=== PATIENT | male | born 1950 | race Caucasian/White ===

== ENCOUNTER 2019-11-08 17:06 | Emergency (ER) | payer OTHER, MEDICARE ==
[2019-11-08] MEDS ORDERED: methylPREDNISolone Sodium Succinate 125 MG/2 ML SDV IVPUSH ONE (17:11)
[2019-11-08] MEDS ORDERED: Albuterol/Ipratropium 3.0-0.5 MG/3 ML Neb Soln NEB ONE ×3 (17:11→17:40)
[2019-11-08] MEDS ORDERED: Albuterol/Ipratropium 3.0-0.5 MG/3 ML Neb Soln ONE (17:12)
[2019-11-08] MEDS ORDERED: methylPREDNISolone Sodium Succinate 125 MG/2 ML SDV ONE (17:12)
[2019-11-08] MEDS ORDERED: Magnesium Sulfate/Water 50 ML ONE (17:13)
[2019-11-08] MEDS ORDERED: Magnesium Sulfate/Water 2 GM in Premix Bag 1 BAG IV ONE (17:13)
[2019-11-08] MEDS ORDERED: Sodium Chloride 0.9% 2.5 ML Syringe FLUSH PRN (17:37)
[2019-11-08] MEDS ORDERED: Sodium Chloride 0.9% 10 ML Syringe FLUSH PRN (17:37)
--- NOTE | 2019-11-08 17:52 | EDM.PDOC ---
ED HPI GENERAL MEDICAL PROBLEM - General Chief Complaint: Respiratory Problem Stated Complaint: CHEST PAIN Time Seen by Provider: 11/08/19 17:48 Source of Information: Reports: Patient, Family History Limitations: Reports: Respiratory Distress - History of Present Illness INITIAL COMMENTS - FREE TEXT/NARRATIVE: Patient is a 69-year-old male with a past medical history of MS, COPD, CHF presenting with a chief complaint of shortness of breath. Per patient's , they were in my not earlier today for a dermatology appointment. On the ride home, the patient felt progressively more short of breath. Patient got to the point where he cannot leave the car because he is extremely short of breath. Patient did not do any intervention. Patient is on home oxygen and felt increasingly short of breath over this past week as well. Denies any chest pain at this time. Patient unable to catch her breath. Nothing makes symptoms better or worse. Patient denies any prior history of intubation. In addition to that documented in the HPI above, the additional ROS was obtained : Constitutional: Denies fevers or chills Eyes: Denies vision changes ENMT: Denies sore throat CV: Denies chest pain Resp: Per HPI GI: Denies vomiting or diarrhea : Denies painful urination MSK: Denies recent trauma Skin: Denies new rashes Neuro: Denies new numbness or tingling or weakness Endocrine: Denies unexpected weight loss Heme: Denies bleeding disorders I have reviewed the triage vital signs Const: Toxic and ashen in appearance, patient is cyanotic Eyes: PERRL, no conjunctival injection HENT: NCAT, Neck supple without meningismus CV: RRR, Warm, well-perfused extremities RESP: Respiratory distress, increased effort using accessory muscles with diffuse scattered wheezes GI: soft, non-tender, non-distended, no masses MSK: No gross deformities appreciated Skin: Warm, dry. No rashes Neuro: Alert, departmental buyer II-XII grossly intact. Sensation and motor function of extremities grossly intact. Psych: Appropriate mood and affect Assessment and plan: Patient is examined on male presenting with COPD exacerbation. Patient had diffuse wheeze on arrival initially tolerated BiPAP well but started to tire out and is ABG worsened. Patient required intubation for respiratory failure. Patient's labs are noted and were otherwise normal other than his worsening ABG. Intubation went without failure. Tube confirmed on chest x-ray. Will be transferred to [facility] for ICU level of care. Case discussed with Dr. Stallings who accepted the patient. Critical Care Procedure Note Authorized and Performed by: Dr. Judge Total critical care time: Approximately 45 minutes Due to a high probability of clinically significant, life threatening deterioration, the patient required my highest level of preparedness to intervene emergently and I personally spent this critical care time directly and personally managing the patient. This critical care time included obtaining a history; examining the patient; pulse oximetry; ordering and review of studies ; arranging urgent treatment with development of a management plan; evaluation of patient's response to treatment; frequent reassessment; and, discussions with other providers. This critical care time was performed to assess and manage the high probability of imminent, life-threatening deterioration that could result in multi-organ failure. It was exclusive of separately billable procedures and treating other patients and teaching time. Please see MDM section and the rest of the note for further information on patient assessment and treatment. - Related Data Allergies Allergy/AdvReac Type Severity Reaction Status Date / Time codeine Allergy Cannot Verified 11/08/19 17:58 Remember Home Meds: Home Meds . [Unable to Verify Home Med List] 11/08/19 [History] ED ROS GENERAL - Review of Systems Review Of Systems: See Below ED EXAM, GENERAL - Physical Exam Exam: See Below ED RESPIRATORY PROCEDURES - Endotracheal Intubation Time of Intubation: 18:35 ET Intubation Indication: Respiratory Failure Preparation: Suction, Balloon Tested, BVM Set Up, Difficult Airway Equip Pre-Oxygenation: Assisted with BVM, 100% FiO2 Anesthesia Meds: Etomidate, Rocuronium Placement: Orotracheal Cords Visualized: Yes ETT Size In mm: 8.0 Number of Attempts: 1 Confirmed By: CO2 Indicator, Bilateral Breath Sounds, Chest Xray Tube Secured By: By RT Course - Vital Signs Last Recorded V/S: Last Vital Signs Temp 35.8 C 11/08/19 17:12 Pulse 56 L 11/08/19 17:12 Resp 30 H 11/08/19 17:12 BP 127/81 11/08/19 17:12 Pulse Ox 50 L 11/08/19 17:12 - Orders/Labs/Meds Orders: Active Orders 24 hr Category Date Time Status RT Aerosol Therapy [RC] ASDIRECTED Care 11/08/19 17:11 Active RT Aerosol Therapy [RC] ASDIRECTED Care 11/08/19 17:39 Active RT Aerosol Therapy [RC] ASDIRECTED Care 11/08/19 17:40 Active Chest 1V Frontal [CR] Stat Exams 11/08/19 18:35 Taken Sodium Chloride 0.9% [Saline Flush] Med 11/08/19 17:37 Active 10 ml FLUSH ASDIRECTED PRN Sodium Chloride 0.9% [Saline Flush] Med 11/08/19 17:37 Active 2.5 ml FLUSH ASDIRECTED PRN Saline Lock Insert [OM.PC] Stat Oth 11/08/19 17:37 Ordered Medication Orders Sodium Chloride (Saline Flush) 10 ml FLUSH ASDIRECTED PRN PRN Reason: Keep Vein Open Sodium Chloride (Saline Flush) 2.5 ml FLUSH ASDIRECTED PRN PRN Reason: Keep Vein Open Labs: Laboratory Tests 11/08/19 11/08/19 11/08/19 Range/Units 17:13 17:13 17:13 WBC 7.49 (4.0-11.0) K/uL RBC 4.52 (4.50-5.90) M/uL Hgb 13.2 (13.0-17.0) g/dL Hct 41.3 (38.0-50.0) % MCV 91.4 (80.0-98.0) fL MCH 29.2 (27.0-32.0) pg MCHC 32.0 (31.0-37.0) g/dL RDW Std Deviation 61.4 (28.0-62.0) fl RDW Coeff of Dalton 18 H (11.0-15.0) % Plt Count 178 (150-400) K/uL MPV 9.60 (7.40-12.00) fL Neut % (Auto) 57.5 (48.0-80.0) % Lymph % (Auto) 23.9 (16.0-40.0) % Adams % (Auto) 16.4 H (0.0-15.0) % Eos % (Auto) 1.7 (0.0-7.0) % Baso % (Auto) 0.5 (0.0-1.5) % Neut # (Auto) 4.3 (1.4-5.7) K/uL Lymph # (Auto) 1.8 (0.6-2.4) K/uL Adams # (Auto) 1.2 H (0.0-0.8) K/uL Eos # (Auto) 0.1 (0.0-0.7) K/uL Baso # (Auto) 0.0 (0.0-0.1) K/uL Nucleated RBC % 0.0 /100WBC Nucleated RBCs # 0 K/uL ABG pH (7.35-7.45) ABG pCO2 (35-45) mmHG ABG pO2 (75-100) mmHG ABG HCO3 (22-26) mEq/L ABG Total CO2 ABG Base Excess (-2.0-2.0) VBG pH 7.32 (7.31-7.41) VBG pCO2 79 H (35-45) mmHG VBG pO2 27 L (30-40) mmHG VBG HCO3 40 H (22-30) mEq/L VBG Total CO2 38 L (41-51) mmol/L VBG Base Excess 10.9 H (-3.0-3.0) Lactate 3.0 H* (0.20-2.00) mmol/L Sodium (136-148) mmol/L Potassium (3.5-5.1) mmol/L Chloride (98-107) mmol/L Carbon Dioxide (21.0-32.0) mmol/L BUN (7.0-18.0) mg/dL Creatinine (0.8-1.3) mg/dL Est Cr Clr Drug Dosing Estimated GFR (MDRD) ml/min Glucose (74-106) mg/dL Calcium (8.5-10.1) mg/dL Total Bilirubin (0.2-1.0) mg/dL AST (15-37) IU/L ALT (14-63) IU/L Alkaline Phosphatase (46-116) U/L Troponin I (0.000-0.056) ng/mL B-Natriuretic Peptide (<100) PG/ML Total Protein (6.4-8.2) g/dL Albumin (3.4-5.0) g/dL Globulin (2.6-4.0) g/dL Albumin/Globulin Ratio (0.9-1.6) 11/08/19 11/08/19 11/08/19 Range/Units 17:13 17:13 18:02 WBC (4.0-11.0) K/uL RBC (4.50-5.90) M/uL Hgb (13.0-17.0) g/dL Hct (38.0-50.0) % MCV (80.0-98.0) fL MCH (27.0-32.0) pg MCHC (31.0-37.0) g/dL RDW Std Deviation (28.0-62.0) fl RDW Coeff of Dalton (11.0-15.0) % Plt Count (150-400) K/uL MPV (7.40-12.00) fL Neut % (Auto) (48.0-80.0) % Lymph % (Auto) (16.0-40.0) % Adams % (Auto) (0.0-15.0) % Eos % (Auto) (0.0-7.0) % Baso % (Auto) (0.0-1.5) % Neut # (Auto) (1.4-5.7) K/uL Lymph # (Auto) (0.6-2.4) K/uL Adams # (Auto) (0.0-0.8) K/uL Eos # (Auto) (0.0-0.7) K/uL Baso # (Auto) (0.0-0.1) K/uL Nucleated RBC % /100WBC Nucleated RBCs # K/uL ABG pH 7.265 L (7.35-7.45) ABG pCO2 94 H (35-45) mmHG ABG pO2 267 H (75-100) mmHG ABG HCO3 43 H (22-26) mEq/L ABG Total CO2 39.6 ABG Base Excess 11.7 H (-2.0-2.0) VBG pH (7.31-7.41) VBG pCO2 (35-45) mmHG VBG pO2 (30-40) mmHG VBG HCO3 (22-30) mEq/L VBG Total CO2 (41-51) mmol/L VBG Base Excess (-3.0-3.0) Lactate (0.20-2.00) mmol/L Sodium 137 (136-148) mmol/L Potassium 5.5 H (3.5-5.1) mmol/L Chloride 97 L (98-107) mmol/L Carbon Dioxide 37.4 H (21.0-32.0) mmol/L BUN 16 (7.0-18.0) mg/dL Creatinine 0.8 (0.8-1.3) mg/dL Est Cr Clr Drug Dosing TNP Estimated GFR (MDRD) > 60.0 ml/min Glucose 217 H (74-106) mg/dL Calcium 9.0 (8.5-10.1) mg/dL Total Bilirubin 0.4 (0.2-1.0) mg/dL AST 21 (15-37) IU/L ALT 26 (14-63) IU/L Alkaline Phosphatase 75 (46-116) U/L Troponin I < 0.050 (0.000-0.056) ng/mL B-Natriuretic Peptide 254 H (<100) PG/ML Total Protein 8.3 H (6.4-8.2) g/dL Albumin 3.5 (3.4-5.0) g/dL Globulin 4.8 H (2.6-4.0) g/dL Albumin/Globulin Ratio 0.7 L (0.9-1.6) Meds: Medications Generic Name Dose Route Start Last Admin Trade Name Freq PRN Reason Stop Dose Admin Sodium Chloride 10 ml 11/08/19 17:37 Saline Flush FLUSH ASDIRECTED PRN Keep Vein Open Sodium Chloride 2.5 ml 11/08/19 17:37 Saline Flush FLUSH ASDIRECTED PRN Keep Vein Open Discontinued Medications Generic Name Dose Route Start Last Admin Trade Name Freq PRN Reason Stop Dose Admin Albuterol/Ipratropium 3 ml 11/08/19 17:11 11/08/19 17:39 Duoneb 3.0-0.5 Mg/3 Ml NEB 11/08/19 17:12 3 ml ONETIME ONE Administration Albuterol/Ipratropium Confirm 11/08/19 17:12 11/08/19 17:39 Duoneb 3.0-0.5 Mg/3 Ml Administered 11/08/19 17:13 Not Given Dose 3 ml .ROUTE .STK-MED ONE Albuterol/Ipratropium 3 ml 11/08/19 17:39 11/08/19 17:40 Duoneb 3.0-0.5 Mg/3 Ml NEB 11/08/19 17:40 3 ml ONETIME ONE Administration Albuterol/Ipratropium 3 ml 11/08/19 17:40 11/08/19 17:46 Duoneb 3.0-0.5 Mg/3 Ml NEB 11/08/19 17:41 3 ml ONETIME ONE Administration Etomidate 30 mg 11/08/19 18:18 Amidate IVPUSH 11/08/19 18:19 ONETIME ONE Magnesium Sulfate 2 gm/ Premix 50 mls @ 50 mls/hr 11/08/19 17:13 11/08/19 17: 46 IV 11/08/19 18:12 50 mls/hr ONETIME ONE Administration Magnesium Sulfate Confirm 11/08/19 17:13 11/08/19 17:39 Magnesium Sulfate In Water Premix Administered 11/08/19 17:14 Not Given Dose 50 mls @ as directed .ROUTE .STK-MED ONE Propofol Confirm 11/08/19 18:19 Diprivan 100 Ml Administered 11/08/19 18:20 Dose 100 mls @ as directed .ROUTE .STK-MED ONE Methylprednisolone Sodium Succinate 125 mg 11/08/19 17:11 11/08/19 17:46 Solu-Medrol IVPUSH 11/08/19 17:12 125 mg ONETIME ONE Administration Methylprednisolone Sodium Succinate Confirm 11/08/19 17:12 11/08/19 17:39 Solu-Medrol Administered 11/08/19 17:13 Not Given Dose 125 mg .ROUTE .STK-MED ONE Rocuronium [place] 60 mg 11/08/19 18:18 Zemuron IVPUSH 11/08/19 18:19 ONETIME ONE Departure - Departure Time of Disposition: 19:04 Disposition: DC/Tfer to Other 70 Preliminary Cause of *Q: Respiratory Failure Clinical Impression: COPD (chronic obstructive pulmonary disease) - Discharge Information Referrals: PCP,None [Primary Care Provider] - Forms: ED Department Discharge Sepsis Event Note - Focused Exam Vital Signs: Vital Signs Temp Pulse Resp BP Pulse Ox 11/08/19 17:12 35.8 C 56 L 30 H 127/81 50 L Date Exam was Performed: 11/08/19 Time Exam was Performed: 19:07 - My Orders Last 24 Hours: My Active Orders 11/08/19 17:11 RT Aerosol Therapy [RC] ASDIRECTED 11/08/19 17:37 Sodium Chloride 0.9% [Saline Flush] 10 ml FLUSH ASDIRECTED PRN Sodium Chloride 0.9% [Saline Flush] 2.5 ml FLUSH ASDIRECTED PRN Saline Lock Insert [OM.PC] Stat 11/08/19 17:39 RT Aerosol Therapy [RC] ASDIRECTED 11/08/19 17:40 RT Aerosol Therapy [RC] ASDIRECTED 11/08/19 18:35 Chest 1V Frontal [CR] Stat - Assessment/Plan Last 24 Hours: My Active Orders 11/08/19 17:11 RT Aerosol Therapy [RC] ASDIRECTED 11/08/19 17:37 Sodium Chloride 0.9% [Saline Flush] 10 ml FLUSH ASDIRECTED PRN Sodium Chloride 0.9% [Saline Flush] 2.5 ml FLUSH ASDIRECTED PRN Saline Lock Insert [OM.PC] Stat 11/08/19 17:39 RT Aerosol Therapy [RC] ASDIRECTED 11/08/19 17:40 RT Aerosol Therapy [RC] ASDIRECTED 11/08/19 18:35 Chest 1V Frontal [CR] Stat
--- NOTE | 2019-11-08 17:57 | CR ---
Chest: Portable view of the chest was obtained. Comparison: No previous chest x-ray. Right lung appears more lucent than the left lung. Findings may represent unilateral emphysematous change. Increased lung markings on the left side could represent mild pulmonary vascular redistribution. No acute parenchymal process is otherwise seen. Heart size at the upper limits of normal. Tortuous thoracic aorta is noted. Impression: 1. Findings as noted above. If patient has sufficient symptoms to warrant further imaging, noncontrast chest CT could be obtained to confirm the above impression. Diagnostic code #3 Study was dictated in [place] Standard Time
[2019-11-08 17:58] LABS: BLOOD UREA NITROGEN,BUN 16 mg/dL (7.0-18.0); CARBON DIOXIDE,CO2 37.4 mmol/L (21.0-32.0); CHLORIDE,CL 97 mmol/L (98-107); GLUCOSE RANDOM 217 mg/dL (74-106); POTASSIUM,K 5.5 mmol/L (3.5-5.1); SODIUM,NA 137 mmol/L (136-148)
[2019-11-08] MEDS ORDERED: Rocuronium 50 MG/5 ML Vial IVPUSH ONE (18:18)
[2019-11-08] MEDS ORDERED: Etomidate 2 MG/ML 20 ML SDV IVPUSH ONE (18:18)
[2019-11-08] MEDS ORDERED: propofoL 100 ML ONE (18:19)
[2019-11-08] MEDS ORDERED: Sodium Chloride 0.9% 1,000 ML IV ONE (18:30)
[2019-11-08] MEDS ORDERED: propofoL 100 ML IV SCH (18:30)
--- NOTE | 2019-11-08 19:13 | CR ---
Indication: Intubation Technique: Chest 1 view Comparison: None Findings/Impression: Endotracheal tube tip terminates 3.6 cm above the level of the gerry. A gastric drainage tube tip is coiled at the level of the mid esophagus. Normal cardiomediastinal silhouette. Dual lead left-sided AICD. Lungs and pleural spaces are clear. Dictated by Ester Gordillo MD @ Nov 08 2019 7:12PM Signed by Dr. Ester Gordillo @ Nov 08 2019 7:12PM
== END 2019-11-08 19:06 | disposition other institution (70) ==
LOC: MW.ED 17:06
DX: J44.1 Chronic obstructive pulmonary disease with (acute) exacerbation (principal); I50.9 Heart failure, unspecified; Z99.81 Dependence on supplemental oxygen; Z88.5 Allergy status to narcotic agent
CPT/HCPCS: 31500; 36600; 51702; 71045; 80053; 82803; 83605; 83880; 84484; 85025; 93005; 94640; 96365; 96375; 99291; 99292; J2704; J2930; J3475; J3490; J7030; J7620-GY

== ENCOUNTER 2020-04-25 07:31 | Emergency (ER) | payer MEDICARE, OTHER ==
--- NOTE | 2020-04-25 07:36 | EDM.PDOC ---
ED HPI GENERAL MEDICAL PROBLEM - General Stated Complaint: TROUBLE URINATING Time Seen by Provider: 04/25/20 07:34 Source of Information: Reports: Patient - History of Present Illness INITIAL COMMENTS - FREE TEXT/NARRATIVE: 69-year-old male with multiple medical problems most notable for COPD on continuous home oxygen as well as CAD. He is presenting with constant gradually worsening severe lower abdominal discomfort radiating to the bilateral flanks. Patient reports he has not urinated in 8 days. He reports a history of difficulty urinating with weak stream etc. This is been going on for years. He was at a hospital in [place] a little over a week ago for a coronary angiogram. Reports that during that time he did have acute urinary retention. They did an in and out catheterization with a little over a liter in his bladder at that time. He reports he was not discharged with a catheter in place. Symptoms are constant gradually worsening no exacerbating or alleviating factors and no other associated symptoms denies fevers. Penis Pain Score (Numeric/FACES): 8 - Related Data Allergies Allergy/AdvReac Type Severity Reaction Status Date / Time codeine Allergy Cannot Verified 11/08/19 17:58 Remember Home Meds: Home Meds . [Unable to Verify Home Med List] 11/08/19 [History] Past Medical History Cardiovascular History: Reports: Heart Failure, Pacemaker Respiratory History: Reports: COPD, Other (See Below) Other Respiratory History: Home O2 as of Jul 2019 Other Musculoskeletal History: Unsteady Gait per Neurological History: Reports: MS - Infectious Disease History Infectious Disease History: Reports: Chicken Pox, Measles Social & Family History - Family History Family Medical History: Noncontributory ED ROS GENERAL - Review of Systems Review Of Systems: See Below Free Text/Narrative/Comment: General: No fever. Respiratory: No shortness of breath. Cardiac: No chest pain. Gastrointestinal: No nausea, vomiting or abdominal pain. Urinary: Per HPI Musculoskeletal: No myalgias/arthralgias. Neurologic: No headache. ED EXAM, GENERAL - Physical Exam Exam: See Below Free Text/Narrative:: General Appearance: No acute distress, appears comfortable Skin: No rash HEENT: Normocephalic/atraumatic, sclera anicteric, mucous membranes moist Neck: Normal range of motion Chest and Lungs: Distant breath sounds throughout Cardiovascular: Regular rate and rhythm, no murmur Abdomen: Soft, suprapubic and generalized lower abdominal fullness and tenderness Back: Normal Musculoskeletal: No edema or tenderness Neurologic: Awake, alert, no obvious deficits, moving all extremities Psychiatric: Appropriate, cooperative Course - Vital Signs Last Recorded V/S: Last Vital Signs Temp 98.0 F 04/25/20 07:42 Pulse 67 04/25/20 07:42 Resp 22 H 04/25/20 07:42 BP 100/60 04/25/20 07:42 Pulse Ox 99 04/25/20 07:42 - Orders/Labs/Meds Orders: Active Orders 24 hr Category Date Time Status Insert Perkins Catheter [Insert Urinary Catheter] [OM.PC] Care 04/25/20 08:00 Ordered Q24H Urinary Catheter Assessment [RC] ASDIRECTED Care 04/25/20 07:50 Active Labs: Laboratory Tests 04/25/20 04/25/20 04/25/20 Range/Units 07:55 07:55 08:29 WBC 16.92 H (4.0-11.0) K/uL RBC 4.27 L (4.50-5.90) M/uL Hgb 11.9 L (13.0-17.0) g/dL Hct 38.4 (38.0-50.0) % MCV 89.9 (80.0-98.0) fL MCH 27.9 (27.0-32.0) pg MCHC 31.0 (31.0-37.0) g/dL RDW Std Deviation 56.4 (28.0-62.0) fl RDW Coeff of Dalton 17 H (11.0-15.0) % Plt Count 213 (150-400) K/uL MPV 9.40 (7.40-12.00) fL Add Manual Diff YES Neutrophils % (Manual) 75 (48.0-80.0) % Band Neutrophils % 5 % Lymphocytes % (Manual) 11 L (16.0-40.0) % Monocytes % (Manual) 9 (0.0-15.0) % Nucleated RBC % 0.0 /100WBC Absolute Seg Neuts 12.7 H (1.4-5.7) Band Neutrophils # 0.8 Lymphocytes # (Manual) 1.9 (0.6-2.4) Monocytes # (Manual) 1.5 H (0.0-0.8) Nucleated RBCs # 0 K/uL Sodium 137 (136-148) mmol/L Potassium 4.1 (3.5-5.1) mmol/L Chloride 94 L (98-107) mmol/L Carbon Dioxide 42.3 H (21.0-32.0) mmol/L BUN 19 H (7.0-18.0) mg/dL Creatinine 0.8 (0.8-1.3) mg/dL Est Cr Clr Drug Dosing TNP Estimated GFR (MDRD) > 60.0 ml/min Glucose 124 H (74-106) mg/dL Calcium 9.5 (8.5-10.1) mg/dL Urine Color YELLOW Urine Appearance CLEAR Urine pH 7.0 (5.0-8.0) Ur Specific [place] 1.015 (1.001-1.035) Urine Protein NEGATIVE (NEGATIVE) mg/dL Urine Glucose (UA) NEGATIVE (NEGATIVE) mg/dL Urine Ketones NEGATIVE (NEGATIVE) mg/dL Urine Occult Blood NEGATIVE (NEGATIVE) Urine Nitrite NEGATIVE (NEGATIVE) Urine Bilirubin NEGATIVE (NEGATIVE) Urine Urobilinogen 2.0 H (<2.0) EU/dL Ur Leukocyte Esterase TRACE H (NEGATIVE) Urine RBC RARE (0-2/HPF) Urine WBC 4-6 (0-5/HPF) Ur Epithelial Cells RARE (NONE-FEW) Urine Bacteria RARE (NEGATIVE) Urine Mucus LIGHT (NONE-MOD) Urine Sperm FEW (NEGATIVE) Departure - Departure Time of Disposition: 08:56 Disposition: Home, Self-Care 01 Condition: Good Clinical Impression: Acute urinary retention - Discharge Information *PRESCRIPTION DRUG MONITORING PROGRAM REVIEWED*: Not Applicable *COPY OF PRESCRIPTION DRUG MONITORING REPORT IN PATIENT INES: Not Applicable Instructions: Indwelling Urinary Catheter Care, Adult, Acute Urinary Retention, Male Referrals: [facility] [Primary Care Provider] - Additional Instructions: Be sure to [facility] as scheduled. The following information is given to patients seen in the emergency department who are being discharged to home. This information is to outline your options for follow-up care. We provide all patients seen in our emergency department with a follow-up referral. The need for follow-up, as well as the timing and circumstances, are variable depending upon the specifics of your emergency department visit. If you don't have a primary care physician on staff, we will provide you with a referral. We always advise you to contact your personal physician following an emergency department visit to inform them of the circumstance of the visit and for follow-up with them and/or the need for any referrals to a consulting specialist. The emergency department will also refer you to a specialist when appropriate. This referral assures that you have the opportunity for follow-up care with a specialist. All of these measure are taken in an effort to provide you with optimal care, which includes your follow-up. Under all circumstances we always encourage you to contact your private physician who remains a resource for coordinating your care. When calling for follow-up care, please make the office aware that this follow-up is from your recent emergency room visit. If for any reason you are refused follow-up, please contact the [facility] Emergency Department at and asked to speak to the emergency department charge nurse. Sepsis Event Note (ED) - Focused Exam Vital Signs: Vital Signs Temp Pulse Resp BP Pulse Ox 04/25/20 07:42 98.0 F 67 22 H 100/60 99 - My Orders Last 24 Hours: My Active Orders 04/25/20 07:50 Urinary Catheter Assessment [RC] ASDIRECTED 04/25/20 08:00 Insert Perkins Catheter [Insert Urinary Catheter] [OM.PC] Q24H - Assessment/Plan Last 24 Hours: My Active Orders 04/25/20 07:50 Urinary Catheter Assessment [RC] ASDIRECTED 04/25/20 08:00 Insert Perkins Catheter [Insert Urinary Catheter] [OM.PC] Q24H Assessment:: 69-year-old male presenting with signs and symptoms that are most consistent with acute urinary retention. Perkins catheter will be placed. CBC, BMP, urinalysis to exclude urinary tract infection and to evaluate for any significant JUAN M. Other potential etiologies considered including appendicitis diverticulitis etc. But there is no GI symptoms associated with this. His clinical history and exam are consistent with acute urinary retention. Bladder spasm would be a consideration as well. However the lack of urine output would seem to make this less likely. Will reassess after Perkins catheter placement. Pt with 1200ml immediate output on perkins insertion. 0900: Minimal leukocytosis likely reactive. No fevers symptoms resolved with Perkins placement urinalysis is good kidney function is good electrolytes are good. Return precautions discussed and understood patient discharged with a leg bag he already has [facility] days.
[2020-04-25 08:21] LABS: BLOOD UREA NITROGEN,BUN 19 mg/dL (7.0-18.0); CARBON DIOXIDE,CO2 42.3 mmol/L (21.0-32.0); CHLORIDE,CL 94 mmol/L (98-107); GLUCOSE RANDOM 124 mg/dL (74-106); POTASSIUM,K 4.1 mmol/L (3.5-5.1); SODIUM,NA 137 mmol/L (136-148)
== END 2020-04-25 09:20 | disposition home or self-care (01) ==
LOC: MW.ED 07:31
DX: R33.9 Retention of urine, unspecified (principal); I50.9 Heart failure, unspecified; J44.9 Chronic obstructive pulmonary disease, unspecified; I25.10 Atherosclerotic heart disease of native coronary artery without angina pectoris; Z99.81 Dependence on supplemental oxygen; Z88.5 Allergy status to narcotic agent
CPT/HCPCS: 36415; 51702; 51798; 80048; 81001; 85025; 99284

== ENCOUNTER 2020-05-14 11:06 | Observation (INO) | payer MEDICARE, OTHER ==
[2020-05-14] MEDS ORDERED: Albuterol/Ipratropium 3.0-0.5 MG/3 ML Neb Soln ONE (11:10)
[2020-05-14] MEDS ORDERED: Albuterol/Ipratropium 3.0-0.5 MG/3 ML Neb Soln NEB ONE (11:12)
[2020-05-14] MEDS ORDERED: Sodium Chloride 0.9% 10 ML Syringe FLUSH PRN (11:15)
[2020-05-14] MEDS ORDERED: methylPREDNISolone Sodium Succinate 125 MG/2 ML SDV IVPUSH ONE (11:15)
[2020-05-14] MEDS ORDERED: Sodium Chloride 0.9% 2.5 ML Syringe FLUSH PRN (11:15)
--- NOTE | 2020-05-14 11:30 | EDM.PDOC ---
ED HPI GENERAL MEDICAL PROBLEM - General Chief Complaint: Respiratory Problem Stated Complaint: SOB Time Seen by Provider: 05/14/20 11:14 Source of Information: Reports: Patient, EMS History Limitations: Reports: No Limitations - History of Present Illness INITIAL COMMENTS - FREE TEXT/NARRATIVE: 69-year-old male with history of COPD, CHF presents with dyspnea that started yesterday. EMS was called and when they arrived on scene he was satting in the 50s on 5L home O2. After getting albuterol treatment he improved to 90%. He denies chest pain, cough, palpitation, abdominal pain. ROS: A 10-point review of systems, other than pertinent positives and negatives as stated per HPI, is otherwise negative PHYSICAL EXAM General: AOx4, GCS = 15, No distress HEENT: dry mucous membrane Neck: supple, no meningismus, no Kernig or Brudzinski Cardiac: S1S2 RRR, no JVD, no pedal edema Respiratory: Diminished breath sounds bilaterally, no crackles or rales Abdomen: Soft, nontender, no rebound or guarding, nondistended, no pulsatile mass. Back: nontender Musculoskeletal: NVI distally, no deformity Neuro: No focal deficits - Related Data Allergies Allergy/AdvReac Type Severity Reaction Status Date / Time codeine Allergy Cannot Verified 05/14/20 11:15 Remember Home Meds: Home Meds Albuterol Sulfate [Albuterol Sulfate Hfa] 2 puff INH Q4H PRN 05/14/20 [History] Albuterol/Ipratropium [DuoNeb 3.0-0.5 MG/3 ML] 3 ml INH Q6H PRN 05/14/20 [History] Cholecalciferol (Vitamin D3) [Vitamin D3] 2,000 unit PO DAILY 05/14/20 [History] Furosemide 0 mg PO ASDIRECTED 05/14/20 [History] Ibuprofen 200 mg PO Q6H PRN 05/14/20 [History] Levothyroxine 150 mcg PO ACBREAKFAST 05/14/20 [History] Modafinil [Provigil] 500 mg PO DAILY 05/14/20 [History] Omeprazole 20 mg PO ACBREAKFAST 05/14/20 [History] Pregabalin 100 mg PO DAILY 05/14/20 [History] carvediloL [Carvedilol] 25 mg PO BID 05/14/20 [History] Past Medical History HEENT History: Reports: Cataract Cardiovascular History: Reports: Heart Failure, Pacemaker Respiratory History: Reports: COPD, Other (See Below) Other Respiratory History: Home O2 as of Jul 2019 Gastrointestinal History: Reports: None Genitourinary History: Reports: BPH Musculoskeletal History: Reports: Other (See Below) Other Musculoskeletal History: Unsteady Gait per Neurological History: Reports: MS Psychiatric History: Reports: None Endocrine/Metabolic History: Reports: None Hematologic History: Reports: None Immunologic History: Reports: None Oncologic (Cancer) History: Reports: None Dermatologic History: Reports: None - Infectious Disease History Infectious Disease History: Reports: Chicken Pox, Measles, Mumps - Past Surgical History Head Surgeries/Procedures: Reports: None HEENT Surgical History: Reports: Cataract Surgery Cardiovascular Surgical History: Reports: Pacer Respiratory Surgical History: Reports: None GI Surgical History: Reports: None Male Surgical History: Reports: None Endocrine Surgical History: Reports: None Neurological Surgical History: Reports: None Musculoskeletal Surgical History: Reports: None Oncologic Surgical History: Reports: None Dermatological Surgical History: Reports: None Social & Family History - Family History Family Medical History: Noncontributory - Tobacco Use Smoking Status *Q: Current Every Day Smoker Years of Tobacco use: 49 Packs/Tins Daily: 0.5 - Caffeine Use Caffeine Use: Reports: None - Recreational Drug Use Recreational Drug Use: No ED ROS GENERAL - Review of Systems Review Of Systems: Comprehensive ROS is negative, except as noted in HPI. ED EXAM, GENERAL - Physical Exam Exam: See Below (see dictation) EKG INTERPRETATION EKG Interpretation Comments: 69 Bpm, NSR, normal QRS interval, TW inversion on II,III, AVF, no STEMI. EKG and rhythm strip interpreted by me at 1122 Course - Vital Signs Last Recorded V/S: Last Vital Signs Temp 97.8 F 05/14/20 15:01 Pulse 85 05/14/20 16:01 Resp 16 05/14/20 16:01 BP 93/64 05/14/20 16:01 Pulse Ox 93 L 05/14/20 16:01 - Orders/Labs/Meds Orders: Active Orders 24 hr Category Date Time Status Cardiac Monitoring [RC] . DIRECTED Care 05/14/20 11:15 Active EKG Documentation Completion [RC] STAT Care 05/14/20 11:16 Active Pulse Oximetry [RC] ASDIRECTED Care 05/14/20 11:15 Active RT Aerosol Therapy [RC] ASDIRECTED Care 05/14/20 11:12 Active CULTURE BLOOD [BC] Stat Lab 05/14/20 11:10 Received CULTURE BLOOD [BC] Stat Lab 05/14/20 12:30 Results PROCALCITONIN [REF] Stat Lab 05/14/20 11:10 Received Sodium Chloride 0.9% [Saline Flush] Med 05/14/20 11:15 Active 10 ml FLUSH ASDIRECTED PRN Sodium Chloride 0.9% [Saline Flush] Med 05/14/20 11:15 Active 2.5 ml FLUSH ASDIRECTED PRN Blood Culture x2 Reflex Set [OM.PC] Stat Oth 05/14/20 11:16 Ordered Saline Lock Insert [OM.PC] Stat Oth 05/14/20 11:15 Ordered Medication Orders Sodium Chloride (Saline Flush) 10 ml FLUSH ASDIRECTED PRN PRN Reason: Keep Vein Open Last Admin: 05/14/20 11:22 Dose: 10 ml Documented by: HILLARY Sodium Chloride (Saline Flush) 2.5 ml FLUSH ASDIRECTED PRN PRN Reason: Keep Vein Open Last Admin: 05/14/20 11:22 Dose: 2.5 ml Documented by: HILLARY Labs: Laboratory Tests 05/14/20 05/14/20 05/14/20 Range/Units 11:10 11:10 11:10 WBC 6.17 (4.0-11.0) K/uL RBC 4.33 L (4.50-5.90) M/uL Hgb 12.1 L (13.0-17.0) g/dL Hct 41.5 (38.0-50.0) % MCV 95.8 (80.0-98.0) fL MCH 27.9 (27.0-32.0) pg MCHC 29.2 L (31.0-37.0) g/dL RDW Std Deviation 61.5 (28.0-62.0) fl RDW Coeff of Dalton 17 H (11.0-15.0) % Plt Count 216 (150-400) K/uL MPV 10.30 (7.40-12.00) fL Neut % (Auto) 51.5 (48.0-80.0) % Lymph % (Auto) 27.9 (16.0-40.0) % Stearns % (Auto) 19.0 H (0.0-15.0) % Eos % (Auto) 0.8 (0.0-7.0) % Baso % (Auto) 0.8 (0.0-1.5) % Neut # (Auto) 3.2 (1.4-5.7) K/uL Lymph # (Auto) 1.7 (0.6-2.4) K/uL Stearns # (Auto) 1.2 H (0.0-0.8) K/uL Eos # (Auto) 0.1 (0.0-0.7) K/uL Baso # (Auto) 0.1 (0.0-0.1) K/uL Nucleated RBC % 0.0 /100WBC Nucleated RBCs # 0 K/uL ESR (0-19) mm/hr INR 0.97 APTT 25.2 (18.6-31.3) SEC D-Dimer, Quantitative 1.97 H (0.0-0.50) mg/L FEU ABG pH (7.35-7.45) ABG pCO2 (35-45) mmHG ABG pO2 (75-100) mmHG ABG HCO3 (22-26) mEq/L ABG Total CO2 ABG Base Excess (-2.0-2.0) Lactate (0.20-2.00) mmol/L Sodium 139 (136-148) mmol/L Potassium 5.2 H (3.5-5.1) mmol/L Chloride 97 L (98-107) mmol/L Carbon Dioxide 40.5 H (21.0-32.0) mmol/L BUN 9 (7.0-18.0) mg/dL Creatinine 0.8 (0.8-1.3) mg/dL Est Cr Clr Drug Dosing 80.48 mL/min Estimated GFR (MDRD) > 60.0 ml/min Glucose 119 H (74-106) mg/dL Calcium 8.9 (8.5-10.1) mg/dL Phosphorus 5.1 H (2.6-4.7) mg/dL Magnesium 2.2 (1.8-2.4) mg/dL Total Bilirubin 0.4 (0.2-1.0) mg/dL AST 24 (15-37) IU/L ALT 27 (14-63) IU/L Alkaline Phosphatase 79 (46-116) U/L Troponin I < 0.050 (0.000-0.056) ng/mL C-Reactive Protein 0.30 (0.00-0.90) mg/dL B-Natriuretic Peptide (<100) PG/ML Total Protein 8.5 H (6.4-8.2) g/dL Albumin 3.3 L (3.4-5.0) g/dL Globulin 5.2 H (2.6-4.0) g/dL Albumin/Globulin Ratio 0.6 L (0.9-1.6) COVID-19 ([facility]) (NEGATIVE) 05/14/20 05/14/20 05/14/20 Range/Units 11:10 11:30 12:00 WBC (4.0-11.0) K/uL RBC (4.50-5.90) M/uL Hgb (13.0-17.0) g/dL Hct (38.0-50.0) % MCV (80.0-98.0) fL MCH (27.0-32.0) pg MCHC (31.0-37.0) g/dL RDW Std Deviation (28.0-62.0) fl RDW Coeff of Dalton (11.0-15.0) % Plt Count (150-400) K/uL MPV (7.40-12.00) fL Neut % (Auto) (48.0-80.0) % Lymph % (Auto) (16.0-40.0) % Stearns % (Auto) (0.0-15.0) % Eos % (Auto) (0.0-7.0) % Baso % (Auto) (0.0-1.5) % Neut # (Auto) (1.4-5.7) K/uL Lymph # (Auto) (0.6-2.4) K/uL Stearns # (Auto) (0.0-0.8) K/uL Eos # (Auto) (0.0-0.7) K/uL Baso # (Auto) (0.0-0.1) K/uL Nucleated RBC % /100WBC Nucleated RBCs # K/uL ESR 5 (0-19) mm/hr INR APTT (18.6-31.3) SEC D-Dimer, Quantitative (0.0-0.50) mg/L FEU ABG pH (7.35-7.45) ABG pCO2 (35-45) mmHG ABG pO2 (75-100) mmHG ABG HCO3 (22-26) mEq/L ABG Total CO2 ABG Base Excess (-2.0-2.0) Lactate (0.20-2.00) mmol/L Sodium (136-148) mmol/L Potassium (3.5-5.1) mmol/L Chloride (98-107) mmol/L Carbon Dioxide (21.0-32.0) mmol/L BUN (7.0-18.0) mg/dL Creatinine (0.8-1.3) mg/dL Est Cr Clr Drug Dosing mL/min Estimated GFR (MDRD) ml/min Glucose (74-106) mg/dL Calcium (8.5-10.1) mg/dL Phosphorus (2.6-4.7) mg/dL Magnesium (1.8-2.4) mg/dL Total Bilirubin (0.2-1.0) mg/dL AST (15-37) IU/L ALT (14-63) IU/L Alkaline Phosphatase (46-116) U/L Troponin I (0.000-0.056) ng/mL C-Reactive Protein (0.00-0.90) mg/dL B-Natriuretic Peptide 250 H (<100) PG/ML Total Protein (6.4-8.2) g/dL Albumin (3.4-5.0) g/dL Globulin (2.6-4.0) g/dL Albumin/Globulin Ratio (0.9-1.6) COVID-19 ([facility]) NEGATIVE (NEGATIVE) 05/14/20 05/14/20 05/14/20 Range/Units 12:00 13:37 16:03 WBC (4.0-11.0) K/uL RBC (4.50-5.90) M/uL Hgb (13.0-17.0) g/dL Hct (38.0-50.0) % MCV (80.0-98.0) fL MCH (27.0-32.0) pg MCHC (31.0-37.0) g/dL RDW Std Deviation (28.0-62.0) fl RDW Coeff of Daltno (11.0-15.0) % Plt Count (150-400) K/uL MPV (7.40-12.00) fL Neut % (Auto) (48.0-80.0) % Lymph % (Auto) (16.0-40.0) % Stearns % (Auto) (0.0-15.0) % Eos % (Auto) (0.0-7.0) % Baso % (Auto) (0.0-1.5) % Neut # (Auto) (1.4-5.7) K/uL Lymph # (Auto) (0.6-2.4) K/uL Stearns # (Auto) (0.0-0.8) K/uL Eos # (Auto) (0.0-0.7) K/uL Baso # (Auto) (0.0-0.1) K/uL Nucleated RBC % /100WBC Nucleated RBCs # K/uL ESR (0-19) mm/hr INR APTT (18.6-31.3) SEC D-Dimer, Quantitative (0.0-0.50) mg/L FEU ABG pH 7.328 L 7.356 (7.35-7.45) ABG pCO2 86 H 79 H (35-45) mmHG ABG pO2 62 L 58 L (75-100) mmHG ABG HCO3 45 H 44 H (22-26) mEq/L ABG Total CO2 42.2 41.1 ABG Base Excess 15.7 H 15.4 H (-2.0-2.0) Lactate 2.3 H* (0.20-2.00) mmol/L Sodium (136-148) mmol/L Potassium (3.5-5.1) mmol/L Chloride (98-107) mmol/L Carbon Dioxide (21.0-32.0) mmol/L BUN (7.0-18.0) mg/dL Creatinine (0.8-1.3) mg/dL Est Cr Clr Drug Dosing mL/min Estimated GFR (MDRD) ml/min Glucose (74-106) mg/dL Calcium (8.5-10.1) mg/dL Phosphorus (2.6-4.7) mg/dL Magnesium (1.8-2.4) mg/dL Total Bilirubin (0.2-1.0) mg/dL AST (15-37) IU/L ALT (14-63) IU/L Alkaline Phosphatase (46-116) U/L Troponin I (0.000-0.056) ng/mL C-Reactive Protein (0.00-0.90) mg/dL B-Natriuretic Peptide (<100) PG/ML Total Protein (6.4-8.2) g/dL Albumin (3.4-5.0) g/dL Globulin (2.6-4.0) g/dL Albumin/Globulin Ratio (0.9-1.6) COVID-19 ([facility]) (NEGATIVE) Meds: Medications Generic Name Dose Route Start Last Admin Trade Name Freq PRN Reason Stop Dose Admin Sodium Chloride 10 ml 05/14/20 11:15 05/14/20 11:22 Saline Flush FLUSH 10 ml ASDIRECTED PRN Administration Keep Vein Open Sodium Chloride 2.5 ml 05/14/20 11:15 05/14/20 11:22 Saline Flush FLUSH 2.5 ml ASDIRECTED PRN Administration Keep Vein Open Discontinued Medications Generic Name Dose Route Start Last Admin Trade Name Freq PRN Reason Stop Dose Admin Albuterol/Ipratropium Confirm 05/14/20 11:10 05/14/20 11:12 Duoneb 3.0-0.5 Mg/3 Ml Administered 05/14/20 11:11 Not Given Dose 3 ml .ROUTE .STK-MED ONE Albuterol/Ipratropium 3 ml 05/14/20 11:12 05/14/20 11:13 Duoneb 3.0-0.5 Mg/3 Ml NEB 05/14/20 11:13 3 ml ONETIME ONE Administration Methylprednisolone Sodium Succinate 125 mg 05/14/20 11:15 05/14/20 11:22 Solu-Medrol IVPUSH 05/14/20 11:16 125 mg ONETIME ONE Administration - Re-Assessments/Exams Free Text/Narrative Re-Assessment/Exam: 05/14/20 15:55 We will repeat ABG on 5 L nasal cannula to trend PCO2 and PO2. 05/14/20 16:[address] Gill, who agrees to admit patient. The hospitalist's documentation supersedes all other documentation on this patient with regard to any conflicts or discrepancies from this point forward. Any emergency conditions have been treated to the ability of the ED prior to admission. Departure - Departure Time of Disposition: 15:56 Disposition: Admitted As Inpatient 68 Condition: Good Clinical Impression: COPD (chronic obstructive pulmonary disease), Acute hypercapnic respiratory failure, Hypoxemia - Discharge Information *PRESCRIPTION DRUG MONITORING PROGRAM REVIEWED*: Not Applicable *COPY OF PRESCRIPTION DRUG MONITORING REPORT IN PATIENT INES: Not Applicable Referrals: PCP,None [Primary Care Provider] - Forms: ED Department Discharge Critical Care Note - Critical Care Note Total Time (mins): 46 Comments: Critical Care: The high probability of sudden, clinically significant deterioration in the patient's condition required the highest level of my preparedness to intervene urgently. The services I provided to this patient were to treat and/or prevent clinically significant deterioration. Services included the following: chart data review, reviewing nursing notes and/or old charts, documentation time, ruby on rails consultant collaboration regarding findings and treatment options, medication orders and management, direct patient care, vital sign assessments and ordering, interpreting and reviewing diagnostic studies/lab tests. Aggregate critical care time includes only time during which I was engaged in work directly related to the patient's care, as described above, whether at the bedside or elsewhere in the Emergency Department. It did not include time spent performing other reported procedures or the services of residents, students, nurses or physician assistants. Frequent interventions and/or frequent repeat evaluations were required as well as counseling and coordination of care regarding prognosis, treatments, and discussions with patient, staff and consultants. Critical Care (excluding other procedures): 46 minutes Sepsis Event Note (ED) - Evaluation Sepsis Screening Result: No Definite Risk - Focused Exam Vital Signs: Vital Signs Temp Temp Pulse Resp BP Pulse Ox 05/14/20 16:01 85 16 93/64 93 L 05/14/20 15:01 99.1 F 97.8 F 72 15 96/61 92 L 05/14/20 13:06 68 15 98/60 94 L 05/14/20 12:05 66 18 99/61 99 05/14/20 11:09 97.0 F 70 16 121/66 100 - My Orders Last 24 Hours: My Active Orders 05/14/20 11:10 CULTURE BLOOD [BC] Stat PROCALCITONIN [REF] Stat 05/14/20 11:12 RT Aerosol Therapy [RC] ASDIRECTED 05/14/20 11:15 Cardiac Monitoring [RC] . DIRECTED Pulse Oximetry [RC] ASDIRECTED Sodium Chloride 0.9% [Saline Flush] 10 ml FLUSH ASDIRECTED PRN Sodium Chloride 0.9% [Saline Flush] 2.5 ml FLUSH ASDIRECTED PRN Saline Lock Insert [OM.PC] Stat 05/14/20 11:16 EKG Documentation Completion [RC] STAT Blood Culture x2 Reflex Set [OM.PC] Stat 05/14/20 12:30 CULTURE BLOOD [BC] Stat - Assessment/Plan Last 24 Hours: My Active Orders 05/14/20 11:10 CULTURE BLOOD [BC] Stat PROCALCITONIN [REF] Stat 05/14/20 11:12 RT Aerosol Therapy [RC] ASDIRECTED 05/14/20 11:15 Cardiac Monitoring [RC] . DIRECTED Pulse Oximetry [RC] ASDIRECTED Sodium Chloride 0.9% [Saline Flush] 10 ml FLUSH ASDIRECTED PRN Sodium Chloride 0.9% [Saline Flush] 2.5 ml FLUSH ASDIRECTED PRN Saline Lock Insert [OM.PC] Stat 05/14/20 11:16 EKG Documentation Completion [RC] STAT Blood Culture x2 Reflex Set [OM.PC] Stat 05/14/20 12:30 CULTURE BLOOD [BC] Stat
[2020-05-14 11:59] LABS: BLOOD UREA NITROGEN,BUN 9 mg/dL (7.0-18.0); CARBON DIOXIDE,CO2 40.5 mmol/L (21.0-32.0); CHLORIDE,CL 97 mmol/L (98-107); GLUCOSE RANDOM 119 mg/dL (74-106); POTASSIUM,K 5.2 mmol/L (3.5-5.1); SODIUM,NA 139 mmol/L (136-148)
--- NOTE | 2020-05-14 12:41 | CR ---
Chest: Portable view of the chest was obtained. Comparison: Prior chest x-ray of 11/08/19. Pacemaker is noted. Heart size and mediastinum are normal. Lucency is noted within the right chest as compared the left side which is stable. No acute parenchymal change is seen. Chronic blunting of the lateral costophrenic angle is seen possibly due to emphysematous change. Bony structures are grossly intact. Impression: 1. Findings as described above. No change from previous chest x-ray is seen. Diagnostic code #2 This report was dictated in MDT
--- NOTE | 2020-05-14 14:51 | CT ---
CT chest Technique: Multiple axial sections through the chest were obtained. Intravenous contrast was utilized. Study has been performed as a pulmonary angiogram protocol. Findings pulmonary arteries are well opacified. No filling defects are seen to indicate pulmonary embolism. Mediastinum and hilar region show no adenopathy or mass. Aorta shows no aneurysm. Pacemaker is noted. Emphysematous changes are seen within both lungs. Bullous change is noted within both lungs worse within the right lung base. No acute parenchymal process is appreciated. No pleural effusions are seen. Visualized upper abdominal structures shows no discrete abnormality. Bone window settings were reviewed which shows no acute osseous finding. Impression: 1. Severe emphysematous change. 2. No findings pulmonary embolism. 3. Nothing acute is appreciated on CT study of the chest. Diagnostic code #3 This report was dictated in MDT
[2020-05-14] MEDS: Albuterol/Ipratropium 3.0-0.5 MG/3 ML Neb Soln NEB SCH ×2 (18:14→21:26)
[2020-05-14] MEDS ORDERED: Iopamidol 755 MG/ML 500 ML Multipack Bottle IVPUSH STA (18:54)
--- NOTE | 2020-05-14 19:11 | PCM.HP.2 ---
H&P History of Present Illness - General Date of Service: 05/14/20 Admit Problem/Dx: Admission Diagnosis/Problem Admission Diagnosis/Problem Respiratory failure with hypercapnia - History of Present Illness Initial Comments - Free Text/Narative: 69 yo male with pmh of pacemaker, CHF, COPD oxygen dependent who presents to the ED with one day history of shortness of breath. Patient denies fever, cough, chest pain or lightheadedness. PAtient received duoneb and solumedrol in the ED with marked improvement in his symptoms. - Related Data Allergies/Adverse Reactions: Allergies Allergy/AdvReac Type Severity Reaction Status Date / Time codeine Allergy Cannot Verified 05/14/20 17:48 Remember Home Medications: Home Meds Albuterol Sulfate [Albuterol Sulfate Hfa] 2 puff INH Q4H PRN 05/14/20 [History] Albuterol/Ipratropium [DuoNeb 3.0-0.5 MG/3 ML] 3 ml INH Q6H PRN 05/14/20 [History] Cholecalciferol (Vitamin D3) [Vitamin D3] 2,000 unit PO DAILY 05/14/20 [History] Furosemide 0 mg PO ASDIRECTED 05/14/20 [History] Ibuprofen 200 mg PO Q6H PRN 05/14/20 [History] Levothyroxine 150 mcg PO ACBREAKFAST 05/14/20 [History] Modafinil [Provigil] 500 mg PO DAILY 05/14/20 [History] Omeprazole 20 mg PO ACBREAKFAST 05/14/20 [History] Pregabalin 100 mg PO DAILY 05/14/20 [History] carvediloL [Carvedilol] 25 mg PO BID 05/14/20 [History] Past Medical History HEENT History: Reports: Cataract Cardiovascular History: Reports: Heart Failure, Pacemaker Respiratory History: Reports: COPD, Other (See Below) Other Respiratory History: Home O2 as of Jul 2019 Gastrointestinal History: Reports: None Genitourinary History: Reports: BPH Musculoskeletal History: Reports: Other (See Below) Other Musculoskeletal History: Unsteady Gait per Neurological History: Reports: MS Psychiatric History: Reports: None Endocrine/Metabolic History: Reports: None Hematologic History: Reports: None Immunologic History: Reports: None Oncologic (Cancer) History: Reports: None Dermatologic History: Reports: None - Infectious Disease History Infectious Disease History: Reports: Chicken Pox, Measles, Mumps - Past Surgical History Head Surgeries/Procedures: Reports: None HEENT Surgical History: Reports: Cataract Surgery Cardiovascular Surgical History: Reports: Pacer Respiratory Surgical History: Reports: None GI Surgical History: Reports: None Male Surgical History: Reports: None Endocrine Surgical History: Reports: None Neurological Surgical History: Reports: None Musculoskeletal Surgical History: Reports: None Oncologic Surgical History: Reports: None Dermatological Surgical History: Reports: None Social & Family History - Family History Family Medical History: Noncontributory - Tobacco Use Smoking Status *Q: Current Every Day Smoker Years of Tobacco use: 49 Packs/Tins Daily: 0.5 - Caffeine Use Caffeine Use: Reports: None - Recreational Drug Use Recreational Drug Use: No H&P Review of Systems - Review of Systems: Review Of Systems: Comprehensive ROS is negative, except as noted in HPI. Exam - Exam Exam: See Below - Vital Signs Vital Signs: Last Vital Signs Temp 36.6 C 05/14/20 17:20 Pulse 84 05/14/20 17:20 Resp 16 05/14/20 17:20 BP 98/70 05/14/20 17:20 Pulse Ox 97 05/14/20 17:35 Weight: 63.503 kg - Exam General: Alert, Oriented HEENT: Mucosa Moist & [place] Neck: Supple, Trachea Midline Lungs: Normal Respiratory Effort, Decreased Breath Sounds Cardiovascular: Regular Rate, Regular Rhythm GI/Abdominal Exam: Normal Bowel Sounds, Soft, Non-Tender Extremities: Non-Tender, No Pedal Edema Skin: Warm, Dry, Intact Neurological: No: Focal Deficit - Patient Data Lab Results Last 24 hrs: Laboratory Results - last 24 hr 05/14/20 05/14/20 05/14/20 Range/Units 11:10 11:10 11:10 WBC 6.17 (4.0-11.0) K/uL RBC 4.33 L (4.50-5.90) M/uL Hgb 12.1 L (13.0-17.0) g/dL Hct 41.5 (38.0-50.0) % MCV 95.8 (80.0-98.0) fL MCH 27.9 (27.0-32.0) pg MCHC 29.2 L (31.0-37.0) g/dL RDW Std Deviation 61.5 (28.0-62.0) fl RDW Coeff of Dalton 17 H (11.0-15.0) % Plt Count 216 (150-400) K/uL MPV 10.30 (7.40-12.00) fL Neut % (Auto) 51.5 (48.0-80.0) % Lymph % (Auto) 27.9 (16.0-40.0) % Wells % (Auto) 19.0 H (0.0-15.0) % Eos % (Auto) 0.8 (0.0-7.0) % Baso % (Auto) 0.8 (0.0-1.5) % Neut # (Auto) 3.2 (1.4-5.7) K/uL Lymph # (Auto) 1.7 (0.6-2.4) K/uL Wells # (Auto) 1.2 H (0.0-0.8) K/uL Eos # (Auto) 0.1 (0.0-0.7) K/uL Baso # (Auto) 0.1 (0.0-0.1) K/uL Nucleated RBC % 0.0 /100WBC Nucleated RBCs # 0 K/uL ESR (0-19) mm/hr INR 0.97 APTT 25.2 (18.6-31.3) SEC D-Dimer, Quantitative 1.97 H (0.0-0.50) mg/L FEU ABG pH (7.35-7.45) ABG pCO2 (35-45) mmHG ABG pO2 (75-100) mmHG ABG HCO3 (22-26) mEq/L ABG Total CO2 ABG Base Excess (-2.0-2.0) Lactate (0.20-2.00) mmol/L Sodium 139 (136-148) mmol/L Potassium 5.2 H (3.5-5.1) mmol/L Chloride 97 L (98-107) mmol/L Carbon Dioxide 40.5 H (21.0-32.0) mmol/L BUN 9 (7.0-18.0) mg/dL Creatinine 0.8 (0.8-1.3) mg/dL Est Cr Clr Drug Dosing 80.48 mL/min Estimated GFR (MDRD) > 60.0 ml/min Glucose 119 H (74-106) mg/dL Calcium 8.9 (8.5-10.1) mg/dL Phosphorus 5.1 H (2.6-4.7) mg/dL Magnesium 2.2 (1.8-2.4) mg/dL Total Bilirubin 0.4 (0.2-1.0) mg/dL AST 24 (15-37) IU/L ALT 27 (14-63) IU/L Alkaline Phosphatase 79 (46-116) U/L Troponin I < 0.050 (0.000-0.056) ng/mL C-Reactive Protein 0.30 (0.00-0.90) mg/dL B-Natriuretic Peptide (<100) PG/ML Total Protein 8.5 H (6.4-8.2) g/dL Albumin 3.3 L (3.4-5.0) g/dL Globulin 5.2 H (2.6-4.0) g/dL Albumin/Globulin Ratio 0.6 L (0.9-1.6) COVID-19 ([facility]) (NEGATIVE) 05/14/20 05/14/20 05/14/20 Range/Units 11:10 11:30 12:00 WBC (4.0-11.0) K/uL RBC (4.50-5.90) M/uL Hgb (13.0-17.0) g/dL Hct (38.0-50.0) % MCV (80.0-98.0) fL MCH (27.0-32.0) pg MCHC (31.0-37.0) g/dL RDW Std Deviation (28.0-62.0) fl RDW Coeff of Dalton (11.0-15.0) % Plt Count (150-400) K/uL MPV (7.40-12.00) fL Neut % (Auto) (48.0-80.0) % Lymph % (Auto) (16.0-40.0) % Wells % (Auto) (0.0-15.0) % Eos % (Auto) (0.0-7.0) % Baso % (Auto) (0.0-1.5) % Neut # (Auto) (1.4-5.7) K/uL Lymph # (Auto) (0.6-2.4) K/uL Wells # (Auto) (0.0-0.8) K/uL Eos # (Auto) (0.0-0.7) K/uL Baso # (Auto) (0.0-0.1) K/uL Nucleated RBC % /100WBC Nucleated RBCs # K/uL ESR 5 (0-19) mm/hr INR APTT (18.6-31.3) SEC D-Dimer, Quantitative (0.0-0.50) mg/L FEU ABG pH (7.35-7.45) ABG pCO2 (35-45) mmHG ABG pO2 (75-100) mmHG ABG HCO3 (22-26) mEq/L ABG Total CO2 ABG Base Excess (-2.0-2.0) Lactate (0.20-2.00) mmol/L Sodium (136-148) mmol/L Potassium (3.5-5.1) mmol/L Chloride (98-107) mmol/L Carbon Dioxide (21.0-32.0) mmol/L BUN (7.0-18.0) mg/dL Creatinine (0.8-1.3) mg/dL Est Cr Clr Drug Dosing mL/min Estimated GFR (MDRD) ml/min Glucose (74-106) mg/dL Calcium (8.5-10.1) mg/dL Phosphorus (2.6-4.7) mg/dL Magnesium (1.8-2.4) mg/dL Total Bilirubin (0.2-1.0) mg/dL AST (15-37) IU/L ALT (14-63) IU/L Alkaline Phosphatase (46-116) U/L Troponin I (0.000-0.056) ng/mL C-Reactive Protein (0.00-0.90) mg/dL B-Natriuretic Peptide 250 H (<100) PG/ML Total Protein (6.4-8.2) g/dL Albumin (3.4-5.0) g/dL Globulin (2.6-4.0) g/dL Albumin/Globulin Ratio (0.9-1.6) COVID-19 ([facility]) NEGATIVE (NEGATIVE) 05/14/20 05/14/20 05/14/20 Range/Units 12:00 13:37 16:03 WBC (4.0-11.0) K/uL RBC (4.50-5.90) M/uL Hgb (13.0-17.0) g/dL Hct (38.0-50.0) % MCV (80.0-98.0) fL MCH (27.0-32.0) pg MCHC (31.0-37.0) g/dL RDW Std Deviation (28.0-62.0) fl RDW Coeff of Dalton (11.0-15.0) % Plt Count (150-400) K/uL MPV (7.40-12.00) fL Neut % (Auto) (48.0-80.0) % Lymph % (Auto) (16.0-40.0) % Wells % (Auto) (0.0-15.0) % Eos % (Auto) (0.0-7.0) % Baso % (Auto) (0.0-1.5) % Neut # (Auto) (1.4-5.7) K/uL Lymph # (Auto) (0.6-2.4) K/uL Wells # (Auto) (0.0-0.8) K/uL Eos # (Auto) (0.0-0.7) K/uL Baso # (Auto) (0.0-0.1) K/uL Nucleated RBC % /100WBC Nucleated RBCs # K/uL ESR (0-19) mm/hr INR APTT (18.6-31.3) SEC D-Dimer, Quantitative (0.0-0.50) mg/L FEU ABG pH 7.328 L 7.356 (7.35-7.45) ABG pCO2 86 H 79 H (35-45) mmHG ABG pO2 62 L 58 L (75-100) mmHG ABG HCO3 45 H 44 H (22-26) mEq/L ABG Total CO2 42.2 41.1 ABG Base Excess 15.7 H 15.4 H (-2.0-2.0) Lactate 2.3 H* (0.20-2.00) mmol/L Sodium (136-148) mmol/L Potassium (3.5-5.1) mmol/L Chloride (98-107) mmol/L Carbon Dioxide (21.0-32.0) mmol/L BUN (7.0-18.0) mg/dL Creatinine (0.8-1.3) mg/dL Est Cr Clr Drug Dosing mL/min Estimated GFR (MDRD) ml/min Glucose (74-106) mg/dL Calcium (8.5-10.1) mg/dL Phosphorus (2.6-4.7) mg/dL Magnesium (1.8-2.4) mg/dL Total Bilirubin (0.2-1.0) mg/dL AST (15-37) IU/L ALT (14-63) IU/L Alkaline Phosphatase (46-116) U/L Troponin I (0.000-0.056) ng/mL C-Reactive Protein (0.00-0.90) mg/dL B-Natriuretic Peptide (<100) PG/ML Total Protein (6.4-8.2) g/dL Albumin (3.4-5.0) g/dL Globulin (2.6-4.0) g/dL Albumin/Globulin Ratio (0.9-1.6) COVID-19 ([facility]) (NEGATIVE) Result Diagrams: 05/14/20 11:10 05/14/20 11:10 Vel Results Last 24 hrs: Microbiology 05/14/20 12:30 Anaerobic Blood Culture - Final Blood - Venous - Lab Draw Sepsis Event Note - Evaluation Sepsis Screening Result: No Definite Risk - Focused Exam Vital Signs: Vital Signs Temp Temp Pulse Resp BP Pulse Ox 05/14/20 17:35 97 05/14/20 17:20 36.6 C 84 16 98/70 96 05/14/20 16:01 85 16 93/64 93 L 05/14/20 15:01 37.3 C 36.6 C 72 15 96/61 92 L 05/14/20 13:06 68 15 98/60 94 L 05/14/20 12:05 66 18 99/61 99 05/14/20 11:09 36.1 C 70 16 121/66 100 Date Exam was Performed: 05/14/20 Time Exam was Performed: 19:09 Problem List Initiated/Reviewed/Updated: Yes Orders Last 24hrs: Active Orders 24 hr Category Date Time Status Admission Status [Patient Status] [ADT] Stat ADT 05/14/20 16:32 Active Antiembolic Devices [RC] PER UNIT ROUTINE Care 05/14/20 19:07 Ordered Cardiac Monitoring [RC] . DIRECTED Care 05/14/20 11:15 Active EKG Documentation Completion [RC] STAT Care 05/14/20 11:16 Active Oxygen Therapy Adult [Oxygen Therapy] [RC] ASDIRECTED Care 05/14/20 18:00 Active Oxygen Therapy [RC] PRN Care 05/14/20 19:06 Ordered Pulse Oximetry [RC] ASDIRECTED Care 05/14/20 11:15 Active RT Aerosol Therapy [RC] ASDIRECTED Care 05/14/20 11:12 Active RT Aerosol Therapy [RC] ASDIRECTED Care 05/14/20 17:59 Active Up ad Brandy [RC] ASDIRECTED Care 05/14/20 19:06 Ordered VTE/DVT Education [RC] PER UNIT ROUTINE Care 05/14/20 19:06 Ordered Vital Signs [RC] Q4H Care 05/14/20 19:06 Ordered Regular Diet [DIET] Diet 05/14/20 Dinner Active BASIC METABOLIC PANEL,BMP [CHEM] AM Lab 05/15/20 05:11 Ordered CBC WITH AUTO DIFF [HEME] AM Lab 05/15/20 05:11 Ordered CULTURE BLOOD [BC] Stat Lab 05/14/20 11:10 Received CULTURE BLOOD [BC] Stat Lab 05/14/20 12:30 Results LACTIC ACID,WHOLE BLOOD [BG] Routine Lab 05/14/20 19:05 Ordered PROCALCITONIN [REF] Stat Lab 05/14/20 11:10 Received Albuterol/Ipratropium [DuoNeb 3.0-0.5 MG/3 ML] Med 05/14/20 18:00 Active 3 ml NEB Q4HRRT Levothyroxine Med 05/15/20 07:30 Ordered 150 mcg PO ACBREAKFAST Omeprazole Med 05/15/20 07:30 Ordered 20 mg PO ACBREAKFAST Pregabalin [Lyrica] Med 05/15/20 09:00 Ordered 100 mg PO DAILY Sodium Chloride 0.9% [Saline Flush] Med 05/14/20 11:15 Active 10 ml FLUSH ASDIRECTED PRN Sodium Chloride 0.9% [Saline Flush] Med 05/14/20 11:15 Active 2.5 ml FLUSH ASDIRECTED PRN carvediloL [Coreg] Med 05/14/20 21:00 Ordered 25 mg PO BID methylPREDNISolone Sod Succ [Solu-MEDROL] Med 05/15/20 00:00 Ordered 125 mg IVPUSH Q12H modafiniL [Provigil] Med 05/15/20 09:00 Ordered 500 mg PO DAILY Blood Culture x2 Reflex Set [OM.PC] Stat Oth 05/14/20 11:16 Ordered Pulse Oximetry Continuous Monitoring [OM.PC] CONTINUOUS Oth 05/14/20 17:57 Ordered Saline Lock Insert [OM.PC] Stat Oth 05/14/20 11:15 Ordered Sequential Compression Device [OM.PC] Per Unit Routine Oth 05/14/20 19:07 Ordered Resuscitation Status Routine Resus Stat 05/14/20 19:06 Ordered Medication Orders Albuterol/Ipratropium (Duoneb 3.0-0.5 Mg/3 Ml) 3 ml NEB Q4HRRT DINORAH Last Admin: 05/14/20 18:14 Dose: 3 ml Documented by: STOCALL Carvedilol (Coreg) 25 mg PO BID [facility] Levothyroxine Sodium (Levothyroxine) 150 mcg PO ACBREAKFAST [facility] Methylprednisolone Sodium Succinate (Solu-Medrol) 125 mg IVPUSH Q12H [facility] Modafinil (Provigil) 500 mg PO DAILY [facility] Omeprazole (Omeprazole) 20 mg PO ACBREAKFAST [facility]IN[facility] Pregabalin (Lyrica) 100 mg PO DAILY [facility] Sodium Chloride (Saline Flush) 10 ml FLUSH ASDIRECTED PRN PRN Reason: Keep Vein Open Last Admin: 05/14/20 11:22 Dose: 10 ml Documented by: HILLARY Sodium Chloride (Saline Flush) 2.5 ml FLUSH ASDIRECTED PRN PRN Reason: Keep Vein Open Last Admin: 05/14/20 11:22 Dose: 2.5 ml Documented by: HILLARY Assessment/Plan Comment:: 69 yo male admitted for COPD exacerbation. We will treat with solumedrol and duonebs and monitor overnight.
[2020-05-14] MEDS: Carvedilol 25 MG Tab PO SCH (20:49)
[2020-05-15] MEDS ORDERED: methylPREDNISolone Sodium Succinate 125 MG/2 ML SDV IVPUSH SCH
[2020-05-15] MEDS: Albuterol/Ipratropium 3.0-0.5 MG/3 ML Neb Soln NEB SCH ×3 (01:18→10:42)
[2020-05-15 05:45] LABS: BLOOD UREA NITROGEN,BUN 18 mg/dL (7.0-18.0); CARBON DIOXIDE,CO2 40.2 mmol/L (21.0-32.0); CHLORIDE,CL 94 mmol/L (98-107); GLUCOSE RANDOM 112 mg/dL (74-106); POTASSIUM,K 4.3 mmol/L (3.5-5.1); SODIUM,NA 134 mmol/L (136-148)
[2020-05-15] MEDS ORDERED: Omeprazole 20 MG Cap.CR PO SCH ×2 (07:30→17:00)
[2020-05-15] MEDS ORDERED: Levothyroxine 150 MCG Tab PO SCH (07:30)
[2020-05-15] MEDS: Carvedilol 25 MG Tab PO SCH (07:57)
[2020-05-15] MEDS ORDERED: Pregabalin 50 MG Cap PO SCH ×2 (09:00)
[2020-05-15] MEDS ORDERED: Modafinil 100 MG Tab PO SCH (09:00)
--- NOTE | 2020-05-15 10:42 | PCM.DCSUM1 ---
Discharge Summary - Hospital Course Brief History: 69 yo male with pmh of pacemaker, CHF, COPD oxygen dependent who presents to the ED with one day history of shortness of breath. Patient denies fever, cough, chest pain or lightheadedness. PAtient received duoneb and solumedrol in the ED with marked improvement in his symptoms. Diagnosis: Stroke: No - Discharge Data Discharge Date: 05/15/20 Discharge Disposition: Home, Self-Care 01 Condition: Good - Referral to Home Health Primary Care Physician: PCP None - Patient Summary/Data Hospital Course: Admitting Diagnoses: Acute on chronic hypoxic respiratory failure COPD exacerbation Discharge Diagnoses Acute on chronic hypoxic respiratory failure COPD exacerbation Kai was admitted for Acute on chronic hypoxic respiratory failure and COPD exacerbation. He was treated with IV solumedrol and good improvement in symptoms. he remained on home 5 L NC during. This morning he is anxious to leave, he pulled his IV out and ripped off pulse ox. He is requesting discharge. He is feeling much improved. He will be discharged home today with 5 more days of Prednisone 40 mg. He is to continue all home medication as per usual. He is to stop smoking. He is to return to the ED or clinic if concerns should arise. - Patient Instructions Diet: Regular Diet as Tolerated Activity: As Tolerated, No Strenuous Activities Showering/Bathing: May Shower Notify Provider of: Fever, Increased Pain, Swelling and Redness, Drainage, Nausea and/or Vomiting - Discharge Plan *PRESCRIPTION DRUG MONITORING PROGRAM REVIEWED*: Not Applicable *COPY OF PRESCRIPTION DRUG MONITORING REPORT IN PATIENT INES: Not Applicable Prescriptions/Med Rec: predniSONE [Prednisone] 40 mg PO DAILY #10 tablet Home Medications: Home Meds Albuterol Sulfate [Albuterol Sulfate Hfa] 2 puff INH Q4H PRN 05/14/20 [History] Albuterol/Ipratropium [DuoNeb 3.0-0.5 MG/3 ML] 3 ml INH Q6H PRN 05/14/20 [History] Cholecalciferol (Vitamin D3) [Vitamin D3] 2,000 unit PO DAILY 05/14/20 [History] Furosemide 20 mg PO .AM PRN 05/14/20 [History] Ibuprofen 200 mg PO Q6H PRN 05/14/20 [History] Levothyroxine 150 mcg PO ACBREAKFAST 05/14/20 [History] Modafinil [Provigil] 500 mg PO DAILY 05/14/20 [History] Omeprazole 20 mg PO ACBREAKFAST 05/14/20 [History] Pregabalin 50 mg PO BID 05/14/20 [History] carvediloL [Carvedilol] 25 mg PO BID 05/14/20 [History] Aspirin [Halfprin] 81 mg PO DAILY 05/15/20 [History] Interferon Beta-1a [Avonex] 30 mcg IM .[id number] 05/15/20 [History] Sildenafil Citrate 100 mg PO ASDIRECTED PRN MDD sexual activity 05/15/20 [History] Simvastatin 5 mg PO BEDTIME 05/15/20 [History] Tamsulosin HCl 0.4 mg PO BEDTIME 05/15/20 [History] predniSONE [Prednisone] 40 mg PO DAILY #10 tablet 05/15/20 [Rx] Oxygen Therapy Mode: Room Air Patient Handouts: Chronic Obstructive Pulmonary Disease, [id number], Home Oxygen Use, Adult, Prednisone tablets Referrals: [facility] [Outside] - 05/22/20 9:00 am (Arrive 15 minutes early with a photo ID, insurance card, and a mask. ) - Discharge Summary/Plan Comment DC Time >30 min.: No - General Info Date of Service: 05/15/20 Admission Dx/Problem (Free Text: Admission Diagnosis/Problem Admission Diagnosis/Problem Respiratory failure with hypercapnia - Patient Data Vitals - Most Recent: Last Vital Signs Temp 98.8 F 05/15/20 07:00 Pulse 74 05/15/20 07:57 Resp 14 05/15/20 07:00 BP 90/51 L 05/15/20 07:57 Pulse Ox 89 L 05/15/20 07:00 Weight - Most Recent: 63.503 kg I&O - Last 24 hours: Intake & Output 05/14/20 05/15/20 05/15/20 22:59 06:59 14:59 Intake Total 180 1660 Output Total 400 200 Balance -220 1460 Lab Results - Last 24 hrs: Laboratory Results - last 24 hr 05/14/20 05/14/20 05/14/20 Range/Units 11:10 11:10 11:10 WBC 6.17 (4.0-11.0) K/uL RBC 4.33 L (4.50-5.90) M/uL Hgb 12.1 L (13.0-17.0) g/dL Hct 41.5 (38.0-50.0) % MCV 95.8 (80.0-98.0) fL MCH 27.9 (27.0-32.0) pg MCHC 29.2 L (31.0-37.0) g/dL RDW Std Deviation 61.5 (28.0-62.0) fl RDW Coeff of Dalton 17 H (11.0-15.0) % Plt Count 216 (150-400) K/uL MPV 10.30 (7.40-12.00) fL Neut % (Auto) 51.5 (48.0-80.0) % Lymph % (Auto) 27.9 (16.0-40.0) % [place] % (Auto) 19.0 H (0.0-15.0) % Eos % (Auto) 0.8 (0.0-7.0) % Baso % (Auto) 0.8 (0.0-1.5) % Neut # (Auto) 3.2 (1.4-5.7) K/uL Lymph # (Auto) 1.7 (0.6-2.4) K/uL [facility] # (Auto) 1.2 H (0.0-0.8) K/uL Eos # (Auto) 0.1 (0.0-0.7) K/uL Baso # (Auto) 0.1 (0.0-0.1) K/uL Nucleated RBC % 0.0 /100WBC Nucleated RBCs # 0 K/uL ESR (0-19) mm/hr INR APTT (18.6-31.3) SEC D-Dimer, Quantitative (0.0-0.50) mg/L FEU ABG pH (7.35-7.45) ABG pCO2 (35-45) mmHG ABG pO2 (75-100) mmHG ABG HCO3 (22-26) mEq/L ABG Total CO2 ABG Base Excess (-2.0-2.0) Lactate (0.20-2.00) mmol/L Sodium 139 (136-148) mmol/L Potassium 5.2 H (3.5-5.1) mmol/L Chloride 97 L (98-107) mmol/L Carbon Dioxide 40.5 H (21.0-32.0) mmol/L BUN 9 (7.0-18.0) mg/dL Creatinine 0.8 (0.8-1.3) mg/dL Est Cr Clr Drug Dosing 80.48 mL/min Estimated GFR (MDRD) > 60.0 ml/min Glucose 119 H (74-106) mg/dL Calcium 8.9 (8.5-10.1) mg/dL Phosphorus 5.1 H (2.6-4.7) mg/dL Magnesium 2.2 (1.8-2.4) mg/dL Total Bilirubin 0.4 (0.2-1.0) mg/dL AST 24 (15-37) IU/L ALT 27 (14-63) IU/L Alkaline Phosphatase 79 (46-116) U/L Troponin I < 0.050 (0.000-0.056) ng/mL C-Reactive Protein 0.30 (0.00-0.90) mg/dL B-Natriuretic Peptide (<100) PG/ML Total Protein 8.5 H (6.4-8.2) g/dL Albumin 3.3 L (3.4-5.0) g/dL Globulin 5.2 H (2.6-4.0) g/dL Albumin/Globulin Ratio 0.6 L (0.9-1.6) Procalcitonin <0.05 (<0.10) ng/mL COVID-19 ([facility]) (NEGATIVE) 05/14/20 05/14/20 05/14/20 Range/Units 11:10 11:10 11:30 WBC (4.0-11.0) K/uL RBC (4.50-5.90) M/uL Hgb (13.0-17.0) g/dL Hct (38.0-50.0) % MCV (80.0-98.0) fL MCH (27.0-32.0) pg MCHC (31.0-37.0) g/dL RDW Std Deviation (28.0-62.0) fl RDW Coeff of Dalton (11.0-15.0) % Plt Count (150-400) K/uL MPV (7.40-12.00) fL Neut % (Auto) (48.0-80.0) % Lymph % (Auto) (16.0-40.0) % [facility] % (Auto) (0.0-15.0) % Eos % (Auto) (0.0-7.0) % Baso % (Auto) (0.0-1.5) % Neut # (Auto) (1.4-5.7) K/uL Lymph # (Auto) (0.6-2.4) K/uL [facility] # (Auto) (0.0-0.8) K/uL Eos # (Auto) (0.0-0.7) K/uL Baso # (Auto) (0.0-0.1) K/uL Nucleated RBC % /100WBC Nucleated RBCs # K/uL ESR (0-19) mm/hr INR 0.97 APTT 25.2 (18.6-31.3) SEC D-Dimer, Quantitative 1.97 H (0.0-0.50) mg/L FEU ABG pH (7.35-7.45) ABG pCO2 (35-45) mmHG ABG pO2 (75-100) mmHG ABG HCO3 (22-26) mEq/L ABG Total CO2 ABG Base Excess (-2.0-2.0) Lactate (0.20-2.00) mmol/L Sodium (136-148) mmol/L Potassium (3.5-5.1) mmol/L Chloride (98-107) mmol/L Carbon Dioxide (21.0-32.0) mmol/L BUN (7.0-18.0) mg/dL Creatinine (0.8-1.3) mg/dL Est Cr Clr Drug Dosing mL/min Estimated GFR (MDRD) ml/min Glucose (74-106) mg/dL Calcium (8.5-10.1) mg/dL Phosphorus (2.6-4.7) mg/dL Magnesium (1.8-2.4) mg/dL Total Bilirubin (0.2-1.0) mg/dL AST (15-37) IU/L ALT (14-63) IU/L Alkaline Phosphatase (46-116) U/L Troponin I (0.000-0.056) ng/mL C-Reactive Protein (0.00-0.90) mg/dL B-Natriuretic Peptide 250 H (<100) PG/ML Total Protein (6.4-8.2) g/dL Albumin (3.4-5.0) g/dL Globulin (2.6-4.0) g/dL Albumin/Globulin Ratio (0.9-1.6) Procalcitonin (<0.10) ng/mL COVID-19 ([facility]) NEGATIVE (NEGATIVE) 05/14/20 05/14/20 05/14/20 Range/Units 12:00 12:00 13:37 WBC (4.0-11.0) K/uL RBC (4.50-5.90) M/uL Hgb (13.0-17.0) g/dL Hct (38.0-50.0) % MCV (80.0-98.0) fL MCH (27.0-32.0) pg MCHC (31.0-37.0) g/dL RDW Std Deviation (28.0-62.0) fl RDW Coeff of Dalton (11.0-15.0) % Plt Count (150-400) K/uL MPV (7.40-12.00) fL Neut % (Auto) (48.0-80.0) % Lymph % (Auto) (16.0-40.0) % [facility] % (Auto) (0.0-15.0) % Eos % (Auto) (0.0-7.0) % Baso % (Auto) (0.0-1.5) % Neut # (Auto) (1.4-5.7) K/uL Lymph # (Auto) (0.6-2.4) K/uL [facility] [place] # (Auto) (0.0-0.8) K/uL Eos # (Auto) (0.0-0.7) K/uL Baso # (Auto) (0.0-0.1) K/uL Nucleated RBC % /100WBC Nucleated RBCs # K/uL ESR 5 (0-19) mm/hr INR APTT (18.6-31.3) SEC D-Dimer, Quantitative (0.0-0.50) mg/L FEU ABG pH 7.328 L (7.35-7.45) ABG pCO2 86 H (35-45) mmHG ABG pO2 62 L (75-100) mmHG ABG HCO3 45 H (22-26) mEq/L ABG Total CO2 42.2 ABG Base Excess 15.7 H (-2.0-2.0) Lactate 2.3 H* (0.20-2.00) mmol/L Sodium (136-148) mmol/L Potassium (3.5-5.1) mmol/L Chloride (98-107) mmol/L Carbon Dioxide (21.0-32.0) mmol/L BUN (7.0-18.0) mg/dL Creatinine (0.8-1.3) mg/dL Est Cr Clr Drug Dosing mL/min Estimated GFR (MDRD) ml/min Glucose (74-106) mg/dL Calcium (8.5-10.1) mg/dL Phosphorus (2.6-4.7) mg/dL Magnesium (1.8-2.4) mg/dL Total Bilirubin (0.2-1.0) mg/dL AST (15-37) IU/L ALT (14-63) IU/L Alkaline Phosphatase (46-116) U/L Troponin I (0.000-0.056) ng/mL C-Reactive Protein (0.00-0.90) mg/dL B-Natriuretic Peptide (<100) PG/ML Total Protein (6.4-8.2) g/dL Albumin (3.4-5.0) g/dL Globulin (2.6-4.0) g/dL Albumin/Globulin Ratio (0.9-1.6) Procalcitonin (<0.10) ng/mL COVID-19 ([facility]) (NEGATIVE) 05/14/20 05/14/20 05/15/20 Range/Units 16:03 19:09 05:09 WBC 3.54 L (4.0-11.0) K/uL RBC 3.86 L (4.50-5.90) M/uL Hgb 10.5 L (13.0-17.0) g/dL Hct 34.9 L (38.0-50.0) % MCV 90.4 (80.0-98.0) fL MCH 27.2 (27.0-32.0) pg MCHC 30.1 L (31.0-37.0) g/dL RDW Std Deviation 56.5 (28.0-62.0) fl RDW Coeff of Dalton 17 H (11.0-15.0) % Plt Count 192 (150-400) K/uL MPV 9.30 (7.40-12.00) fL Neut % (Auto) 80.5 H (48.0-80.0) % Lymph % (Auto) 16.1 (16.0-40.0) % [facility] % (Auto) 3.4 (0.0-15.0) % Eos % (Auto) 0.0 (0.0-7.0) % Baso % (Auto) 0.0 (0.0-1.5) % Neut # (Auto) 2.9 (1.4-5.7) K/uL Lymph # (Auto) 0.6 (0.6-2.4) K/uL [facility] [place] # (Auto) 0.1 (0.0-0.8) K/uL Eos # (Auto) 0.0 (0.0-0.7) K/uL Baso # (Auto) 0.0 (0.0-0.1) K/uL Nucleated RBC % 0.0 /100WBC Nucleated RBCs # 0 K/uL ESR (0-19) mm/hr INR APTT (18.6-31.3) SEC D-Dimer, Quantitative (0.0-0.50) mg/L FEU ABG pH 7.356 (7.35-7.45) ABG pCO2 79 H (35-45) mmHG ABG pO2 58 L (75-100) mmHG ABG HCO3 44 H (22-26) mEq/L ABG Total CO2 41.1 ABG Base Excess 15.4 H (-2.0-2.0) Lactate 1.9 (0.20-2.00) mmol/L Sodium (136-148) mmol/L Potassium (3.5-5.1) mmol/L Chloride (98-107) mmol/L Carbon Dioxide (21.0-32.0) mmol/L BUN (7.0-18.0) mg/dL Creatinine (0.8-1.3) mg/dL Est Cr Clr Drug Dosing mL/min Estimated GFR (MDRD) ml/min Glucose (74-106) mg/dL Calcium (8.5-10.1) mg/dL Phosphorus (2.6-4.7) mg/dL Magnesium (1.8-2.4) mg/dL Total Bilirubin (0.2-1.0) mg/dL AST (15-37) IU/L ALT (14-63) IU/L Alkaline Phosphatase (46-116) U/L Troponin I (0.000-0.056) ng/mL C-Reactive Protein (0.00-0.90) mg/dL B-Natriuretic Peptide (<100) PG/ML Total Protein (6.4-8.2) g/dL Albumin (3.4-5.0) g/dL Globulin (2.6-4.0) g/dL Albumin/Globulin Ratio (0.9-1.6) Procalcitonin (<0.10) ng/mL COVID-19 ([facility]) (NEGATIVE) 05/15/20 Range/Units 05:09 WBC (4.0-11.0) K/uL RBC (4.50-5.90) M/uL Hgb (13.0-17.0) g/dL Hct (38.0-50.0) % MCV (80.0-98.0) fL MCH (27.0-32.0) pg MCHC (31.0-37.0) g/dL RDW Std Deviation (28.0-62.0) fl RDW Coeff of Dalton (11.0-15.0) % Plt Count (150-400) K/uL MPV (7.40-12.00) fL Neut % (Auto) (48.0-80.0) % Lymph % (Auto) (16.0-40.0) % [facility] % (Auto) (0.0-15.0) % Eos % (Auto) (0.0-7.0) % Baso % (Auto) (0.0-1.5) % Neut # (Auto) (1.4-5.7) K/uL Lymph # (Auto) (0.6-2.4) K/uL [facility] [place] [facility] # (Auto) (0.0-0.8) K/uL Eos # (Auto) (0.0-0.7) K/uL Baso # (Auto) (0.0-0.1) K/uL Nucleated RBC % /100WBC Nucleated RBCs # K/uL ESR (0-19) mm/hr INR APTT (18.6-31.3) SEC D-Dimer, Quantitative (0.0-0.50) mg/L FEU ABG pH (7.35-7.45) ABG pCO2 (35-45) mmHG ABG pO2 (75-100) mmHG ABG HCO3 (22-26) mEq/L ABG Total CO2 ABG Base Excess (-2.0-2.0) Lactate (0.20-2.00) mmol/L Sodium 134 L (136-148) mmol/L Potassium 4.3 (3.5-5.1) mmol/L Chloride 94 L (98-107) mmol/L Carbon Dioxide 40.2 H (21.0-32.0) mmol/L BUN 18 (7.0-18.0) mg/dL Creatinine 0.7 L (0.8-1.3) mg/dL Est Cr Clr Drug Dosing 91.98 mL/min Estimated GFR (MDRD) > 60.0 ml/min Glucose 112 H (74-106) mg/dL Calcium 8.2 L (8.5-10.1) mg/dL Phosphorus (2.6-4.7) mg/dL Magnesium (1.8-2.4) mg/dL Total Bilirubin (0.2-1.0) mg/dL AST (15-37) IU/L ALT (14-63) IU/L Alkaline Phosphatase (46-116) U/L Troponin I (0.000-0.056) ng/mL C-Reactive Protein (0.00-0.90) mg/dL B-Natriuretic Peptide (<100) PG/ML Total Protein (6.4-8.2) g/dL Albumin (3.4-5.0) g/dL Globulin (2.6-4.0) g/dL Albumin/Globulin Ratio (0.9-1.6) Procalcitonin (<0.10) ng/mL COVID-19 ([facility]) (NEGATIVE) [facility] Results - Last 24 hrs: Microbiology 05/14/20 12:30 Anaerobic Blood Culture - Final Blood - Venous - Lab Draw Med Orders - Current: Current Medications Albuterol/Ipratropium (Duoneb 3.0-0.5 Mg/3 Ml) 3 ml NEB Q4HRRT [facility] Last Admin: 05/15/20 10:42 Dose: 3 ml Documented by: Carvedilol (Coreg) 25 mg PO BIDMEALS [facility] Last Admin: 05/15/20 07:57 Dose: Not Given Documented by: Levothyroxine Sodium (Levothyroxine) 150 mcg PO ACBREAKFAST [facility] Last Admin: 05/15/20 07:59 Dose: 150 mcg Documented by: Methylprednisolone Sodium Succinate (Solu-Medrol) 125 mg IVPUSH Q12H [facility] Last Admin: 05/14/20 23:15 Dose: 125 mg Documented by: Modafinil (Provigil) 500 mg PO DAILY [facility] Omeprazole (Omeprazole) 20 mg PO DAILY@1700 [facility] Pregabalin (Lyrica) 50 mg PO BID [facility] Last Admin: 05/15/20 08:13 Dose: 50 mg Documented by: Sodium Chloride (Saline Flush) 10 ml FLUSH ASDIRECTED PRN PRN Reason: Keep Vein Open Last Admin: 05/14/20 11:22 Dose: 10 ml Documented by: Sodium Chloride (Saline Flush) 2.5 ml FLUSH ASDIRECTED PRN PRN Reason: Keep Vein Open Last Admin: 05/14/20 11:22 Dose: 2.5 ml Documented by: Discontinued Medications Albuterol/Ipratropium (Duoneb 3.0-0.5 Mg/3 Ml) Confirm Administered Dose 3 ml .ROUTE .STK-MED ONE Stop: 05/14/20 11:11 Last Admin: 05/14/20 11:12 Dose: Not Given Documented by: Albuterol/Ipratropium (Duoneb 3.0-0.5 Mg/3 Ml) 3 ml NEB ONETIME ONE Stop: 05/14/20 11:13 Last Admin: 05/14/20 11:13 Dose: 3 ml Documented by: Iopamidol (Isovue Multipack-370 (76%)) 50 ml IVPUSH ONETIME STA Stop: 05/14/20 18:55 Last Admin: 05/14/20 18:54 Dose: 50 ml Documented by: Methylprednisolone Sodium Succinate (Solu-Medrol) 125 mg IVPUSH ONETIME ONE Stop: 05/14/20 11:16 Last Admin: 05/14/20 11:22 Dose: 125 mg Documented by: Omeprazole (Omeprazole) 20 mg PO ACBREAKFAST [facility] Last Admin: 05/15/20 10:03 Dose: Not Given Documented by: Pregabalin (Lyrica) 100 mg PO DAILY [facility] - Exam Quality Assessment: Reports: Supplemental Oxygen General: Reports: Alert, Oriented, Cooperative, No Acute Distress Lungs: Reports: Normal Respiratory Effort, Decreased Breath Sounds Cardiovascular: Reports: Regular Rate, Regular Rhythm GI/Abdominal Exam: Normal Bowel Sounds, Soft, Non-Tender Back Exam: Reports: Normal Inspection, Full Range of Motion Extremities: Normal Inspection, Normal Range of Motion, Non-Tender, No Pedal Edema Neurological: Reports: No New Focal Deficit Psy/Mental Status: Reports: Alert, Normal Affect, Normal Mood
== END 2020-05-15 13:35 | disposition home or self-care (01) ==
LOC: MW.ED 11:06 → MW.MS 16:52
PROVIDERS: ADMIT Internal Medicine; ATTEND Internal Medicine
DX: J96.21 Acute and chronic respiratory failure with hypoxia (principal); J44.1 Chronic obstructive pulmonary disease with (acute) exacerbation; J96.02 Acute respiratory failure with hypercapnia; I50.9 Heart failure, unspecified; F17.210 Nicotine dependence, cigarettes, uncomplicated; Z20.828 Contact with and (suspected) exposure to other viral communicable diseases; Z79.82 Long term (current) use of aspirin; Z88.5 Allergy status to narcotic agent; Z95.0 Presence of cardiac pacemaker; Z79.51 Long term (current) use of inhaled steroids; Z79.899 Other long term (current) drug therapy
CPT/HCPCS: 36415; 36600; 71045; 71275; 80048; 80053; 82803; 83605; 83735; 83880; 84100; 84145; 84484; 85025; 85379; 85610; 85652; 85730; 86140; 87040; 93005; 94640; 96374; 96376; 99291; A9270; G0378; J2930; Q9967; U0002; J7620-GY

== ENCOUNTER 2020-05-26 05:08 | Inpatient (IN) | payer OTHER, MEDICARE ==
[2020-05-26] MEDS ORDERED: Sodium Chloride 0.9% 10 ML Syringe FLUSH PRN (05:16)
[2020-05-26] MEDS ORDERED: Sodium Chloride 0.9% 2.5 ML Syringe FLUSH PRN (05:16)
--- NOTE | 2020-05-26 05:20 | EDM.PDOC ---
ED HPI GENERAL MEDICAL PROBLEM - General Stated Complaint: TROUBLE BREATHING Time Seen by Provider: 05/26/20 05:08 - History of Present Illness INITIAL COMMENTS - FREE TEXT/NARRATIVE: History of present illness: [] The patient started having extreme shortness of breath last night. He got worse tonight. On his oxygen saturation monitor he had an oxygen saturation of 40%. He has CPAP at home. He is known to have full sclerosis. He also has been adm itted in October and intubated. She denies fever and chills. He had a COVID negative test within the last 3 weeks. The patient was too short of breath to give much history but the gave a complete history. He came in on 14 May and was admitted overnight. Aggressively his COPD was treated and in addition according to the he received additional benefit of not being allowed to smoke while he was in the hospital. He improved quickly and went home on the . The patient continues to smoke. The says that when he was intubated in October and admitted and transferred to [place] the doctor there told him on discharge that if he smoked to be back to be intubated not be able to be weaned off the ventilator. Patient is on 5 L of oxygen at home. His O2 sat was 80% according to the . He began to have trouble in the evening last night. He turned his 5 L/min nasal cannula up for him but he continued to deteriorate. Review of systems: As per history of present illness and below otherwise all systems reviewed and negative. Past medical history: As per history of present illness and as reviewed below otherwise noncontributory. Surgical history: As per history of present illness and as reviewed below otherwise noncontributory. Social history: No reported history of drug or alcohol abuse. Has not had smoked since he was 10 years old. Family history: As per history of present illness and as reviewed below otherwise noncontributory. Physical exam: Constitutional - well developed, well-nourished and in no acute distress HEENT - normocephalic, no evidence of trauma - external nose and mouth normal - no mass in neck and no JVD - mucosae moist EYES - full EOM, PERRL, no icterus - no evidence of inflammation, injection, or drainage Respiratory -mild respiratory distress, equal bilateral expansion, lungs clear to auscultation heartedly diminished. Cardiovascular - Regular Rhythm with S1 and S2 appreciated and no murmur, gallop or rub. GI - abdomen soft without distension or organomegaly - normal bowel sounds - no guard or rebound Musculoskeletal no gross deformity of long bones or joints - no tenderness, swelling or edema Neurologic - Alert and oriented times four - CN II-XII grossly intact - motor sensory and coordination symmetrical Goodley weak in all 4 extremities. Psychiatric - appropriate mood and affect with normal thought content Hematologic - No petechiae or purpura - mucosa appropriate color and sclera not pale - normal nail bed color and refill Integument - no rash or evidence of trauma - normal turgor Diagnostics: [] Study chest x-ray labs ABG Therapeutics: [] BiPAP and fluids Impression: COPD exacerbation secondary to smoking and possible bronchitis [] Plan: [] Definitive disposition and diagnosis as appropriate pending reevaluation and review of above. - Related Data Allergies Allergy/AdvReac Type Severity Reaction Status Date / Time codeine Allergy Cannot Verified 05/26/20 05:33 Remember Home Meds: Home Meds RX: Albuterol Sulfate [Albuterol Sulfate Hfa] 2 puff INH Q4H PRN 05/14/20 [History] RX: Albuterol/Ipratropium [DuoNeb 3.0-0.5 MG/3 ML] 3 ml INH Q6H PRN 05/14/20 [History] RX: Cholecalciferol (Vitamin D3) [Vitamin D3] 2,000 unit PO DAILY 05/14/20 [History] RX: Furosemide 20 mg PO .AM PRN 05/14/20 [History] RX: Ibuprofen 200 mg PO Q6H PRN 05/14/20 [History] RX: Levothyroxine 150 mcg PO ACBREAKFAST 05/14/20 [History] RX: Modafinil [Provigil] 500 mg PO DAILY 05/14/20 [History] RX: Omeprazole 20 mg PO ACBREAKFAST 05/14/20 [History] RX: Pregabalin 50 mg PO BID 05/14/20 [History] RX: carvediloL [Carvedilol] 25 mg PO BID 05/14/20 [History] RX: Aspirin [Halfprin] 81 mg PO DAILY 05/15/20 [History] RX: Interferon Beta-1a [Avonex] 30 mcg IM .[id number] 05/15/20 [History] RX: Sildenafil Citrate 100 mg PO ASDIRECTED PRN MDD sexual activity 05/15/20 [History] RX: Simvastatin 5 mg PO BEDTIME 05/15/20 [History] RX: Tamsulosin HCl 0.4 mg PO BEDTIME 05/15/20 [History] predniSONE [Prednisone] 40 mg PO DAILY #10 tablet 05/15/20 [Rx] Past Medical History HEENT History: Reports: Cataract Cardiovascular History: Reports: Heart Failure, Pacemaker Respiratory History: Reports: COPD, Other (See Below) Other Respiratory History: Home O2 as of Jul 2019 Gastrointestinal History: Reports: None Genitourinary History: Reports: BPH Musculoskeletal History: Reports: Other (See Below) Other Musculoskeletal History: Unsteady Gait per Neurological History: Reports: MS Psychiatric History: Reports: None Endocrine/Metabolic History: Reports: None Hematologic History: Reports: None Immunologic History: Reports: None Oncologic (Cancer) History: Reports: None Dermatologic History: Reports: None - Infectious Disease History Infectious Disease History: Reports: Chicken Pox, Measles, Mumps - Past Surgical History Head Surgeries/Procedures: Reports: None HEENT Surgical History: Reports: Cataract Surgery Cardiovascular Surgical History: Reports: Pacer Respiratory Surgical History: Reports: None GI Surgical History: Reports: None Male Surgical History: Reports: None Endocrine Surgical History: Reports: None Neurological Surgical History: Reports: None Musculoskeletal Surgical History: Reports: None Oncologic Surgical History: Reports: None Dermatological Surgical History: Reports: None Social & Family History - Family History Family Medical History: Noncontributory - Caffeine Use Caffeine Use: Reports: None Caffeine Use Comment: Everyday ED ROS GENERAL - Review of Systems Review Of Systems: Comprehensive ROS is negative, except as noted in HPI. ED EXAM, GENERAL - Physical Exam Exam: See Below Free Text/Narrative:: My physical examination in the HPI EKG INTERPRETATION EKG Date: 05/26/20 Time: 05:15 Rhythm: NSR Rate (Beats/Min): 97 P-Wave: Present QRS: Other (Wide QRS with configuration in the precordial leads similar to prior and too much artifact to assess the limb leads.) Comparison: Other: (Precordial leads have no change from prior, limb leads difficult to assess) EKG Interpretation Comments: Poor quality EKG for the limb leads, precordial leads no change from prior, no obvious acute injury here. EKG repeated at 6:00 AM and the patient's tremor had lessened. The EKG is unchanged from prior EKG with wide complex QRS and very small Q's in the inferior leads as well as T wave inversion in the inferior leads. Pression is there is no change with no obvious ischemia. Course - Vital Signs Text/Narrative:: 5:42 AM the patient is resting comfortably and breathing unlabored. He had steady and improved. He does not feel better on the BiPAP than he did before. 600 the patient is breathing 16 times a minute and appears comfortable. On 40% oxygen his saturation is 94%. He appears improved to me. Will probably take 2 blood gases to decide if he can stay here needs to be intubated which would require transport to [place] to the ICU. 6:37 AM the patient has a good sat and looks pink and talks in complete sentences. His original PCO2 was 104 which is worse than it is ever been. I prepared for intubation but I told the patient in the [place] doctors thought he would not be able to be weaned. He has had deferred the decision about intubation to his . She is was reluctant to make him a DNR but she also insisted that she is going to stop him from smoking. She wanted to have the results of the second blood gas and see if he was in fact improving or deteriorating. He looks clinically like he might be improving but this is farther behind and we have been before and he was intubated with a better blood gas and this in October of this year because he tired out. Oh 7:00 the PCO2 came down to 86 and the patient was verbal and alert. Discussed with admit the patient here. Critical care time 42 minutes including review of past records evaluation and patient placing orders charting management of the patient and assessing the patient at the bedside. This does not include any operation or procedure that is billable separately Last Recorded V/S: Last Vital Signs Temp 97.9 F 05/26/20 05:10 Pulse 69 05/26/20 07:00 Resp 24 H 05/26/20 07:00 BP 93/62 05/26/20 07:00 Pulse Ox 93 L 05/26/20 07:00 - Orders/Labs/Meds Orders: Active Orders 24 hr Category Date Time Status Admission Status [Patient Status] [ADT] Stat ADT 05/26/20 06:57 Ordered BIPAP [RT BiPAP/CPAP] [RC] ASDIRECTED Care 05/26/20 05:37 Active Cardiac Monitoring [RC] . DIRECTED Care 05/26/20 05:16 Active EKG Documentation Completion [RC] AM Care 05/26/20 05:16 Active Pulse Oximetry [RC] ASDIRECTED Care 05/26/20 05:16 Active B-TYPE NATRIURETIC PEPTIDE,BNP [CHEM] Stat Lab 05/26/20 05:44 Received Sodium Chloride 0.9% [Normal Saline] 1,000 ml Med 05/26/20 06:00 Active IV ASDIRECTED Sodium Chloride 0.9% [Saline Flush] Med 05/26/20 05:16 Active 10 ml FLUSH ASDIRECTED PRN Sodium Chloride 0.9% [Saline Flush] Med 05/26/20 05:16 Active 2.5 ml FLUSH ASDIRECTED PRN Saline Lock Insert [OM.PC] Stat Oth 05/26/20 05:16 Ordered Medication Orders Sodium Chloride (Normal Saline) 1,000 mls @ 125 mls/hr IV ASDIRECTED DINORAH Last Admin: 05/26/20 05:52 Dose: 125 mls/hr Documented by: DONTRELL Sodium Chloride (Saline Flush) 10 ml FLUSH ASDIRECTED PRN PRN Reason: Keep Vein Open Last Admin: 05/26/20 05:44 Dose: 10 ml Documented by: DONTRELL Sodium Chloride (Saline Flush) 2.5 ml FLUSH ASDIRECTED PRN PRN Reason: Keep Vein Open Last Admin: 05/26/20 05:44 Dose: 2.5 ml Documented by: DONTRELL Labs: Laboratory Tests 05/26/20 05/26/20 05/26/20 Range/Units 05:32 05:44 05:44 WBC 9.01 (4.0-11.0) K/uL RBC 3.87 L (4.50-5.90) M/uL Hgb 11.0 L (13.0-17.0) g/dL Hct 35.8 L (38.0-50.0) % MCV 92.5 (80.0-98.0) fL MCH 28.4 (27.0-32.0) pg MCHC 30.7 L (31.0-37.0) g/dL RDW Std Deviation 58.1 (28.0-62.0) fl RDW Coeff of Dalton 17 H (11.0-15.0) % Plt Count 156 (150-400) K/uL MPV 9.60 (7.40-12.00) fL Neut % (Auto) 71.7 (48.0-80.0) % Lymph % (Auto) 13.4 L (16.0-40.0) % Gooding % (Auto) 13.9 (0.0-15.0) % Eos % (Auto) 0.9 (0.0-7.0) % Baso % (Auto) 0.1 (0.0-1.5) % Neut # (Auto) 6.5 H (1.4-5.7) K/uL Lymph # (Auto) 1.2 (0.6-2.4) K/uL Gooding # (Auto) 1.3 H (0.0-0.8) K/uL Eos # (Auto) 0.1 (0.0-0.7) K/uL Baso # (Auto) 0.0 (0.0-0.1) K/uL Nucleated RBC % 0.0 /100WBC Nucleated RBCs # 0 K/uL ABG pH 7.272 L (7.35-7.45) ABG pCO2 108 H (35-45) mmHG ABG pO2 36 L* (75-100) mmHG ABG HCO3 50 H (22-26) mEq/L ABG Total CO2 > 50 ABG Base Excess 17 H (-2.0-2.0) Sodium 132 L (136-148) mmol/L Potassium 4.1 (3.5-5.1) mmol/L Chloride 91 L (98-107) mmol/L Carbon Dioxide 43.9 H (21.0-32.0) mmol/L BUN 10 (7.0-18.0) mg/dL Creatinine 0.7 L (0.8-1.3) mg/dL Est Cr Clr Drug Dosing TNP Estimated GFR (MDRD) > 60.0 ml/min Glucose 194 H (74-106) mg/dL Calcium 8.0 L (8.5-10.1) mg/dL Magnesium 2.0 (1.8-2.4) mg/dL Total Bilirubin 0.3 (0.2-1.0) mg/dL AST 22 (15-37) IU/L ALT 24 (14-63) IU/L Alkaline Phosphatase 62 (46-116) U/L Troponin I < 0.050 (0.000-0.056) ng/mL Total Protein 7.6 (6.4-8.2) g/dL Albumin 3.0 L (3.4-5.0) g/dL Globulin 4.6 H (2.6-4.0) g/dL Albumin/Globulin Ratio 0.7 L (0.9-1.6) COVID-19 (VERNA) (NEGATIVE) 05/26/20 05/26/20 Range/Units 05:57 06:35 WBC (4.0-11.0) K/uL RBC (4.50-5.90) M/uL Hgb (13.0-17.0) g/dL Hct (38.0-50.0) % MCV (80.0-98.0) fL MCH (27.0-32.0) pg MCHC (31.0-37.0) g/dL RDW Std Deviation (28.0-62.0) fl RDW Coeff of Dalton (11.0-15.0) % Plt Count (150-400) K/uL MPV (7.40-12.00) fL Neut % (Auto) (48.0-80.0) % Lymph % (Auto) (16.0-40.0) % Gooding % (Auto) (0.0-15.0) % Eos % (Auto) (0.0-7.0) % Baso % (Auto) (0.0-1.5) % Neut # (Auto) (1.4-5.7) K/uL Lymph # (Auto) (0.6-2.4) K/uL Gooding # (Auto) (0.0-0.8) K/uL Eos # (Auto) (0.0-0.7) K/uL Baso # (Auto) (0.0-0.1) K/uL Nucleated RBC % /100WBC Nucleated RBCs # K/uL ABG pH 7.360 (7.35-7.45) ABG pCO2 86 H (35-45) mmHG ABG pO2 69 L (75-100) mmHG ABG HCO3 49 H (22-26) mEq/L ABG Total CO2 45.5 ABG Base Excess 19.4 H (-2.0-2.0) Sodium (136-148) mmol/L Potassium (3.5-5.1) mmol/L Chloride (98-107) mmol/L Carbon Dioxide (21.0-32.0) mmol/L BUN (7.0-18.0) mg/dL Creatinine (0.8-1.3) mg/dL Est Cr Clr Drug Dosing Estimated GFR (MDRD) ml/min Glucose (74-106) mg/dL Calcium (8.5-10.1) mg/dL Magnesium (1.8-2.4) mg/dL Total Bilirubin (0.2-1.0) mg/dL AST (15-37) IU/L ALT (14-63) IU/L Alkaline Phosphatase (46-116) U/L Troponin I (0.000-0.056) ng/mL Total Protein (6.4-8.2) g/dL Albumin (3.4-5.0) g/dL Globulin (2.6-4.0) g/dL Albumin/Globulin Ratio (0.9-1.6) COVID-19 (VERNA) NEGATIVE (NEGATIVE) Meds: Medications Generic Name Dose Route Start Last Admin Trade Name Freq PRN Reason Stop Dose Admin Sodium Chloride 1,000 mls @ 125 mls/hr 05/26/20 06:00 05/26/20 05:52 Normal Saline IV 125 mls/hr ASDIRECTED DINORAH Administration Sodium Chloride 10 ml 05/26/20 05:16 05/26/20 05:44 Saline Flush FLUSH 10 ml ASDIRECTED PRN Administration Keep Vein Open Sodium Chloride 2.5 ml 05/26/20 05:16 05/26/20 05:44 Saline Flush FLUSH 2.5 ml ASDIRECTED PRN Administration Keep Vein Open Discontinued Medications Generic Name Dose Route Start Last Admin Trade Name Freq PRN Reason Stop Dose Admin Nicotine 21 mg 05/26/20 05:32 05/26/20 05:44 Habitrol TRDERM 05/26/20 05:33 21 mg ONETIME ONE Administration Departure - Departure Time of Disposition: 07:03 Disposition: Admitted As Inpatient 68 Clinical Impression: COPD exacerbation - Discharge Information Referrals: [facility] [Primary Care Provider] - Sepsis Event Note (ED) - Focused Exam Vital Signs: Vital Signs Temp Pulse Resp BP Pulse Ox 05/26/20 07:00 69 24 H 93/62 93 L 05/26/20 06:45 69 24 H 92/61 95 05/26/20 06:30 73 24 H 92/61 94 L 05/26/20 06:15 24 H 89/58 L 95 05/26/20 06:00 77 24 H 91/60 91 L 05/26/20 05:45 77 24 H 90/61 94 L 05/26/20 05:30 86 24 H 97/65 94 L 05/26/20 05:10 97.9 F 81 25 H 124/65 96 - My Orders Last 24 Hours: My Active Orders 05/26/20 05:16 Cardiac Monitoring [RC] . DIRECTED EKG Documentation Completion [RC] AM Pulse Oximetry [RC] ASDIRECTED Sodium Chloride 0.9% [Saline Flush] 10 ml FLUSH ASDIRECTED PRN Sodium Chloride 0.9% [Saline Flush] 2.5 ml FLUSH ASDIRECTED PRN Saline Lock Insert [OM.PC] Stat 05/26/20 05:37 BIPAP [RT BiPAP/CPAP] [RC] ASDIRECTED 05/26/20 05:44 B-TYPE NATRIURETIC PEPTIDE,BNP [CHEM] Stat 05/26/20 06:00 Sodium Chloride 0.9% [Normal Saline] 1,000 ml IV ASDIRECTED 05/26/20 06:57 Admission Status [Patient Status] [ADT] Stat - Assessment/Plan Last 24 Hours: My Active Orders 05/26/20 05:16 Cardiac Monitoring [RC] . DIRECTED EKG Documentation Completion [RC] AM Pulse Oximetry [RC] ASDIRECTED Sodium Chloride 0.9% [Saline Flush] 10 ml FLUSH ASDIRECTED PRN Sodium Chloride 0.9% [Saline Flush] 2.5 ml FLUSH ASDIRECTED PRN Saline Lock Insert [OM.PC] Stat 05/26/20 05:37 BIPAP [RT BiPAP/CPAP] [RC] ASDIRECTED 05/26/20 05:44 B-TYPE NATRIURETIC PEPTIDE,BNP [CHEM] Stat 05/26/20 06:00 Sodium Chloride 0.9% [Normal Saline] 1,000 ml IV ASDIRECTED 05/26/20 06:57 Admission Status [Patient Status] [ADT] Stat
[2020-05-26] MEDS ORDERED: Nicotine 21 MG/24 Hr Patch TRDERM ONE (05:32)
--- NOTE | 2020-05-26 05:56 | CR ---
INDICATION: Dyspnea TECHNIQUE: Chest radiograph 1 view on 2 films COMPARISON: None FINDINGS: Mediastinum: The mediastinum is normal in appearance. The heart silhouette is normal in size and morphology. A left cardiac pacer is present with leads in the right atrium and right ventricle. Lung: Bilateral hyperinflation is present and suggestive of severe pulmonary emphysema. No sign of pleural effusion seen. No pneumothorax is identified. Bone and Soft tissue: Unremarkable for age. IMPRESSION: 1. Bilateral hyperinflation is present and suggestive of severe pulmonary emphysema. Dictated by: Diomedes Bales MD @ 05/26/2020 05:55:35 (Electronically Signed)
[2020-05-26] MEDS ORDERED: Sodium Chloride 0.9% 1,000 ML IV SCH (06:00)
[2020-05-26 06:15] LABS: BLOOD UREA NITROGEN,BUN 10 mg/dL (7.0-18.0); CARBON DIOXIDE,CO2 43.9 mmol/L (21.0-32.0); CHLORIDE,CL 91 mmol/L (98-107); GLUCOSE RANDOM 194 mg/dL (74-106); POTASSIUM,K 4.1 mmol/L (3.5-5.1); SODIUM,NA 132 mmol/L (136-148)
[2020-05-26] MEDS ORDERED: acetaZOLAMIDE 250 MG Tab PO ONE (07:52)
[2020-05-26] MEDS ORDERED: Azithromycin 500 MG in Sodium Chloride 0.9% 250 ML IV SCH (08:00)
[2020-05-26] MEDS ORDERED: Ondansetron 4 MG/2 ML SDV IVPUSH PRN (08:09)
[2020-05-26] MEDS ORDERED: Acetaminophen 325 MG Tab PO PRN (08:10)
[2020-05-26] MEDS ORDERED: Heparin Sodium 5,000 Units/ML Vial SUBCUT SCH (08:15)
--- NOTE | 2020-05-26 08:15 | PCM.HP.2 ---
<Samson Greenwood M - Last Filed: 05/26/20 13:24> H&P History of Present Illness - General Date of Service: 05/26/20 Admit Problem/Dx: Admission Diagnosis/Problem Admission Diagnosis/Problem Respiratory failure with hypercapnia Source of Information: Patient History Limitations: Reports: Other (wearing BiPAP) - History of Present Illness Initial Comments - Free Text/Narative: 69-year-old male presented with complaint of shortness of breath for the past 1- 2 days. He has a PMH of COPD on home oxygen (baseline 5L), CHF, pacemaker, multiple sclerosis and BPH. History is limited as patient is on BiPAP. Patient reports that he felt increasing SOB and then was noticing his oxygen saturations decrease. His breathing got a lot worse last night so he decided to come to the hospital. He reports having a chronic cough. Denies any fevers, chills, chest pain, nausea, vomiting, abdominal pain, diarrhea, blood in stool or blood in urine. Of note, patient reports having COPD exacerbation in October, was intubated and transferred to [place]. He was told that if he was intubated again he may not be able to be weaned off. In the ER, 1st ABG: pH 7.27, pCO2 108, pO2 36, HCO3 50. Repeat ABG: pH 7.36, pCO2 86, pO2 69, HCO3 49. CXR showed severe emphysema. COVID19 test negative. EKG showed no acute ischemic changes. Patient was started on BiPAP and discus fidel was held about intubation. However, patient and wanted to continue on BiPAP for now to see if he would improve. Patient admitted for further evaluation and treatment. - Related Data Allergies/Adverse Reactions: Allergies Allergy/AdvReac Type Severity Reaction Status Date / Time codeine Allergy Cannot Verified 05/26/20 05:33 Remember Home Medications: Home Meds Albuterol Sulfate [Albuterol Sulfate Hfa] 2 puff INH Q4H PRN 05/14/20 [History] Cholecalciferol (Vitamin D3) [Vitamin D3] 2,000 unit PO DAILY 05/14/20 [History] Furosemide 20 mg PO DAILY PRN 05/14/20 [History] Ibuprofen 800 mg PO Q6H PRN 05/14/20 [History] Levothyroxine 150 mcg PO ACBREAKFAST 05/14/20 [History] Omeprazole 20 mg PO ACBREAKFAST 05/14/20 [History] Pregabalin 50 mg PO BID 05/14/20 [History] carvediloL [Carvedilol] 25 mg PO BID 05/14/20 [History] Aspirin [Halfprin] 81 mg PO DAILY 05/15/20 [History] Interferon Beta-1a [Avonex] 30 mcg IM WEEKLY 05/15/20 [History] Sildenafil Citrate 100 mg PO .ONE HOUR PRIOR PRN MDD sexual activity 05/15/20 [History] Simvastatin 5 mg PO BEDTIME 05/15/20 [History] Tamsulosin HCl 0.4 mg PO BEDTIME 05/15/20 [History] predniSONE [Prednisone] 40 mg PO DAILY #10 tablet 05/15/20 [Rx] Albuterol/Ipratropium [DuoNeb 3.0-0.5 MG/3 ML] 3 ml NEB Q6H 05/26/20 [History] Modafinil [Provigil] 500 mg PO DAILY 05/26/20 [History] Past Medical History HEENT History: Reports: Cataract Cardiovascular History: Reports: Heart Failure, Pacemaker Respiratory History: Reports: COPD, Other (See Below) Other Respiratory History: Home O2 as of Jul 2019 Gastrointestinal History: Reports: None Genitourinary History: Reports: BPH Musculoskeletal History: Reports: Other (See Below) Other Musculoskeletal History: Unsteady Gait per Neurological History: Reports: MS Psychiatric History: Reports: None Endocrine/Metabolic History: Reports: None Hematologic History: Reports: None Immunologic History: Reports: None Oncologic (Cancer) History: Reports: None Dermatologic History: Reports: None - Infectious Disease History Infectious Disease History: Reports: Chicken Pox, Measles, Mumps - Past Surgical History Head Surgeries/Procedures: Reports: None HEENT Surgical History: Reports: Cataract Surgery Cardiovascular Surgical History: Reports: Pacer Respiratory Surgical History: Reports: None GI Surgical History: Reports: None Male Surgical History: Reports: None Endocrine Surgical History: Reports: None Neurological Surgical History: Reports: None Musculoskeletal Surgical History: Reports: None Oncologic Surgical History: Reports: None Dermatological Surgical History: Reports: None Social & Family History - Family History Family Medical History: Noncontributory - Tobacco Use Smoking Status *Q: Current Every Day Smoker Years of Tobacco use: 49 Packs/Tins Daily: 1 - Caffeine Use Caffeine Use: Reports: None Caffeine Use Comment: Everyday - Recreational Drug Use Recreational Drug Use: No H&P Review of Systems - Review of Systems: Review Of Systems: Comprehensive ROS is negative, except as noted in HPI. Exam - Exam Exam: See Below - Vital Signs Vital Signs: Last Vital Signs Temp 36.6 C 05/26/20 05:10 Pulse 68 05/26/20 07:46 Resp 12 05/26/20 07:46 BP 88/60 L 05/26/20 07:46 Pulse Ox 93 L 05/26/20 07:46 Weight: 53 kg - Exam General: Alert, Oriented, Cooperative, Other (BiPAP) HEENT: Conjunctiva Clear, Hearing Intact, Pupils Equal Neck: Supple, Trachea Midline Lungs: Clear to Auscultation, Other (poor aeration b/l) Cardiovascular: Regular Rate, Regular Rhythm GI/Abdominal Exam: Normal Bowel Sounds, Soft, Non-Tender, No Distention Extremities: Normal Inspection, No Pedal Edema Skin: Warm, Dry, Intact Neurological: Cranial Nerves Intact, Strength Equal Bilateral, Normal Speech, Normal Tone Neuro Extensive - Mental Status: Alert, Oriented x3, Normal Mood/Affect Psychiatric: Alert, Normal Affect, Normal Mood - Patient Data Lab Results Last 24 hrs: Laboratory Results - last 24 hr 05/26/20 05/26/20 05/26/20 Range/Units 05:32 05:44 05:44 WBC 9.01 (4.0-11.0) K/uL RBC 3.87 L (4.50-5.90) M/uL Hgb 11.0 L (13.0-17.0) g/dL Hct 35.8 L (38.0-50.0) % MCV 92.5 (80.0-98.0) fL MCH 28.4 (27.0-32.0) pg MCHC 30.7 L (31.0-37.0) g/dL RDW Std Deviation 58.1 (28.0-62.0) fl RDW Coeff of Dalton 17 H (11.0-15.0) % Plt Count 156 (150-400) K/uL MPV 9.60 (7.40-12.00) fL Neut % (Auto) 71.7 (48.0-80.0) % Lymph % (Auto) 13.4 L (16.0-40.0) % [place] % (Auto) 13.9 (0.0-15.0) % Eos % (Auto) 0.9 (0.0-7.0) % Baso % (Auto) 0.1 (0.0-1.5) % Neut # (Auto) 6.5 H (1.4-5.7) K/uL Lymph # (Auto) 1.2 (0.6-2.4) K/uL [place] # (Auto) 1.3 H (0.0-0.8) K/uL Eos # (Auto) 0.1 (0.0-0.7) K/uL Baso # (Auto) 0.0 (0.0-0.1) K/uL Nucleated RBC % 0.0 /100WBC Nucleated RBCs # 0 K/uL ABG pH 7.272 L (7.35-7.45) ABG pCO2 108 H (35-45) mmHG ABG pO2 36 L* (75-100) mmHG ABG HCO3 50 H (22-26) mEq/L ABG Total CO2 > 50 ABG Base Excess 17 H (-2.0-2.0) Sodium 132 L (136-148) mmol/L Potassium 4.1 (3.5-5.1) mmol/L Chloride 91 L (98-107) mmol/L Carbon Dioxide 43.9 H (21.0-32.0) mmol/L BUN 10 (7.0-18.0) mg/dL Creatinine 0.7 L (0.8-1.3) mg/dL Est Cr Clr Drug Dosing TNP Estimated GFR (MDRD) > 60.0 ml/min Glucose 194 H (74-106) mg/dL Calcium 8.0 L (8.5-10.1) mg/dL Magnesium 2.0 (1.8-2.4) mg/dL Total Bilirubin 0.3 (0.2-1.0) mg/dL AST 22 (15-37) IU/L ALT 24 (14-63) IU/L Alkaline Phosphatase 62 (46-116) U/L Troponin I < 0.050 (0.000-0.056) ng/mL B-Natriuretic Peptide (<100) PG/ML Total Protein 7.6 (6.4-8.2) g/dL Albumin 3.0 L (3.4-5.0) g/dL Globulin 4.6 H (2.6-4.0) g/dL Albumin/Globulin Ratio 0.7 L (0.9-1.6) COVID-19 (VERNA) (NEGATIVE) 05/26/20 05/26/20 05/26/20 Range/Units 05:44 05:57 06:35 WBC (4.0-11.0) K/uL RBC (4.50-5.90) M/uL Hgb (13.0-17.0) g/dL Hct (38.0-50.0) % MCV (80.0-98.0) fL MCH (27.0-32.0) pg MCHC (31.0-37.0) g/dL RDW Std Deviation (28.0-62.0) fl RDW Coeff of [place] (11.0-15.0) % Plt Count (150-400) K/uL MPV (7.40-12.00) fL Neut % (Auto) (48.0-80.0) % Lymph % (Auto) (16.0-40.0) % [place] % (Auto) (0.0-15.0) % Eos % (Auto) (0.0-7.0) % Baso % (Auto) (0.0-1.5) % Neut # (Auto) (1.4-5.7) K/uL Lymph # (Auto) (0.6-2.4) K/uL [place] # (Auto) (0.0-0.8) K/uL Eos # (Auto) (0.0-0.7) K/uL Baso # (Auto) (0.0-0.1) K/uL Nucleated RBC % /100WBC Nucleated RBCs # K/uL ABG pH 7.360 (7.35-7.45) ABG pCO2 86 H (35-45) mmHG ABG pO2 69 L (75-100) mmHG ABG HCO3 49 H (22-26) mEq/L ABG Total CO2 45.5 ABG Base Excess 19.4 H (-2.0-2.0) Sodium (136-148) mmol/L Potassium (3.5-5.1) mmol/L Chloride (98-107) mmol/L Carbon Dioxide (21.0-32.0) mmol/L BUN (7.0-18.0) mg/dL Creatinine (0.8-1.3) mg/dL Est Cr Clr Drug Dosing Estimated GFR (MDRD) ml/min Glucose (74-106) mg/dL Calcium (8.5-10.1) mg/dL Magnesium (1.8-2.4) mg/dL Total Bilirubin (0.2-1.0) mg/dL AST (15-37) IU/L ALT (14-63) IU/L Alkaline Phosphatase (46-116) U/L Troponin I (0.000-0.056) ng/mL B-Natriuretic Peptide 209 H (<100) PG/ML Total Protein (6.4-8.2) g/dL Albumin (3.4-5.0) g/dL Globulin (2.6-4.0) g/dL Albumin/Globulin Ratio (0.9-1.6) COVID-19 (VERNA) NEGATIVE (NEGATIVE) Result Diagrams: 05/26/20 05:44 05/26/20 05:44 Sepsis Event Note - Evaluation Sepsis Screening Result: No Definite Risk - Focused Exam Vital Signs: Vital Signs Temp Pulse Resp BP Pulse Ox 05/26/20 07:46 68 12 88/60 L 93 L 05/26/20 07:00 69 24 H 93/62 93 L 05/26/20 06:45 69 24 H 92/61 95 05/26/20 06:30 73 24 H 92/61 94 L 05/26/20 06:15 24 H 89/58 L 95 05/26/20 06:00 77 24 H 91/60 91 L 05/26/20 05:45 77 24 H 90/61 94 L 05/26/20 05:30 86 24 H 97/65 94 L 05/26/20 05:10 36.6 C 81 25 H 124/65 96 Date Exam was Performed: 05/26/20 Time Exam was Performed: 13:24 Problem List Initiated/Reviewed/Updated: Yes Orders Last 24hrs: Active Orders 24 hr Category Date Time Status Admission Status [Patient Status] [ADT] Stat ADT 05/26/20 06:57 Active Ambulate [RC] ASDIRECTED Care 05/26/20 08:09 Active Antiembolic Devices [RC] PER UNIT ROUTINE Care 05/26/20 08:11 Active BIPAP [RT BiPAP/CPAP] [RC] ASDIRECTED Care 05/26/20 05:37 Active Cardiac Monitoring [RC] . DIRECTED Care 05/26/20 05:16 Active EKG Documentation Completion [RC] AM Care 05/26/20 05:16 Active Oxygen Therapy [RC] PRN Care 05/26/20 08:09 Active Oxygen Therapy [RC] PRN Care 05/26/20 08:10 Active Pulse Oximetry [RC] ASDIRECTED Care 05/26/20 05:16 Active RT Aerosol Therapy [RC] ASDIRECTED Care 05/26/20 07:56 Active Up With Assistance [RC] ASDIRECTED Care 05/26/20 08:10 Active VTE/DVT Education [RC] PER UNIT ROUTINE Care 05/26/20 08:09 Active VTE/DVT Education [RC] PER UNIT ROUTINE Care 05/26/20 08:10 Active Vital Signs [RC] Q1H Care 05/26/20 08:09 Active Vital Signs [RC] Q1H Care 05/26/20 08:10 Active Clear Liquid Diet [DIET] Diet 05/26/20 Breakfast Active Heart Healthy Diet [DIET] Diet 05/26/20 Lunch Active Acetaminophen [Tylenol] Med 05/26/20 08:10 Active 650 mg PO Q4H PRN Albuterol/Ipratropium [DuoNeb 3.0-0.5 MG/3 ML] Med 05/26/20 10:00 Active 3 ml NEB Q4HRRT Azithromycin [Zithromax] 500 mg Med 05/26/20 08:00 Active Sodium Chloride 0.9% [Normal Saline (AdvBag)] 250 ml IV ONETIME Enoxaparin [Lovenox] Med 05/26/20 08:15 Ordered 40 mg SUBCUT Q24H Lactated Ringers [Ringers, Lactated] 1,000 ml Med 05/26/20 08:15 Ordered IV ASDIRECTED Ondansetron [Zofran] Med 05/26/20 08:09 Ordered 4 mg IVPUSH Q4H PRN Sodium Chloride 0.9% [Normal Saline] 1,000 ml Med 05/26/20 06:00 Active IV ASDIRECTED Sodium Chloride 0.9% [Saline Flush] Med 05/26/20 05:16 Active 10 ml FLUSH ASDIRECTED PRN Sodium Chloride 0.9% [Saline Flush] Med 05/26/20 05:16 Active 2.5 ml FLUSH ASDIRECTED PRN acetaZOLAMIDE [Diamox] Med 05/26/20 12:00 Active 250 mg PO BID methylPREDNISolone Sod Succ [Solu-MEDROL] Med 05/26/20 08:00 Active 40 mg IVPUSH Q8H Saline Lock Insert [OM.PC] Stat Oth 05/26/20 05:16 Ordered Sequential Compression Device [OM.PC] Per Unit Routine Oth 05/26/20 08:10 Ordered Code Status [Resuscitation Status] Routine Resus Stat 05/26/20 08:08 Ordered Medication Orders Acetaminophen (Tylenol) 650 mg PO Q4H PRN PRN Reason: Pain (Mild 1-3)/fever Acetazolamide (Diamox) 250 mg PO BID DINORAH Albuterol/Ipratropium (Duoneb 3.0-0.5 Mg/3 Ml) 3 ml NEB Q4HRRT DINORAH Enoxaparin Sodium (Lovenox) 40 mg SUBCUT Q24H DINORAH Sodium Chloride (Normal Saline) 1,000 mls @ 125 mls/hr IV ASDIRECTED DINORAH Last Admin: 05/26/20 05:52 Dose: 125 mls/hr Documented by: DONTRELL Azithromycin 500 mg/ Sodium (Chloride) 250 mls @ 250 mls/hr IV ONETIME DINORAH Lactated Ringer's (Ringers, Lactated) 1,000 mls @ 75 mls/hr IV ASDIRECTED DINORAH Methylprednisolone Sodium Succinate (Solu-Medrol) 40 mg IVPUSH Q8H DINORAH Ondansetron HCl (Zofran) 4 mg IVPUSH Q4H PRN PRN Reason: Nausea/Vomiting Sodium Chloride (Saline Flush) 10 ml FLUSH ASDIRECTED PRN PRN Reason: Keep Vein Open Last Admin: 05/26/20 05:44 Dose: 10 ml Documented by: DONTRELL Sodium Chloride (Saline Flush) 2.5 ml FLUSH ASDIRECTED PRN PRN Reason: Keep Vein Open Last Admin: 05/26/20 05:44 Dose: 2.5 ml Documented by: DONTRELL Assessment/Plan Comment:: Assessment and Plan: 1. Acute on chronic hypoxic hypercapnic respiratory failure secondary to COPD exacerbation: - Admit to ICU. Continue BIPAP, DuoNebs q4h DINORAH and IV solumedrol 40 mg q8h. Will start IV azithromycin qd. Will continue to monitor respiratory status. Patients appears to be doing better since starting BiPAP. Recheck BMP this evening. Counselled on smoking cessation. Discussed code status with patient and he would like to discuss with his in more detail today. 2. DVT prophylaxis: Lovenox. <Charlene Shirley - Last Filed: 05/27/20 11:32> H&P History of Present Illness - General Admit Problem/Dx: Admission Diagnosis/Problem Admission Diagnosis/Problem Respiratory failure with hypercapnia - History of Present Illness Initial Comments - Free Text/Narative: I performed a history and physical exam of the patient and discussed management with resident. I have reviewed the residents note and agree with documented findings and plan unless otherwise specified in my note. Exam - Vital Signs Vital Signs: Last Vital Signs Temp 37.5 C 05/27/20 08:09 Pulse 68 05/26/20 07:46 Resp 19 05/27/20 10:33 BP 95/50 L 05/27/20 10:33 Pulse Ox 92 L 05/27/20 10:33 - Patient Data Lab Results Last 24 hrs: Laboratory Results - last 24 hr 05/26/20 05/26/20 05/27/20 Range/Units 13:12 18:49 05:20 WBC 4.53 (4.0-11.0) K/uL RBC 3.51 L (4.50-5.90) M/uL Hgb 9.9 L (13.0-17.0) g/dL Hct 31.7 L (38.0-50.0) % MCV 90.3 (80.0-98.0) fL MCH 28.2 (27.0-32.0) pg MCHC 31.2 (31.0-37.0) g/dL RDW Std Deviation 58.8 (28.0-62.0) fl RDW Coeff of Dalton 18 H (11.0-15.0) % Plt Count 161 (150-400) K/uL MPV 8.90 (7.40-12.00) fL Add Manual Diff YES Neutrophils % (Manual) 70 (48.0-80.0) % Lymphocytes % (Manual) 8 L (16.0-40.0) % Monocytes % (Manual) 22 H (0.0-15.0) % Nucleated RBC % 0.0 /100WBC Absolute Seg Neuts 3.2 (1.4-5.7) Lymphocytes # (Manual) 0.4 L (0.6-2.4) Monocytes # (Manual) 1.0 H (0.0-0.8) Nucleated RBCs # 0 K/uL Sodium 135 L (136-148) mmol/L Potassium 3.8 (3.5-5.1) mmol/L Chloride 97 L (98-107) mmol/L Carbon Dioxide 37.2 H (21.0-32.0) mmol/L BUN 9 (7.0-18.0) mg/dL Creatinine 0.8 (0.8-1.3) mg/dL Est Cr Clr Drug Dosing 67.17 mL/min Estimated GFR (MDRD) > 60.0 ml/min Glucose 173 H (74-106) mg/dL Calcium 8.2 L (8.5-10.1) mg/dL Total Bilirubin (0.2-1.0) mg/dL AST (15-37) IU/L ALT (14-63) IU/L Alkaline Phosphatase (46-116) U/L Total Protein (6.4-8.2) g/dL Albumin (3.4-5.0) g/dL Globulin (2.6-4.0) g/dL Albumin/Globulin Ratio (0.9-1.6) Urine Color YELLOW Urine Appearance SLT CLOUDY Urine pH 8.5 H (5.0-8.0) Ur Specific [place] 1.010 (1.001-1.035) Urine Protein NEGATIVE (NEGATIVE) mg/dL Urine Glucose (UA) 250 H (NEGATIVE) mg/dL Urine Ketones NEGATIVE (NEGATIVE) mg/dL Urine Occult Blood SMALL H (NEGATIVE) Urine Nitrite NEGATIVE (NEGATIVE) Urine Bilirubin NEGATIVE (NEGATIVE) Urine Urobilinogen 0.2 (<2.0) EU/dL Ur Leukocyte Esterase NEGATIVE (NEGATIVE) Urine RBC 0-2 (0-2/HPF) Urine WBC 0-1 (0-5/HPF) Ur Epithelial Cells RARE (NONE-FEW) Urine Bacteria 1+ H (NEGATIVE) 05/27/20 Range/Units 05:20 WBC (4.0-11.0) K/uL RBC (4.50-5.90) M/uL Hgb (13.0-17.0) g/dL Hct (38.0-50.0) % MCV (80.0-98.0) fL MCH (27.0-32.0) pg MCHC (31.0-37.0) g/dL RDW Std Deviation (28.0-62.0) fl RDW Coeff of Dalton (11.0-15.0) % Plt Count (150-400) K/uL MPV (7.40-12.00) fL Add Manual Diff Neutrophils % (Manual) (48.0-80.0) % Lymphocytes % (Manual) (16.0-40.0) % Monocytes % (Manual) (0.0-15.0) % Nucleated RBC % /100WBC Absolute Seg Neuts (1.4-5.7) Lymphocytes # (Manual) (0.6-2.4) Monocytes # (Manual) (0.0-0.8) Nucleated RBCs # K/uL Sodium 132 L (136-148) mmol/L Potassium 4.1 (3.5-5.1) mmol/L Chloride 99 (98-107) mmol/L Carbon Dioxide 31.3 (21.0-32.0) mmol/L BUN 11 (7.0-18.0) mg/dL Creatinine 0.8 (0.8-1.3) mg/dL Est Cr Clr Drug Dosing 67.17 mL/min Estimated GFR (MDRD) > 60.0 ml/min Glucose 152 H (74-106) mg/dL Calcium 8.1 L (8.5-10.1) mg/dL Total Bilirubin 0.2 (0.2-1.0) mg/dL AST 17 (15-37) IU/L ALT 24 (14-63) IU/L Alkaline Phosphatase 49 (46-116) U/L Total Protein 6.8 (6.4-8.2) g/dL Albumin 2.6 L (3.4-5.0) g/dL Globulin 4.2 H (2.6-4.0) g/dL Albumin/Globulin Ratio 0.6 L (0.9-1.6) Urine Color Urine Appearance Urine pH (5.0-8.0) Ur Specific [place] (1.001-1.035) Urine Protein (NEGATIVE) mg/dL Urine Glucose (UA) (NEGATIVE) mg/dL Urine Ketones (NEGATIVE) mg/dL Urine Occult Blood (NEGATIVE) Urine Nitrite (NEGATIVE) Urine Bilirubin (NEGATIVE) Urine Urobilinogen (<2.0) EU/dL Ur Leukocyte Esterase (NEGATIVE) Urine RBC (0-2/HPF) Urine WBC (0-5/HPF) Ur Epithelial Cells (NONE-FEW) Urine Bacteria (NEGATIVE) Result Diagrams: 05/27/20 05:20 05/27/20 05:20 Sepsis Event Note - Focused Exam Vital Signs: Vital Signs Temp Temp Resp BP BP Pulse Ox Pulse Ox 05/27/20 10:33 19 95/50 L 92 L 05/27/20 09:45 15 109/68 92 L 05/27/20 09:31 91/44 L 05/27/20 09:00 17 94 L 05/27/20 08:10 93 L 05/27/20 08:09 37.5 C 14 118/71 93 L 05/27/20 07:00 23 H 106/63 95 05/27/20 06:00 19 96/53 L 90 L 05/27/20 05:00 16 107/66 98 05/27/20 04:00 36.8 C 20 104/64 96 05/27/20 03:00 18 96/54 L 89 L 05/27/20 02:00 14 94/57 L 97 05/27/20 01:00 15 96/51 L 97 05/27/20 00:00 36.3 C 14 98/57 L 90 L Date Exam was Performed: 05/27/20 Time Exam was Performed: 11:31 Orders Last 24hrs: Active Orders 24 hr Category Date Time Status Transfer Patient (Change bed) [ADT] Routine ADT 05/27/20 10:07 Ordered Telemetry Monitoring [Cardiac Monitoring] [RC] . Care 05/27/20 10:26 Active DIRECTED Consult to Physical Therapy [PT Evaluation and Cons 05/27/20 10:08 Active Treatment] [CONS] Routine CBC WITH AUTO DIFF [HEME] AM Lab 05/28/20 05:11 Ordered COMPREHENSIVE METABOLIC PN,CMP [CHEM] AM Lab 05/28/20 05:11 Ordered Aspirin [Halfprin] Med 05/27/20 09:00 Active 81 mg PO DAILY Azithromycin [Zithromax] 500 mg Med 05/26/20 12:00 Active Sodium Chloride 0.9% [Normal Saline (AdvBag)] 250 ml IV DAILY Levothyroxine Med 05/27/20 07:30 Active 150 mcg PO ACBREAKFAST Pregabalin [Lyrica] Med 05/26/20 21:00 Active 50 mg PO BID Simvastatin [Zocor] Med 05/26/20 21:00 Active 5 mg PO BEDTIME Tamsulosin [Flomax] Med 05/26/20 21:00 Active 0.4 mg PO BEDTIME carvediloL [Coreg] Med 05/28/20 09:00 Active 12.5 mg PO BID modafiniL [Provigil] Med 05/27/20 09:00 Active 500 mg PO DAILY Code Status [Resuscitation Status] Routine Resus Stat 05/26/20 17:54 Ordered Medication Orders Acetaminophen (Tylenol) 650 mg PO Q4H PRN PRN Reason: Pain (Mild 1-3)/fever Albuterol/Ipratropium (Duoneb 3.0-0.5 Mg/3 Ml) 3 ml NEB Q4HRRT [facility] Last Admin: 05/27/20 09:19 Dose: 3 ml Documented by: Admin: 05/27/20 05:50 Dose: 3 ml Documented by: Admin: 05/27/20 02:19 Dose: 3 ml Documented by: Admin: 05/26/20 22:25 Dose: 3 ml Documented by: Admin: 05/26/20 18:56 Dose: 3 ml Documented by: Admin: 05/26/20 14:33 Dose: 3 ml Documented by: Admin: 05/26/20 09:11 Dose: 3 ml Documented by: IVONNE Aspirin (Halfprin) 81 mg PO DAILY [facility] Last Admin: 05/27/20 08:53 Dose: 81 mg Documented by: MEDINA Carvedilol (Coreg) 12.5 mg PO BID [facility] Enoxaparin Sodium (Lovenox) 40 mg SUBCUT Q24H [facility] Last Admin: 05/27/20 08:57 Dose: 40 mg Documented by: Admin: 05/26/20 09:05 Dose: 40 mg Documented by: IVONNE Pantoprazole Sodium 40 mg/ (Sodium Chloride) 10 mls @ 300 mls/hr IV DAILY [facility] Last Admin: 05/27/20 08:48 Dose: 300 mls/hr Documented by: Infusion: 05/26/20 09:07 Dose: 300 mls/hr Documented by: Admin: 05/26/20 09:05 Dose: 300 mls/hr Documented by: IVONNE Azithromycin 500 mg/ Sodium (Chloride) 250 mls @ 250 mls/hr IV DAILY [facility] Last Admin: 05/27/20 09:03 Dose: 250 mls/hr Documented by: Infusion: 05/26/20 13:22 Dose: 250 mls/hr Documented by: Admin: 05/26/20 12:22 Dose: 250 mls/hr Documented by: IVONNE Levothyroxine Sodium (Levothyroxine) 150 mcg PO ACBREAKFAST [facility] Last Admin: 05/27/20 06:52 Dose: 150 mcg Documented by: DERIC Methylprednisolone Sodium Succinate (Solu-Medrol) 40 mg IVPUSH Q8H [facility] Last Admin: 05/27/20 08:45 Dose: 40 mg Documented by: Admin: 05/26/20 23:39 Dose: 40 mg Documented by: Admin: 05/26/20 16:41 Dose: 40 mg Documented by: Admin: 05/26/20 09:19 Dose: 40 mg Documented by: IVONNE Modafinil (Provigil) 500 mg PO DAILY [facility] Last Admin: 05/27/20 09:52 Dose: 500 mg Documented by: MEDINA Pregabalin (Lyrica) 50 mg PO BID [facility] Last Admin: 05/27/20 08:52 Dose: 50 mg Documented by: Admin: 05/26/20 21:08 Dose: 50 mg Documented by: DERIC Simvastatin (Zocor) 5 mg PO BEDTIME [facility] Last Admin: 05/26/20 21:08 Dose: 5 mg Documented by: DERIC Sodium Chloride (Saline Flush) 10 ml FLUSH ASDIRECTED PRN PRN Reason: Keep Vein Open Last Admin: 05/26/20 05:44 Dose: 10 ml Documented by: DONTRELL Sodium Chloride (Saline Flush) 2.5 ml FLUSH ASDIRECTED PRN PRN Reason: Keep Vein Open Last Admin: 05/26/20 05:44 Dose: 2.5 ml Documented by: DONTRELL Tamsulosin HCl (Flomax) 0.4 mg PO BEDTIME [facility] Last Admin: 05/26/20 21:07 Dose: 0.4 mg Documented by: DERIC
--- NOTE | 2020-05-26 08:20 | PN ---
THC Physician - Brief Progress [id number]/04/2020 07:57[facility] Tera Blancas, BERNIE - AMARI (ETHAN) - AMARI MOREFLOR GARRIDOIeshaDate of Service 05/26/2020 07:57HPI/Events of Note EICU admission note:69 year old male with end stage COPD on 5L at home around the clock, and Mu ltiple Sclerosis with muscle wasting presenting with acute on chronic hypercapnic respiratory failure .Patient has not quit smoking despite being intubated in October of this year.His bicarb suggests sev ere chronic hypercapnia.On camera:Patient needs a hospice consult.He also needs bipap at night and wi th all naps, may need Trilegy vent outpatient due to weakness.Start Azithromycin daily, and upon d/c every other day 250mg po ( using for anti-inflammatory )Duo Neb scheduled q4 hours.Absolutely stop s moking even with hospice consult, as it limits his time off mechanical ventilation.Gi/DVT prophContin ue appropriate home medsInterventions Major-Respiratory failure - evaluation and managementMinor-Clin ical assessment - ordering diagnostic tests, Communication with other healthcare providers and/or [facility] abdulaziz, Routine modifications to care plan (e.g. PRN medications for pain, fever)
[2020-05-26] MEDS: Lactated Ringers 1,000 ML IV SCH (09:03)
[2020-05-26] MEDS: Enoxaparin 40 MG/0.4 ML Syringe SUBCUT SCH (09:05)
[2020-05-26] MEDS: Pantoprazole 40 MG in Sodium Chloride 0.9% 10 ML IV SCH (09:05)
[2020-05-26] MEDS: Albuterol/Ipratropium 3.0-0.5 MG/3 ML Neb Soln NEB SCH ×4 (09:11→22:25)
[2020-05-26] MEDS: methylPREDNISolone Sodium Succinate 40 MG/1 ML SDV IVPUSH SCH ×3 (09:19→23:39)
[2020-05-26] MEDS ORDERED: acetaZOLAMIDE 250 MG Tab PO SCH (12:00)
[2020-05-26] MEDS: Azithromycin 500 MG in Sodium Chloride 0.9% 250 ML IV SCH (12:22)
[2020-05-26 19:11] LABS: BLOOD UREA NITROGEN,BUN 9 mg/dL (7.0-18.0); CARBON DIOXIDE,CO2 37.2 mmol/L (21.0-32.0); CHLORIDE,CL 97 mmol/L (98-107); GLUCOSE RANDOM 173 mg/dL (74-106); POTASSIUM,K 3.8 mmol/L (3.5-5.1); SODIUM,NA 135 mmol/L (136-148)
[2020-05-26] MEDS ORDERED: Lactated Ringers 500 ML IV SCH (21:00)
[2020-05-26] MEDS: Tamsulosin 0.4 MG Cap.ER PO SCH (21:07)
[2020-05-26] MEDS: Simvastatin 10 MG Tab PO SCH (21:08)
[2020-05-26] MEDS: Pregabalin 50 MG Cap PO SCH (21:08)
[2020-05-26] MEDS ORDERED: Lactated Ringers 500 ML IV ONE (22:14)
[2020-05-27] MEDS: Lactated Ringers 1,000 ML IV SCH (01:15)
[2020-05-27] MEDS: Albuterol/Ipratropium 3.0-0.5 MG/3 ML Neb Soln NEB SCH ×6 (02:19→21:24)
[2020-05-27 05:47] LABS: BLOOD UREA NITROGEN,BUN 11 mg/dL (7.0-18.0); CARBON DIOXIDE,CO2 31.3 mmol/L (21.0-32.0); CHLORIDE,CL 99 mmol/L (98-107); GLUCOSE RANDOM 152 mg/dL (74-106); POTASSIUM,K 4.1 mmol/L (3.5-5.1); SODIUM,NA 132 mmol/L (136-148)
[2020-05-27] MEDS: Levothyroxine 150 MCG Tab PO SCH (06:52)
[2020-05-27] MEDS: methylPREDNISolone Sodium Succinate 40 MG/1 ML SDV IVPUSH SCH ×2 (08:45→16:32)
[2020-05-27] MEDS: Pantoprazole 40 MG in Sodium Chloride 0.9% 10 ML IV SCH (08:48)
[2020-05-27] MEDS: Pregabalin 50 MG Cap PO SCH ×2 (08:52→21:05)
[2020-05-27] MEDS: Aspirin 81 MG Tab.EC PO SCH (08:53)
[2020-05-27] MEDS: Enoxaparin 40 MG/0.4 ML Syringe SUBCUT SCH (08:57)
[2020-05-27] MEDS ORDERED: Carvedilol 25 MG Tab PO SCH (09:00)
[2020-05-27] MEDS: Azithromycin 500 MG in Sodium Chloride 0.9% 250 ML IV SCH (09:03)
[2020-05-27] MEDS: Modafinil 100 MG Tab PO SCH (09:52)
--- NOTE | 2020-05-27 11:30 | PCM.PN ---
<Samson Greenwood M - Last Filed: 05/27/20 11:21> - General Info Date of Service: 05/27/20 Subjective Update: Patient reports breathing much improved today and is feeling better. No fevers or chills overnight. Tolerating oral diet well. - Patient Data Vitals - Most Recent: Last Vital Signs Temp 37.5 C 05/27/20 08:09 Pulse 68 05/26/20 07:46 Resp 19 05/27/20 10:33 BP 95/50 L 05/27/20 10:33 Pulse Ox 92 L 05/27/20 10:33 Weight - Most Recent: 60.8 kg I&O - Last 24 Hours: Intake & Output 05/26/20 05/27/20 05/27/20 22:59 06:59 14:59 Intake Total 2740 3160 Output Total 2600 2550 Balance 140 610 Lab Results Last 24 Hours: Laboratory Results - last 24 hr 05/26/20 05/26/20 05/27/20 Range/Units 13:12 18:49 05:20 WBC 4.53 (4.0-11.0) K/uL RBC 3.51 L (4.50-5.90) M/uL Hgb 9.9 L (13.0-17.0) g/dL Hct 31.7 L (38.0-50.0) % MCV 90.3 (80.0-98.0) fL MCH 28.2 (27.0-32.0) pg MCHC 31.2 (31.0-37.0) g/dL RDW Std Deviation 58.8 (28.0-62.0) fl RDW Coeff of Dalton 18 H (11.0-15.0) % Plt Count 161 (150-400) K/uL MPV 8.90 (7.40-12.00) fL Add Manual Diff YES Neutrophils % (Manual) 70 (48.0-80.0) % Lymphocytes % (Manual) 8 L (16.0-40.0) % Monocytes % (Manual) 22 H (0.0-15.0) % Nucleated RBC % 0.0 /100WBC Absolute Seg Neuts 3.2 (1.4-5.7) Lymphocytes # (Manual) 0.4 L (0.6-2.4) Monocytes # (Manual) 1.0 H (0.0-0.8) Nucleated RBCs # 0 K/uL Sodium 135 L (136-148) mmol/L Potassium 3.8 (3.5-5.1) mmol/L Chloride 97 L (98-107) mmol/L Carbon Dioxide 37.2 H (21.0-32.0) mmol/L BUN 9 (7.0-18.0) mg/dL Creatinine 0.8 (0.8-1.3) mg/dL Est Cr Clr Drug Dosing 67.17 mL/min Estimated GFR (MDRD) > 60.0 ml/min Glucose 173 H (74-106) mg/dL Calcium 8.2 L (8.5-10.1) mg/dL Total Bilirubin (0.2-1.0) mg/dL AST (15-37) IU/L ALT (14-63) IU/L Alkaline Phosphatase (46-116) U/L Total Protein (6.4-8.2) g/dL Albumin (3.4-5.0) g/dL Globulin (2.6-4.0) g/dL Albumin/Globulin Ratio (0.9-1.6) Urine Color YELLOW Urine Appearance SLT CLOUDY Urine pH 8.5 H (5.0-8.0) Ur Specific [place] 1.010 (1.001-1.035) Urine Protein NEGATIVE (NEGATIVE) mg/dL Urine Glucose (UA) 250 H (NEGATIVE) mg/dL Urine Ketones NEGATIVE (NEGATIVE) mg/dL Urine Occult Blood SMALL H (NEGATIVE) Urine Nitrite NEGATIVE (NEGATIVE) Urine Bilirubin NEGATIVE (NEGATIVE) Urine Urobilinogen 0.2 (<2.0) EU/dL Ur Leukocyte Esterase NEGATIVE (NEGATIVE) Urine RBC 0-2 (0-2/HPF) Urine WBC 0-1 (0-5/HPF) Ur Epithelial Cells RARE (NONE-FEW) Urine Bacteria 1+ H (NEGATIVE) 05/27/20 Range/Units 05:20 WBC (4.0-11.0) K/uL RBC (4.50-5.90) M/uL Hgb (13.0-17.0) g/dL Hct (38.0-50.0) % MCV (80.0-98.0) fL MCH (27.0-32.0) pg MCHC (31.0-37.0) g/dL RDW Std Deviation (28.0-62.0) fl RDW Coeff of Dalton (11.0-15.0) % Plt Count (150-400) K/uL MPV (7.40-12.00) fL Add Manual Diff Neutrophils % (Manual) (48.0-80.0) % Lymphocytes % (Manual) (16.0-40.0) % Monocytes % (Manual) (0.0-15.0) % Nucleated RBC % /100WBC Absolute Seg Neuts (1.4-5.7) Lymphocytes # (Manual) (0.6-2.4) Monocytes # (Manual) (0.0-0.8) Nucleated RBCs # K/uL Sodium 132 L (136-148) mmol/L Potassium 4.1 (3.5-5.1) mmol/L Chloride 99 (98-107) mmol/L Carbon Dioxide 31.3 (21.0-32.0) mmol/L BUN 11 (7.0-18.0) mg/dL Creatinine 0.8 (0.8-1.3) mg/dL Est Cr Clr Drug Dosing 67.17 mL/min Estimated GFR (MDRD) > 60.0 ml/min Glucose 152 H (74-106) mg/dL Calcium 8.1 L (8.5-10.1) mg/dL Total Bilirubin 0.2 (0.2-1.0) mg/dL AST 17 (15-37) IU/L ALT 24 (14-63) IU/L Alkaline Phosphatase 49 (46-116) U/L Total Protein 6.8 (6.4-8.2) g/dL Albumin 2.6 L (3.4-5.0) g/dL Globulin 4.2 H (2.6-4.0) g/dL Albumin/Globulin Ratio 0.6 L (0.9-1.6) Urine Color Urine Appearance Urine pH (5.0-8.0) Ur Specific [place] (1.001-1.035) Urine Protein (NEGATIVE) mg/dL Urine Glucose (UA) (NEGATIVE) mg/dL Urine Ketones (NEGATIVE) mg/dL Urine Occult Blood (NEGATIVE) Urine Nitrite (NEGATIVE) Urine Bilirubin (NEGATIVE) Urine Urobilinogen (<2.0) EU/dL Ur Leukocyte Esterase (NEGATIVE) Urine RBC (0-2/HPF) Urine WBC (0-5/HPF) Ur Epithelial Cells (NONE-FEW) Urine Bacteria (NEGATIVE) Med Orders - Current: Current Medications Acetaminophen (Tylenol) 650 mg PO Q4H PRN PRN Reason: Pain (Mild 1-3)/fever Albuterol/Ipratropium (Duoneb 3.0-0.5 Mg/3 Ml) 3 ml NEB Q4HRRT [facility] Last Admin: 05/27/20 09:19 Dose: 3 ml Documented by: Aspirin (Halfprin) 81 mg PO DAILY [facility] Last Admin: 05/27/20 08:53 Dose: 81 mg Documented by: Carvedilol (Coreg) 12.5 mg PO BID [facility] Enoxaparin Sodium (Lovenox) 40 mg SUBCUT Q24H [facility] Last Admin: 05/27/20 08:57 Dose: 40 mg Documented by: Pantoprazole Sodium 40 mg/ (Sodium Chloride) 10 mls @ 300 mls/hr IV DAILY [facility] Last Admin: 05/27/20 08:48 Dose: 300 mls/hr Documented by: Azithromycin 500 mg/ Sodium (Chloride) 250 mls @ 250 mls/hr IV DAILY [facility] Last Admin: 05/27/20 09:03 Dose: 250 mls/hr Documented by: Levothyroxine Sodium (Levothyroxine) 150 mcg PO ACBREAKFAST [facility] Last Admin: 05/27/20 06:52 Dose: 150 mcg Documented by: Methylprednisolone Sodium Succinate (Solu-Medrol) 40 mg IVPUSH Q8H [facility] Last Admin: 05/27/20 08:45 Dose: 40 mg Documented by: Modafinil (Provigil) 500 mg PO DAILY [facility] Last Admin: 05/27/20 09:52 Dose: 500 mg Documented by: Pregabalin (Lyrica) 50 mg PO BID [facility] Last Admin: 05/27/20 08:52 Dose: 50 mg Documented by: Simvastatin (Zocor) 5 mg PO BEDTIME [facility] Last Admin: 05/26/20 21:08 Dose: 5 mg Documented by: Sodium Chloride (Saline Flush) 10 ml FLUSH ASDIRECTED PRN PRN Reason: Keep Vein Open Last Admin: 05/26/20 05:44 Dose: 10 ml Documented by: Sodium Chloride (Saline Flush) 2.5 ml FLUSH ASDIRECTED PRN PRN Reason: Keep Vein Open Last Admin: 05/26/20 05:44 Dose: 2.5 ml Documented by: Tamsulosin HCl (Flomax) 0.4 mg PO BEDTIME [facility] Last Admin: 05/26/20 21:07 Dose: 0.4 mg Documented by: Discontinued Medications Acetazolamide (Diamox) 500 mg PO ONETIME ONE Stop: 05/26/20 07:53 Last Admin: 05/26/20 09:17 Dose: 500 mg Documented by: Acetazolamide (Diamox) 250 mg PO BID [facility] Last Admin: 05/26/20 12:21 Dose: 250 mg Documented by: Carvedilol (Coreg) 25 mg PO BID [facility] Heparin Sodium (Porcine) (Heparin Sodium) 5,000 units SUBCUT Q8H [facility]OR[facility] Sodium Chloride (Normal Saline) 1,000 mls @ 125 mls/hr IV ASDIRECTED [facility] Last Admin: 05/26/20 05:52 Dose: 125 mls/hr Documented by: Azithromycin 500 mg/ Sodium (Chloride) 250 mls @ 250 mls/hr IV ONETIME [facility] Lactated Ringer's (Ringers, Lactated) 1,000 mls @ 75 mls/hr IV ASDIRECTED [facility] Last Admin: 05/27/20 01:15 Dose: 75 mls/hr Documented by: Lactated Ringer's (Ringers, Lactated) 500 mls @ 500 mls/hr IV ASDIRECTED [facility] Stop: 05/26/20 21:59 Last Admin: 05/26/20 20:57 Dose: 500 mls/hr Documented by: Lactated Ringer's (Ringers, Lactated) 500 mls @ 500 mls/hr IV ONETIME ONE Stop: 05/26/20 23:13 Last Admin: 05/26/20 22:15 Dose: 500 mls/hr Documented by: Nicotine (Habitrol) 21 mg TRDERM ONETIME ONE Stop: 05/26/20 05:33 Last Admin: 05/26/20 05:44 Dose: 21 mg Documented by: Ondansetron HCl (Zofran) 4 mg IVPUSH Q4H PRN PRN Reason: Nausea/Vomiting - Exam General: Alert, Oriented, Cooperative, No Acute Distress Lungs: Clear to Auscultation, Normal Respiratory Effort Cardiovascular: Regular Rate, Regular Rhythm GI/Abdominal Exam: Normal Bowel Sounds, Soft, Non-Tender, No Distention Extremities: Normal Inspection, No Pedal Edema Sepsis Event Note - Evaluation Sepsis Screening Result: No Definite Risk - Focused Exam Vital Signs: Vital Signs Temp Temp Resp BP BP Pulse Ox Pulse Ox 05/27/20 10:33 19 95/50 L 92 L 05/27/20 09:45 15 109/68 92 L 05/27/20 09:31 91/44 L 05/27/20 09:00 17 94 L 05/27/20 08:10 93 L 05/27/20 08:09 37.5 C 14 118/71 93 L 05/27/20 07:00 23 H 106/63 95 05/27/20 06:00 19 96/53 L 90 L 05/27/20 05:00 16 107/66 98 05/27/20 04:00 36.8 C 20 104/64 96 05/27/20 03:00 18 96/54 L 89 L 05/27/20 02:00 14 94/57 L 97 05/27/20 01:00 15 96/51 L 97 05/27/20 00:00 36.3 C 14 98/57 L 90 L Date Exam was Performed: 05/27/20 Time Exam was Performed: 11:21 - Problem List Review Problem List Initiated/Reviewed/Updated: Yes - My Orders Last 24 Hours: My Active Orders 05/26/20 12:00 Azithromycin [Zithromax] 500 mg Sodium Chloride 0.9% [Normal Saline (AdvBag)] 250 ml IV DAILY 05/26/20 17:54 Code Status [Resuscitation Status] Routine 05/26/20 21:00 Pregabalin [Lyrica] 50 mg PO BID Simvastatin [Zocor] 5 mg PO BEDTIME Tamsulosin [Flomax] 0.4 mg PO BEDTIME 05/27/20 07:30 Levothyroxine 150 mcg PO ACBREAKFAST 05/27/20 09:00 Aspirin [Halfprin] 81 mg PO DAILY modafiniL [Provigil] 500 mg PO DAILY 05/27/20 10:07 Transfer Patient (Change bed) [ADT] Routine 05/27/20 10:08 Consult to Physical Therapy [PT Evaluation and Treatment] [CONS] Routine 05/28/20 05:11 CBC WITH AUTO DIFF [HEME] AM COMPREHENSIVE METABOLIC PN,CMP [CHEM] AM 05/28/20 09:00 carvediloL [Coreg] 12.5 mg PO BID - Plan Plan:: Assessment and Plan: 1. Acute on chronic hypoxic hypercapnic respiratory failure secondary to COPD exacerbation: - Patient weaned off of BIPAP this AM and currently on NC 3.5L. Will continue BiPAP overnight. Continue DuoNebs q4h [facility]INORAH and IV solumedrol 40 mg q8h. Continue IV azithromycin qd. Counselled on smoking cessation again this morning. Met with patient and yesterday evening to discuss code status and patient decided that he would to be Full Code. Will downgrade to med/surg today. PT consult placed to encourage ambulation. 2. DVT prophylaxis: Lovenox. <Charlene Shirley - Last Filed: 05/30/20 13:18> - General Info Subjective Update: I have seen and evaluated the patient and agree with the residents note unless specified in my note - Patient Data Vitals - Most Recent: Last Vital Signs Temp 37.5 C 05/27/20 08:09 Pulse 68 05/26/20 07:46 Resp 19 05/27/20 10:33 BP 95/50 L 05/27/20 10:33 Pulse Ox 92 L 05/27/20 10:33 I&O - Last 24 Hours: Intake & Output 05/26/20 05/27/20 05/27/20 22:59 06:59 14:59 Intake Total 2740 3160 Output Total 2600 2550 Balance 140 610 Lab Results Last 24 Hours: Laboratory Results - last 24 hr 05/26/20 05/26/20 05/27/20 Range/Units 13:12 18:49 05:20 WBC 4.53 (4.0-11.0) K/uL RBC 3.51 L (4.50-5.90) M/uL Hgb 9.9 L (13.0-17.0) g/dL Hct 31.7 L (38.0-50.0) % MCV 90.3 (80.0-98.0) fL MCH 28.2 (27.0-32.0) pg MCHC 31.2 (31.0-37.0) g/dL RDW Std Deviation 58.8 (28.0-62.0) fl RDW Coeff of Dalton 18 H (11.0-15.0) % Plt Count 161 (150-400) K/uL MPV 8.90 (7.40-12.00) fL Add Manual Diff YES Neutrophils % (Manual) 70 (48.0-80.0) % Lymphocytes % (Manual) 8 L (16.0-40.0) % Monocytes % (Manual) 22 H (0.0-15.0) % Nucleated RBC % 0.0 /100WBC Absolute Seg Neuts 3.2 (1.4-5.7) Lymphocytes # (Manual) 0.4 L (0.6-2.4) Monocytes # (Manual) 1.0 H (0.0-0.8) Nucleated RBCs # 0 K/uL Sodium 135 L (136-148) mmol/L Potassium 3.8 (3.5-5.1) mmol/L Chloride 97 L (98-107) mmol/L Carbon Dioxide 37.2 H (21.0-32.0) mmol/L BUN 9 (7.0-18.0) mg/dL Creatinine 0.8 (0.8-1.3) mg/dL Est Cr Clr Drug Dosing 67.17 mL/min Estimated GFR (MDRD) > 60.0 ml/min Glucose 173 H (74-106) mg/dL Calcium 8.2 L (8.5-10.1) mg/dL Total Bilirubin (0.2-1.0) mg/dL AST (15-37) IU/L ALT (14-63) IU/L Alkaline Phosphatase (46-116) U/L Total Protein (6.4-8.2) g/dL Albumin (3.4-5.0) g/dL Globulin (2.6-4.0) g/dL Albumin/Globulin Ratio (0.9-1.6) Urine Color YELLOW Urine Appearance SLT CLOUDY Urine pH 8.5 H (5.0-8.0) Ur Specific [place] 1.010 (1.001-1.035) Urine Protein NEGATIVE (NEGATIVE) mg/dL Urine Glucose (UA) 250 H (NEGATIVE) mg/dL Urine Ketones NEGATIVE (NEGATIVE) mg/dL Urine Occult Blood SMALL H (NEGATIVE) Urine Nitrite NEGATIVE (NEGATIVE) Urine Bilirubin NEGATIVE (NEGATIVE) Urine Urobilinogen 0.2 (<2.0) EU/dL Ur Leukocyte Esterase NEGATIVE (NEGATIVE) Urine RBC 0-2 (0-2/HPF) Urine WBC 0-1 (0-5/HPF) Ur Epithelial Cells RARE (NONE-FEW) Urine Bacteria 1+ H (NEGATIVE) 05/27/20 Range/Units 05:20 WBC (4.0-11.0) K/uL RBC (4.50-5.90) M/uL Hgb (13.0-17.0) g/dL Hct (38.0-50.0) % MCV (80.0-98.0) fL MCH (27.0-32.0) pg MCHC (31.0-37.0) g/dL RDW Std Deviation (28.0-62.0) fl RDW Coeff of Dalton (11.0-15.0) % Plt Count (150-400) K/uL MPV (7.40-12.00) fL Add Manual Diff Neutrophils % (Manual) (48.0-80.0) % Lymphocytes % (Manual) (16.0-40.0) % Monocytes % (Manual) (0.0-15.0) % Nucleated RBC % /100WBC Absolute Seg Neuts (1.4-5.7) Lymphocytes # (Manual) (0.6-2.4) Monocytes # (Manual) (0.0-0.8) Nucleated RBCs # K/uL Sodium 132 L (136-148) mmol/L Potassium 4.1 (3.5-5.1) mmol/L Chloride 99 (98-107) mmol/L Carbon Dioxide 31.3 (21.0-32.0) mmol/L BUN 11 (7.0-18.0) mg/dL Creatinine 0.8 (0.8-1.3) mg/dL Est Cr Clr Drug Dosing 67.17 mL/min Estimated GFR (MDRD) > 60.0 ml/min Glucose 152 H (74-106) mg/dL Calcium 8.1 L (8.5-10.1) mg/dL Total Bilirubin 0.2 (0.2-1.0) mg/dL AST 17 (15-37) IU/L ALT 24 (14-63) IU/L Alkaline Phosphatase 49 (46-116) U/L Total Protein 6.8 (6.4-8.2) g/dL Albumin 2.6 L (3.4-5.0) g/dL Globulin 4.2 H (2.6-4.0) g/dL Albumin/Globulin Ratio 0.6 L (0.9-1.6) Urine Color Urine Appearance Urine pH (5.0-8.0) Ur Specific [place] (1.001-1.035) Urine Protein (NEGATIVE) mg/dL Urine Glucose (UA) (NEGATIVE) mg/dL Urine Ketones (NEGATIVE) mg/dL Urine Occult Blood (NEGATIVE) Urine Nitrite (NEGATIVE) Urine Bilirubin (NEGATIVE) Urine Urobilinogen (<2.0) EU/dL Ur Leukocyte Esterase (NEGATIVE) Urine RBC (0-2/HPF) Urine WBC (0-5/HPF) Ur Epithelial Cells (NONE-FEW) Urine Bacteria (NEGATIVE) Med Orders - Current: Current Medications Acetaminophen (Tylenol) 650 mg PO Q4H PRN PRN Reason: Pain (Mild 1-3)/fever Albuterol/Ipratropium (Duoneb 3.0-0.5 Mg/3 Ml) 3 ml NEB Q4HRRT [facility] Last Admin: 05/27/20 09:19 Dose: 3 ml Documented by: Aspirin (Halfprin) 81 mg PO DAILY [facility] Last Admin: 05/27/20 08:53 Dose: 81 mg Documented by: Carvedilol (Coreg) 12.5 mg PO BID [facility] Enoxaparin Sodium (Lovenox) 40 mg SUBCUT Q24H [facility] Last Admin: 05/27/20 08:57 Dose: 40 mg Documented by: Pantoprazole Sodium 40 mg/ (Sodium Chloride) 10 mls @ 300 mls/hr IV DAILY [facility] Last Admin: 05/27/20 08:48 Dose: 300 mls/hr Documented by: Azithromycin 500 mg/ Sodium (Chloride) 250 mls @ 250 mls/hr IV DAILY [facility] Last Admin: 05/27/20 09:03 Dose: 250 mls/hr Documented by: Levothyroxine Sodium (Levothyroxine) 150 mcg PO ACBREAKFAST [facility] Last Admin: 05/27/20 06:52 Dose: 150 mcg Documented by: Methylprednisolone Sodium Succinate (Solu-Medrol) 40 mg IVPUSH Q8H [facility] Last Admin: 05/27/20 08:45 Dose: 40 mg Documented by: Modafinil (Provigil) 500 mg PO DAILY [facility] Last Admin: 05/27/20 09:52 Dose: 500 mg Documented by: Pregabalin (Lyrica) 50 mg PO BID [facility] Last Admin: 05/27/20 08:52 Dose: 50 mg Documented by: Simvastatin (Zocor) 5 mg PO BEDTIME [facility] Last Admin: 05/26/20 21:08 Dose: 5 mg Documented by: Sodium Chloride (Saline Flush) 10 ml FLUSH ASDIRECTED PRN PRN Reason: Keep Vein Open Last Admin: 05/26/20 05:44 Dose: 10 ml Documented by: Sodium Chloride (Saline Flush) 2.5 ml FLUSH ASDIRECTED PRN PRN Reason: Keep Vein Open Last Admin: 05/26/20 05:44 Dose: 2.5 ml Documented by: Tamsulosin HCl (Flomax) 0.4 mg PO BEDTIME [facility] Last Admin: 05/26/20 21:07 Dose: 0.4 mg Documented by: Discontinued Medications Acetazolamide (Diamox) 500 mg PO ONETIME ONE Stop: 05/26/20 07:53 Last Admin: 05/26/20 09:17 Dose: 500 mg Documented by: Acetazolamide (Diamox) 250 mg PO BID [facility] Last Admin: 05/26/20 12:21 Dose: 250 mg Documented by: Carvedilol (Coreg) 25 mg PO BID [facility] Heparin Sodium (Porcine) (Heparin Sodium) 5,000 units SUBCUT Q8H [facility] Sodium Chloride (Normal Saline) 1,000 mls @ 125 mls/hr IV ASDIRECTED [facility] Last Admin: 05/26/20 05:52 Dose: 125 mls/hr Documented by: Azithromycin 500 mg/ Sodium (Chloride) 250 mls @ 250 mls/hr IV ONETIME [facility] Lactated Ringer's (Ringers, Lactated) 1,000 mls @ 75 mls/hr IV ASDIRECTED [facility] Last Admin: 05/27/20 01:15 Dose: 75 mls/hr Documented by: Lactated Ringer's (Ringers, Lactated) 500 mls @ 500 mls/hr IV ASDIRECTED [facility] Stop: 05/26/20 21:59 Last Admin: 05/26/20 20:57 Dose: 500 mls/hr Documented by: Lactated Ringer's (Ringers, Lactated) 500 mls @ 500 mls/hr IV ONETIME ONE Stop: 05/26/20 23:13 Last Admin: 05/26/20 22:15 Dose: 500 mls/hr Documented by: Nicotine (Habitrol) 21 mg TRDERM ONETIME ONE Stop: 05/26/20 05:33 Last Admin: 05/26/20 05:44 Dose: 21 mg Documented by: Ondansetron HCl (Zofran) 4 mg IVPUSH Q4H PRN PRN Reason: Nausea/Vomiting Sepsis Event Note - Focused Exam Vital Signs: Vital Signs Temp Temp Resp BP BP Pulse Ox Pulse Ox 05/27/20 10:33 19 95/50 L 92 L 05/27/20 09:45 15 109/68 92 L 05/27/20 09:31 91/44 L 05/27/20 09:00 17 94 L 05/27/20 08:10 93 L 05/27/20 08:09 37.5 C 14 118/71 93 L 05/27/20 07:00 23 H 106/63 95 05/27/20 06:00 19 96/53 L 90 L 05/27/20 05:00 16 107/66 98 05/27/20 04:00 36.8 C 20 104/64 96 05/27/20 03:00 18 96/54 L 89 L 05/27/20 02:00 14 94/57 L 97 05/27/20 01:00 15 96/51 L 97 05/27/20 00:00 36.3 C 14 98/57 L 90 L Date Exam was Performed: 05/30/20 Time Exam was Performed: 13:18 - My Orders Last 24 Hours: My Active Orders 05/27/20 10:26 Telemetry Monitoring [Cardiac Monitoring] [RC] . DIRECTED
[2020-05-27] MEDS: Tamsulosin 0.4 MG Cap.ER PO SCH (21:05)
[2020-05-27] MEDS: Simvastatin 10 MG Tab PO SCH (21:06)
[2020-05-28] MEDS: methylPREDNISolone Sodium Succinate 40 MG/1 ML SDV IVPUSH SCH ×2 (00:08→08:52)
[2020-05-28] MEDS: Albuterol/Ipratropium 3.0-0.5 MG/3 ML Neb Soln NEB SCH ×3 (01:59→09:33)
[2020-05-28 06:28] LABS: BLOOD UREA NITROGEN,BUN 15 mg/dL (7.0-18.0); CARBON DIOXIDE,CO2 31.4 mmol/L (21.0-32.0); CHLORIDE,CL 100 mmol/L (98-107); GLUCOSE RANDOM 125 mg/dL (74-106); POTASSIUM,K 4.6 mmol/L (3.5-5.1); SODIUM,NA 133 mmol/L (136-148)
[2020-05-28] MEDS: Levothyroxine 150 MCG Tab PO SCH (06:33)
[2020-05-28] MEDS: Enoxaparin 40 MG/0.4 ML Syringe SUBCUT SCH (08:52)
[2020-05-28] MEDS: Pantoprazole 40 MG in Sodium Chloride 0.9% 10 ML IV SCH (08:54)
[2020-05-28] MEDS ORDERED: Carvedilol 12.5 MG Tab PO SCH (09:00)
[2020-05-28] MEDS: Azithromycin 500 MG in Sodium Chloride 0.9% 250 ML IV SCH (09:03)
[2020-05-28] MEDS: Aspirin 81 MG Tab.EC PO SCH (09:12)
[2020-05-28] MEDS: Pregabalin 50 MG Cap PO SCH (09:12)
[2020-05-28] MEDS: Modafinil 100 MG Tab PO SCH (09:14)
[2020-05-28] MEDS ORDERED: Carvedilol 3.125 MG Tab PO SCH (11:00)
--- NOTE | 2020-05-28 13:17 | PCM.DCSUM1 ---
<Samson Greenwood - Last Filed: 05/28/20 14:05> Discharge Summary - Hospital Course Free Text/Narrative:: 69-year-old male admitted for acute hypoxic hypercapnic respiratory failure secondary to COPD exacerbation. He has a PMH of end-stage COPD, CHF, implantable pacemaker and BPH. Patient's home oxygen requirement is 4 L. He required BiPAP in the ER and discussion was held about possibly intubating patient and transferring him to larger facility, however, patient and wanted to see if he would improve on BiPAP first. CXR showed severe emphysema. Covid 19 test was negative. He was admitted to the ICU, and continued on BiPAP, DuoNebs q4, azithromycin and IV solumedrol. He was counselled extensively on smoking cessation. Patient was eventually weaned off of BiPAP and back to his baseline of 4 L NC. He was discharged in stable condition on a 12-day prednisone taper, PO azithromycin 250 mg every other day for anti-inflammation and started on Trelegy inhaler for end-stage COPD. His carvedilol dose was decreased to 9.375 mg BID as he was noted to have low blood pressures. Advised patient to follow-up with his PCP on discharge. - Discharge Data Discharge Date: 05/28/20 Discharge Disposition: Home, Self-Care 01 Condition: Stable - Referral to Home Health Primary Care Physician: ANISA Lowry - Patient Summary/Data Consults: Consultations 05/27/20 10:08 Consult to Physical Therapy [PT Evaluation and Treatment] [CONS] Routine - Patient Instructions Diet: Heart Healthy Diet, Low Sodium Fluid Restriction: 2000 mL Activity: As Tolerated Notify Provider of: Fever, Increased Pain, Swelling and Redness, Drainage, Nausea and/or Vomiting - Discharge Plan *PRESCRIPTION DRUG MONITORING PROGRAM REVIEWED*: Not Applicable *COPY OF PRESCRIPTION DRUG MONITORING REPORT IN PATIENT INES: Not Applicable Prescriptions/Med Rec: Azithromycin 250 mg PO Q48H 30 Days #15 tablet carvediloL [Coreg] 9.375 mg PO BID 30 Days #180 tablet predniSONE [Prednisone] 20 mg PO DAILY 12 Days #28 tablet Fluticasone/Umeclidin/Vilanter [Trelegy Ellipta 100-62.5-25 MCG] 1 puff INH DAILY 30 Days #1 inhaler Home Medications: Home Meds Albuterol Sulfate [Albuterol Sulfate Hfa] 2 puff INH Q4H PRN 05/14/20 [History] Cholecalciferol (Vitamin D3) [Vitamin D3] 2,000 unit PO DAILY 05/14/20 [History] Furosemide 20 mg PO DAILY PRN 05/14/20 [History] Ibuprofen 800 mg PO Q6H PRN 05/14/20 [History] Levothyroxine 150 mcg PO ACBREAKFAST 05/14/20 [History] Omeprazole 20 mg PO ACBREAKFAST 05/14/20 [History] Pregabalin 50 mg PO BID 05/14/20 [History] Aspirin [Halfprin] 81 mg PO DAILY 05/15/20 [History] Interferon Beta-1a [Avonex] 30 mcg IM WEEKLY 05/15/20 [History] Sildenafil Citrate 100 mg PO .ONE HOUR PRIOR PRN MDD sexual activity 05/15/20 [History] Simvastatin 5 mg PO BEDTIME 05/15/20 [History] Tamsulosin HCl 0.4 mg PO BEDTIME 05/15/20 [History] Albuterol/Ipratropium [DuoNeb 3.0-0.5 MG/3 ML] 3 ml NEB Q6H 05/26/20 [History] Modafinil [Provigil] 500 mg PO DAILY 05/26/20 [History] Azithromycin 250 mg PO Q48H 30 Days #15 tablet 05/28/20 [Rx] Fluticasone/Umeclidin/Vilanter [Trelegy Ellipta 100-62.5-25 MCG] 1 puff INH DAILY 30 Days #1 inhaler 05/28/20 [Rx] carvediloL [Coreg] 9.375 mg PO BID 30 Days #180 tablet 05/28/20 [Rx] predniSONE [Prednisone] 20 mg PO DAILY 12 Days #28 tablet 05/28/20 [Rx] Oxygen Therapy Mode: Nasal Cannula Oxygen Flow Rate (L/min): 4 Patient Handouts: Chronic Obstructive Pulmonary Disease Exacerbation, [id number], Carvedilol tablets, Azithromycin tablets, Prednisone tablets, Fluticasone; Umeclidinium; Vilanterol inhalation powder Referrals: [facility] [Primary Care Provider] - - Discharge Summary/Plan Comment DC Time >30 min.: No - Patient Data Vitals - Most Recent: Last Vital Signs Temp 36.8 C 05/28/20 08:00 Pulse 85 05/28/20 11:25 Resp 18 05/28/20 08:00 BP 110/65 05/28/20 11:25 Pulse Ox 94 L 05/28/20 08:00 Weight - Most Recent: 59.5 kg I&O - Last 24 hours: Intake & Output 05/27/20 05/28/20 05/28/20 22:59 06:59 14:59 Intake Total 2240 250 Output Total 3100 1850 Balance -860 -1600 Lab Results - Last 24 hrs: Laboratory Results - last 24 hr 05/28/20 05/28/20 Range/Units 05:44 05:44 WBC 5.88 (4.0-11.0) K/uL RBC 3.78 L (4.50-5.90) M/uL Hgb 10.5 L (13.0-17.0) g/dL Hct 34.1 L (38.0-50.0) % MCV 90.2 (80.0-98.0) fL MCH 27.8 (27.0-32.0) pg MCHC 30.8 L (31.0-37.0) g/dL RDW Std Deviation 61.3 (28.0-62.0) fl RDW Coeff of [place] 18 H (11.0-15.0) % Plt Count 179 (150-400) K/uL MPV 9.50 (7.40-12.00) fL Neut % (Auto) 75.9 (48.0-80.0) % Lymph % (Auto) 10.0 L (16.0-40.0) % [place] % (Auto) 14.1 (0.0-15.0) % Eos % (Auto) 0.0 (0.0-7.0) % Baso % (Auto) 0.0 (0.0-1.5) % Neut # (Auto) 4.5 (1.4-5.7) K/uL Lymph # (Auto) 0.6 (0.6-2.4) K/uL [place] # (Auto) 0.8 (0.0-0.8) K/uL Eos # (Auto) 0.0 (0.0-0.7) K/uL Baso # (Auto) 0.0 (0.0-0.1) K/uL Nucleated RBC % 0.0 /100WBC Nucleated RBCs # 0 K/uL Sodium 133 L (136-148) mmol/L Potassium 4.6 (3.5-5.1) mmol/L Chloride 100 (98-107) mmol/L Carbon Dioxide 31.4 (21.0-32.0) mmol/L BUN 15 (7.0-18.0) mg/dL Creatinine 0.7 L (0.8-1.3) mg/dL Est Cr Clr Drug Dosing 86.18 mL/min Estimated GFR (MDRD) > 60.0 ml/min Glucose 125 H (74-106) mg/dL Calcium 8.2 L (8.5-10.1) mg/dL Total Bilirubin 0.2 (0.2-1.0) mg/dL AST 26 (15-37) IU/L ALT 37 (14-63) IU/L Alkaline Phosphatase 51 (46-116) U/L Total Protein 6.9 (6.4-8.2) g/dL Albumin 2.7 L (3.4-5.0) g/dL Globulin 4.2 H (2.6-4.0) g/dL Albumin/Globulin Ratio 0.6 L (0.9-1.6) Med Orders - Current: Current Medications Acetaminophen (Tylenol) 650 mg PO Q4H PRN PRN Reason: Pain (Mild 1-3)/fever Albuterol/Ipratropium (Duoneb 3.0-0.5 Mg/3 Ml) 3 ml NEB Q4HRRT [facility] Last Admin: 05/28/20 09:33 Dose: 3 ml Documented by: Aspirin (Halfprin) 81 mg PO DAILY [facility] Last Admin: 05/28/20 09:12 Dose: 81 mg Documented by: Carvedilol (Coreg) 9.375 mg PO BID [facility] Last Admin: 05/28/20 11:25 Dose: 9.375 mg Documented by: Enoxaparin Sodium (Lovenox) 40 mg SUBCUT Q24H [facility] Last Admin: 05/28/20 08:52 Dose: 40 mg Documented by: Pantoprazole Sodium 40 mg/ (Sodium Chloride) 10 mls @ 300 mls/hr IV DAILY [facility] Last Admin: 05/28/20 08:54 Dose: 300 mls/hr Documented by: Azithromycin 500 mg/ Sodium (Chloride) 250 mls @ 250 mls/hr IV DAILY [facility] Last Admin: 05/28/20 09:03 Dose: 250 mls/hr Documented by: Levothyroxine Sodium (Levothyroxine) 150 mcg PO ACBREAKFAST [facility] Last Admin: 05/28/20 06:33 Dose: 150 mcg Documented by: Methylprednisolone Sodium Succinate (Solu-Medrol) 40 mg IVPUSH Q8H [facility] Last Admin: 05/28/20 08:52 Dose: 40 mg Documented by: Modafinil (Provigil) 500 mg PO DAILY [facility] Last Admin: 05/28/20 09:14 Dose: 500 mg Documented by: Pregabalin (Lyrica) 50 mg PO BID [facility] Last Admin: 05/28/20 09:12 Dose: 50 mg Documented by: Simvastatin (Zocor) 5 mg PO BEDTIME [facility] Last Admin: 05/27/20 21:06 Dose: 5 mg Documented by: Sodium Chloride (Saline Flush) 10 ml FLUSH ASDIRECTED PRN PRN Reason: Keep Vein Open Last Admin: 05/26/20 05:44 Dose: 10 ml Documented by: Sodium Chloride (Saline Flush) 2.5 ml FLUSH ASDIRECTED PRN PRN Reason: Keep Vein Open Last Admin: 05/26/20 05:44 Dose: 2.5 ml Documented by: Tamsulosin HCl (Flomax) 0.4 mg PO BEDTIME [facility] Last Admin: 05/27/20 21:05 Dose: 0.4 mg Documented by: Discontinued Medications Acetazolamide (Diamox) 500 mg PO ONETIME ONE Stop: 05/26/20 07:53 Last Admin: 05/26/20 09:17 Dose: 500 mg Documented by: Acetazolamide (Diamox) 250 mg PO BID [facility] Last Admin: 05/26/20 12:21 Dose: 250 mg Documented by: Carvedilol (Coreg) 25 mg PO BID [facility] Carvedilol (Coreg) 12.5 mg PO BID [facility] Last Admin: 05/28/20 09:10 Dose: Not Given Documented by: Heparin Sodium (Porcine) (Heparin Sodium) 5,000 units SUBCUT Q8H [facility] Sodium Chloride (Normal Saline) 1,000 mls @ 125 mls/hr IV ASDIRECTED [facility] Last Admin: 05/26/20 05:52 Dose: 125 mls/hr Documented by: Azithromycin 500 mg/ Sodium (Chloride) 250 mls @ 250 mls/hr IV ONETIME DINORAH Lactated Ringer's (Ringers, Lactated) 1,000 mls @ 75 mls/hr IV ASDIRECTED DINORAH Last Admin: 05/27/20 01:15 Dose: 75 mls/hr Documented by: Lactated Ringer's (Ringers, Lactated) 500 mls @ 500 mls/hr IV ASDIRECTED DINORAH Stop: 05/26/20 21:59 Last Admin: 05/26/20 20:57 Dose: 500 mls/hr Documented by: Lactated Ringer's (Ringers, Lactated) 500 mls @ 500 mls/hr IV ONETIME ONE Stop: 05/26/20 23:13 Last Admin: 05/26/20 22:15 Dose: 500 mls/hr Documented by: Nicotine (Habitrol) 21 mg TRDERM ONETIME ONE Stop: 05/26/20 05:33 Last Admin: 05/26/20 05:44 Dose: 21 mg Documented by: Ondansetron HCl (Zofran) 4 mg IVPUSH Q4H PRN PRN Reason: Nausea/Vomiting <Charlene Shirley - Last Filed: 05/30/20 13:22> Discharge Summary - Hospital Course Free Text/Narrative:: I performed a history and physical exam of the patient and discussed management with resident. I have reviewed the residents note and agree with documented findings and plan unless otherwise specified in my note. HPI Initial Comments: I have seen and evaluated the patient and agree with the residents note unless specified in my note - Referral to Home Health Primary Care Physician: [facility] - Patient Summary/Data Consults: Consultations 05/27/20 10:08 Consult to Physical Therapy [PT Evaluation and Treatment] [CONS] Routine - Patient Data Vitals - Most Recent: Last Vital Signs Temp 36.8 C 05/28/20 12:00 Pulse 84 05/28/20 12:00 Resp 18 05/28/20 12:00 BP 110/65 05/28/20 12:00 Pulse Ox 94 L 05/28/20 12:00 Med Orders - Current: Current Medications Discontinued Medications Acetaminophen (Tylenol) 650 mg PO Q4H PRN PRN Reason: Pain (Mild 1-3)/fever Acetazolamide (Diamox) 500 mg PO ONETIME ONE Stop: 05/26/20 07:53 Last Admin: 05/26/20 09:17 Dose: 500 mg Documented by: Acetazolamide (Diamox) 250 mg PO BID [facility] Last Admin: 05/26/20 12:21 Dose: 250 mg Documented by: Albuterol/Ipratropium (Duoneb 3.0-0.5 Mg/3 Ml) 3 ml NEB Q4HRRT [facility] Last Admin: 05/28/20 09:33 Dose: 3 ml Documented by: Aspirin (Halfprin) 81 mg PO DAILY [facility] Last Admin: 05/28/20 09:12 Dose: 81 mg Documented by: Carvedilol (Coreg) 25 mg PO BID [facility] Carvedilol (Coreg) 12.5 mg PO BID [facility] Last Admin: 05/28/20 09:10 Dose: Not Given Documented by: Carvedilol (Coreg) 9.375 mg PO BID [facility] Last Admin: 05/28/20 11:25 Dose: 9.375 mg Documented by: Enoxaparin Sodium (Lovenox) 40 mg SUBCUT Q24H [facility] Last Admin: 05/28/20 08:52 Dose: 40 mg Documented by: Heparin Sodium (Porcine) (Heparin Sodium) 5,000 units SUBCUT Q8H [facility] Sodium Chloride (Normal Saline) 1,000 mls @ 125 mls/hr IV ASDIRECTED [facility] Last Admin: 05/26/20 05:52 Dose: 125 mls/hr Documented by: Azithromycin 500 mg/ Sodium (Chloride) 250 mls @ 250 mls/hr IV ONETIME [facility] Lactated Ringer's (Ringers, Lactated) 1,000 mls @ 75 mls/hr IV ASDIRECTED [facility] Last Admin: 05/27/20 01:15 Dose: 75 mls/hr Documented by: Pantoprazole Sodium 40 mg/ (Sodium Chloride) 10 mls @ 300 mls/hr IV DAILY [facility] Last Admin: 05/28/20 08:54 Dose: 300 mls/hr Documented by: Azithromycin 500 mg/ Sodium (Chloride) 250 mls @ 250 mls/hr IV DAILY [facility] Last Admin: 05/28/20 09:03 Dose: 250 mls/hr Documented by: Lactated Ringer's (Ringers, Lactated) 500 mls @ 500 mls/hr IV ASDIRECTED [facility] Stop: 05/26/20 21:59 Last Admin: 05/26/20 20:57 Dose: 500 mls/hr Documented by: Lactated Ringer's (Ringers, Lactated) 500 mls @ 500 mls/hr IV ONETIME ONE Stop: 05/26/20 23:13 Last Admin: 05/26/20 22:15 Dose: 500 mls/hr Documented by: Levothyroxine Sodium (Levothyroxine) 150 mcg PO ACBREAKFAST [facility] Last Admin: 05/28/20 06:33 Dose: 150 mcg Documented by: Methylprednisolone Sodium Succinate (Solu-Medrol) 40 mg IVPUSH Q8H [facility] Last Admin: 05/28/20 08:52 Dose: 40 mg Documented by: Modafinil (Provigil) 500 mg PO DAILY [facility] Last Admin: 05/28/20 09:14 Dose: 500 mg Documented by: Nicotine (Habitrol) 21 mg TRDERM ONETIME ONE Stop: 05/26/20 05:33 Last Admin: 05/26/20 05:44 Dose: 21 mg Documented by: Ondansetron HCl (Zofran) 4 mg IVPUSH Q4H PRN PRN Reason: Nausea/Vomiting Pregabalin (Lyrica) 50 mg PO BID [facility] Last Admin: 05/28/20 09:12 Dose: 50 mg Documented by: Simvastatin (Zocor) 5 mg PO BEDTIME [facility] Last Admin: 05/27/20 21:06 Dose: 5 mg Documented by: Sodium Chloride (Saline Flush) 10 ml FLUSH ASDIRECTED PRN PRN Reason: Keep Vein Open Last Admin: 05/26/20 05:44 Dose: 10 ml Documented by: Sodium Chloride (Saline Flush) 2.5 ml FLUSH ASDIRECTED PRN PRN Reason: Keep Vein Open Last Admin: 05/26/20 05:44 Dose: 2.5 ml Documented by: Tamsulosin HCl (Flomax) 0.4 mg PO BEDTIME [facility] Last Admin: 05/27/20 21:05 Dose: 0.4 mg Documented by:
== END 2020-05-28 13:40 | disposition home or self-care (01) | DRG 189 ==
LOC: MW.ED 05:08 → MW.ICU 06:57 → MW.MS 05-27 13:19
PROVIDERS: ADMIT Student in an Organized Health Care Education/Training Program; ATTEND Student in an Organized Health Care Education/Training Program
PROC: 5A09357 Assistance with Respiratory Ventilation, Less than 24 Consecutive Hours, Continuous Positive Airway Pressure (ICD-10-PCS; principal; 2020-05-26)
DX: J96.21 Acute and chronic respiratory failure with hypoxia (principal); J44.1 Chronic obstructive pulmonary disease with (acute) exacerbation; F17.210 Nicotine dependence, cigarettes, uncomplicated; J96.22 Acute and chronic respiratory failure with hypercapnia; G35 Multiple sclerosis; Z20.828 Contact with and (suspected) exposure to other viral communicable diseases; N40.0 Benign prostatic hyperplasia without lower urinary tract symptoms; J43.9 Emphysema, unspecified; F17.200 Nicotine dependence, unspecified, uncomplicated; I50.9 Heart failure, unspecified; Z95.0 Presence of cardiac pacemaker; Z99.81 Dependence on supplemental oxygen; Z71.6 Tobacco abuse counseling; Z88.5 Allergy status to narcotic agent; Z79.82 Long term (current) use of aspirin; Z79.890 Hormone replacement therapy; Z79.52 Long term (current) use of systemic steroids; Z79.899 Other long term (current) drug therapy; Z11.59 Encounter for screening for other viral diseases
CPT/HCPCS: 71045; 94660; 99285; 96360; 93005 ×3; 85025; 82803 ×2; 36600 ×2; 36415; 80053; 83735; 84484; 83880; 87635; A9270; J7030; 80048; 81001; 93010; 94640; 97161-GP; 99284; C9113; J0456; J1650; J2920; J7050; J7120; J7620-GY; U0002

== ENCOUNTER 2020-06-14 22:46 | Emergency (ER) | payer OTHER, MEDICARE ==
[2020-06-14] MEDS ORDERED: Sodium Chloride 0.9% 10 ML Syringe FLUSH PRN (23:04)
[2020-06-14] MEDS ORDERED: Sodium Chloride 0.9% 2.5 ML Syringe FLUSH PRN (23:04)
[2020-06-14] MEDS ORDERED: Albuterol/Ipratropium 3.0-0.5 MG/3 ML Neb Soln NEB ONE (23:09)
[2020-06-14] MEDS ORDERED: methylPREDNISolone Sodium Succinate 125 MG/2 ML SDV IVPUSH ONE (23:09)
--- NOTE | 2020-06-14 23:21 | EDM.PDOC ---
ED HPI GENERAL MEDICAL PROBLEM - General Chief Complaint: Respiratory Problem Stated Complaint: COPD Time Seen by Provider: 06/14/20 23:03 Source of Information: Reports: Patient, EMS - History of Present Illness INITIAL COMMENTS - FREE TEXT/NARRATIVE: History of present illness: 69-year-old male brought by EMS for difficulty breathing. The patient is normally on BiPAP for 16 hours/day with a history of COPD. Today has had increased work of breathing and progression of dyspnea. He does report some mild cough but largely chronic. He is still a smoker. When EMS arrived his O2 the BiPAP was 90%, during transport from his BiPAP to the EMS truck, he dropped to the 70s on room air, however once he was placed back on a nonrebreather his oxygen was back up into the low 90s. Patient denies any chest pain. Per EMS remainder of vitals were stable. Review of systems: As per history of present illness and below otherwise all systems reviewed and negative. Past medical history: As per history of present illness and as reviewed below otherwise noncontributory. COPD, low ejection fraction, pacemaker Surgical history: As per history of present illness and as reviewed below otherwise noncon tributory. Social history: No reported history of drug or alcohol abuse. Current smoker Family history: As per history of present illness and as reviewed below otherwise noncontributory. Physical exam: GEN: Mild respiratory distress, chronically ill appearing HEENT: Atraumatic, normocephalic, mucous membranes moist, Neck: supple, nontender, trachea midline. Lungs: Mild respiratory distress. No expiratory wheezes, but does have increased work of breathing, he is tachypneic, no rales at the bases or rhonchi Heart: RRR Abdomen: Soft, nondistended, nontender. Back: nontender Extremities: Atraumatic. Neurovascularly intact. No pedal edema, no calf tenderness Neuro: Awake, alert, oriented. Neuro Exam nonfocal. Skin: warm, dry, no lesions Diagnostics: Labs, EKG, chest x-ray, COVID swab Therapeutics: BiPAP, DuoNeb, Solu-Medrol MDM: Impression: [] Plan: [] Definitive disposition and diagnosis as appropriate pending reevaluation and review of above. - Related Data Allergies Allergy/AdvReac Type Severity Reaction Status Date / Time codeine Allergy Cannot Verified 05/26/20 05:33 Remember Home Meds: Home Meds Albuterol Sulfate [Albuterol Sulfate Hfa] 2 puff INH Q4H PRN 05/14/20 [History] Cholecalciferol (Vitamin D3) [Vitamin D3] 2,000 unit PO DAILY 05/14/20 [History] Furosemide 20 mg PO DAILY PRN 05/14/20 [History] Pregabalin 50 mg PO BID 05/14/20 [History] Aspirin [Halfprin] 81 mg PO DAILY 05/15/20 [History] Interferon Beta-1a [Avonex] 30 mcg IM WEEKLY 05/15/20 [History] Simvastatin 5 mg PO BEDTIME 05/15/20 [History] Tamsulosin HCl 0.4 mg PO BEDTIME 05/15/20 [History] Albuterol/Ipratropium [DuoNeb 3.0-0.5 MG/3 ML] 3 ml NEB Q6H 05/26/20 [History] Modafinil [Provigil] 500 mg PO DAILY 05/26/20 [History] Azithromycin 250 mg PO Q48H 30 Days #15 tablet 05/28/20 [Rx] carvediloL [Coreg] 18.75 mg PO BID 06/15/20 [History] Past Medical History HEENT History: Reports: Cataract Cardiovascular History: Reports: Heart Failure, Pacemaker Respiratory History: Reports: COPD, Other (See Below) Other Respiratory History: Home O2 as of Jul 2019 Gastrointestinal History: Reports: None Genitourinary History: Reports: BPH Musculoskeletal History: Reports: Other (See Below) Other Musculoskeletal History: Unsteady Gait per Neurological History: Reports: MS Psychiatric History: Reports: None Endocrine/Metabolic History: Reports: None Hematologic History: Reports: None Immunologic History: Reports: None Oncologic (Cancer) History: Reports: None Dermatologic History: Reports: None - Infectious Disease History Infectious Disease History: Reports: Chicken Pox, Mumps - Past Surgical History Head Surgeries/Procedures: Reports: None HEENT Surgical History: Reports: Cataract Surgery Cardiovascular Surgical History: Reports: Pacer Respiratory Surgical History: Reports: None GI Surgical History: Reports: None Male Surgical History: Reports: None Endocrine Surgical History: Reports: None Neurological Surgical History: Reports: None Musculoskeletal Surgical History: Reports: None Oncologic Surgical History: Reports: None Dermatological Surgical History: Reports: None Social & Family History - Family History Family Medical History: Noncontributory - Caffeine Use Caffeine Use: Reports: Coffee Caffeine Use Comment: Everyday - Recreational Drug Use Recreational Drug Use: No ED ROS GENERAL - Review of Systems Review Of Systems: See Below (see HPI) ED EXAM, GENERAL - Physical Exam Exam: See Below (See HPI) EKG INTERPRETATION EKG Interpretation Comments: KG performed today at 12:24 AM, sinus rhythm, 62 bpm, LVH, inferior T inversions. No STEMI. Interpreted by me. Course - Vital Signs Text/Narrative:: History of COPD and low EF, differential includes COPD exacerbation, acute CHF, cardiac ischemia, pneumonia, coronavirus X-ray without acute significant findings. No significant wheezing or rales on examination. He does have increased work of breathing. Afebrile. Mild cough which patient reports is chronic and not significantly worse than baseline. Started on BiPAP here with great improvement in his symptoms. Also received DuoNeb and Solu-Medrol. COVID swab did come back positive though patient does not recall any potential COVID exposures. As we do not have the capability to care for this patient or any patient with COVID at this hospital currently, the patient will need to be transferred. The case was discussed with Paulina Lowry, Russell Pereira, Kellie Pereira, none of which have available beds. Therefore the patient will be transferred to [facility] and was accepted by the ICU physician there. His blood pressure was slightly low while the patient was here, therefore he was given a 500 cc bolus of normal saline. We will cover the patient with azithromycin as the patient is also a smoker with a COPD exacerbation in addition to the COVID. CT angios chest was performed which shows no pulmonary embolism or pneumonia. Last Recorded V/S: Last Vital Signs Temp 98.5 F 06/14/20 23:05 Pulse 77 06/15/20 02:11 Resp 20 06/15/20 01:04 BP 87/58 L 06/15/20 02:11 Pulse Ox 97 06/15/20 01:04 - Orders/Labs/Meds Orders: Active Orders 24 hr Category Date Time Status EKG Documentation Completion [RC] STAT Care 06/14/20 23:04 Active Azithromycin [Zithromax] 500 mg Med 06/15/20 02:15 Active Sodium Chloride 0.9% [Normal Saline (AdvBag)] 250 ml IV ONETIME Sodium Chloride 0.9% [Normal Saline] 500 ml Med 06/15/20 01:45 Active IV .BOLUS Sodium Chloride 0.9% [Saline Flush] Med 06/14/20 23:04 Active 10 ml FLUSH ASDIRECTED PRN Sodium Chloride 0.9% [Saline Flush] Med 06/14/20 23:04 Active 2.5 ml FLUSH ASDIRECTED PRN BiPAP [RESPCARE] Stat Oth 06/14/20 23:43 Active Saline Lock Insert [OM.PC] Stat Ot 06/14/20 23:04 Ordered Medication Orders Sodium Chloride (Normal Saline) 500 mls @ 999 mls/hr IV .BOLUS DINORAH Last Admin: 06/15/20 02:11 Dose: 999 mls/hr Documented by: PAVAN Azithromycin 500 mg/ Sodium (Chloride) 250 mls @ 250 mls/hr IV ONETIME DINORAH Sodium Chloride (Saline Flush) 10 ml FLUSH ASDIRECTED PRN PRN Reason: Keep Vein Open Sodium Chloride (Saline Flush) 2.5 ml FLUSH ASDIRECTED PRN PRN Reason: Keep Vein Open Labs: Laboratory Tests 06/14/20 06/14/20 06/14/20 Range/Units 22:55 22:55 22:55 WBC 8.97 (4.0-11.0) K/uL RBC 3.85 L (4.50-5.90) M/uL Hgb 11.1 L (13.0-17.0) g/dL Hct 35.8 L (38.0-50.0) % MCV 93.0 (80.0-98.0) fL MCH 28.8 (27.0-32.0) pg MCHC 31.0 (31.0-37.0) g/dL RDW Std Deviation 68.2 H (28.0-62.0) fl RDW Coeff of Dalton 20 H (11.0-15.0) % Plt Count 171 (150-400) K/uL MPV 9.10 (7.40-12.00) fL Add Manual Diff YES Neutrophils % (Manual) 57 (48.0-80.0) % Lymphocytes % (Manual) 25 (16.0-40.0) % Monocytes % (Manual) 17 H (0.0-15.0) % Basophils % (Manual) 1 (0.0-1.5) % Nucleated RBC % 0.0 /100WBC Absolute Seg Neuts 5.1 (1.4-5.7) Lymphocytes # (Manual) 2.2 (0.6-2.4) Monocytes # (Manual) 1.5 H (0.0-0.8) Basophils # (Manual) 0.1 (0.0-0.1) Nucleated RBCs # 0 K/uL Sodium 139 (136-148) mmol/L Potassium 4.5 (3.5-5.1) mmol/L Chloride 98 (98-107) mmol/L Carbon Dioxide 37.9 H (21.0-32.0) mmol/L BUN 14 (7.0-18.0) mg/dL Creatinine 0.9 (0.8-1.3) mg/dL Est Cr Clr Drug Dosing 68.98 mL/min Estimated GFR (MDRD) > 60.0 ml/min Glucose 107 H (74-106) mg/dL Calcium 8.6 (8.5-10.1) mg/dL Total Bilirubin 0.4 (0.2-1.0) mg/dL AST 16 (15-37) IU/L ALT 19 (14-63) IU/L Alkaline Phosphatase 56 (46-116) U/L Troponin I < 0.050 (0.000-0.056) ng/mL B-Natriuretic Peptide 118 H (<100) PG/ML Total Protein 6.9 (6.4-8.2) g/dL Albumin 2.9 L (3.4-5.0) g/dL Globulin 4.0 (2.6-4.0) g/dL Albumin/Globulin Ratio 0.7 L (0.9-1.6) COVID-19 (VERNA) (NEGATIVE) 06/14/20 06/15/20 Range/Units 23:13 01:50 WBC (4.0-11.0) K/uL RBC (4.50-5.90) M/uL Hgb (13.0-17.0) g/dL Hct (38.0-50.0) % MCV (80.0-98.0) fL MCH (27.0-32.0) pg MCHC (31.0-37.0) g/dL RDW Std Deviation (28.0-62.0) fl RDW Coeff of Dalton (11.0-15.0) % Plt Count (150-400) K/uL MPV (7.40-12.00) fL Add Manual Diff Neutrophils % (Manual) (48.0-80.0) % Lymphocytes % (Manual) (16.0-40.0) % Monocytes % (Manual) (0.0-15.0) % Basophils % (Manual) (0.0-1.5) % Nucleated RBC % /100WBC Absolute Seg Neuts (1.4-5.7) Lymphocytes # (Manual) (0.6-2.4) Monocytes # (Manual) (0.0-0.8) Basophils # (Manual) (0.0-0.1) Nucleated RBCs # K/uL Sodium (136-148) mmol/L Potassium (3.5-5.1) mmol/L Chloride (98-107) mmol/L Carbon Dioxide (21.0-32.0) mmol/L BUN (7.0-18.0) mg/dL Creatinine (0.8-1.3) mg/dL Est Cr Clr Drug Dosing mL/min Estimated GFR (MDRD) ml/min Glucose (74-106) mg/dL Calcium (8.5-10.1) mg/dL Total Bilirubin (0.2-1.0) mg/dL AST (15-37) IU/L ALT (14-63) IU/L Alkaline Phosphatase (46-116) U/L Troponin I < 0.050 (0.000-0.056) ng/mL B-Natriuretic Peptide (<100) PG/ML Total Protein (6.4-8.2) g/dL Albumin (3.4-5.0) g/dL Globulin (2.6-4.0) g/dL Albumin/Globulin Ratio (0.9-1.6) COVID-19 (VERNA) POSITIVE H (NEGATIVE) Meds: Medications Generic Name Dose Route Start Last Admin Trade Name Freq PRN Reason Stop Dose Admin Sodium Chloride 500 mls @ 999 mls/hr 06/15/20 01:45 06/15/20 02:11 Normal Saline IV 999 mls/hr .BOLUS DINORAH Administration Azithromycin 500 mg/ Sodium 250 mls @ 250 mls/hr 06/15/20 02:15 Chloride IV ONETIME DINORAH Sodium Chloride 10 ml 06/14/20 23:04 Saline Flush FLUSH ASDIRECTED PRN Keep Vein Open Sodium Chloride 2.5 ml 06/14/20 23:04 Saline Flush FLUSH ASDIRECTED PRN Keep Vein Open Discontinued Medications Generic Name Dose Route Start Last Admin Trade Name Tigre PRN Reason Stop Dose Admin Albuterol/Ipratropium 3 ml 06/14/20 23:09 06/14/20 23:30 Duoneb 3.0-0.5 Mg/3 Ml NEB 06/14/20 23:10 3 ml ONETIME ONE Administration Iopamidol 100 ml 06/15/20 03:25 06/15/20 03:25 Isovue-370 (76%) IVPUSH 06/15/20 03:26 100 ml ONETIME ONE Administration Methylprednisolone Sodium Succinate 125 mg 06/14/20 23:09 06/14/20 23:30 Solu-Medrol IVPUSH 06/14/20 23:10 125 mg ONETIME ONE Administration - Re-Assessments/Exams Free Text/Narrative Re-Assessment/Exam: 06/15/20 00:25 Feeling well, his breathing is easier, no respiratory distress, discussed results with patient, namely COVID, and need for transfer. Patient agrees with plan 06/15/20 00:56 Discussed [facility] one-step transfer line, who discussed with Dr. Navarro , driller portable, no beds available at this time 06/15/20 01:13 Case discussed with [facility], no beds available there. Also discussed with OMARI Esteves in [place], who also have no beds available. 06/15/20 01:27 Case discussed with [facility], Dr. Woodard, driller portable, who accepts the case and agrees with plan to transfer patient by air due to long distance between [place] [address] facilities. 06/15/20 01:57 When the patient was updated on the need to be transferred to [place] due to no other beds at closer facilities, the patient adamantly refused and reported that he would rather go home or go to [place] then be transferred to [place]. He reports that his breathing feels much improved. 06/15/20 02:[address] Florez, the ER physician in the [facility], who agrees with transfer and accepts the case, we did discuss possible antibiotics and as the patient is still a smoker with COPD, will cover with azithromycin. Departure - Departure Time of Disposition: 00:55 Disposition: DC/Tfer to [facility] 02 Clinical Impression: COVID-19, COPD (chronic obstructive pulmonary disease) - Discharge Information Referrals: [facility] [Primary Care Provider] - Forms: ED Department Discharge Critical Care Note - Critical Care Note Total Time (mins): 35 Comments: Dyspnea, COPD exacerbation, increased work of breathing, BiPAP, coronavirus Sepsis Event Note (ED) - Evaluation Sepsis Screening Result: No Definite Risk - Focused Exam Vital Signs: Vital Signs Temp Pulse Resp BP Pulse Ox 06/15/20 02:11 77 87/58 L 06/15/20 01:04 96 20 86/51 L 97 06/14/20 23:05 98.5 F 74 20 114/57 L 100 - My Orders Last 24 Hours: My Active Orders 06/14/20 23:04 EKG Documentation Completion [RC] STAT Sodium Chloride 0.9% [Saline Flush] 10 ml FLUSH ASDIRECTED PRN Sodium Chloride 0.9% [Saline Flush] 2.5 ml FLUSH ASDIRECTED PRN Saline Lock Insert [OM.PC] Stat 06/14/20 23:43 BiPAP [RESPCARE] Stat 06/15/20 01:45 Sodium Chloride 0.9% [Normal Saline] 500 ml IV .BOLUS 06/15/20 02:15 Azithromycin [Zithromax] 500 mg Sodium Chloride 0.9% [Normal Saline (AdvBag)] 250 ml IV ONETIME - Assessment/Plan Last 24 Hours: My Active Orders 06/14/20 23:04 EKG Documentation Completion [RC] STAT Sodium Chloride 0.9% [Saline Flush] 10 ml FLUSH ASDIRECTED PRN Sodium Chloride 0.9% [Saline Flush] 2.5 ml FLUSH ASDIRECTED PRN Saline Lock Insert [OM.PC] Stat 06/14/20 23:43 BiPAP [RESPCARE] Stat 06/15/20 01:45 Sodium Chloride 0.9% [Normal Saline] 500 ml IV .BOLUS 06/15/20 02:15 Azithromycin [Zithromax] 500 mg Sodium Chloride 0.9% [Normal Saline (AdvBag)] 250 ml IV ONETIME
[2020-06-14 23:34] LABS: BLOOD UREA NITROGEN,BUN 14 mg/dL (7.0-18.0); CARBON DIOXIDE,CO2 37.9 mmol/L (21.0-32.0); CHLORIDE,CL 98 mmol/L (98-107); GLUCOSE RANDOM 107 mg/dL (74-106); POTASSIUM,K 4.5 mmol/L (3.5-5.1); SODIUM,NA 139 mmol/L (136-148)
--- NOTE | 2020-06-15 00:05 | CR ---
Indication: Dyspnea Technique: Chest 1 view Comparison: November 08, 2019 Findings/Impression: Stable cardiac size. Left-sided pacemaker appears intact and unchanged in position. Normal pulmonary vasculature. Emphysema. No pneumothorax. Blunting of the left costophrenic angle on the basis of a small amount of pleural fluid or thickening. No focal consolidation. Dictated by Ester Gordillo MD @ Jun 15 2020 12:03AM Signed by Dr. Ester Gordillo @ Jun 15 2020 12:03AM
[2020-06-15] MEDS ORDERED: Sodium Chloride 0.9% 500 ML IV SCH (01:45)
[2020-06-15] MEDS ORDERED: Azithromycin 500 MG in Sodium Chloride 0.9% 250 ML IV SCH (02:15)
[2020-06-15] MEDS ORDERED: Iopamidol 755 Mg/ML 100 ML Bottle IVPUSH ONE (03:25)
--- NOTE | 2020-06-15 03:50 | CT ---
INDICATION: Shortness of breath, COPD TECHNIQUE: CT chest pulmonary PE protocol acquired with 100 cc Isovue 370 IV contrast. COMPARISON: May 14, 2020 FINDINGS: Cardiovascular structures: Normal vascular enhancement of the pulmonary arteries, no sign of pulmonary embolism. Heart size is normal. Coronary artery calcifications. No sign of aneurysm in the thoracic aorta. Left-sided AICD. Mediastinum and vitaly: No mass or adenopathy. Lungs: Severe emphysema. Pleura and pericardium: No effusions. Chest wall and axilla: No mass or adenopathy. Upper abdomen: Unremarkable. Bones: No significant findings. IMPRESSION: No pulmonary embolism or pneumonia. No acute intrathoracic abnormality. Severe emphysema. Coronary artery disease. Please note that all CT scans at this facility use dose modulation, iterative reconstruction, and/or weight-based dosing when appropriate to reduce radiation dose to as low as reasonably achievable. Dictated by Ester Gordillo MD @ Jun 15 2020 3:41AM Signed by Dr. Ester Gordillo @ Jun 15 2020 3:49AM
== END 2020-06-15 04:15 ==
LOC: MW.ED 22:46
DX: U07.1 COVID-19 (principal); J44.9 Chronic obstructive pulmonary disease, unspecified; I50.9 Heart failure, unspecified; Z88.5 Allergy status to narcotic agent; Z79.82 Long term (current) use of aspirin; Z79.899 Other long term (current) drug therapy
CPT/HCPCS: 36415; 71045; 71275; 80053; 83880; 84484; 85025; 87635; 93005; 96361; 96365; 96375; 99285; J0456; J2930; J7040; J7050; Q9967; J7620-GY; U0002

== ENCOUNTER 2020-09-17 01:34 | Observation (INO) | payer OTHER, MEDICARE ==
[2020-09-17] MEDS ORDERED: Sodium Chloride 0.9% 10 ML Syringe FLUSH PRN (01:38)
[2020-09-17] MEDS ORDERED: Sodium Chloride 0.9% 2.5 ML Syringe FLUSH PRN (01:38)
[2020-09-17] MEDS ORDERED: methylPREDNISolone Sodium Succinate 125 MG/2 ML SDV IV ONE (01:40)
[2020-09-17] MEDS ORDERED: Albuterol 0.5% 5 MG/ML Neb Soln 20 ML Bottle NEB ONE (01:40)
[2020-09-17] MEDS ORDERED: Albuterol 0.083% 2.5 MG/3 ML Neb Soln ONE (01:46)
[2020-09-17] MEDS ORDERED: methylPREDNISolone Sodium Succinate 125 MG/2 ML SDV ONE (01:47)
--- NOTE | 2020-09-17 01:49 | EDM.PDOC ---
ED HPI GENERAL MEDICAL PROBLEM - General Chief Complaint: Respiratory Problem Stated Complaint: DIFFICULTY BREATHING Time Seen by Provider: 09/17/20 01:35 - History of Present Illness INITIAL COMMENTS - FREE TEXT/NARRATIVE: History of present illness: [] Patient has been getting more short of breath all day. said he became extremely short of breath tonight. EMS was called about 30 minutes before his arrival here. They found his oxygen saturations low and him working to breathe. They put him on CPAP and increased the PEEP. He did not improve. Subjectively did not improve. He is working hard to breathe. He is hypoxic. The M then hot when asked about his resuscitation status. She said last time he reluctantly said that even though his COPD is very bad if he needed to be intubated he wanted to be intubated and then they could decide whether they could wean him and decide what to do after that. 6 his head yes when told that if he stops breathing I was going to put an endotracheal tube in and ventilate him. He is aware that he would be transferred because we do not maintain people on a ventilator in the hospital here being a 25 bed critical access hospital. He was Covid positive May. Review of systems: As per history of present illness and below otherwise all systems reviewed and negative. Past medical history: As per history of present illness and as reviewed below otherwise nonc ontributory. Surgical history: As per history of present illness and as reviewed below otherwise noncontributory. Social history: No reported history of drug or alcohol abuse. Family history: As per history of present illness and as reviewed below otherwise noncontributory. Physical exam: Constitutional - well developed, well-nourished and in no acute distress HEENT - normocephalic, no evidence of trauma - external nose and mouth normal - no mass in neck and no JVD - mucosae moist EYES - full EOM, PERRL, no icterus - no evidence of inflammation, injection, or drainage Respiratory -marked respiratory distress, equal bilateral expansion, lungs diminished to auscultation and uses accessory muscles with prolonged expiratory phase and retractions Cardiovascular - Regular Rhythm with S1 and S2 appreciated and no murmur, gallop or rub. GI - abdomen soft without distension or organomegaly - normal bowel sounds - no guard or rebound Musculoskeletal no gross deformity of long bones or joints - no tenderness, swelling or edema Neurologic - Alert and oriented times four - CN II-XII grossly intact - motor sensory and coordination symmetrically normal Psychiatric - appropriate mood and affect with normal thought content Hematologic - No petechiae or purpura - mucosa appropriate color and sclera not pale - normal nail bed color and refill Integument - no rash or evidence of trauma - normal turgor Diagnostics: [] Therapeutics: [] Impression: [] Plan: [] Definitive disposition and diagnosis as appropriate pending reevaluation and review of above. - Related Data Allergies Allergy/AdvReac Type Severity Reaction Status Date / Time codeine Allergy Cannot Verified 09/17/20 02:22 Remember Home Meds: Home Meds Albuterol Sulfate [Albuterol Sulfate Hfa] 2 puff INH Q4H PRN 05/14/20 [History] Cholecalciferol (Vitamin D3) [Vitamin D3] 1,000 unit PO DAILY 05/14/20 [History] Furosemide 20 mg PO DAILY PRN 05/14/20 [History] Pregabalin 50 mg PO BID 05/14/20 [History] Aspirin [Halfprin] 81 mg PO DAILY 05/15/20 [History] Interferon Beta-1a [Avonex] 30 mcg IM WEEKLY 05/15/20 [History] Simvastatin 5 mg PO BEDTIME 05/15/20 [History] Tamsulosin HCl 0.4 mg PO BEDTIME 05/15/20 [History] Albuterol/Ipratropium [DuoNeb 3.0-0.5 MG/3 ML] 3 ml NEB Q6H 05/26/20 [History] Modafinil [Provigil] 500 mg PO DAILY 05/26/20 [History] carvediloL [Coreg] 18.75 mg PO BID 06/15/20 [History] Past Medical History HEENT History: Reports: Cataract Cardiovascular History: Reports: Heart Failure, Pacemaker Respiratory History: Reports: COPD, Other (See Below) Other Respiratory History: Home O2 as of Jul 2019 Gastrointestinal History: Reports: None Genitourinary History: Reports: BPH Musculoskeletal History: Reports: Other (See Below) Other Musculoskeletal History: Unsteady Gait per Neurological History: Reports: MS Psychiatric History: Reports: None Endocrine/Metabolic History: Reports: None Hematologic History: Reports: None Immunologic History: Reports: None Oncologic (Cancer) History: Reports: None Dermatologic History: Reports: None - Infectious Disease History Infectious Disease History: Reports: Chicken Pox, Mumps - Past Surgical History Head Surgeries/Procedures: Reports: None HEENT Surgical History: Reports: Cataract Surgery Cardiovascular Surgical History: Reports: Pacer Respiratory Surgical History: Reports: None GI Surgical History: Reports: None Male Surgical History: Reports: None Endocrine Surgical History: Reports: None Neurological Surgical History: Reports: None Musculoskeletal Surgical History: Reports: None Oncologic Surgical History: Reports: None Dermatological Surgical History: Reports: None Social & Family History - Family History Family Medical History: No Pertinent Family History - Caffeine Use Caffeine Use: Reports: Coffee Caffeine Use Comment: Everyday ED ROS GENERAL - Review of Systems Review Of Systems: Comprehensive ROS is negative, except as noted in HPI. ED EXAM, GENERAL - Physical Exam Exam: See Below #1 Interpretation EKG Interpretation Comments: EKG done 09/17/2020 at 1:44 AM. Read at 1:52 AM. Sinus rhythm with a heart rate of 87. MO 194. QT interval 451. [place] 86. Wide-complex QRS. ST and T changes. Compared to 06/15/2020 no obvious acute change but artifact makes it difficult to be certain. Impression no obvious injury Course - Vital Signs Text/Narrative:: 0150 hrs. my initial impression is this patient is tiring out not improving with exacerbation of COPD. I am preparing to intubate him. Unless the family objects will stabilize his airway and try to keep him alive. There is some discussion about whether he really wanted that done but the said the last time that he said he wanted to be intubated if necessary to keep him alive. They are aware that he would have to be transferred if he is intubated because we do not admit intubated patients. They are also aware that it would be difficult for the lung doctors to get him off the ventilator once he was dependent. It looks like he has a life-threatening ovation of COPD and will tire out because he is working so hard to breathe. He has not improved with 20 minutes of therapy by the EMS team. 2:16 AM ABG drawn by myself in the left radial with sterile technique when the r espiratory therapist had failed to obtain a sample. Dhruv's test was demonstrative of good flow with both arteries before I did that. He tolerated procedure well 02 52 PCO2 was greater than 101 but PO2 was 298. He is on 100% on BiPAP. He is talking in full sentences telling us what settings he thinks we are to put him on to get his PCO2 down. He will be cut to 40% and we will repeat his ABG. If he is improving we may be able to keep him here. Most certainly we will not have to intubate him at this point. chest x-ray shows bilateral minimal effusions no change from 14 June 2020. Last Recorded V/S: Last Vital Signs Temp 36.6 C 09/17/20 05:06 Pulse 55 L 09/17/20 05:06 Resp 18 09/17/20 05:06 BP 97/64 09/17/20 05:06 Pulse Ox 96 09/17/20 05:06 - Orders/Labs/Meds Orders: Active Orders 24 hr Category Date Time Status Cardiac Monitoring [RC] . DIRECTED Care 09/17/20 01:38 Active EKG Documentation Completion [RC] AM Care 09/17/20 01:38 Active Pulse Oximetry [RC] ASDIRECTED Care 09/17/20 01:38 Active RT Aerosol Therapy [RC] ASDIRECTED Care 09/17/20 01:40 Active RT BiPAP/CPAP [RC] ASDIRECTED Care 09/17/20 02:20 Active Sodium Chloride 0.9% [Saline Flush] Med 09/17/20 01:38 Active 10 ml FLUSH ASDIRECTED PRN Sodium Chloride 0.9% [Saline Flush] Med 09/17/20 01:38 Active 2.5 ml FLUSH ASDIRECTED PRN BiPAP [RESPCARE] Stat Oth 09/17/20 01:59 Active Saline Lock Insert [OM.PC] Stat Oth 09/17/20 01:38 Ordered Medication Orders Sodium Chloride (Saline Flush) 10 ml FLUSH ASDIRECTED PRN PRN Reason: Keep Vein Open Sodium Chloride (Saline Flush) 2.5 ml FLUSH ASDIRECTED PRN PRN Reason: Keep Vein Open Labs: Laboratory Tests 09/17/20 09/17/20 09/17/20 Range/Units 01:05 01:42 01:42 WBC 11.55 H (4.0-11.0) K/uL RBC 4.16 L (4.50-5.90) M/uL Hgb 12.3 L (13.0-17.0) g/dL Hct 40.0 (38.0-50.0) % MCV 96.2 (80.0-98.0) fL MCH 29.6 (27.0-32.0) pg MCHC 30.8 L (31.0-37.0) g/dL RDW Std Deviation 56.4 (28.0-62.0) fl RDW Coeff of Dalton 17 H (11.0-15.0) % Plt Count 185 (150-400) K/uL MPV 10.30 (7.40-12.00) fL Add Manual Diff YES Neutrophils % (Manual) 43 L (48.0-80.0) % Band Neutrophils % 3 % Lymphocytes % (Manual) 28 (16.0-40.0) % Monocytes % (Manual) 21 H (0.0-15.0) % Eosinophils % (Manual) 4 (0.0-7.0) % Basophils % (Manual) 1 (0.0-1.5) % Absolute Seg Neuts 5.0 (1.4-5.7) Band Neutrophils # 0.3 Lymphocytes # (Manual) 3.2 H (0.6-2.4) Monocytes # (Manual) 2.4 H (0.0-0.8) Eosinophils # (Manual) 0.5 (0.0-0.7) Basophils # (Manual) 0.1 (0.0-0.1) ABG pH (7.35-7.45) ABG pCO2 (35-45) mmHG ABG pO2 (75-100) mmHG ABG HCO3 (22-26) mEq/L ABG Total CO2 ABG Base Excess (-2.0-2.0) VBG pH (7.31-7.41) VBG pCO2 (35-45) mmHG VBG pO2 (30-40) mmHG VBG HCO3 (22-30) mEq/L VBG Total CO2 (41-51) mmol/L VBG Base Excess (-3.0-3.0) Sodium 141 (136-148) mmol/L Potassium 4.2 (3.5-5.1) mmol/L Chloride 100 (98-107) mmol/L Carbon Dioxide 40.9 H (21.0-32.0) mmol/L BUN 21 H (7.0-18.0) mg/dL Creatinine 1.0 (0.8-1.3) mg/dL Est Cr Clr Drug Dosing TNP Estimated GFR (MDRD) > 60.0 ml/min Glucose 209 H (74-106) mg/dL Calcium 9.1 (8.5-10.1) mg/dL Magnesium (1.8-2.4) mg/dL Total Bilirubin 0.4 (0.2-1.0) mg/dL AST 54 H (15-37) IU/L ALT 43 (14-63) IU/L Alkaline Phosphatase 69 (46-116) U/L Troponin I < 0.050 (0.000-0.056) ng/mL B-Natriuretic Peptide (<100) PG/ML Total Protein 7.9 (6.4-8.2) g/dL Albumin 3.6 (3.4-5.0) g/dL Globulin 4.3 H (2.6-4.0) g/dL Albumin/Globulin Ratio 0.8 L (0.9-1.6) SARS-CoV-2 RNA (VERNA) NEGATIVE (NEGATIVE) 09/17/20 09/17/20 09/17/20 Range/Units 01:42 01:42 02:15 WBC (4.0-11.0) K/uL RBC (4.50-5.90) M/uL Hgb (13.0-17.0) g/dL Hct (38.0-50.0) % MCV (80.0-98.0) fL MCH (27.0-32.0) pg MCHC (31.0-37.0) g/dL RDW Std Deviation (28.0-62.0) fl RDW Coeff of Dalton (11.0-15.0) % Plt Count (150-400) K/uL MPV (7.40-12.00) fL Add Manual Diff Neutrophils % (Manual) (48.0-80.0) % Band Neutrophils % % Lymphocytes % (Manual) (16.0-40.0) % Monocytes % (Manual) (0.0-15.0) % Eosinophils % (Manual) (0.0-7.0) % Basophils % (Manual) (0.0-1.5) % Absolute Seg Neuts (1.4-5.7) Band Neutrophils # Lymphocytes # (Manual) (0.6-2.4) Monocytes # (Manual) (0.0-0.8) Eosinophils # (Manual) (0.0-0.7) Basophils # (Manual) (0.0-0.1) ABG pH 7.179 L* (7.35-7.45) ABG pCO2 > 101 H (35-45) mmHG ABG pO2 298 H (75-100) mmHG ABG HCO3 44 H (22-26) mEq/L ABG Total CO2 48 ABG Base Excess 11 H (-2.0-2.0) VBG pH (7.31-7.41) VBG pCO2 (35-45) mmHG VBG pO2 (30-40) mmHG VBG HCO3 (22-30) mEq/L VBG Total CO2 (41-51) mmol/L VBG Base Excess (-3.0-3.0) Sodium (136-148) mmol/L Potassium (3.5-5.1) mmol/L Chloride (98-107) mmol/L Carbon Dioxide (21.0-32.0) mmol/L BUN (7.0-18.0) mg/dL Creatinine (0.8-1.3) mg/dL Est Cr Clr Drug Dosing Estimated GFR (MDRD) ml/min Glucose (74-106) mg/dL Calcium (8.5-10.1) mg/dL Magnesium 2.0 (1.8-2.4) mg/dL Total Bilirubin (0.2-1.0) mg/dL AST (15-37) IU/L ALT (14-63) IU/L Alkaline Phosphatase (46-116) U/L Troponin I (0.000-0.056) ng/mL B-Natriuretic Peptide 146 H (<100) PG/ML Total Protein (6.4-8.2) g/dL Albumin (3.4-5.0) g/dL Globulin (2.6-4.0) g/dL Albumin/Globulin Ratio (0.9-1.6) SARS-CoV-2 RNA (VERNA) (NEGATIVE) 09/17/20 Range/Units 03:55 WBC (4.0-11.0) K/uL RBC (4.50-5.90) M/uL Hgb (13.0-17.0) g/dL Hct (38.0-50.0) % MCV (80.0-98.0) fL MCH (27.0-32.0) pg MCHC (31.0-37.0) g/dL RDW Std Deviation (28.0-62.0) fl RDW Coeff of Dalton (11.0-15.0) % Plt Count (150-400) K/uL MPV (7.40-12.00) fL Add Manual Diff Neutrophils % (Manual) (48.0-80.0) % Band Neutrophils % % Lymphocytes % (Manual) (16.0-40.0) % Monocytes % (Manual) (0.0-15.0) % Eosinophils % (Manual) (0.0-7.0) % Basophils % (Manual) (0.0-1.5) % Absolute Seg Neuts (1.4-5.7) Band Neutrophils # Lymphocytes # (Manual) (0.6-2.4) Monocytes # (Manual) (0.0-0.8) Eosinophils # (Manual) (0.0-0.7) Basophils # (Manual) (0.0-0.1) ABG pH (7.35-7.45) ABG pCO2 (35-45) mmHG ABG pO2 (75-100) mmHG ABG HCO3 (22-26) mEq/L ABG Total CO2 ABG Base Excess (-2.0-2.0) VBG pH 7.47 H (7.31-7.41) VBG pCO2 51 H (35-45) mmHG VBG pO2 62 H (30-40) mmHG VBG HCO3 37 H (22-30) mEq/L VBG Total CO2 33 L (41-51) mmol/L VBG Base Excess 11.4 H (-3.0-3.0) Sodium (136-148) mmol/L Potassium (3.5-5.1) mmol/L Chloride (98-107) mmol/L Carbon Dioxide (21.0-32.0) mmol/L BUN (7.0-18.0) mg/dL Creatinine (0.8-1.3) mg/dL Est Cr Clr Drug Dosing Estimated GFR (MDRD) ml/min Glucose (74-106) mg/dL Calcium (8.5-10.1) mg/dL Magnesium (1.8-2.4) mg/dL Total Bilirubin (0.2-1.0) mg/dL AST (15-37) IU/L ALT (14-63) IU/L Alkaline Phosphatase (46-116) U/L Troponin I (0.000-0.056) ng/mL B-Natriuretic Peptide (<100) PG/ML Total Protein (6.4-8.2) g/dL Albumin (3.4-5.0) g/dL Globulin (2.6-4.0) g/dL Albumin/Globulin Ratio (0.9-1.6) SARS-CoV-2 RNA (VERNA) (NEGATIVE) Meds: Medications Generic Name Dose Route Start Last Admin Trade Name Freq PRN Reason Stop Dose Admin Sodium Chloride 10 ml 09/17/20 01:38 Saline Flush FLUSH ASDIRECTED PRN Keep Vein Open Sodium Chloride 2.5 ml 09/17/20 01:38 Saline Flush FLUSH ASDIRECTED PRN Keep Vein Open Discontinued Medications Generic Name Dose Route Start Last Admin Trade Name Freq PRN Reason Stop Dose Admin Albuterol 10 mg 09/17/20 01:40 09/17/20 02:07 Proventil Neb Soln NEB 09/17/20 01:41 Not Given ONETIME ONE Albuterol Confirm 09/17/20 01:46 09/17/20 02:06 Proventil Neb Soln Administered 09/17/20 01:47 2.5 mg Dose Administration 2.5 mg .ROUTE .STK-MED ONE Magnesium Sulfate 2 gm in 50 mls @ 50 mls/hr 09/17/20 02:00 09/17/20 02:06 Magnesium Sulfate In Water Premix IV 09/17/20 02:59 50 mls/hr ONETIME ONE Administration Magnesium Sulfate Confirm 09/17/20 01:57 09/17/20 02:07 Magnesium Sulfate In Water Premix Administered 09/17/20 01:58 Not Given Dose 2 gm in 50 mls @ as directed .ROUTE .STK-MED ONE Methylprednisolone Sodium Succinate 250 mg 09/17/20 01:40 09/17/20 02:07 Solu-Medrol IV 09/17/20 01:41 250 mg ONETIME ONE Administration Methylprednisolone Sodium Succinate Confirm 09/17/20 01:47 09/17/20 02:07 Solu-Medrol Administered 09/17/20 01:48 Not Given Dose 250 mg .ROUTE .STK-MED ONE Departure - Departure Time of Disposition: 05:13 Disposition: Refer to Observation Condition: Good Clinical Impression: COPD (chronic obstructive pulmonary disease), Respiratory failure with hypercapnia - Discharge Information Critical Care Note - Critical Care Note Total Time (mins): 40 Comments: Initial 30 minutes of this gentleman's evaluation required continual reassessment to see if he needed to be intubated. Sepsis Event Note (ED) - Focused Exam Vital Signs: Vital Signs Temp Temp Pulse Resp BP BP Pulse Ox 09/17/20 04:00 36.4 C 57 L 20 95/64 96 09/17/20 03:07 36.1 C 60 20 100/66 100 09/17/20 02:21 36 C L 71 24 H 126/79 100 09/17/20 02:05 95 09/17/20 01:38 35.5 C L 86 24 H 153/96 H 81 L - My Orders Last 24 Hours: My Active Orders 09/17/20 01:38 Cardiac Monitoring [RC] . DIRECTED EKG Documentation Completion [RC] AM Pulse Oximetry [RC] ASDIRECTED Sodium Chloride 0.9% [Saline Flush] 10 ml FLUSH ASDIRECTED PRN Sodium Chloride 0.9% [Saline Flush] 2.5 ml FLUSH ASDIRECTED PRN Saline Lock Insert [OM.PC] Stat 09/17/20 01:40 RT Aerosol Therapy [RC] ASDIRECTED 09/17/20 01:59 BiPAP [RESPCARE] Stat 09/17/20 02:20 RT BiPAP/CPAP [RC] ASDIRECTED - Assessment/Plan Last 24 Hours: My Active Orders 09/17/20 01:38 Cardiac Monitoring [RC] . DIRECTED EKG Documentation Completion [RC] AM Pulse Oximetry [RC] ASDIRECTED Sodium Chloride 0.9% [Saline Flush] 10 ml FLUSH ASDIRECTED PRN Sodium Chloride 0.9% [Saline Flush] 2.5 ml FLUSH ASDIRECTED PRN Saline Lock Insert [OM.PC] Stat 09/17/20 01:40 RT Aerosol Therapy [RC] ASDIRECTED 09/17/20 01:59 BiPAP [RESPCARE] Stat 09/17/20 02:20 RT BiPAP/CPAP [RC] ASDIRECTED
[2020-09-17] MEDS ORDERED: Magnesium Sulfate/Water 2 GM/50 ML BAG ONE (01:57)
[2020-09-17] MEDS ORDERED: Magnesium Sulfate (4.06 MEQ/ML) 5 GM/10 ML SDV IV STA (01:58)
[2020-09-17] MEDS ORDERED: Magnesium Sulfate/Water 2 GM/50 ML BAG IV ONE (02:00)
[2020-09-17 02:12] LABS: BLOOD UREA NITROGEN,BUN 21 mg/dL (7.0-18.0); CARBON DIOXIDE,CO2 40.9 mmol/L (21.0-32.0); CHLORIDE,CL 100 mmol/L (98-107); GLUCOSE RANDOM 209 mg/dL (74-106); POTASSIUM,K 4.2 mmol/L (3.5-5.1); SODIUM,NA 141 mmol/L (136-148)
--- NOTE | 2020-09-17 02:58 | CR ---
INDICATION: Dyspnea TECHNIQUE: Chest 1 view. COMPARISON: 06/14/2020 FINDINGS: Cardiovascular and mediastinum: Heart size and vasculature are normal in caliber and appearance. Mediastinum is within normal limits. Left-sided transvenous pacer device. Lungs and pleural space: Lungs are clear. No sign of infiltrate or mass. Possible small bilateral pleural effusions. No pneumothorax. Bones and soft tissues: No significant findings. IMPRESSION: Probable small bilateral pleural effusions. Dictated by Kyle Diego MD @ Sep 17 2020 2:57AM Signed by Dr. Kyle Diego @ Sep 17 2020 2:57AM
[2020-09-17] MEDS ORDERED: Acetaminophen 325 MG Tab PO PRN (05:28)
[2020-09-17] MEDS ORDERED: Lactated Ringers 1,000 ML IV ONE (05:29)
[2020-09-17] MEDS: Albuterol/Ipratropium 3.0-0.5 MG/3 ML Neb Soln NEB SCH ×5 (06:06→21:00)
[2020-09-17] MEDS: methylPREDNISolone Sodium Succinate 40 MG/1 ML SDV IVPUSH SCH ×2 (08:37→17:42)
--- NOTE | 2020-09-17 10:02 | PCM.HP.2 ---
H&P History of Present Illness - General Date of Service: 09/17/20 Admit Problem/Dx: Admission Diagnosis/Problem Admission Diagnosis/Problem COPD, Severe chronic obstructive pulmonary disease - History of Present Illness Initial Comments - Free Text/Narative: 69-year-old male presented with complaint of shortness of breath for the past 1- 2 days. He has a PMH of COPD on home oxygen (baseline 5L), CHF, pacemaker, multiple sclerosis and BPH. Patient reports that he felt increasing SOB and then was noticing his oxygen saturations decrease. His breathing got a lot worse last night so he decided to come to the hospital. Denies any fevers, chills, chest pain, nausea, vomiting, abdominal pain, diarrhea, blood in stool or blood in urine. Patient reports having COPD exacerbation in October, was intubated and transferred to [place]. He was told that if he was intubated again he may not be able to be weaned off. In the ER, 1st ABG: Laboratory Tests 09/17/20 02:15 ABG pH 7.179 L* ABG pCO2 > 101 H ABG pO2 298 H ABG HCO3 44 H ABG Total CO2 48 ABG Base Excess 11 H CXR showed small b/l pleural effusions. COVID19 test negative. EKG showed no acute ischemic changes. Patient was started on BiPAP and discussion was held about intubation. However, patient and wanted to continue on BiPAP for now to see if he would improve. Repeat VBG showed: Laboratory Tests 09/17/20 03:55 VBG pH 7.47 H VBG pCO2 51 H VBG pO2 62 H VBG HCO3 37 H VBG Total CO2 33 L VBG Base Excess 11.4 H Patient admitted for further evaluation and treatment. Generalized Pain Score (Numeric/FACES): 2 - Related Data Allergies/Adverse Reactions: Allergies Allergy/AdvReac Type Severity Reaction Status Date / Time codeine Allergy Cannot Verified 09/17/20 11:56 Remember Home Medications: Home Meds Albuterol Sulfate [Albuterol Sulfate Hfa] 2 puff INH Q4H PRN 05/14/20 [History] Cholecalciferol (Vitamin D3) [Vitamin D3] 2,000 unit PO DAILY 05/14/20 [History] Furosemide 20 mg PO DAILY PRN 05/14/20 [History] Pregabalin 50 mg PO BID 05/14/20 [History] Aspirin [Halfprin] 81 mg PO DAILY 05/15/20 [History] Interferon Beta-1a [Avonex] 30 mcg IM WEEKLY 05/15/20 [History] Simvastatin 5 mg PO BEDTIME 05/15/20 [History] Tamsulosin HCl 0.4 mg PO BEDTIME 05/15/20 [History] Albuterol/Ipratropium [DuoNeb 3.0-0.5 MG/3 ML] 3 ml NEB Q6H 05/26/20 [History] Modafinil [Provigil] 500 mg PO DAILY 05/26/20 [History] Levothyroxine 150 mcg PO ACBREAKFAST 09/17/20 [History] carvediloL [Carvedilol] 18.75 mg PO BIDMEALS 09/18/20 [History] Past Medical History HEENT History: Reports: Cataract Cardiovascular History: Reports: Heart Failure, Pacemaker Respiratory History: Reports: COPD, Other (See Below) Other Respiratory History: Home O2 as of Jul 2019 and CPAP Gastrointestinal History: Reports: None Genitourinary History: Reports: BPH Musculoskeletal History: Reports: Other (See Below) Other Musculoskeletal History: Unsteady Gait per Neurological History: Reports: MS Psychiatric History: Reports: None Endocrine/Metabolic History: Reports: None Hematologic History: Reports: None Immunologic History: Reports: None Oncologic (Cancer) History: Reports: None Dermatologic History: Reports: None - Infectious Disease History Infectious Disease History: Reports: Chicken Pox, Measles, Mumps - Past Surgical History Head Surgeries/Procedures: Reports: None HEENT Surgical History: Reports: Cataract Surgery Cardiovascular Surgical History: Reports: Pacer Respiratory Surgical History: Reports: None GI Surgical History: Reports: None Male Surgical History: Reports: None Endocrine Surgical History: Reports: None Neurological Surgical History: Reports: None Musculoskeletal Surgical History: Reports: None Oncologic Surgical History: Reports: None Dermatological Surgical History: Reports: None Social & Family History - Family History Family Medical History: No Pertinent Family History - Caffeine Use Caffeine Use: Reports: None Caffeine Use Comment: Everyday - Recreational Drug Use Recreational Drug Use: No H&P Review of Systems - Review of Systems: Review Of Systems: See Below General: Reports: Malaise, Fatigue. Denies: Fever, Chills, Weakness Pulmonary: Reports: Shortness of Breath, Wheezing, Cough. Denies: Pleuritic Chest Pain, Sputum Gastrointestinal: Denies: Abdominal Pain, Anorexia, Black Stool, Bloody Stool Genitourinary: Denies: Dysuria, Frequency, Burning, Pain Musculoskeletal: Denies: Neck Pain, Shoulder Pain, Arm Pain, Back Pain Skin: Denies: Cyanosis, Jaundice, Mottled, Pallor Psychiatric: Denies: Confusion, Depression, Mood Lability Neurological: Denies: Confusion, Dizziness, Headache Exam - Exam Exam: See Below - Vital Signs Vital Signs: Last Vital Signs Temp 36.4 C 09/17/20 08:00 Pulse 62 09/17/20 08:00 Resp 19 09/17/20 08:00 BP 99/52 L 09/17/20 08:00 Pulse Ox 94 L 09/17/20 08:00 Weight: 58.315 kg - Exam Quality Assessment: Supplemental Oxygen (BiPAP) General: Alert, Oriented, Cooperative, Mild Distress Neck: Supple, Trachea Midline Lungs: Decreased Breath Sounds, Wheezing. No: Crackles Cardiovascular: Regular Rate, Regular Rhythm GI/Abdominal Exam: Normal Bowel Sounds, Soft, Non-Tender - Patient Data Lab Results Last 24 hrs: Laboratory Results - last 24 hr 09/17/20 09/17/20 09/17/20 Range/Units 01:05 01:42 01:42 WBC 11.55 H (4.0-11.0) K/uL RBC 4.16 L (4.50-5.90) M/uL Hgb 12.3 L (13.0-17.0) g/dL Hct 40.0 (38.0-50.0) % MCV 96.2 (80.0-98.0) fL MCH 29.6 (27.0-32.0) pg MCHC 30.8 L (31.0-37.0) g/dL RDW Std Deviation 56.4 (28.0-62.0) fl RDW Coeff of Dalton 17 H (11.0-15.0) % Plt Count 185 (150-400) K/uL MPV 10.30 (7.40-12.00) fL Add Manual Diff YES Neutrophils % (Manual) 43 L (48.0-80.0) % Band Neutrophils % 3 % Lymphocytes % (Manual) 28 (16.0-40.0) % Monocytes % (Manual) 21 H (0.0-15.0) % Eosinophils % (Manual) 4 (0.0-7.0) % Basophils % (Manual) 1 (0.0-1.5) % Absolute Seg Neuts 5.0 (1.4-5.7) Band Neutrophils # 0.3 Lymphocytes # (Manual) 3.2 H (0.6-2.4) Monocytes # (Manual) 2.4 H (0.0-0.8) Eosinophils # (Manual) 0.5 (0.0-0.7) Basophils # (Manual) 0.1 (0.0-0.1) ABG pH (7.35-7.45) ABG pCO2 (35-45) mmHG ABG pO2 (75-100) mmHG ABG HCO3 (22-26) mEq/L ABG Total CO2 ABG Base Excess (-2.0-2.0) VBG pH (7.31-7.41) VBG pCO2 (35-45) mmHG VBG pO2 (30-40) mmHG VBG HCO3 (22-30) mEq/L VBG Total CO2 (41-51) mmol/L VBG Base Excess (-3.0-3.0) Sodium 141 (136-148) mmol/L Potassium 4.2 (3.5-5.1) mmol/L Chloride 100 (98-107) mmol/L Carbon Dioxide 40.9 H (21.0-32.0) mmol/L BUN 21 H (7.0-18.0) mg/dL Creatinine 1.0 (0.8-1.3) mg/dL Est Cr Clr Drug Dosing TNP Estimated GFR (MDRD) > 60.0 ml/min Glucose 209 H (74-106) mg/dL Calcium 9.1 (8.5-10.1) mg/dL Magnesium (1.8-2.4) mg/dL Total Bilirubin 0.4 (0.2-1.0) mg/dL AST 54 H (15-37) IU/L ALT 43 (14-63) IU/L Alkaline Phosphatase 69 (46-116) U/L Troponin I < 0.050 (0.000-0.056) ng/mL B-Natriuretic Peptide (<100) PG/ML Total Protein 7.9 (6.4-8.2) g/dL Albumin 3.6 (3.4-5.0) g/dL Globulin 4.3 H (2.6-4.0) g/dL Albumin/Globulin Ratio 0.8 L (0.9-1.6) SARS-CoV-2 RNA (VERNA) NEGATIVE (NEGATIVE) 09/17/20 09/17/20 09/17/20 Range/Units 01:42 01:42 02:15 WBC (4.0-11.0) K/uL RBC (4.50-5.90) M/uL Hgb (13.0-17.0) g/dL Hct (38.0-50.0) % MCV (80.0-98.0) fL MCH (27.0-32.0) pg MCHC (31.0-37.0) g/dL RDW Std Deviation (28.0-62.0) fl RDW Coeff of Dalton (11.0-15.0) % Plt Count (150-400) K/uL MPV (7.40-12.00) fL Add Manual Diff Neutrophils % (Manual) (48.0-80.0) % Band Neutrophils % % Lymphocytes % (Manual) (16.0-40.0) % Monocytes % (Manual) (0.0-15.0) % Eosinophils % (Manual) (0.0-7.0) % Basophils % (Manual) (0.0-1.5) % Absolute Seg Neuts (1.4-5.7) Band Neutrophils # Lymphocytes # (Manual) (0.6-2.4) Monocytes # (Manual) (0.0-0.8) Eosinophils # (Manual) (0.0-0.7) Basophils # (Manual) (0.0-0.1) ABG pH 7.179 L* (7.35-7.45) ABG pCO2 > 101 H (35-45) mmHG ABG pO2 298 H (75-100) mmHG ABG HCO3 44 H (22-26) mEq/L ABG Total CO2 48 ABG Base Excess 11 H (-2.0-2.0) VBG pH (7.31-7.41) VBG pCO2 (35-45) mmHG VBG pO2 (30-40) mmHG VBG HCO3 (22-30) mEq/L VBG Total CO2 (41-51) mmol/L VBG Base Excess (-3.0-3.0) Sodium (136-148) mmol/L Potassium (3.5-5.1) mmol/L Chloride (98-107) mmol/L Carbon Dioxide (21.0-32.0) mmol/L BUN (7.0-18.0) mg/dL Creatinine (0.8-1.3) mg/dL Est Cr Clr Drug Dosing Estimated GFR (MDRD) ml/min Glucose (74-106) mg/dL Calcium (8.5-10.1) mg/dL Magnesium 2.0 (1.8-2.4) mg/dL Total Bilirubin (0.2-1.0) mg/dL AST (15-37) IU/L ALT (14-63) IU/L Alkaline Phosphatase (46-116) U/L Troponin I (0.000-0.056) ng/mL B-Natriuretic Peptide 146 H (<100) PG/ML Total Protein (6.4-8.2) g/dL Albumin (3.4-5.0) g/dL Globulin (2.6-4.0) g/dL Albumin/Globulin Ratio (0.9-1.6) SARS-CoV-2 RNA (VERNA) (NEGATIVE) 09/17/20 Range/Units 03:55 WBC (4.0-11.0) K/uL RBC (4.50-5.90) M/uL Hgb (13.0-17.0) g/dL Hct (38.0-50.0) % MCV (80.0-98.0) fL MCH (27.0-32.0) pg MCHC (31.0-37.0) g/dL RDW Std Deviation (28.0-62.0) fl RDW Coeff of Dalton (11.0-15.0) % Plt Count (150-400) K/uL MPV (7.40-12.00) fL Add Manual Diff Neutrophils % (Manual) (48.0-80.0) % Band Neutrophils % % Lymphocytes % (Manual) (16.0-40.0) % Monocytes % (Manual) (0.0-15.0) % Eosinophils % (Manual) (0.0-7.0) % Basophils % (Manual) (0.0-1.5) % Absolute Seg Neuts (1.4-5.7) Band Neutrophils # Lymphocytes # (Manual) (0.6-2.4) Monocytes # (Manual) (0.0-0.8) Eosinophils # (Manual) (0.0-0.7) Basophils # (Manual) (0.0-0.1) ABG pH (7.35-7.45) ABG pCO2 (35-45) mmHG ABG pO2 (75-100) mmHG ABG HCO3 (22-26) mEq/L ABG Total CO2 ABG Base Excess (-2.0-2.0) VBG pH 7.47 H (7.31-7.41) VBG pCO2 51 H (35-45) mmHG VBG pO2 62 H (30-40) mmHG VBG HCO3 37 H (22-30) mEq/L VBG Total CO2 33 L (41-51) mmol/L VBG Base Excess 11.4 H (-3.0-3.0) Sodium (136-148) mmol/L Potassium (3.5-5.1) mmol/L Chloride (98-107) mmol/L Carbon Dioxide (21.0-32.0) mmol/L BUN (7.0-18.0) mg/dL Creatinine (0.8-1.3) mg/dL Est Cr Clr Drug Dosing Estimated GFR (MDRD) ml/min Glucose (74-106) mg/dL Calcium (8.5-10.1) mg/dL Magnesium (1.8-2.4) mg/dL Total Bilirubin (0.2-1.0) mg/dL AST (15-37) IU/L ALT (14-63) IU/L Alkaline Phosphatase (46-116) U/L Troponin I (0.000-0.056) ng/mL B-Natriuretic Peptide (<100) PG/ML Total Protein (6.4-8.2) g/dL Albumin (3.4-5.0) g/dL Globulin (2.6-4.0) g/dL Albumin/Globulin Ratio (0.9-1.6) SARS-CoV-2 RNA (VERNA) (NEGATIVE) Result Diagrams: 09/18/20 05:11 09/18/20 05:11 Sepsis Event Note - Evaluation Sepsis Screening Result: No Definite Risk - Focused Exam Vital Signs: Vital Signs Temp Temp Pulse Resp BP BP Pulse Ox 09/17/20 08:00 36.4 C 62 19 99/52 L 94 L 09/17/20 06:00 36.3 C 59 L 19 100/64 96 09/17/20 05:06 36.6 C 55 L 18 97/64 96 09/17/20 04:00 36.4 C 57 L 20 95/64 96 09/17/20 03:07 36.1 C 60 20 100/66 100 09/17/20 02:21 36 C L 71 24 H 126/79 100 09/17/20 02:05 95 09/17/20 01:38 35.5 C L 86 24 H 153/96 H 81 L - Problem List (1) COPD (chronic obstructive pulmonary disease) SNOMED Code(s): 83491660 ICD Code: J44.9 - CHRONIC OBSTRUCTIVE PULMONARY DISEASE, UNSPECIFIED Status: Acute Current Visit: Yes (2) Acute hypercapnic respiratory failure SNOMED Code(s): 632336006 ICD Code: J96.02 - ACUTE RESPIRATORY FAILURE WITH HYPERCAPNIA Status: Acute Current Visit: No (3) COPD exacerbation SNOMED Code(s): 071386789 ICD Code: J44.1 - CHRONIC OBSTRUCTIVE PULMONARY DISEASE W (ACUTE) EXACERBATION Status: Acute Current Visit: No (4) Pacemaker SNOMED Code(s): 560419560 ICD Code: Z95.0 - PRESENCE OF CARDIAC PACEMAKER Status: Acute Current Visit: Yes (5) BPH (benign prostatic hyperplasia) SNOMED Code(s): 427724428 ICD Code: N40.0 - BENIGN PROSTATIC HYPERPLASIA WITHOUT LOWER URINRY TRACT SYMP Status: Acute Current Visit: Yes (6) CHF (congestive heart failure) SNOMED Code(s): 49965866 ICD Code: I50.9 - HEART FAILURE, UNSPECIFIED Status: Acute Current Visit: Yes Problem List Initiated/Reviewed/Updated: Yes Orders Last 24hrs: Active Orders 24 hr Category Date Time Status Admission Status [Patient Status] [ADT] Stat ADT 09/17/20 05:00 Active Antiembolic Devices [RC] PER UNIT ROUTINE Care 09/17/20 05:27 Active IS (RT) [RT Incentive Spirometry] [RC] Q1HWA Care 09/17/20 05:32 Active Oxygen Therapy [RC] ASDIRECTED Care 09/17/20 05:26 Active Pulse Oximetry [RC] ASDIRECTED Care 09/17/20 01:38 Active RT Aerosol Therapy [RC] ASDIRECTED Care 09/17/20 01:40 Active RT Aerosol Therapy [RC] ASDIRECTED Care 09/17/20 05:25 Active RT BiPAP/CPAP [RC] ASDIRECTED Care 09/17/20 02:20 Active Telemetry Monitoring [Cardiac Monitoring] [RC] Q8H Care 09/17/20 05:47 Active Vital Signs [RC] Q4H Care 09/17/20 05:26 Active Heart Healthy Diet [DIET] Diet 09/17/20 Breakfast Active Acetaminophen [TylenoL] Med 09/17/20 05:28 Active 500 mg PO Q4H PRN Albuterol/Ipratropium [DuoNeb 3.0-0.5 MG/3 ML] Med 09/17/20 06:00 Active 3 ml NEB Q4HRRT Lactated Ringers [Ringers, Lactated] 1,000 ml Med 09/17/20 05:29 Active IV ONETIME Sodium Chloride 0.9% [Saline Flush] Med 09/17/20 01:38 Active 10 ml FLUSH ASDIRECTED PRN Sodium Chloride 0.9% [Saline Flush] Med 09/17/20 01:38 Active 2.5 ml FLUSH ASDIRECTED PRN methylPREDNISolone Sod Succ [Solu-MEDROL] Med 09/17/20 09:00 Active 40 mg IVPUSH Q8H BiPAP [RESPCARE] Stat Oth 09/17/20 01:59 Active SCD [Sequential Compression Device] [OM.PC] Routine Oth 09/17/20 05:27 Ordered Saline Lock Insert [OM.PC] Stat Oth 09/17/20 01:38 Ordered Medication Orders Acetaminophen (Tylenol) 500 mg PO Q4H PRN PRN Reason: Pain Albuterol/Ipratropium (Duoneb 3.0-0.5 Mg/3 Ml) 3 ml NEB Q4HRRT formerly [facility] Admin: 09/17/20 09:30 Dose: 3 ml Documented by: Admin: 09/17/20 06:06 Dose: 3 ml Documented by: ALLEN Lactated Ringer's (Ringers, Lactated) 1,000 mls @ 100 mls/hr IV ONETIME ONE Stop: 09/17/20 15:28 Last Admin: 09/17/20 06:15 Dose: 100 mls/hr Documented by: DEIRC Methylprednisolone Sodium Succinate (Solu-Medrol) 40 mg IVPUSH Q8H [facility] Last Admin: 09/17/20 08:37 Dose: 40 mg Documented by: NAREN Sodium Chloride (Saline Flush) 10 ml FLUSH ASDIRECTED PRN PRN Reason: Keep Vein Open Sodium Chloride (Saline Flush) 2.5 ml FLUSH ASDIRECTED PRN PRN Reason: Keep Vein Open Assessment/Plan Comment:: 69 y/o M admitted for COPD exacerbation on BiPAP End stage COPD, poor prognosis cont IV Solumedrol, DuoNEbs cont BiPAP, not tolerating being off BiPAP Wean as tolerated cont home meds as appropriate SCD for DVT ppx Monitor and replete electrolytes
[2020-09-17] MEDS ORDERED: Furosemide 20 MG Tab PO PRN (13:10)
[2020-09-17] MEDS ORDERED: LORazepam 2 MG/ML SDV IVPUSH PRN (19:04)
[2020-09-17] MEDS: Simvastatin 10 MG Tab PO SCH (20:19)
[2020-09-17] MEDS: Pregabalin 50 MG Cap PO SCH (20:19)
[2020-09-17] MEDS: Tamsulosin 0.4 MG Cap.ER PO SCH (20:20)
[2020-09-17] MEDS: Carvedilol 3.125 MG Tab PO SCH (21:03)
[2020-09-18] MEDS ORDERED: Lactated Ringers 1,000 ML IV ONE (00:21)
[2020-09-18] MEDS: methylPREDNISolone Sodium Succinate 40 MG/1 ML SDV IVPUSH SCH ×3 (00:55→17:39)
[2020-09-18] MEDS: Lactated Ringers 1,000 ML IV SCH ×3 (02:12→22:08)
[2020-09-18] MEDS: Albuterol/Ipratropium 3.0-0.5 MG/3 ML Neb Soln NEB SCH ×6 (02:23→22:11)
[2020-09-18 06:49] LABS: BLOOD UREA NITROGEN,BUN 17 mg/dL (7.0-18.0); CARBON DIOXIDE,CO2 38.4 mmol/L (21.0-32.0); CHLORIDE,CL 101 mmol/L (98-107); GLUCOSE RANDOM 135 mg/dL (74-106); POTASSIUM,K 4.2 mmol/L (3.5-5.1); SODIUM,NA 140 mmol/L (136-148)
[2020-09-18] MEDS: Pregabalin 50 MG Cap PO SCH ×2 (09:18→21:01)
[2020-09-18] MEDS: Carvedilol 3.125 MG Tab PO SCH ×2 (09:18→21:01)
[2020-09-18] MEDS: Aspirin 81 MG Tab.EC PO SCH (09:18)
[2020-09-18] MEDS: Levothyroxine 150 MCG Tab PO SCH (12:08)
[2020-09-18] MEDS ORDERED: Docusate Sodium 100 MG Cap PO PRN (12:15)
--- NOTE | 2020-09-18 12:38 | PCM.PN ---
- General Info Date of Service: 09/18/20 Admission Dx/Problem (Free Text): Admission Diagnosis/Problem Admission Diagnosis/Problem COPD, Severe chronic obstructive pulmonary disease Functional Status: Reports: Tolerating Diet, Ambulating, Urinating - Review of Systems General: Denies: Fever, Weakness, Fatigue Pulmonary: Reports: Shortness of Breath. Denies: Pleuritic Chest Pain, Cough Cardiovascular: Denies: Chest Pain, Palpitations, Dyspnea on Exertion Gastrointestinal: Reports: Constipation. Denies: Abdominal Pain, Decreased Appetite, Diarrhea Genitourinary: Denies: Dysuria, Frequency, Burning, Pain Musculoskeletal: Denies: Neck Pain, Shoulder Pain, Arm Pain - Patient Data Vitals - Most Recent: Last Vital Signs Temp 36.8 C 09/18/20 12:01 Pulse 58 L 09/18/20 12:01 Resp 20 09/18/20 12:01 BP 105/64 09/18/20 12:01 Pulse Ox 96 09/18/20 12:01 Weight - Most Recent: 58.315 kg I&O - Last 24 Hours: Intake & Output 09/17/20 09/18/20 09/18/20 22:59 06:59 14:59 Intake Total 1760 1299 Output Total 840 350 Balance 920 949 Lab Results Last 24 Hours: Laboratory Results - last 24 hr 09/18/20 09/18/20 Range/Units 05:11 05:11 WBC 8.72 (4.0-11.0) K/uL RBC 3.51 L (4.50-5.90) M/uL Hgb 10.3 L (13.0-17.0) g/dL Hct 32.8 L (38.0-50.0) % MCV 93.4 (80.0-98.0) fL MCH 29.3 (27.0-32.0) pg MCHC 31.4 (31.0-37.0) g/dL RDW Std Deviation 57.7 (28.0-62.0) fl RDW Coeff of Dalton 17 H (11.0-15.0) % Plt Count 175 (150-400) K/uL MPV 10.60 (7.40-12.00) fL Neut % (Auto) 83.5 H (48.0-80.0) % Lymph % (Auto) 8.0 L (16.0-40.0) % Rush % (Auto) 8.5 (0.0-15.0) % Eos % (Auto) 0.0 (0.0-7.0) % Baso % (Auto) 0.0 (0.0-1.5) % Neut # (Auto) 7.3 H (1.4-5.7) K/uL Lymph # (Auto) 0.7 (0.6-2.4) K/uL Rush # (Auto) 0.7 (0.0-0.8) K/uL Eos # (Auto) 0.0 (0.0-0.7) K/uL Baso # (Auto) 0.0 (0.0-0.1) K/uL Nucleated RBC % 0.0 /100WBC Nucleated RBCs # 0 K/uL Sodium 140 (136-148) mmol/L Potassium 4.2 (3.5-5.1) mmol/L Chloride 101 (98-107) mmol/L Carbon Dioxide 38.4 H (21.0-32.0) mmol/L BUN 17 (7.0-18.0) mg/dL Creatinine 0.7 L (0.8-1.3) mg/dL Est Cr Clr Drug Dosing 84.46 mL/min Estimated GFR (MDRD) > 60.0 ml/min Glucose 135 H (74-106) mg/dL Calcium 8.7 (8.5-10.1) mg/dL Med Orders - Current: Current Medications Acetaminophen (Tylenol) 500 mg PO Q4H PRN PRN Reason: Pain Albuterol/Ipratropium (Duoneb 3.0-0.5 Mg/3 Ml) 3 ml NEB Q4HRRT [facility] Last Admin: 09/18/20 10:56 Dose: 3 ml Documented by: Aspirin (Halfprin) 81 mg PO DAILY [facility] Last Admin: 09/18/20 09:18 Dose: 81 mg Documented by: Carvedilol (Coreg) 9.375 mg PO BID [facility] Last Admin: 09/18/20 09:18 Dose: 9.375 mg Documented by: Cholecalciferol (Vitamin D3) 50 mcg PO DAILY [facility] Docusate Sodium (Colace) 100 mg PO BID PRN PRN Reason: Constipation Furosemide (Lasix) 20 mg PO DAILY PRN PRN Reason: Edema Lactated Ringer's (Ringers, Lactated) 1,000 mls @ 100 mls/hr IV ASDIRECTED [facility] Last Admin: 09/18/20 12:08 Dose: 100 mls/hr Documented by: Levothyroxine Sodium (Levothyroxine) 150 mcg PO ACBREAKFAST [facility] Last Admin: 09/18/20 12:08 Dose: 150 mcg Documented by: Lorazepam (Ativan) 0.5 mg IVPUSH Q4H PRN PRN Reason: Anxiety Methylprednisolone Sodium Succinate (Solu-Medrol) 40 mg IVPUSH Q8H [facility] Last Admin: 09/18/20 09:18 Dose: 40 mg Documented by: Pregabalin (Lyrica) 50 mg PO BID [facility] Last Admin: 09/18/20 09:18 Dose: 50 mg Documented by: Simvastatin (Zocor) 5 mg PO BEDTIME [facility] Last Admin: 09/17/20 20:19 Dose: 5 mg Documented by: Sodium Chloride (Saline Flush) 10 ml FLUSH ASDIRECTED PRN PRN Reason: Keep Vein Open Sodium Chloride (Saline Flush) 2.5 ml FLUSH ASDIRECTED PRN PRN Reason: Keep Vein Open Tamsulosin HCl (Flomax) 0.4 mg PO BEDTIME [facility] Last Admin: 09/17/20 20:20 Dose: 0.4 mg Documented by: Discontinued Medications Albuterol (Proventil Neb Soln) 10 mg NEB ONETIME ONE Stop: 09/17/20 01:41 Last Admin: 09/17/20 02:07 Dose: Not Given Documented by: Albuterol (Proventil Neb Soln) Confirm Administered Dose 2.5 mg .ROUTE .STK-MED ONE Stop: 09/17/20 01:47 Last Admin: 09/17/20 02:06 Dose: 2.5 mg Documented by: Magnesium Sulfate (Magnesium Sulfate In Water Premix) 2 gm in 50 mls @ 50 mls/hr IV ONETIME ONE Stop: 09/17/20 02:59 Last Admin: 09/17/20 02:06 Dose: 50 mls/hr Documented by: Magnesium Sulfate (Magnesium Sulfate In Water Premix) Confirm Administered Dose 2 gm in 50 mls @ as directed .ROUTE .STK-MED ONE Stop: 09/17/20 01:58 Last Admin: 09/17/20 02:07 Dose: Not Given Documented by: Lactated Ringer's (Ringers, Lactated) 1,000 mls @ 100 mls/hr IV ONETIME ONE Stop: 09/17/20 15:28 Last Admin: 09/17/20 06:15 Dose: 100 mls/hr Documented by: Lactated Ringer's (Ringers, Lactated) 1,000 mls @ 999 mls/hr IV .BOLUS ONE Stop: 09/18/20 01:21 Last Admin: 09/18/20 00:55 Dose: 999 mls/hr Documented by: Methylprednisolone Sodium Succinate (Solu-Medrol) 250 mg IV ONETIME ONE Stop: 09/17/20 01:41 Last Admin: 09/17/20 02:07 Dose: 250 mg Documented by: Methylprednisolone Sodium Succinate (Solu-Medrol) Confirm Administered Dose 250 mg .ROUTE .STK-MED ONE Stop: 09/17/20 01:48 Last Admin: 09/17/20 02:07 Dose: Not Given Documented by: - Exam Quality Assessment: Supplemental Oxygen General: Alert, Oriented, No Acute Distress Neck: Supple, Trachea Midline Lungs: Normal Respiratory Effort, Decreased Breath Sounds, Wheezing Cardiovascular: Regular Rate, Regular Rhythm Extremities: Normal Inspection, Normal Range of Motion Sepsis Event Note - Evaluation Sepsis Screening Result: No Definite Risk - Focused Exam Vital Signs: Vital Signs Temp Pulse Pulse Pulse Resp BP BP 09/18/20 12:01 36.8 C 58 L 20 105/64 09/18/20 09:18 69 119/65 09/18/20 09:17 69 09/18/20 09:11 36.6 C 58 L 23 H 119/65 09/18/20 02:18 36.6 C 63 19 90/53 L Pulse Ox 09/18/20 12:01 96 09/18/20 09:18 09/18/20 09:17 09/18/20 09:11 97 09/18/20 02:18 94 L - Problem List & Annotations (1) COPD (chronic obstructive pulmonary disease) SNOMED Code(s): 03687229 Code(s): J44.9 - CHRONIC OBSTRUCTIVE PULMONARY DISEASE, UNSPECIFIED Status: Acute Current Visit: Yes (2) Acute hypercapnic respiratory failure SNOMED Code(s): 643679467 Code(s): J96.02 - ACUTE RESPIRATORY FAILURE WITH HYPERCAPNIA Status: Acute Current Visit: No (3) COPD exacerbation SNOMED Code(s): 557026030 Code(s): J44.1 - CHRONIC OBSTRUCTIVE PULMONARY DISEASE W (ACUTE) EXACERBATION Status: Acute Current Visit: No (4) Pacemaker SNOMED Code(s): 100968235 Code(s): Z95.0 - PRESENCE OF CARDIAC PACEMAKER Status: Acute Current Visit: Yes (5) BPH (benign prostatic hyperplasia) SNOMED Code(s): 780091925 Code(s): N40.0 - BENIGN PROSTATIC HYPERPLASIA WITHOUT LOWER URINRY TRACT SYMP Status: Acute Current Visit: Yes (6) CHF (congestive heart failure) SNOMED Code(s): 37903470 Code(s): I50.9 - HEART FAILURE, UNSPECIFIED Status: Acute Current Visit: Yes - Problem List Review Problem List Initiated/Reviewed/Updated: Yes - My Orders Last 24 Hours: My Active Orders 09/17/20 13:10 Furosemide [Lasix] 20 mg PO DAILY PRN 09/17/20 21:00 Pregabalin [Lyrica] 50 mg PO BID Simvastatin [Zocor] 5 mg PO BEDTIME Tamsulosin [Flomax] 0.4 mg PO BEDTIME carvediloL [Coreg] 9.375 mg PO BID 09/18/20 02:15 Lactated Ringers [Ringers, Lactated] 1,000 ml IV ASDIRECTED 09/18/20 09:00 Aspirin [Halfprin] 81 mg PO DAILY - Plan Plan:: 69 y/o M admitted for COPD exacerbation End stage COPD, poor mitzy term prognosis cont IV Solumedrol, DuoNEbs cont BiPAP, Wean as tolerated, get really nervous when off BiPAP and insists to put in back on even though saturating well on NC SMall dose of Ativan as needed to anxiety cont home meds as appropriate SCD for DVT ppx Monitor and replete electrolytes
[2020-09-18] MEDS ORDERED: methylPREDNISolone Sodium Succinate 40 MG/1 ML SDV IVPUSH SCH (19:30)
[2020-09-18] MEDS: Simvastatin 10 MG Tab PO SCH (20:59)
[2020-09-18] MEDS: Tamsulosin 0.4 MG Cap.ER PO SCH (21:01)
[2020-09-19] MEDS: Albuterol/Ipratropium 3.0-0.5 MG/3 ML Neb Soln NEB SCH ×4 (03:27→14:02)
[2020-09-19] MEDS ORDERED: methylPREDNISolone Sodium Succinate 40 MG/1 ML SDV IVPUSH SCH (06:00)
[2020-09-19 06:17] LABS: BLOOD UREA NITROGEN,BUN 15 mg/dL (7.0-18.0); CARBON DIOXIDE,CO2 35.7 mmol/L (21.0-32.0); CHLORIDE,CL 104 mmol/L (98-107); GLUCOSE RANDOM 116 mg/dL (74-106); POTASSIUM,K 4.5 mmol/L (3.5-5.1); SODIUM,NA 140 mmol/L (136-148)
[2020-09-19] MEDS: Levothyroxine 150 MCG Tab PO SCH (06:34)
[2020-09-19] MEDS ORDERED: Cholecalciferol (Vitamin D3) 25 MCG Tab PO SCH ×3 (09:00→20:00)
[2020-09-19] MEDS: Pregabalin 50 MG Cap PO SCH (09:53)
[2020-09-19] MEDS: Aspirin 81 MG Tab.EC PO SCH (09:53)
[2020-09-19] MEDS: Carvedilol 3.125 MG Tab PO SCH (09:53)
--- NOTE | 2020-09-19 14:40 | PCM.DCSUM1 ---
<Sean Levine - Last Filed: 09/19/20 14:55> Discharge Summary - Hospital Course Free Text/Narrative:: 69-year-old male admitted for COPD exacerbation, end-stage COPD with a poor prognosis. He presented to the emergency department complaining of shortness of breath for 1 to 2 days prior to admission. PMH of COPD on home oxygen (baseline 5L), CHF, pacemaker, multiple sclerosis and BPH. Patient does have a history of prior intubation due to COPD exacerbation in October, at which time he was transported to [place]. During admission patient was concerned due to his prior experience and wanted to remain on BiPap as much as possible. He became anxious anytime his BiPap was removed and requested that the BiPAP be left on as much as possible. At discharge, patient was able to tolerate nasal cannula during the day and only use the BiPAP at nighttime while sleeping. Upon discharge I have spoken with patient's who states that the patient still smokes daily. She states that he has been told pf his poor prognosis by multiple providers but still smokes. Patient understands his poor prognosis. Patient was treated with oxygen support, BiPAP as needed, IV Solu-Medrol, duo nebs. Patient required 4L 02 via NC at discharge. - Discharge Data Discharge Date: 09/19/20 Discharge Disposition: Home, Self-Care 01 Condition: Fair - Referral to Home Health Primary Care Physician: PCP None - Patient Instructions Other/Special Instructions: Patient discharged home on carvedilol 9mg BID, due to bradycardia and hypotension during admission which may be lower than previouslly prescribed dose. Patient to check with his [employer] [facility] about carvedilol doseage. Discussed plan with patient, patient agrees. - Discharge Plan Prescriptions/Med Rec: carvediloL [Coreg] 9.375 mg PO BID 14 Days #28 tablet predniSONE [Prednisone] 40 mg PO DAILY 5 Days #10 tablet Home Medications: Home Meds Albuterol Sulfate [Albuterol Sulfate Hfa] 2 puff INH Q4H PRN 05/14/20 [History] Cholecalciferol (Vitamin D3) [Vitamin D3] 2,000 unit PO DAILY 05/14/20 [History] Furosemide 20 mg PO DAILY PRN 05/14/20 [History] Pregabalin 50 mg PO BID 05/14/20 [History] Aspirin [Halfprin] 81 mg PO DAILY 05/15/20 [History] Interferon Beta-1a [Avonex] 30 mcg IM WEEKLY 05/15/20 [History] Simvastatin 5 mg PO BEDTIME 05/15/20 [History] Tamsulosin HCl 0.4 mg PO BEDTIME 05/15/20 [History] Albuterol/Ipratropium [DuoNeb 3.0-0.5 MG/3 ML] 3 ml NEB Q6H 05/26/20 [History] Modafinil [Provigil] 500 mg PO DAILY 05/26/20 [History] Levothyroxine 150 mcg PO ACBREAKFAST 09/17/20 [History] carvediloL [Coreg] 9.375 mg PO BID 14 Days #28 tablet 09/19/20 [Rx] predniSONE [Prednisone] 40 mg PO DAILY 5 Days #10 tablet 09/19/20 [Rx] Patient Handouts: Chronic Obstructive Pulmonary Disease Exacerbation, [id number], Carvedilol tablets, Prednisone tablets Referrals: Rafal Taylor MD [Ordering Only Provider] - (Please call on Monday09/21/2020 to make a follow up appointment.) - Discharge Summary/Plan Comment DC Time >30 min.: Yes - General Info Date of Service: 09/19/20 Admission Dx/Problem (Free Text: Patient states that he feels better and is ready to go home. Denies chest pain, dizziness, lightheadedness, SOB, fever, chills, nausea. - Review of Systems General: Denies: Fever, Weakness, Chills Pulmonary: Denies: Shortness of Breath, Cough Cardiovascular: Denies: Chest Pain, Palpitations Gastrointestinal: Denies: Abdominal Pain, Nausea, Vomiting Skin: Denies: Cyanosis Neurological: Denies: Confusion, Dizziness, Headache Psychiatric: Denies: Confusion - Patient Data Vitals - Most Recent: Last Vital Signs Temp 98.3 F 09/19/20 12:31 Pulse 60 09/19/20 12:31 Resp 18 09/19/20 12:31 BP 103/59 L 09/19/20 12:31 Pulse Ox 92 L 09/19/20 12:31 Weight - Most Recent: 58.315 kg I&O - Last 24 hours: Intake & Output 09/18/20 09/19/20 09/19/20 22:59 06:59 14:59 Intake Total 360 4574 Output Total 200 2985 Balance 160 1759 Lab Results - Last 24 hrs: Laboratory Results - last 24 hr 09/19/20 09/19/20 Range/Units 05:30 05:30 WBC 9.63 (4.0-11.0) K/uL RBC 3.52 L (4.50-5.90) M/uL Hgb 10.3 L (13.0-17.0) g/dL Hct 32.6 L (38.0-50.0) % MCV 92.6 (80.0-98.0) fL MCH 29.3 (27.0-32.0) pg MCHC 31.6 (31.0-37.0) g/dL RDW Std Deviation 57.3 (28.0-62.0) fl RDW Coeff of Dalton 17 H (11.0-15.0) % Plt Count 173 (150-400) K/uL MPV 10.10 (7.40-12.00) fL Neut % (Auto) 73.9 (48.0-80.0) % Lymph % (Auto) 12.6 L (16.0-40.0) % Antelope % (Auto) 13.4 (0.0-15.0) % Eos % (Auto) 0.0 (0.0-7.0) % Baso % (Auto) 0.1 (0.0-1.5) % Neut # (Auto) 7.1 H (1.4-5.7) K/uL Lymph # (Auto) 1.2 (0.6-2.4) K/uL Antelope # (Auto) 1.3 H (0.0-0.8) K/uL Eos # (Auto) 0.0 (0.0-0.7) K/uL Baso # (Auto) 0.0 (0.0-0.1) K/uL Nucleated RBC % 0.0 /100WBC Nucleated RBCs # 0 K/uL Sodium 140 (136-148) mmol/L Potassium 4.5 (3.5-5.1) mmol/L Chloride 104 (98-107) mmol/L Carbon Dioxide 35.7 H (21.0-32.0) mmol/L BUN 15 (7.0-18.0) mg/dL Creatinine 0.7 L (0.8-1.3) mg/dL Est Cr Clr Drug Dosing 84.46 mL/min Estimated GFR (MDRD) > 60.0 ml/min Glucose 116 H (74-106) mg/dL Calcium 8.7 (8.5-10.1) mg/dL Med Orders - Current: Current Medications Acetaminophen (Tylenol) 500 mg PO Q4H PRN PRN Reason: Pain Albuterol/Ipratropium (Duoneb 3.0-0.5 Mg/3 Ml) 3 ml NEB Q4HRRT [facility] Last Admin: 09/19/20 14:02 Dose: 3 ml Documented by: Aspirin (Halfprin) 81 mg PO DAILY [facility] Last Admin: 09/19/20 09:53 Dose: 81 mg Documented by: Carvedilol (Coreg) 9.375 mg PO BID [facility] Last Admin: 09/19/20 09:53 Dose: 9.375 mg Documented by: Cholecalciferol (Vitamin D3) 50 mcg PO Q24H [facility] Docusate Sodium (Colace) 100 mg PO BID PRN PRN Reason: Constipation Last Admin: 09/18/20 13:49 Dose: 100 mg Documented by: Furosemide (Lasix) 20 mg PO DAILY PRN PRN Reason: Edema Levothyroxine Sodium (Levothyroxine) 150 mcg PO ACBREAKFAST [facility] Last Admin: 09/19/20 06:34 Dose: 150 mcg Documented by: Lorazepam (Ativan) 0.5 mg IVPUSH Q4H PRN PRN Reason: Anxiety Methylprednisolone Sodium Succinate (Solu-Medrol) 40 mg IVPUSH Q12H [facility] Last Admin: 09/19/20 06:34 Dose: 40 mg Documented by: Pregabalin (Lyrica) 50 mg PO BID [facility] Last Admin: 09/19/20 09:53 Dose: 50 mg Documented by: Simvastatin (Zocor) 5 mg PO BEDTIME [facility] Last Admin: 09/18/20 20:59 Dose: 5 mg Documented by: Sodium Chloride (Saline Flush) 10 ml FLUSH ASDIRECTED PRN PRN Reason: Keep Vein Open Sodium Chloride (Saline Flush) 2.5 ml FLUSH ASDIRECTED PRN PRN Reason: Keep Vein Open Tamsulosin HCl (Flomax) 0.4 mg PO BEDTIME [facility] Last Admin: 09/18/20 21:01 Dose: 0.4 mg Documented by: Discontinued Medications Albuterol (Proventil Neb Soln) 10 mg NEB ONETIME ONE Stop: 09/17/20 01:41 Last Admin: 09/17/20 02:07 Dose: Not Given Documented by: Albuterol (Proventil Neb Soln) Confirm Administered Dose 2.5 mg .ROUTE .STK-MED ONE Stop: 09/17/20 01:47 Last Admin: 09/17/20 02:06 Dose: 2.5 mg Documented by: Cholecalciferol (Vitamin D3) 50 mcg PO DAILY [facility] Cholecalciferol (Vitamin D3) 50 mcg PO DAILY [facility] Last Admin: 09/19/20 11:01 Dose: Not Given Documented by: Magnesium Sulfate (Magnesium Sulfate In Water Premix) 2 gm in 50 mls @ 50 mls/hr IV ONETIME ONE Stop: 09/17/20 02:59 Last Admin: 09/17/20 02:06 Dose: 50 mls/hr Documented by: Magnesium Sulfate (Magnesium Sulfate In Water Premix) Confirm Administered Dose 2 gm in 50 mls @ as directed .ROUTE .STK-MED ONE Stop: 09/17/20 01:58 Last Admin: 09/17/20 02:07 Dose: Not Given Documented by: Lactated Ringer's (Ringers, Lactated) 1,000 mls @ 100 mls/hr IV ONETIME ONE Stop: 09/17/20 15:28 Last Admin: 09/17/20 06:15 Dose: 100 mls/hr Documented by: Lactated Ringer's (Ringers, Lactated) 1,000 mls @ 999 mls/hr IV .BOLUS ONE Stop: 09/18/20 01:21 Last Admin: 09/18/20 00:55 Dose: 999 mls/hr Documented by: Lactated Ringer's (Ringers, Lactated) 1,000 mls @ 100 mls/hr IV ASDIRECTED [facility] Last Admin: 09/18/20 22:08 Dose: 100 mls/hr Documented by: Methylprednisolone Sodium Succinate (Solu-Medrol) 250 mg IV ONETIME ONE Stop: 09/17/20 01:41 Last Admin: 09/17/20 02:07 Dose: 250 mg Documented by: Methylprednisolone Sodium Succinate (Solu-Medrol) Confirm Administered Dose 250 mg .ROUTE .STK-MED ONE Stop: 09/17/20 01:48 Last Admin: 09/17/20 02:07 Dose: Not Given Documented by: Methylprednisolone Sodium Succinate (Solu-Medrol) 40 mg IVPUSH Q8H [facility] Last Admin: 09/18/20 17:39 Dose: 40 mg Documented by: Methylprednisolone Sodium Succinate (Solu-Medrol) 40 mg IVPUSH Q12H [facility] Last Admin: 09/18/20 22:10 Dose: Not Given Documented by: - Exam Quality Assessment: Reports: Supplemental Oxygen General: Reports: Alert, Oriented Lungs: Reports: Clear to Auscultation, Normal Respiratory Effort Cardiovascular: Reports: Regular Rate, Irregular Rhythm GI/Abdominal Exam: Normal Bowel Sounds, Soft, Non-Tender Extremities: No Pedal Edema <Charlene Shirley - Last Filed: 09/20/20 14:11> Discharge Summary - Hospital Course Free Text/Narrative:: I have seen and evaluated the patient and agree with the residents note unless specified in my note - Referral to Home Health Primary Care Physician: PCP None - Discharge Diagnosis/Problem(s) (1) COPD (chronic obstructive pulmonary disease) SNOMED Code(s): 28604905 ICD Code: J44.9 - CHRONIC OBSTRUCTIVE PULMONARY DISEASE, UNSPECIFIED Status: Acute (2) Acute hypercapnic respiratory failure SNOMED Code(s): 756783091 ICD Code: J96.02 - ACUTE RESPIRATORY FAILURE WITH HYPERCAPNIA Status: Acute (3) COPD exacerbation SNOMED Code(s): 173237225 ICD Code: J44.1 - CHRONIC OBSTRUCTIVE PULMONARY DISEASE W (ACUTE) EXACERBATION Status: Acute (4) Pacemaker SNOMED Code(s): 636619373 ICD Code: Z95.0 - PRESENCE OF CARDIAC PACEMAKER Status: Acute (5) BPH (benign prostatic hyperplasia) SNOMED Code(s): 648146329 ICD Code: N40.0 - BENIGN PROSTATIC HYPERPLASIA WITHOUT LOWER URINRY TRACT SYMP Status: Acute (6) CHF (congestive heart failure) SNOMED Code(s): 40804044 ICD Code: I50.9 - HEART FAILURE, UNSPECIFIED Status: Acute - Patient Data Vitals - Most Recent: Last Vital Signs Temp 36.8 C 09/19/20 12:31 Pulse 60 09/19/20 12:31 Resp 18 09/19/20 12:31 BP 103/59 L 09/19/20 12:31 Pulse Ox 92 L 09/19/20 12:31 I&O - Last 24 hours: Intake & Output 09/19/20 09/20/20 09/20/20 22:59 06:59 14:59 Intake Total 500 Output Total 150 Balance 350 Med Orders - Current: Current Medications Discontinued Medications Acetaminophen (Tylenol) 500 mg PO Q4H PRN PRN Reason: Pain Albuterol (Proventil Neb Soln) 10 mg NEB ONETIME ONE Stop: 09/17/20 01:41 Last Admin: 09/17/20 02:07 Dose: Not Given Documented by: Albuterol (Proventil Neb Soln) Confirm Administered Dose 2.5 mg .ROUTE .STK-MED ONE Stop: 09/17/20 01:47 Last Admin: 09/17/20 02:06 Dose: 2.5 mg Documented by: Albuterol/Ipratropium (Duoneb 3.0-0.5 Mg/3 Ml) 3 ml NEB Q4HRRT [facility] Last Admin: 09/19/20 14:02 Dose: 3 ml Documented by: Aspirin (Halfprin) 81 mg PO DAILY [facility] Last Admin: 09/19/20 09:53 Dose: 81 mg Documented by: Carvedilol (Coreg) 9.375 mg PO BID [facility] Last Admin: 09/19/20 09:53 Dose: 9.375 mg Documented by: Cholecalciferol (Vitamin D3) 50 mcg PO DAILY [facility] Cholecalciferol (Vitamin D3) 50 mcg PO DAILY [facility] Last Admin: 09/19/20 11:01 Dose: Not Given Documented by: Cholecalciferol (Vitamin D3) 50 mcg PO Q24H [facility] Docusate Sodium (Colace) 100 mg PO BID PRN PRN Reason: Constipation Last Admin: 09/18/20 13:49 Dose: 100 mg Documented by: Furosemide (Lasix) 20 mg PO DAILY PRN PRN Reason: Edema Magnesium Sulfate (Magnesium Sulfate In Water Premix) 2 gm in 50 mls @ 50 mls/hr IV ONETIME ONE Stop: 09/17/20 02:59 Last Admin: 09/17/20 02:06 Dose: 50 mls/hr Documented by: Magnesium Sulfate (Magnesium Sulfate In Water Premix) Confirm Administered Dose 2 gm in 50 mls @ as directed .ROUTE .STK-MED ONE Stop: 09/17/20 01:58 Last Admin: 09/17/20 02:07 Dose: Not Given Documented by: Lactated Ringer's (Ringers, Lactated) 1,000 mls @ 100 mls/hr IV ONETIME ONE Stop: 09/17/20 15:28 Last Admin: 09/17/20 06:15 Dose: 100 mls/hr Documented by: Lactated Ringer's (Ringers, Lactated) 1,000 mls @ 999 mls/hr IV .BOLUS ONE Stop: 09/18/20 01:21 Last Admin: 09/18/20 00:55 Dose: 999 mls/hr Documented by: Lactated Ringer's (Ringers, Lactated) 1,000 mls @ 100 mls/hr IV ASDIRECTED [facility] Last Admin: 09/18/20 22:08 Dose: 100 mls/hr Documented by: Levothyroxine Sodium (Levothyroxine) 150 mcg PO ACBREAKFAST [facility] Last Admin: 09/19/20 06:34 Dose: 150 mcg Documented by: Lorazepam (Ativan) 0.5 mg IVPUSH Q4H PRN PRN Reason: Anxiety Methylprednisolone Sodium Succinate (Solu-Medrol) 250 mg IV ONETIME ONE Stop: 09/17/20 01:41 Last Admin: 09/17/20 02:07 Dose: 250 mg Documented by: Methylprednisolone Sodium Succinate (Solu-Medrol) Confirm Administered Dose 250 mg .ROUTE .STK-MED ONE Stop: 09/17/20 01:48 Last Admin: 09/17/20 02:07 Dose: Not Given Documented by: Methylprednisolone Sodium Succinate (Solu-Medrol) 40 mg IVPUSH Q8H [facility] Last Admin: 09/18/20 17:39 Dose: 40 mg Documented by: Methylprednisolone Sodium Succinate (Solu-Medrol) 40 mg IVPUSH Q12H [facility] Last Admin: 09/18/20 22:10 Dose: Not Given Documented by: Methylprednisolone Sodium Succinate (Solu-Medrol) 40 mg IVPUSH Q12H [facility] Last Admin: 09/19/20 06:34 Dose: 40 mg Documented by: Pregabalin (Lyrica) 50 mg PO BID [facility] Last Admin: 09/19/20 09:53 Dose: 50 mg Documented by: Simvastatin (Zocor) 5 mg PO BEDTIME [facility] Last Admin: 09/18/20 20:59 Dose: 5 mg Documented by: Sodium Chloride (Saline Flush) 10 ml FLUSH ASDIRECTED PRN PRN Reason: Keep Vein Open Sodium Chloride (Saline Flush) 2.5 ml FLUSH ASDIRECTED PRN PRN Reason: Keep Vein Open Tamsulosin HCl (Flomax) 0.4 mg PO BEDTIME [facility] Last Admin: 09/18/20 21:01 Dose: 0.4 mg Documented by:
== END 2020-09-19 15:20 | disposition home or self-care (01) ==
LOC: MW.ED 01:34 → MW.MS 05:00
PROVIDERS: ADMIT Student in an Organized Health Care Education/Training Program; ATTEND Student in an Organized Health Care Education/Training Program
DX: J44.1 Chronic obstructive pulmonary disease with (acute) exacerbation (principal); J96.02 Acute respiratory failure with hypercapnia; I50.9 Heart failure, unspecified; N40.0 Benign prostatic hyperplasia without lower urinary tract symptoms; Z20.828 Contact with and (suspected) exposure to other viral communicable diseases; Z99.81 Dependence on supplemental oxygen; Z95.0 Presence of cardiac pacemaker; Z88.5 Allergy status to narcotic agent; Z79.899 Other long term (current) drug therapy; Z79.82 Long term (current) use of aspirin
CPT/HCPCS: 36415; 36600; 71045; 80048; 80053; 82803; 83735; 83880; 84484; 85025; 87635; 93005; 94640; 94660; 96365; 96375; 96376; 99285; A9270; G0378; J2920; J2930; J3475; J7120; 93010; 99291; J7620-GY; U0002

== ENCOUNTER 2021-02-01 15:43 | Inpatient (IN) | payer OTHER, MEDICARE ==
--- NOTE | 2021-02-01 16:15 | EDM.PDOC ---
ED HPI GENERAL MEDICAL PROBLEM - General Chief Complaint: Respiratory Problem Stated Complaint: COPD Time Seen by Provider: 02/01/21 15:46 Source of Information: Reports: Patient History Limitations: Reports: No Limitations - History of Present Illness INITIAL COMMENTS - FREE TEXT/NARRATIVE: Patient is a 70-year-old male who is on oxygen dependent for COPD and also has a portable BiPAP machine with him. Patient sent over from the [place] with a stable shortness of breath on arrival here patient denies any shortness of breath states that there is no problems breathing but has been feeling tired and weak and having decreased p.o. intake. Patient denies any chest pain. Patient did mention some back pain but not different from his baseline. Patient has any vomiting or diarrhea. low back Pain Score (Numeric/FACES): 6 - Related Data Allergies Allergy/AdvReac Type Severity Reaction Status Date / Time codeine Allergy Cannot Verified 02/01/21 16:12 Remember Home Meds: Home Meds Albuterol Sulfate [Albuterol Sulfate Hfa] 2 puff INH Q4H PRN 05/14/20 [History] Cholecalciferol (Vitamin D3) [Vitamin D3] 2,000 unit PO DAILY 05/14/20 [History] Furosemide 20 mg PO DAILY PRN 05/14/20 [History] Pregabalin 50 mg PO BID 05/14/20 [History] Aspirin [Halfprin] 81 mg PO DAILY 05/15/20 [History] Interferon Beta-1a [Avonex] 30 mcg IM WEEKLY 05/15/20 [History] Simvastatin 5 mg PO BEDTIME 05/15/20 [History] Tamsulosin HCl 0.4 mg PO BEDTIME 05/15/20 [History] Albuterol/Ipratropium [DuoNeb 3.0-0.5 MG/3 ML] 3 ml NEB Q6H 05/26/20 [History] Modafinil [Provigil] 500 mg PO DAILY 05/26/20 [History] Levothyroxine 150 mcg PO ACBREAKFAST 09/17/20 [History] carvediloL [Coreg] 9.375 mg PO BID 14 Days #28 tablet 09/19/20 [Rx] predniSONE [Prednisone] 40 mg PO DAILY 5 Days #10 tablet 09/19/20 [Rx] Past Medical History HEENT History: Reports: Cataract Cardiovascular History: Reports: Heart Failure, Pacemaker Respiratory History: Reports: COPD, Other (See Below) Other Respiratory History: Home O2 as of Jul 2019 and CPAP Gastrointestinal History: Reports: None Genitourinary History: Reports: BPH Musculoskeletal History: Reports: Other (See Below) Other Musculoskeletal History: Unsteady Gait per Neurological History: Reports: MS Psychiatric History: Reports: None Endocrine/Metabolic History: Reports: None Hematologic History: Reports: None Immunologic History: Reports: None Oncologic (Cancer) History: Reports: None Dermatologic History: Reports: None - Infectious Disease History Infectious Disease History: Reports: Chicken Pox, Measles, Mumps - Past Surgical History Head Surgeries/Procedures: Reports: None HEENT Surgical History: Reports: Cataract Surgery Cardiovascular Surgical History: Reports: Pacer Respiratory Surgical History: Reports: None GI Surgical History: Reports: None Male Surgical History: Reports: None Endocrine Surgical History: Reports: None Neurological Surgical History: Reports: None Musculoskeletal Surgical History: Reports: None Oncologic Surgical History: Reports: None Dermatological Surgical History: Reports: None Social & Family History - Family History Family Medical History: No Pertinent Family History - Caffeine Use Caffeine Use: Reports: None Caffeine Use Comment: Everyday ED ROS GENERAL - Review of Systems Review Of Systems: See Below Constitutional: Reports: Weakness HEENT: Reports: No Symptoms Respiratory: Reports: No Symptoms Cardiovascular: Reports: No Symptoms Endocrine: Reports: No Symptoms GI/Abdominal: Reports: No Symptoms : Reports: No Symptoms Musculoskeletal: Reports: No Symptoms Skin: Reports: No Symptoms Neurological: Reports: No Symptoms Psychiatric: Reports: No Symptoms Hematologic/Lymphatic: Reports: No Symptoms Immunologic: Reports: No Symptoms ED EXAM, GENERAL - Physical Exam Exam: See Below Exam Limited By: No Limitations General Appearance: Alert, WD/WN, No Apparent Distress Eye Exam: Bilateral Eye: EOMI, PERRL Respiratory/Chest: No Respiratory Distress, Lungs Clear Cardiovascular: Normal Peripheral Pulses, Regular Rate, Rhythm GI/Abdominal: Normal Bowel Sounds, Soft, Non-Tender Neurological: Alert, Oriented #1 Interpretation EKG Date: 02/01/21 Time: 15:59 Rhythm: NSR ST-T: Normal #2 Interpretation EKG Date: 02/01/21 Time: 16:21 Rhythm: NSR ST-T: Normal EKG Interpretation Comments: pt moves a lot doing EKG Course - Vital Signs Last Recorded V/S: Last Vital Signs Temp 96.8 F L 02/01/21 16:07 Pulse 56 L 02/01/21 16:56 Resp 18 02/01/21 16:26 BP 94/66 02/01/21 16:56 Pulse Ox 98 02/01/21 16:56 - Orders/Labs/Meds Orders: Active Orders 24 hr Category Date Time Status Patient Status [ADT] Routine ADT 02/01/21 17:46 Ordered BIPAP Adult [RT BiPAP/CPAP] [RC] ASDIRECTED Care 02/01/21 17:46 Ordered UA W/CHEVY RFLX IF INDICATED [URIN] Stat Lab 02/01/21 16:09 Ordered Labs: Laboratory Tests 02/01/21 02/01/21 02/01/21 Range/Units 15:50 15:50 15:50 WBC 12.06 H (4.0-11.0) K/uL RBC 4.93 (4.50-5.90) M/uL Hgb 14.1 (13.0-17.0) g/dL Hct 45.7 (38.0-50.0) % MCV 92.7 (80.0-98.0) fL MCH 28.6 (27.0-32.0) pg MCHC 30.9 L (31.0-37.0) g/dL RDW Std Deviation 61.2 (28.0-62.0) fl RDW Coeff of Dalton 18 H (11.0-15.0) % Plt Count 186 (150-400) K/uL MPV 10.30 (7.40-12.00) fL Add Manual Diff YES Neutrophils % (Manual) 66 (48.0-80.0) % Lymphocytes % (Manual) 15 L (16.0-40.0) % Monocytes % (Manual) 18 H (0.0-15.0) % Eosinophils % (Manual) 1 (0.0-7.0) % Nucleated RBC % 0.0 /100WBC Absolute Seg Neuts 8.0 H (1.4-5.7) Lymphocytes # (Manual) 1.8 (0.6-2.4) Monocytes # (Manual) 2.2 H (0.0-0.8) Eosinophils # (Manual) 0.1 (0.0-0.7) Nucleated RBCs # 0 K/uL VBG pH 7.35 (7.31-7.41) VBG pCO2 87 H (35-45) mmHG VBG pO2 18 L (30-40) mmHG VBG HCO3 47 H (22-30) mEq/L VBG Total CO2 44 (41-51) mmol/L VBG Base Excess 16.8 H (-3.0-3.0) Sodium 144 (136-148) mmol/L Potassium 4.4 (3.5-5.1) mmol/L Chloride 98 (98-107) mmol/L Carbon Dioxide 42.7 H (21.0-32.0) mmol/L BUN 25 H (7.0-18.0) mg/dL Creatinine 0.9 (0.8-1.3) mg/dL Est Cr Clr Drug Dosing 61.49 mL/min Estimated GFR (MDRD) > 60.0 ml/min Glucose 120 H (74-106) mg/dL Calcium 9.5 (8.5-10.1) mg/dL Phosphorus 4.7 (2.6-4.7) mg/dL Magnesium 2.1 (1.8-2.4) mg/dL Total Bilirubin 0.4 (0.2-1.0) mg/dL AST 21 (15-37) IU/L ALT 34 (14-63) IU/L Alkaline Phosphatase 84 (46-116) U/L Troponin I < 0.050 (0.000-0.056) ng/mL Total Protein 9.5 H (6.4-8.2) g/dL Albumin 3.8 (3.4-5.0) g/dL Globulin 5.7 H (2.6-4.0) g/dL Albumin/Globulin Ratio 0.7 L (0.9-1.6) Lipase 37 L (73-393) U/L Influenza Type A RNA (NEGATIVE) Influenza Type B RNA (NEGATIVE) SARS-CoV-2 RNA (VERNA) (NEGATIVE) 02/01/21 Range/Units 16:55 WBC (4.0-11.0) K/uL RBC (4.50-5.90) M/uL Hgb (13.0-17.0) g/dL Hct (38.0-50.0) % MCV (80.0-98.0) fL MCH (27.0-32.0) pg MCHC (31.0-37.0) g/dL RDW Std Deviation (28.0-62.0) fl RDW Coeff of Dalton (11.0-15.0) % Plt Count (150-400) K/uL MPV (7.40-12.00) fL Add Manual Diff Neutrophils % (Manual) (48.0-80.0) % Lymphocytes % (Manual) (16.0-40.0) % Monocytes % (Manual) (0.0-15.0) % Eosinophils % (Manual) (0.0-7.0) % Nucleated RBC % /100WBC Absolute Seg Neuts (1.4-5.7) Lymphocytes # (Manual) (0.6-2.4) Monocytes # (Manual) (0.0-0.8) Eosinophils # (Manual) (0.0-0.7) Nucleated RBCs # K/uL VBG pH (7.31-7.41) VBG pCO2 (35-45) mmHG VBG pO2 (30-40) mmHG VBG HCO3 (22-30) mEq/L VBG Total CO2 (41-51) mmol/L VBG Base Excess (-3.0-3.0) Sodium (136-148) mmol/L Potassium (3.5-5.1) mmol/L Chloride (98-107) mmol/L Carbon Dioxide (21.0-32.0) mmol/L BUN (7.0-18.0) mg/dL Creatinine (0.8-1.3) mg/dL Est Cr Clr Drug Dosing mL/min Estimated GFR (MDRD) ml/min Glucose (74-106) mg/dL Calcium (8.5-10.1) mg/dL Phosphorus (2.6-4.7) mg/dL Magnesium (1.8-2.4) mg/dL Total Bilirubin (0.2-1.0) mg/dL AST (15-37) IU/L ALT (14-63) IU/L Alkaline Phosphatase (46-116) U/L Troponin I (0.000-0.056) ng/mL Total Protein (6.4-8.2) g/dL Albumin (3.4-5.0) g/dL Globulin (2.6-4.0) g/dL Albumin/Globulin Ratio (0.9-1.6) Lipase (73-393) U/L Influenza Type A RNA NEGATIVE (NEGATIVE) Influenza Type B RNA NEGATIVE (NEGATIVE) SARS-CoV-2 RNA (VERNA) NEGATIVE (NEGATIVE) - Re-Assessments/Exams Free Text/Narrative Re-Assessment/Exam: 02/01/21 17:47 Patient PCO2 is 87 but pH is normal patient likely compensated patient bicarb 40.7 on labs. Patient will need to be admitted to the hospital we will place patient on BiPAP. Patient is DNR/DNI patient is aware patient will have ABG repleted after being on BiPAP. Departure - Departure Time of Disposition: 17:47 Disposition: Admitted As Inpatient 68 Condition: Good Clinical Impression: Hypercapnia - Discharge Information *PRESCRIPTION DRUG MONITORING PROGRAM REVIEWED*: Not Applicable *COPY OF PRESCRIPTION DRUG MONITORING REPORT IN PATIENT INES: Not Applicable Referrals: Geo Rivas [facility] [Primary Care Provider] - Forms: ED Department Discharge Critical Care Note - Critical Care Note Total Time (mins): 45 Comments: Critical Care Procedure Note Authorized and Performed by: Dr. Russ Total critical care time: Approximately Due to a high probability of clinically significant, life threatening deterioration, the patient required my highest level of preparedness to intervene emergently and I personally spent this critical care time directly and personally managing the patient. This critical care time included obtaining a history; examining the patient; pulse oximetry; ordering and review of studies; arranging urgent treatment with development of a management plan; evaluation of patient's response to treatment; frequent reassessment; and, discussions with other providers. This critical care time was performed to assess and manage the high probability of imminent, life-threatening deterioration that could result in multi-organ failure. It was exclusive of separately billable procedures and treating other patients and teaching time. Sepsis Event Note (ED) - Focused Exam Vital Signs: Vital Signs Temp Pulse Resp BP Pulse Ox 02/01/21 16:56 56 L 94/66 98 02/01/21 16:26 61 18 99/69 98 02/01/21 16:07 96.8 F L 54 L 16 108/71 100 - My Orders Last 24 Hours: My Active Orders 02/01/21 16:09 UA W/CHEVY RFLX IF INDICATED [URIN] Stat 02/01/21 17:46 Patient Status [ADT] Routine BIPAP Adult [RT BiPAP/CPAP] [RC] ASDIRECTED - Assessment/Plan Last 24 Hours: My Active Orders 02/01/21 16:09 UA W/CHEVY RFLX IF INDICATED [URIN] Stat 02/01/21 17:46 Patient Status [ADT] Routine BIPAP Adult [RT BiPAP/CPAP] [RC] ASDIRECTED Plan: Is a 62-year-old male who was sent over from [facility] for evaluation of possible shortness of breath. Here in arrival patient is complaining of weakness and told the staff that patient not been as much as normal. Patient himself states that he still tolerating p.o. and eating but denies much of appetite lately lately. Will obtain x-ray for labs check for signs of infection and reassess.
[2021-02-01 16:37] LABS: BLOOD UREA NITROGEN,BUN 25 mg/dL (7.0-18.0); CHLORIDE,CL 98 mmol/L (98-107); GLUCOSE RANDOM 120 mg/dL (74-106); LIPASE 37 U/L (73-393); POTASSIUM,K 4.4 mmol/L (3.5-5.1); SODIUM,NA 144 mmol/L (136-148)
[2021-02-01 16:50] LABS: CARBON DIOXIDE,CO2 42.7 mmol/L (21.0-32.0)
--- NOTE | 2021-02-01 17:16 | CR ---
INDICATION: Weakness. COMPARISON: 09/17/2020. FINDINGS/IMPRESSION: Pulmonary hyperexpansion consistent with chronic obstructive pulmonary disease. Unchanged areas of lung hyperlucency suggesting focally severe emphysema or bullous disease. No acute pulmonary infiltrates or other acute intrathoracic abnormalities are identified. No pleural effusions. Stable upper normal heart size. Unchanged cardiac pacemaker. No acute osseous findings. Dictated by Bigg Ashley MD @ 02/01/2021 5:14:45 PM Dictated by: Bigg Ashley MD @ 02/01/2021 17:15:44 (Electronically Signed)
[2021-02-01 17:40] LABS: CORONAVIRUS COVID-19 NAA NEGATIVE (NEGATIVE); INFLUENZA A NAA NEGATIVE (NEGATIVE); INFLUENZA B NAA NEGATIVE (NEGATIVE)
[2021-02-01] MEDS ORDERED: Ondansetron 4 MG/2 ML SDV IVPUSH PRN (17:57)
[2021-02-01] MEDS ORDERED: Pantoprazole 40 MG Vial IV SCH (18:00)
[2021-02-01] MEDS ORDERED: methylPREDNISolone Sodium Succinate 40 MG/1 ML SDV IVPUSH SCH (18:00)
[2021-02-01] MEDS ORDERED: Furosemide 40 MG Tab PO PRN (18:05)
[2021-02-01] MEDS: Albuterol/Ipratropium 3.0-0.5 MG/3 ML Neb Soln NEB SCH ×2 (18:20→23:09)
--- NOTE | 2021-02-01 18:46 | PCM.HP.2 ---
H&P History of Present Illness - General Date of Service: 02/01/21 Admit Problem/Dx: Admission Diagnosis/Problem Admission Diagnosis/Problem Hypercapnia - History of Present Illness Initial Comments - Free Text/Narative: 69-year-old male presented with complaint of shortness of breath for the past 1- 2 days sent over from [place]. He has a PMH of COPD on home oxygen (baseline 5L), CHF, pacemaker, multiple sclerosis and BPH. Patient sent over from the [place] with shortness of breath but on arrival here patient denies any worsening shortness of breath but has been feeling tired and weak and having decreased p.o. intake. Upon further questioning he did admit to some worsening breathing last night. Patient denies any chest pain. He reports having a chronic cough. Denies any fevers, chills, chest pain, nausea, vomiting, abdominal pain, diarrhea, blood in stool or blood in urine. Of note, patient reports having COPD exacerbation in October, was intubated and transferred to [place]. He was told that if he was intubated again he may not be able to be weaned off. In the ER, VBG pH 7.35, pCO2 87, HCO3 47. Repeat ABG: pH 7.32, pCO2 92, pO2 63, HCO3 43. CXR showed severe emphysema. COVID19 test negative. EKG showed no acute ischemic changes. Patient was started on his home BiPAP and discussion was held about possible intubation if required, However, patient and wanted to patient to be DNR/DNI. Patient was admitted for further management. Patient is awake, alert during my exam, answers questions appropriately, sates he is thinking about palliative care at some point. Onset of Symptoms: Reports: Today low back Pain Score (Numeric/FACES): 6 - Related Data Allergies/Adverse Reactions: Allergies Allergy/AdvReac Type Severity Reaction Status Date / Time codeine Allergy Cannot Verified 02/01/21 20:59 Remember Home Medications: Home Meds Albuterol Sulfate [Albuterol Sulfate Hfa] 2 puff INH Q4H PRN 05/14/20 [History] Cholecalciferol (Vitamin D3) [Vitamin D3] 2,000 unit PO DAILY 05/14/20 [History] Furosemide 20 mg PO DAILY PRN 05/14/20 [History] Pregabalin 50 mg PO BID 05/14/20 [History] Aspirin [Halfprin] 81 mg PO DAILY 05/15/20 [History] Interferon Beta-1a [Avonex] 30 mcg IM WEEKLY 05/15/20 [History] Simvastatin 5 mg PO BEDTIME 05/15/20 [History] Tamsulosin HCl 0.4 mg PO BEDTIME 05/15/20 [History] Albuterol/Ipratropium [DuoNeb 3.0-0.5 MG/3 ML] 3 ml NEB Q6H 05/26/20 [History] Modafinil [Provigil] 500 mg PO DAILY 05/26/20 [History] Levothyroxine 150 mcg PO ACBREAKFAST 09/17/20 [History] carvediloL [Coreg] 9.375 mg PO BID 14 Days #28 tablet 09/19/20 [Rx] predniSONE [Prednisone] 40 mg PO DAILY 5 Days #10 tablet 09/19/20 [Rx] Past Medical History HEENT History: Reports: Cataract Cardiovascular History: Reports: Heart Failure, Pacemaker Respiratory History: Reports: COPD, Other (See Below) Other Respiratory History: Home O2 as of Jul 2019 and CPAP (5L) Gastrointestinal History: Reports: None Genitourinary History: Reports: BPH Musculoskeletal History: Reports: Other (See Below) Other Musculoskeletal History: Unsteady Gait per Neurological History: Reports: MS Psychiatric History: Reports: None Endocrine/Metabolic History: Reports: None Hematologic History: Reports: None Immunologic History: Reports: None Oncologic (Cancer) History: Reports: None Dermatologic History: Reports: None - Infectious Disease History Infectious Disease History: Reports: Chicken Pox, Measles, Mumps - Past Surgical History Head Surgeries/Procedures: Reports: None HEENT Surgical History: Reports: Cataract Surgery Cardiovascular Surgical History: Reports: Pacer Respiratory Surgical History: Reports: None GI Surgical History: Reports: None Male Surgical History: Reports: None Endocrine Surgical History: Reports: None Neurological Surgical History: Reports: None Musculoskeletal Surgical History: Reports: None Oncologic Surgical History: Reports: None Dermatological Surgical History: Reports: None Social & Family History - Family History Family Medical History: No Pertinent Family History - Tobacco Use Tobacco Use Status *Q: Current Every Day Tobacco User Years of Tobacco use: 42 Packs/Tins Daily: 0.5 - Caffeine Use Caffeine Use: Reports: None Caffeine Use Comment: Everyday - Recreational Drug Use Recreational Drug Use: No H&P Review of Systems - Review of Systems: Review Of Systems: See Below General: Reports: Malaise, Weakness, Fatigue. Denies: Fever, Chills Pulmonary: Reports: Shortness of Breath. Denies: Wheezing Cardiovascular: Denies: Chest Pain, Palpitations Gastrointestinal: Denies: Abdominal Pain, Anorexia Genitourinary: Denies: Dysuria, Frequency Musculoskeletal: Reports: Back Pain. Denies: Shoulder Pain, Arm Pain Skin: Denies: Cyanosis, Jaundice Psychiatric: Reports: Anxiety. Denies: Confusion, Depression, Mood Lability Hematologic/Lymphatic: Denies: Anemia, Easy Bleeding Exam - Exam Exam: See Below - Vital Signs Vital Signs: Last Vital Signs Temp 36.0 C L 02/01/21 16:07 Pulse 62 02/01/21 17:56 Resp 17 02/01/21 17:56 BP 86/52 L 02/01/21 17:56 Pulse Ox 94 L 02/01/21 17:56 Weight: 55.338 kg - Exam Quality Assessment: Supplemental Oxygen General: Alert, Oriented, Cooperative, Mild Distress Neck: Supple, Trachea Midline Lungs: Clear to Auscultation, Decreased Breath Sounds Cardiovascular: Regular Rate, Regular Rhythm, Normal S1, Normal S2 GI/Abdominal Exam: Normal Bowel Sounds, Soft, Non-Tender - Patient Data Lab Results Last 24 hrs: Laboratory Results - last 24 hr 02/01/21 02/01/21 02/01/21 Range/Units 15:50 15:50 15:50 WBC 12.06 H (4.0-11.0) K/uL RBC 4.93 (4.50-5.90) M/uL Hgb 14.1 (13.0-17.0) g/dL Hct 45.7 (38.0-50.0) % MCV 92.7 (80.0-98.0) fL MCH 28.6 (27.0-32.0) pg MCHC 30.9 L (31.0-37.0) g/dL RDW Std Deviation 61.2 (28.0-62.0) fl RDW Coeff of Dalton 18 H (11.0-15.0) % Plt Count 186 (150-400) K/uL MPV 10.30 (7.40-12.00) fL Add Manual Diff YES Neutrophils % (Manual) 66 (48.0-80.0) % Lymphocytes % (Manual) 15 L (16.0-40.0) % Monocytes % (Manual) 18 H (0.0-15.0) % Eosinophils % (Manual) 1 (0.0-7.0) % Nucleated RBC % 0.0 /100WBC Absolute Seg Neuts 8.0 H (1.4-5.7) Lymphocytes # (Manual) 1.8 (0.6-2.4) Monocytes # (Manual) 2.2 H (0.0-0.8) Eosinophils # (Manual) 0.1 (0.0-0.7) Nucleated RBCs # 0 K/uL VBG pH 7.35 (7.31-7.41) VBG pCO2 87 H (35-45) mmHG VBG pO2 18 L (30-40) mmHG VBG HCO3 47 H (22-30) mEq/L VBG Total CO2 44 (41-51) mmol/L VBG Base Excess 16.8 H (-3.0-3.0) Sodium 144 (136-148) mmol/L Potassium 4.4 (3.5-5.1) mmol/L Chloride 98 (98-107) mmol/L Carbon Dioxide 42.7 H (21.0-32.0) mmol/L BUN 25 H (7.0-18.0) mg/dL Creatinine 0.9 (0.8-1.3) mg/dL Est Cr Clr Drug Dosing 61.49 mL/min Estimated GFR (MDRD) > 60.0 ml/min Glucose 120 H (74-106) mg/dL Calcium 9.5 (8.5-10.1) mg/dL Phosphorus 4.7 (2.6-4.7) mg/dL Magnesium 2.1 (1.8-2.4) mg/dL Total Bilirubin 0.4 (0.2-1.0) mg/dL AST 21 (15-37) IU/L ALT 34 (14-63) IU/L Alkaline Phosphatase 84 (46-116) U/L Troponin I < 0.050 (0.000-0.056) ng/mL Total Protein 9.5 H (6.4-8.2) g/dL Albumin 3.8 (3.4-5.0) g/dL Globulin 5.7 H (2.6-4.0) g/dL Albumin/Globulin Ratio 0.7 L (0.9-1.6) Lipase 37 L (73-393) U/L Influenza Type A RNA (NEGATIVE) Influenza Type B RNA (NEGATIVE) SARS-CoV-2 RNA (VERNA) (NEGATIVE) 02/01/21 Range/Units 16:55 WBC (4.0-11.0) K/uL RBC (4.50-5.90) M/uL Hgb (13.0-17.0) g/dL Hct (38.0-50.0) % MCV (80.0-98.0) fL MCH (27.0-32.0) pg MCHC (31.0-37.0) g/dL RDW Std Deviation (28.0-62.0) fl RDW Coeff of Dalton (11.0-15.0) % Plt Count (150-400) K/uL MPV (7.40-12.00) fL Add Manual Diff Neutrophils % (Manual) (48.0-80.0) % Lymphocytes % (Manual) (16.0-40.0) % Monocytes % (Manual) (0.0-15.0) % Eosinophils % (Manual) (0.0-7.0) % Nucleated RBC % /100WBC Absolute Seg Neuts (1.4-5.7) Lymphocytes # (Manual) (0.6-2.4) Monocytes # (Manual) (0.0-0.8) Eosinophils # (Manual) (0.0-0.7) Nucleated RBCs # K/uL VBG pH (7.31-7.41) VBG pCO2 (35-45) mmHG VBG pO2 (30-40) mmHG VBG HCO3 (22-30) mEq/L VBG Total CO2 (41-51) mmol/L VBG Base Excess (-3.0-3.0) Sodium (136-148) mmol/L Potassium (3.5-5.1) mmol/L Chloride (98-107) mmol/L Carbon Dioxide (21.0-32.0) mmol/L BUN (7.0-18.0) mg/dL Creatinine (0.8-1.3) mg/dL Est Cr Clr Drug Dosing mL/min Estimated GFR (MDRD) ml/min Glucose (74-106) mg/dL Calcium (8.5-10.1) mg/dL Phosphorus (2.6-4.7) mg/dL Magnesium (1.8-2.4) mg/dL Total Bilirubin (0.2-1.0) mg/dL AST (15-37) IU/L ALT (14-63) IU/L Alkaline Phosphatase (46-116) U/L Troponin I (0.000-0.056) ng/mL Total Protein (6.4-8.2) g/dL Albumin (3.4-5.0) g/dL Globulin (2.6-4.0) g/dL Albumin/Globulin Ratio (0.9-1.6) Lipase (73-393) U/L Influenza Type A RNA NEGATIVE (NEGATIVE) Influenza Type B RNA NEGATIVE (NEGATIVE) SARS-CoV-2 RNA (VERNA) NEGATIVE (NEGATIVE) Result Diagrams: 02/01/21 15:50 02/01/21 15:50 Sepsis Event Note - Evaluation Sepsis Screening Result: No Definite Risk - Focused Exam Vital Signs: Vital Signs Temp Pulse Resp BP Pulse Ox 02/01/21 17:56 62 17 86/52 L 94 L 02/01/21 17:48 64 85/54 L 96 02/01/21 16:56 56 L 94/66 98 02/01/21 16:26 61 18 99/69 98 02/01/21 16:07 36.0 C L 54 L 16 108/71 100 - Problem List (1) Acute hypercapnic respiratory failure SNOMED Code(s): 573881309 ICD Code: J96.02 - ACUTE RESPIRATORY FAILURE WITH HYPERCAPNIA Status: Acute Current Visit: No (2) BPH (benign prostatic hyperplasia) SNOMED Code(s): 445080636 ICD Code: N40.0 - BENIGN PROSTATIC HYPERPLASIA WITHOUT LOWER URINRY TRACT SYMP Status: Acute Current Visit: No (3) CHF (congestive heart failure) SNOMED Code(s): 57607864 ICD Code: I50.9 - HEART FAILURE, UNSPECIFIED Status: Acute Current Visit: No (4) COPD exacerbation SNOMED Code(s): 773811242 ICD Code: J44.1 - CHRONIC OBSTRUCTIVE PULMONARY DISEASE W (ACUTE) EXACERBATION Status: Acute Current Visit: No Problem List Initiated/Reviewed/Updated: Yes Orders Last 24hrs: Active Orders 24 hr Category Date Time Status Patient Status [ADT] Routine ADT 02/01/21 17:46 Active Ambulate [RC] ASDIRECTED Care 02/01/21 17:57 Active Antiembolic Devices [RC] PER UNIT ROUTINE Care 02/01/21 17:58 Active BIPAP Adult [RT BiPAP/CPAP] [RC] ASDIRECTED Care 02/01/21 17:46 Active Oxygen Therapy [RC] PRN Care 02/01/21 17:57 Active RT Aerosol Therapy [RC] ASDIRECTED Care 02/01/21 17:59 Active RT Post Treatment Assessment [RC] Click to Edit Care 02/01/21 18:01 Active RT Pre-Treatment Assessment [RC] Click to Edit Care 02/01/21 18:01 Active Telemetry Monitoring [Cardiac Monitoring] [RC] . Care 02/01/21 18:15 Active DIRECTED VTE/DVT Education [RC] PER UNIT ROUTINE Care 02/01/21 17:57 Active Vital Signs [RC] Q4H Care 02/01/21 17:57 Active Heart Healthy Diet [DIET] Diet 02/01/21 Dinner Active ABG [BLOOD GAS ARTERIAL] [BG] Stat Lab 02/01/21 21:00 Ordered BMP [BASIC METABOLIC PANEL,BMP] [CHEM] AM Lab 02/02/21 05:11 Ordered CBC WITH AUTO DIFF [HEME] AM Lab 02/02/21 05:11 Ordered MAGNESIUM [CHEM] AM Lab 02/02/21 05:11 Ordered PHOSPHORUS [CHEM] AM Lab 02/02/21 05:11 Ordered UA W/CHEVY RFLX IF INDICATED [URIN] Stat Lab 02/01/21 16:09 Ordered Albuterol/Ipratropium [DuoNeb 3.0-0.5 MG/3 ML] Med 02/01/21 18:00 Active 3 ml NEB Q4HRRT Aspirin [Halfprin] Med 02/02/21 09:00 Active 81 mg PO DAILY Fluticasone/Salmeterol [Advair Diskus 100-50] Med 02/01/21 21:00 Active 1 puff INH BID Furosemide [Lasix] Med 02/01/21 18:05 Active 20 mg PO DAILY PRN Levothyroxine Med 02/02/21 07:30 Active 150 mcg PO ACBREAKFAST Ondansetron [Zofran] Med 02/01/21 17:57 Active 4 mg IVPUSH Q4H PRN Pantoprazole [ProTONIX IV] Med 02/01/21 18:00 Active 40 mg IV DAILY Tamsulosin [Flomax] Med 02/01/21 21:00 Active 0.4 mg PO BEDTIME carvediloL [Coreg] Med 02/01/21 21:00 Active 9.375 mg PO BID methylPREDNISolone Sod Succ [Solu-MEDROL] Med 02/01/21 18:00 Active 40 mg IVPUSH Q8H modafiniL [ProvigiL] Med 02/02/21 09:00 Active 500 mg PO DAILY Sequential Compression Device [OM.PC] Per Unit Routine Oth 02/01/21 17:57 Ordered Resuscitation Status Stat Resus Stat 02/01/21 18:19 Ordered Medication Orders Albuterol/Ipratropium (Albuterol/Ipratropium 3.0-0.5 Mg/3 Ml Neb Soln) 3 ml NEB Q4HRRT [facility] Last Admin: 02/01/21 18:20 Dose: 3 ml Documented by: RONNY Aspirin (Aspirin 81 Mg Tab.Ec) 81 mg PO DAILY [facility] Carvedilol (Carvedilol 3.125 Mg Tab) 9.375 mg PO BID [facility] Furosemide (Furosemide 40 Mg Tab) 20 mg PO DAILY PRN PRN Reason: Edema Levothyroxine Sodium (Levothyroxine 150 Mcg Tab) 150 mcg PO ACBREAKFAST [facility] Methylprednisolone Sodium Succinate (Methylprednisolone Sodium Succinate 40 Mg/1 Ml Sdv) 40 mg IVPUSH Q8H [facility] Modafinil (Modafinil 100 Mg Tab) 500 mg PO DAILY [facility] Ondansetron HCl (Ondansetron 4 Mg/2 Ml Sdv) 4 mg IVPUSH Q4H PRN PRN Reason: Nausea/Vomiting Pantoprazole Sodium (Pantoprazole 40 Mg Vial) 40 mg IV DAILY [facility] Fluticasone/Salmeterol (Fluticasone/Salmeterol 100-50 Mcg Inhalation Powder 14/Diskus) 1 puff INH BID [facility] Tamsulosin HCl (Tamsulosin 0.4 Mg Cap.Er) 0.4 mg PO BEDTIME [facility] Assessment/Plan Comment:: Assessment and Plan: 1. Acute on chronic hypoxic hypercapnic respiratory failure secondary to COPD exacerbation: - Continue BIPAP, DuoNebs q4h DINORAH and IV solumedrol 40 mg q8h. Will start IV azithromycin qd. Will continue to monitor respiratory status. Patients appears to be tolerating BiPAP well and is well compensated for hypercapnia. Recheck ABG in AM. Counselled on smoking cessation. Discussed code status with patient , he is DNR/DNI with possibility of going to palliative in near future. 2. DVT prophylaxis: Lovenox.
[2021-02-01] MEDS: Fluticasone/Salmeterol 100-50 MCG Inhalation Powder 14/Diskus INH SCH (20:30)
[2021-02-01] MEDS: Carvedilol 3.125 MG Tab PO SCH (20:30)
[2021-02-01] MEDS: methylPREDNISolone Sodium Succinate 40 MG/1 ML SDV IVPUSH SCH (20:31)
[2021-02-01] MEDS: Tamsulosin 0.4 MG Cap.ER PO SCH (20:31)
[2021-02-01] MEDS: Pantoprazole 40 MG Vial IV SCH (20:40)
[2021-02-01] MEDS ORDERED: Carvedilol 3.125 MG Tab PO SCH (21:00)
[2021-02-01] MEDS: Lactated Ringers 1,000 ML IV SCH (23:12)
[2021-02-01] MEDS: Enoxaparin 40 MG/0.4 ML Syringe SUBCUT SCH (23:21)
[2021-02-01] MEDS ORDERED: Acetaminophen 325 MG Tab PO PRN (23:26)
[2021-02-01] MEDS ORDERED: Azithromycin 500 MG in Sodium Chloride 0.9% 250 ML IV SCH (23:30)
[2021-02-02] MEDS: Albuterol/Ipratropium 3.0-0.5 MG/3 ML Neb Soln NEB SCH ×6 (02:43→22:02)
[2021-02-02] MEDS: methylPREDNISolone Sodium Succinate 40 MG/1 ML SDV IVPUSH SCH ×3 (05:32→21:55)
[2021-02-02 06:05] LABS: BLOOD UREA NITROGEN,BUN 24 mg/dL (7.0-18.0); CARBON DIOXIDE,CO2 41.7 mmol/L (21.0-32.0); CHLORIDE,CL 98 mmol/L (98-107); GLUCOSE RANDOM 167 mg/dL (74-106); POTASSIUM,K 4.7 mmol/L (3.5-5.1); SODIUM,NA 139 mmol/L (136-148)
[2021-02-02] MEDS: Levothyroxine 150 MCG Tab PO SCH (07:39)
[2021-02-02] MEDS ORDERED: Azithromycin 500 MG Vial IV SCH (09:00)
[2021-02-02] MEDS: Fluticasone/Salmeterol 100-50 MCG Inhalation Powder 14/Diskus INH SCH ×2 (09:36→21:56)
[2021-02-02] MEDS: Aspirin 81 MG Tab.EC PO SCH (09:50)
[2021-02-02] MEDS: Modafinil 100 MG Tab PO SCH (09:54)
[2021-02-02] MEDS: Carvedilol 3.125 MG Tab PO SCH (09:58)
[2021-02-02] MEDS: Lactated Ringers 1,000 ML IV SCH (10:34)
[2021-02-02] MEDS ORDERED: Magnesium Oxide 400 MG Tab PO ONE (11:11)
[2021-02-02] MEDS ORDERED: Ketorolac 30 MG/ML SDV IVPUSH ONE (11:11)
--- NOTE | 2021-02-02 11:19 | PCM.PN ---
- General Info Date of Service: 02/02/21 Admission Dx/Problem (Free Text): Admission Diagnosis/Problem Admission Diagnosis/Problem Hypercapnia Subjective Update: patient seen at bedside, feeling better, no chest pain, sob, ABG has imporved Functional Status: Reports: Tolerating Diet, Urinating. Denies: Ambulating - Review of Systems General: Reports: Weakness, Fatigue. Denies: Fever HEENT: Denies: Contact Lenses, Dysphasia Pulmonary: Reports: Shortness of Breath, Pleuritic Chest Pain Cardiovascular: Reports: Dyspnea on Exertion. Denies: Chest Pain, Palpitations Gastrointestinal: Denies: Abdominal Pain, Constipation, Decreased Appetite Genitourinary: Denies: Dysuria, Frequency Musculoskeletal: Denies: Neck Pain, Shoulder Pain, Arm Pain Skin: Denies: Cyanosis, Jaundice, Mottled - Patient Data Vitals - Most Recent: Last Vital Signs Temp 36.4 C 02/02/21 07:00 Pulse 56 L 02/02/21 09:58 Resp 14 02/02/21 07:00 BP 96/48 L 02/02/21 09:58 Pulse Ox 96 02/02/21 07:00 Weight - Most Recent: 55.338 kg I&O - Last 24 Hours: Intake & Output 02/01/21 02/02/21 02/02/21 22:59 06:59 14:59 Intake Total 1450 Output Total 0 Balance 1450 Lab Results Last 24 Hours: Laboratory Results - last 24 hr 02/01/21 02/01/21 02/01/21 Range/Units 15:50 15:50 15:50 WBC 12.06 H (4.0-11.0) K/uL RBC 4.93 (4.50-5.90) M/uL Hgb 14.1 (13.0-17.0) g/dL Hct 45.7 (38.0-50.0) % MCV 92.7 (80.0-98.0) fL MCH 28.6 (27.0-32.0) pg MCHC 30.9 L (31.0-37.0) g/dL RDW Std Deviation 61.2 (28.0-62.0) fl RDW Coeff of [place] 18 H (11.0-15.0) % Plt Count 186 (150-400) K/uL MPV 10.30 (7.40-12.00) fL Neut % (Auto) (48.0-80.0) % Lymph % (Auto) (16.0-40.0) % [place] % (Auto) (0.0-15.0) % Eos % (Auto) (0.0-7.0) % Baso % (Auto) (0.0-1.5) % Neut # (Auto) (1.4-5.7) K/uL Lymph # (Auto) (0.6-2.4) K/uL [place] # (Auto) (0.0-0.8) K/uL Eos # (Auto) (0.0-0.7) K/uL Baso # (Auto) (0.0-0.1) K/uL Add Manual Diff YES Neutrophils % (Manual) 66 (48.0-80.0) % Lymphocytes % (Manual) 15 L (16.0-40.0) % Monocytes % (Manual) 18 H (0.0-15.0) % Eosinophils % (Manual) 1 (0.0-7.0) % Nucleated RBC % 0.0 /100WBC Absolute Seg Neuts 8.0 H (1.4-5.7) Lymphocytes # (Manual) 1.8 (0.6-2.4) Monocytes # (Manual) 2.2 H (0.0-0.8) Eosinophils # (Manual) 0.1 (0.0-0.7) Nucleated RBCs # 0 K/uL ABG pH (7.35-7.45) ABG pCO2 (35-45) mmHG ABG pO2 (75-100) mmHG ABG HCO3 (22-26) mEq/L ABG Total CO2 ABG Base Excess (-2.0-2.0) VBG pH 7.35 (7.31-7.41) VBG pCO2 87 H (35-45) mmHG VBG pO2 18 L (30-40) mmHG VBG HCO3 47 H (22-30) mEq/L VBG Total CO2 44 (41-51) mmol/L VBG Base Excess 16.8 H (-3.0-3.0) Sodium 144 (136-148) mmol/L Potassium 4.4 (3.5-5.1) mmol/L Chloride 98 (98-107) mmol/L Carbon Dioxide 42.7 H (21.0-32.0) mmol/L BUN 25 H (7.0-18.0) mg/dL Creatinine 0.9 (0.8-1.3) mg/dL Est Cr Clr Drug Dosing 61.49 mL/min Estimated GFR (MDRD) > 60.0 ml/min Glucose 120 H (74-106) mg/dL Calcium 9.5 (8.5-10.1) mg/dL Phosphorus 4.7 (2.6-4.7) mg/dL Magnesium 2.1 (1.8-2.4) mg/dL Total Bilirubin 0.4 (0.2-1.0) mg/dL AST 21 (15-37) IU/L ALT 34 (14-63) IU/L Alkaline Phosphatase 84 (46-116) U/L Troponin I < 0.050 (0.000-0.056) ng/mL Total Protein 9.5 H (6.4-8.2) g/dL Albumin 3.8 (3.4-5.0) g/dL Globulin 5.7 H (2.6-4.0) g/dL Albumin/Globulin Ratio 0.7 L (0.9-1.6) Lipase 37 L (73-393) U/L Urine Color Urine Appearance Urine pH (5.0-8.0) Ur Specific [place] (1.001-1.035) Urine Protein (NEGATIVE) mg/dL Urine Glucose (UA) (NEGATIVE) mg/dL Urine Ketones (NEGATIVE) mg/dL Urine Occult Blood (NEGATIVE) Urine Nitrite (NEGATIVE) Urine Bilirubin (NEGATIVE) Urine Urobilinogen (<2.0) EU/dL Ur Leukocyte Esterase (NEGATIVE) Influenza Type A RNA (NEGATIVE) Influenza Type B RNA (NEGATIVE) SARS-CoV-2 RNA (VERNA) (NEGATIVE) 02/01/21 02/01/21 02/02/21 Range/Units 16:55 19:30 05:30 WBC 6.40 (4.0-11.0) K/uL RBC 3.79 L (4.50-5.90) M/uL Hgb 10.8 L (13.0-17.0) g/dL Hct 34.1 L (38.0-50.0) % MCV 90.0 (80.0-98.0) fL MCH 28.5 (27.0-32.0) pg MCHC 31.7 (31.0-37.0) g/dL RDW Std Deviation 59.1 (28.0-62.0) fl RDW Coeff of [place] 18 H (11.0-15.0) % Plt Count 142 L (150-400) K/uL MPV 9.90 (7.40-12.00) fL Neut % (Auto) 80.4 H (48.0-80.0) % Lymph % (Auto) 10.5 L (16.0-40.0) % [place] % (Auto) 8.9 (0.0-15.0) % Eos % (Auto) 0.0 (0.0-7.0) % Baso % (Auto) 0.2 (0.0-1.5) % Neut # (Auto) 5.2 (1.4-5.7) K/uL Lymph # (Auto) 0.7 (0.6-2.4) K/uL [place] # (Auto) 0.6 (0.0-0.8) K/uL Eos # (Auto) 0.0 (0.0-0.7) K/uL Baso # (Auto) 0.0 (0.0-0.1) K/uL Add Manual Diff Neutrophils % (Manual) (48.0-80.0) % Lymphocytes % (Manual) (16.0-40.0) % Monocytes % (Manual) (0.0-15.0) % Eosinophils % (Manual) (0.0-7.0) % Nucleated RBC % 0.0 /100WBC Absolute Seg Neuts (1.4-5.7) Lymphocytes # (Manual) (0.6-2.4) Monocytes # (Manual) (0.0-0.8) Eosinophils # (Manual) (0.0-0.7) Nucleated RBCs # 0 K/uL ABG pH 7.324 L (7.35-7.45) ABG pCO2 92 H (35-45) mmHG ABG pO2 63 L (75-100) mmHG ABG HCO3 48 H (22-26) mEq/L ABG Total CO2 44.1 ABG Base Excess 17.3 H (-2.0-2.0) VBG pH (7.31-7.41) VBG pCO2 (35-45) mmHG VBG pO2 (30-40) mmHG VBG HCO3 (22-30) mEq/L VBG Total CO2 (41-51) mmol/L VBG Base Excess (-3.0-3.0) Sodium (136-148) mmol/L Potassium (3.5-5.1) mmol/L Chloride (98-107) mmol/L Carbon Dioxide (21.0-32.0) mmol/L BUN (7.0-18.0) mg/dL Creatinine (0.8-1.3) mg/dL Est Cr Clr Drug Dosing mL/min Estimated GFR (MDRD) ml/min Glucose (74-106) mg/dL Calcium (8.5-10.1) mg/dL Phosphorus (2.6-4.7) mg/dL Magnesium (1.8-2.4) mg/dL Total Bilirubin (0.2-1.0) mg/dL AST (15-37) IU/L ALT (14-63) IU/L Alkaline Phosphatase (46-116) U/L Troponin I (0.000-0.056) ng/mL Total Protein (6.4-8.2) g/dL Albumin (3.4-5.0) g/dL Globulin (2.6-4.0) g/dL Albumin/Globulin Ratio (0.9-1.6) Lipase (73-393) U/L Urine Color Urine Appearance Urine pH (5.0-8.0) Ur Specific [place] (1.001-1.035) Urine Protein (NEGATIVE) mg/dL Urine Glucose (UA) (NEGATIVE) mg/dL Urine Ketones (NEGATIVE) mg/dL Urine Occult Blood (NEGATIVE) Urine Nitrite (NEGATIVE) Urine Bilirubin (NEGATIVE) Urine Urobilinogen (<2.0) EU/dL Ur Leukocyte Esterase (NEGATIVE) Influenza Type A RNA NEGATIVE (NEGATIVE) Influenza Type B RNA NEGATIVE (NEGATIVE) SARS-CoV-2 RNA (VERNA) NEGATIVE (NEGATIVE) 02/02/21 02/02/21 02/02/21 Range/Units 05:30 06:34 09:30 WBC (4.0-11.0) K/uL RBC (4.50-5.90) M/uL Hgb (13.0-17.0) g/dL Hct (38.0-50.0) % MCV (80.0-98.0) fL MCH (27.0-32.0) pg MCHC (31.0-37.0) g/dL RDW Std Deviation (28.0-62.0) fl RDW Coeff of [place] (11.0-15.0) % Plt Count (150-400) K/uL MPV (7.40-12.00) fL Neut % (Auto) (48.0-80.0) % Lymph % (Auto) (16.0-40.0) % [place] % (Auto) (0.0-15.0) % Eos % (Auto) (0.0-7.0) % Baso % (Auto) (0.0-1.5) % Neut # (Auto) (1.4-5.7) K/uL Lymph # (Auto) (0.6-2.4) K/uL [place] # (Auto) (0.0-0.8) K/uL Eos # (Auto) (0.0-0.7) K/uL Baso # (Auto) (0.0-0.1) K/uL Add Manual Diff Neutrophils % (Manual) (48.0-80.0) % Lymphocytes % (Manual) (16.0-40.0) % Monocytes % (Manual) (0.0-15.0) % Eosinophils % (Manual) (0.0-7.0) % Nucleated RBC % /100WBC Absolute Seg Neuts (1.4-5.7) Lymphocytes # (Manual) (0.6-2.4) Monocytes # (Manual) (0.0-0.8) Eosinophils # (Manual) (0.0-0.7) Nucleated RBCs # K/uL ABG pH 7.457 H (7.35-7.45) ABG pCO2 62 H (35-45) mmHG ABG pO2 63 L (75-100) mmHG ABG HCO3 44 H (22-26) mEq/L ABG Total CO2 39.9 ABG Base Excess 16.9 H (-2.0-2.0) VBG pH (7.31-7.41) VBG pCO2 (35-45) mmHG VBG pO2 (30-40) mmHG VBG HCO3 (22-30) mEq/L VBG Total CO2 (41-51) mmol/L VBG Base Excess (-3.0-3.0) Sodium 139 (136-148) mmol/L Potassium 4.7 (3.5-5.1) mmol/L Chloride 98 (98-107) mmol/L Carbon Dioxide 41.7 H (21.0-32.0) mmol/L BUN 24 H (7.0-18.0) mg/dL Creatinine 0.9 (0.8-1.3) mg/dL Est Cr Clr Drug Dosing 61.49 mL/min Estimated GFR (MDRD) > 60.0 ml/min Glucose 167 H (74-106) mg/dL Calcium 8.9 (8.5-10.1) mg/dL Phosphorus 2.7 (2.6-4.7) mg/dL Magnesium 1.8 (1.8-2.4) mg/dL Total Bilirubin (0.2-1.0) mg/dL AST (15-37) IU/L ALT (14-63) IU/L Alkaline Phosphatase (46-116) U/L Troponin I (0.000-0.056) ng/mL Total Protein (6.4-8.2) g/dL Albumin (3.4-5.0) g/dL Globulin (2.6-4.0) g/dL Albumin/Globulin Ratio (0.9-1.6) Lipase (73-393) U/L Urine Color YELLOW Urine Appearance CLEAR Urine pH 6.5 (5.0-8.0) Ur Specific [place] 1.020 (1.001-1.035) Urine Protein NEGATIVE (NEGATIVE) mg/dL Urine Glucose (UA) NEGATIVE (NEGATIVE) mg/dL Urine Ketones NEGATIVE (NEGATIVE) mg/dL Urine Occult Blood NEGATIVE (NEGATIVE) Urine Nitrite NEGATIVE (NEGATIVE) Urine Bilirubin NEGATIVE (NEGATIVE) Urine Urobilinogen 0.2 (<2.0) EU/dL Ur Leukocyte Esterase NEGATIVE (NEGATIVE) Influenza Type A RNA (NEGATIVE) Influenza Type B RNA (NEGATIVE) SARS-CoV-2 RNA (VERNA) (NEGATIVE) Med Orders - Current: Current Medications Acetaminophen (Acetaminophen 325 Mg Tab) 650 mg PO Q6H PRN PRN Reason: Pain Last Admin: 02/01/21 23:50 Dose: 650 mg Documented by: Albuterol/Ipratropium (Albuterol/Ipratropium 3.0-0.5 Mg/3 Ml Neb Soln) 3 ml NEB Q4HRRT [facility] Last Admin: 02/02/21 09:35 Dose: 3 ml Documented by: Aspirin (Aspirin 81 Mg Tab.Ec) 81 mg PO DAILY [facility] Last Admin: 02/02/21 09:50 Dose: 81 mg Documented by: Enoxaparin Sodium (Enoxaparin 40 Mg/0.4 Ml Syringe) 40 mg SUBCUT Q24H [facility] Last Admin: 02/01/21 23:21 Dose: 40 mg Documented by: Furosemide (Furosemide 40 Mg Tab) 20 mg PO DAILY PRN PRN Reason: Edema Lactated Ringer's (Ringers, Lactated) 1,000 mls @ 125 mls/hr IV ASDIRECTED [facility] Last Admin: 02/02/21 10:34 Dose: 125 mls/hr Documented by: Azithromycin 500 mg/ Sodium (Chloride) 250 mls @ 250 mls/hr IV Q24H [facility] Levothyroxine Sodium (Levothyroxine 150 Mcg Tab) 150 mcg PO ACBREAKFAST [facility] Last Admin: 02/02/21 07:39 Dose: 150 mcg Documented by: Magnesium Oxide (Magnesium Oxide 400 Mg Tab) 800 mg PO ONETIME ONE Stop: 02/02/21 11:12 Methylprednisolone Sodium Succinate (Methylprednisolone Sodium Succinate 40 Mg/1 Ml Sdv) 40 mg IVPUSH Q8H [facility] Last Admin: 02/02/21 05:32 Dose: 40 mg Documented by: Modafinil (Modafinil 100 Mg Tab) 500 mg PO DAILY [facility] Last Admin: 02/02/21 09:54 Dose: 500 mg Documented by: Ondansetron HCl (Ondansetron 4 Mg/2 Ml Sdv) 4 mg IVPUSH Q4H PRN PRN Reason: Nausea/Vomiting Pantoprazole Sodium (Pantoprazole 40 Mg Vial) 40 mg IV QPM@2100 [facility] Last Admin: 02/01/21 20:40 Dose: 40 mg Documented by: Fluticasone/Salmeterol (Fluticasone/Salmeterol 100-50 Mcg Inhalation Powder 14/Diskus) 1 puff INH BID [facility] Last Admin: 02/02/21 09:36 Dose: 1 puff Documented by: Tamsulosin HCl (Tamsulosin 0.4 Mg Cap.Er) 0.4 mg PO BEDTIME [facility] Last Admin: 02/01/21 20:31 Dose: 0.4 mg Documented by: Discontinued Medications Carvedilol (Carvedilol 3.125 Mg Tab) 9.375 mg PO BID [facility] Carvedilol (Carvedilol 3.125 Mg Tab) 3.125 mg PO BID [facility] Last Admin: 02/02/21 09:58 Dose: Not Given Documented by: Azithromycin 500 mg/ Sodium (Chloride) 250 mls @ 250 mls/hr IV ONETIME [facility] Last Admin: 02/02/21 05:27 Dose: 250 mls/hr Documented by: Methylprednisolone Sodium Succinate (Methylprednisolone Sodium Succinate 40 Mg/1 Ml Sdv) 40 mg IVPUSH Q8H [facility] Last Admin: 02/01/21 23:02 Dose: Not Given Documented by: Pantoprazole Sodium (Pantoprazole 40 Mg Vial) 40 mg IV DAILY [facility] Last Admin: 02/01/21 23:02 Dose: Not Given Documented by: - Exam Quality Assessment: Supplemental Oxygen General: Alert, Oriented, Cooperative, No Acute Distress Lungs: Clear to Auscultation, Decreased Breath Sounds GI/Abdominal Exam: Normal Bowel Sounds, Soft, Non-Tender Back Exam: Normal Inspection, Full Range of Motion, Muscle Spasm, Paraspinal Tenderness - Patient Data Lab Results Last 24 hrs: Laboratory Results - last 24 hr 02/01/21 02/01/21 02/01/21 Range/Units 15:50 15:50 15:50 WBC 12.06 H (4.0-11.0) K/uL RBC 4.93 (4.50-5.90) M/uL Hgb 14.1 (13.0-17.0) g/dL Hct 45.7 (38.0-50.0) % MCV 92.7 (80.0-98.0) fL MCH 28.6 (27.0-32.0) pg MCHC 30.9 L (31.0-37.0) g/dL RDW Std Deviation 61.2 (28.0-62.0) fl RDW Coeff of [place] 18 H (11.0-15.0) % Plt Count 186 (150-400) K/uL MPV 10.30 (7.40-12.00) fL Neut % (Auto) (48.0-80.0) % Lymph % (Auto) (16.0-40.0) % [place] % (Auto) (0.0-15.0) % Eos % (Auto) (0.0-7.0) % Baso % (Auto) (0.0-1.5) % Neut # (Auto) (1.4-5.7) K/uL Lymph # (Auto) (0.6-2.4) K/uL [place] # (Auto) (0.0-0.8) K/uL Eos # (Auto) (0.0-0.7) K/uL Baso # (Auto) (0.0-0.1) K/uL Add Manual Diff YES Neutrophils % (Manual) 66 (48.0-80.0) % Lymphocytes % (Manual) 15 L (16.0-40.0) % Monocytes % (Manual) 18 H (0.0-15.0) % Eosinophils % (Manual) 1 (0.0-7.0) % Nucleated RBC % 0.0 /100WBC Absolute Seg Neuts 8.0 H (1.4-5.7) Lymphocytes # (Manual) 1.8 (0.6-2.4) Monocytes # (Manual) 2.2 H (0.0-0.8) Eosinophils # (Manual) 0.1 (0.0-0.7) Nucleated RBCs # 0 K/uL ABG pH (7.35-7.45) ABG pCO2 (35-45) mmHG ABG pO2 (75-100) mmHG ABG HCO3 (22-26) mEq/L ABG Total CO2 ABG Base Excess (-2.0-2.0) VBG pH 7.35 (7.31-7.41) VBG pCO2 87 H (35-45) mmHG VBG pO2 18 L (30-40) mmHG VBG HCO3 47 H (22-30) mEq/L VBG Total CO2 44 (41-51) mmol/L VBG Base Excess 16.8 H (-3.0-3.0) Sodium 144 (136-148) mmol/L Potassium 4.4 (3.5-5.1) mmol/L Chloride 98 (98-107) mmol/L Carbon Dioxide 42.7 H (21.0-32.0) mmol/L BUN 25 H (7.0-18.0) mg/dL Creatinine 0.9 (0.8-1.3) mg/dL Est Cr Clr Drug Dosing 61.49 mL/min Estimated GFR (MDRD) > 60.0 ml/min Glucose 120 H (74-106) mg/dL Calcium 9.5 (8.5-10.1) mg/dL Phosphorus 4.7 (2.6-4.7) mg/dL Magnesium 2.1 (1.8-2.4) mg/dL Total Bilirubin 0.4 (0.2-1.0) mg/dL AST 21 (15-37) IU/L ALT 34 (14-63) IU/L Alkaline Phosphatase 84 (46-116) U/L Troponin I < 0.050 (0.000-0.056) ng/mL Total Protein 9.5 H (6.4-8.2) g/dL Albumin 3.8 (3.4-5.0) g/dL Globulin 5.7 H (2.6-4.0) g/dL Albumin/Globulin Ratio 0.7 L (0.9-1.6) Lipase 37 L (73-393) U/L Urine Color Urine Appearance Urine pH (5.0-8.0) Ur Specific [place] (1.001-1.035) Urine Protein (NEGATIVE) mg/dL Urine Glucose (UA) (NEGATIVE) mg/dL Urine Ketones (NEGATIVE) mg/dL Urine Occult Blood (NEGATIVE) Urine Nitrite (NEGATIVE) Urine Bilirubin (NEGATIVE) Urine Urobilinogen (<2.0) EU/dL Ur Leukocyte Esterase (NEGATIVE) Influenza Type A RNA (NEGATIVE) Influenza Type B RNA (NEGATIVE) SARS-CoV-2 RNA (VERNA) (NEGATIVE) 02/01/21 02/01/21 02/02/21 Range/Units 16:55 19:30 05:30 WBC 6.40 (4.0-11.0) K/uL RBC 3.79 L (4.50-5.90) M/uL Hgb 10.8 L (13.0-17.0) g/dL Hct 34.1 L (38.0-50.0) % MCV 90.0 (80.0-98.0) fL MCH 28.5 (27.0-32.0) pg MCHC 31.7 (31.0-37.0) g/dL RDW Std Deviation 59.1 (28.0-62.0) fl RDW Coeff of [place] 18 H (11.0-15.0) % Plt Count 142 L (150-400) K/uL MPV 9.90 (7.40-12.00) fL Neut % (Auto) 80.4 H (48.0-80.0) % Lymph % (Auto) 10.5 L (16.0-40.0) % [place] % (Auto) 8.9 (0.0-15.0) % Eos % (Auto) 0.0 (0.0-7.0) % Baso % (Auto) 0.2 (0.0-1.5) % Neut # (Auto) 5.2 (1.4-5.7) K/uL Lymph # (Auto) 0.7 (0.6-2.4) K/uL [place] # (Auto) 0.6 (0.0-0.8) K/uL Eos # (Auto) 0.0 (0.0-0.7) K/uL Baso # (Auto) 0.0 (0.0-0.1) K/uL Add Manual Diff Neutrophils % (Manual) (48.0-80.0) % Lymphocytes % (Manual) (16.0-40.0) % Monocytes % (Manual) (0.0-15.0) % Eosinophils % (Manual) (0.0-7.0) % Nucleated RBC % 0.0 /100WBC Absolute Seg Neuts (1.4-5.7) Lymphocytes # (Manual) (0.6-2.4) Monocytes # (Manual) (0.0-0.8) Eosinophils # (Manual) (0.0-0.7) Nucleated RBCs # 0 K/uL ABG pH 7.324 L (7.35-7.45) ABG pCO2 92 H (35-45) mmHG ABG pO2 63 L (75-100) mmHG ABG HCO3 48 H (22-26) mEq/L ABG Total CO2 44.1 ABG Base Excess 17.3 H (-2.0-2.0) VBG pH (7.31-7.41) VBG pCO2 (35-45) mmHG VBG pO2 (30-40) mmHG VBG HCO3 (22-30) mEq/L VBG Total CO2 (41-51) mmol/L VBG Base Excess (-3.0-3.0) Sodium (136-148) mmol/L Potassium (3.5-5.1) mmol/L Chloride (98-107) mmol/L Carbon Dioxide (21.0-32.0) mmol/L BUN (7.0-18.0) mg/dL Creatinine (0.8-1.3) mg/dL Est Cr Clr Drug Dosing mL/min Estimated GFR (MDRD) ml/min Glucose (74-106) mg/dL Calcium (8.5-10.1) mg/dL Phosphorus (2.6-4.7) mg/dL Magnesium (1.8-2.4) mg/dL Total Bilirubin (0.2-1.0) mg/dL AST (15-37) IU/L ALT (14-63) IU/L Alkaline Phosphatase (46-116) U/L Troponin I (0.000-0.056) ng/mL Total Protein (6.4-8.2) g/dL Albumin (3.4-5.0) g/dL Globulin (2.6-4.0) g/dL Albumin/Globulin Ratio (0.9-1.6) Lipase (73-393) U/L Urine Color Urine Appearance Urine pH (5.0-8.0) Ur Specific [place] (1.001-1.035) Urine Protein (NEGATIVE) mg/dL Urine Glucose (UA) (NEGATIVE) mg/dL Urine Ketones (NEGATIVE) mg/dL Urine Occult Blood (NEGATIVE) Urine Nitrite (NEGATIVE) Urine Bilirubin (NEGATIVE) Urine Urobilinogen (<2.0) EU/dL Ur Leukocyte Esterase (NEGATIVE) Influenza Type A RNA NEGATIVE (NEGATIVE) Influenza Type B RNA NEGATIVE (NEGATIVE) SARS-CoV-2 RNA (VERNA) NEGATIVE (NEGATIVE) 02/02/21 02/02/21 02/02/21 Range/Units 05:30 06:34 09:30 WBC (4.0-11.0) K/uL RBC (4.50-5.90) M/uL Hgb (13.0-17.0) g/dL Hct (38.0-50.0) % MCV (80.0-98.0) fL MCH (27.0-32.0) pg MCHC (31.0-37.0) g/dL RDW Std Deviation (28.0-62.0) fl RDW Coeff of [place] (11.0-15.0) % Plt Count (150-400) K/uL MPV (7.40-12.00) fL Neut % (Auto) (48.0-80.0) % Lymph % (Auto) (16.0-40.0) % [place] % (Auto) (0.0-15.0) % Eos % (Auto) (0.0-7.0) % Baso % (Auto) (0.0-1.5) % Neut # (Auto) (1.4-5.7) K/uL Lymph # (Auto) (0.6-2.4) K/uL [place] # (Auto) (0.0-0.8) K/uL Eos # (Auto) (0.0-0.7) K/uL Baso # (Auto) (0.0-0.1) K/uL Add Manual Diff Neutrophils % (Manual) (48.0-80.0) % Lymphocytes % (Manual) (16.0-40.0) % Monocytes % (Manual) (0.0-15.0) % Eosinophils % (Manual) (0.0-7.0) % Nucleated RBC % /100WBC Absolute Seg Neuts (1.4-5.7) Lymphocytes # (Manual) (0.6-2.4) Monocytes # (Manual) (0.0-0.8) Eosinophils # (Manual) (0.0-0.7) Nucleated RBCs # K/uL ABG pH 7.457 H (7.35-7.45) ABG pCO2 62 H (35-45) mmHG ABG pO2 63 L (75-100) mmHG ABG HCO3 44 H (22-26) mEq/L ABG Total CO2 39.9 ABG Base Excess 16.9 H (-2.0-2.0) VBG pH (7.31-7.41) VBG pCO2 (35-45) mmHG VBG pO2 (30-40) mmHG VBG HCO3 (22-30) mEq/L VBG Total CO2 (41-51) mmol/L VBG Base Excess (-3.0-3.0) Sodium 139 (136-148) mmol/L Potassium 4.7 (3.5-5.1) mmol/L Chloride 98 (98-107) mmol/L Carbon Dioxide 41.7 H (21.0-32.0) mmol/L BUN 24 H (7.0-18.0) mg/dL Creatinine 0.9 (0.8-1.3) mg/dL Est Cr Clr Drug Dosing 61.49 mL/min Estimated GFR (MDRD) > 60.0 ml/min Glucose 167 H (74-106) mg/dL Calcium 8.9 (8.5-10.1) mg/dL Phosphorus 2.7 (2.6-4.7) mg/dL Magnesium 1.8 (1.8-2.4) mg/dL Total Bilirubin (0.2-1.0) mg/dL AST (15-37) IU/L ALT (14-63) IU/L Alkaline Phosphatase (46-116) U/L Troponin I (0.000-0.056) ng/mL Total Protein (6.4-8.2) g/dL Albumin (3.4-5.0) g/dL Globulin (2.6-4.0) g/dL Albumin/Globulin Ratio (0.9-1.6) Lipase (73-393) U/L Urine Color YELLOW Urine Appearance CLEAR Urine pH 6.5 (5.0-8.0) Ur Specific [place] 1.020 (1.001-1.035) Urine Protein NEGATIVE (NEGATIVE) mg/dL Urine Glucose (UA) NEGATIVE (NEGATIVE) mg/dL Urine Ketones NEGATIVE (NEGATIVE) mg/dL Urine Occult Blood NEGATIVE (NEGATIVE) Urine Nitrite NEGATIVE (NEGATIVE) Urine Bilirubin NEGATIVE (NEGATIVE) Urine Urobilinogen 0.2 (<2.0) EU/dL Ur Leukocyte Esterase NEGATIVE (NEGATIVE) Influenza Type A RNA (NEGATIVE) Influenza Type B RNA (NEGATIVE) SARS-CoV-2 RNA (VERNA) (NEGATIVE) Result Diagrams: 02/02/21 05:30 02/02/21 05:30 Sepsis Event Note - Evaluation Sepsis Screening Result: No Definite Risk - Focused Exam Vital Signs: Vital Signs Temp Pulse Pulse Resp BP BP Pulse Ox 02/02/21 09:58 56 L 96/48 L 02/02/21 07:00 36.4 C 60 14 86/47 L 96 02/02/21 03:33 02/02/21 03:32 36.2 C 54 L 16 92/57 L 96 02/01/21 23:29 36.8 C 62 16 93/53 L 94 L Pulse Ox 02/02/21 09:58 02/02/21 07:00 02/02/21 03:33 96 02/02/21 03:32 02/01/21 23:29 - Problem List & Annotations (1) Acute hypercapnic respiratory failure SNOMED Code(s): 048921616 Code(s): J96.02 - ACUTE RESPIRATORY FAILURE WITH HYPERCAPNIA Status: Acute Current Visit: No (2) BPH (benign prostatic hyperplasia) SNOMED Code(s): 084941402 Code(s): N40.0 - BENIGN PROSTATIC HYPERPLASIA WITHOUT LOWER URINRY TRACT SYMP Status: Acute Current Visit: No (3) CHF (congestive heart failure) SNOMED Code(s): 35716296 Code(s): I50.9 - HEART FAILURE, UNSPECIFIED Status: Acute Current Visit: No (4) COPD exacerbation SNOMED Code(s): 400930326 Code(s): J44.1 - CHRONIC OBSTRUCTIVE PULMONARY DISEASE W (ACUTE) EXACERBATION Status: Acute Current Visit: No - Problem List Review Problem List Initiated/Reviewed/Updated: Yes - My Orders Last 24 Hours: My Active Orders 02/01/21 Dinner Heart Healthy Diet [DIET] 02/01/21 17:57 Ambulate [RC] ASDIRECTED Oxygen Therapy [RC] PRN VTE/DVT Education [RC] PER UNIT ROUTINE Vital Signs [RC] Q4H Ondansetron [Zofran] 4 mg IVPUSH Q4H PRN Sequential Compression Device [OM.PC] Per Unit Routine 02/01/21 17:58 Antiembolic Devices [RC] PER UNIT ROUTINE 02/01/21 17:59 RT Aerosol Therapy [RC] ASDIRECTED 02/01/21 18:00 Albuterol/Ipratropium [DuoNeb 3.0-0.5 MG/3 ML] 3 ml NEB Q4HRRT 02/01/21 18:01 RT Post Treatment Assessment [RC] Click to Edit RT Pre-Treatment Assessment [RC] Click to Edit 02/01/21 18:05 Furosemide [Lasix] 20 mg PO DAILY PRN 02/01/21 18:15 Telemetry Monitoring [Cardiac Monitoring] [RC] Q8H 02/01/21 18:19 Resuscitation Status Stat 02/01/21 21:00 Fluticasone/Salmeterol [Advair Diskus 100-50] 1 puff INH BID Pantoprazole [ProTONIX IV] 40 mg IV QPM@2100 Tamsulosin [Flomax] 0.4 mg PO BEDTIME methylPREDNISolone Sod Succ [Solu-MEDROL] 40 mg IVPUSH Q8H 02/01/21 21:30 Lactated Ringers [Ringers, Lactated] 1,000 ml IV ASDIRECTED 02/01/21 23:00 Enoxaparin [Lovenox] 40 mg SUBCUT Q24H 02/01/21 23:26 Acetaminophen [TylenoL] 650 mg PO Q6H PRN 02/02/21 07:30 Levothyroxine 150 mcg PO ACBREAKFAST 02/02/21 09:00 Aspirin [Halfprin] 81 mg PO DAILY modafiniL [ProvigiL] 500 mg PO DAILY 02/02/21 11:11 Ketorolac [Toradol] 30 mg IVPUSH ONETIME ONE Magnesium Oxide 800 mg PO ONETIME ONE 02/03/21 06:00 Azithromycin [Zithromax] 500 mg Sodium Chloride 0.9% [Normal Saline (AdvBag)] 250 ml IV Q24H - Plan Plan:: Assessment and Plan: 1. Acute on chronic hypoxic hypercapnic respiratory failure secondary to COPD exacerbation: ABG has improved, will keep off Bipap for few hours, resume BIPAP as night - Continue DuoNebs q4h DINORAH and IV solumedrol 40 mg q8h. Will start IV azithromycin qd. Will continue to monitor respiratory status. Patients appears to be tolerating BiPAP well and is well compensated for hypercapnia. Counselled on smoking cessation. Discussed code status with patient , he is DNR/DNI with possibility of going to palliative in near future. 2. DVT prophylaxis: Lovenox.
[2021-02-02] MEDS: Pantoprazole 40 MG Vial IV SCH (21:55)
[2021-02-02] MEDS: Tamsulosin 0.4 MG Cap.ER PO SCH (21:55)
[2021-02-02] MEDS: Enoxaparin 40 MG/0.4 ML Syringe SUBCUT SCH (22:03)
[2021-02-03] MEDS: Albuterol/Ipratropium 3.0-0.5 MG/3 ML Neb Soln NEB SCH ×6 (01:07→21:58)
[2021-02-03] MEDS: Lactated Ringers 1,000 ML IV SCH ×3 (03:31→21:02)
[2021-02-03] MEDS: methylPREDNISolone Sodium Succinate 40 MG/1 ML SDV IVPUSH SCH ×2 (05:18→16:58)
[2021-02-03] MEDS: Azithromycin 500 MG in Sodium Chloride 0.9% 250 ML IV SCH (05:24)
[2021-02-03 06:21] LABS: BLOOD UREA NITROGEN,BUN 21 mg/dL (7.0-18.0); CARBON DIOXIDE,CO2 38.7 mmol/L (21.0-32.0); CHLORIDE,CL 97 mmol/L (98-107); GLUCOSE RANDOM 155 mg/dL (74-106); POTASSIUM,K 4.2 mmol/L (3.5-5.1); SODIUM,NA 137 mmol/L (136-148)
[2021-02-03] MEDS: Levothyroxine 150 MCG Tab PO SCH (07:02)
[2021-02-03] MEDS: Aspirin 81 MG Tab.EC PO SCH (09:26)
[2021-02-03] MEDS: Fluticasone/Salmeterol 100-50 MCG Inhalation Powder 14/Diskus INH SCH ×2 (09:28→21:58)
[2021-02-03] MEDS: Modafinil 100 MG Tab PO SCH (09:53)
--- NOTE | 2021-02-03 11:23 | PCM.PN ---
- General Info Date of Service: 02/03/21 Admission Dx/Problem (Free Text): Admission Diagnosis/Problem Admission Diagnosis/Problem Hypercapnia Subjective Update: patient seen at bedside, feeling better, no chest pain, no worsening sob, back pain better Functional Status: Reports: Tolerating Diet, Urinating. Denies: Ambulating - Review of Systems General: Reports: Weakness, Fatigue. Denies: Fever Pulmonary: Reports: Shortness of Breath, Wheezing. Denies: Pleuritic Chest P ain, Cough, Sputum Cardiovascular: Reports: Dyspnea on Exertion. Denies: Chest Pain, Palpitations Gastrointestinal: Denies: Abdominal Pain, Constipation Genitourinary: Denies: Dysuria, Frequency Musculoskeletal: Denies: Neck Pain, Shoulder Pain, Arm Pain Skin: Denies: Cyanosis, Jaundice, Mottled - Patient Data Vitals - Most Recent: Last Vital Signs Temp 37.2 C 02/03/21 11:17 Pulse 75 02/03/21 11:17 Resp 16 02/03/21 11:17 BP 96/55 L 02/03/21 11:17 Pulse Ox 88 L 02/03/21 11:17 Weight - Most Recent: 55.338 kg I&O - Last 24 Hours: Intake & Output 02/02/21 02/03/21 02/03/21 22:59 06:59 14:59 Intake Total 900 1167 250 Output Total 200 100 Balance 700 1067 250 Lab Results Last 24 Hours: Laboratory Results - last 24 hr 02/03/21 02/03/21 Range/Units 05:40 05:40 WBC 7.52 (4.0-11.0) K/uL RBC 3.82 L (4.50-5.90) M/uL Hgb 10.6 L (13.0-17.0) g/dL Hct 34.0 L (38.0-50.0) % MCV 89.0 (80.0-98.0) fL MCH 27.7 (27.0-32.0) pg MCHC 31.2 (31.0-37.0) g/dL RDW Std Deviation 58.5 (28.0-62.0) fl RDW Coeff of Dalton 18 H (11.0-15.0) % Plt Count 173 (150-400) K/uL MPV 10.30 (7.40-12.00) fL Neut % (Auto) 86.1 H (48.0-80.0) % Lymph % (Auto) 8.6 L (16.0-40.0) % [place] % (Auto) 5.3 (0.0-15.0) % Eos % (Auto) 0.0 (0.0-7.0) % Baso % (Auto) 0.0 (0.0-1.5) % Neut # (Auto) 6.5 H (1.4-5.7) K/uL Lymph # (Auto) 0.7 (0.6-2.4) K/uL [place] # (Auto) 0.4 (0.0-0.8) K/uL Eos # (Auto) 0.0 (0.0-0.7) K/uL Baso # (Auto) 0.0 (0.0-0.1) K/uL Nucleated RBC % 0.0 /100WBC Nucleated RBCs # 0 K/uL Sodium 137 (136-148) mmol/L Potassium 4.2 (3.5-5.1) mmol/L Chloride 97 L (98-107) mmol/L Carbon Dioxide 38.7 H (21.0-32.0) mmol/L BUN 21 H (7.0-18.0) mg/dL Creatinine 0.8 (0.8-1.3) mg/dL Est Cr Clr Drug Dosing 69.17 mL/min Estimated GFR (MDRD) > 60.0 ml/min Glucose 155 H (74-106) mg/dL Calcium 8.4 L (8.5-10.1) mg/dL Phosphorus 3.0 (2.6-4.7) mg/dL Magnesium 1.8 (1.8-2.4) mg/dL Med Orders - Current: Current Medications Acetaminophen (Acetaminophen 325 Mg Tab) 650 mg PO Q6H PRN PRN Reason: Pain Last Admin: 02/01/21 23:50 Dose: 650 mg Documented by: Albuterol/Ipratropium (Albuterol/Ipratropium 3.0-0.5 Mg/3 Ml Neb Soln) 3 ml NEB Q4HRRT [facility] Last Admin: 02/03/21 09:22 Dose: 3 ml Documented by: Aspirin (Aspirin 81 Mg Tab.Ec) 81 mg PO DAILY [facility] Last Admin: 02/03/21 09:26 Dose: 81 mg Documented by: Carvedilol (Carvedilol 3.125 Mg Tab) 3.125 mg PO BID [facility] Enoxaparin Sodium (Enoxaparin 40 Mg/0.4 Ml Syringe) 40 mg SUBCUT Q24H [facility] Last Admin: 02/02/21 22:03 Dose: 40 mg Documented by: Furosemide (Furosemide 40 Mg Tab) 20 mg PO DAILY PRN PRN Reason: Edema Lactated Ringer's (Ringers, Lactated) 1,000 mls @ 125 mls/hr IV ASDIRECTED [facility] Last Admin: 02/03/21 03:31 Dose: 125 mls/hr Documented by: Azithromycin 500 mg/ Sodium (Chloride) 250 mls @ 250 mls/hr IV Q24H [facility] Last Admin: 02/03/21 05:24 Dose: 250 mls/hr Documented by: Levothyroxine Sodium (Levothyroxine 150 Mcg Tab) 150 mcg PO ACBREAKFAST [facility] Last Admin: 02/03/21 07:02 Dose: 150 mcg Documented by: Methylprednisolone Sodium Succinate (Methylprednisolone Sodium Succinate 40 Mg/1 Ml Sdv) 40 mg IVPUSH Q12H [facility] Modafinil (Modafinil 100 Mg Tab) 500 mg PO DAILY [facility] Last Admin: 02/03/21 09:53 Dose: 500 mg Documented by: Ondansetron HCl (Ondansetron 4 Mg/2 Ml Sdv) 4 mg IVPUSH Q4H PRN PRN Reason: Nausea/Vomiting Pantoprazole Sodium (Pantoprazole 40 Mg Vial) 40 mg IV QPM@2100 [facility] Last Admin: 02/02/21 21:55 Dose: 40 mg Documented by: Fluticasone/Salmeterol (Fluticasone/Salmeterol 100-50 Mcg Inhalation Powder 14/Diskus) 1 puff INH BID [facility] Last Admin: 02/03/21 09:28 Dose: 1 puff Documented by: Tamsulosin HCl (Tamsulosin 0.4 Mg Cap.Er) 0.4 mg PO BEDTIME [facility] Last Admin: 02/02/21 21:55 Dose: 0.4 mg Documented by: Discontinued Medications Carvedilol (Carvedilol 3.125 Mg Tab) 9.375 mg PO BID [facility] Carvedilol (Carvedilol 3.125 Mg Tab) 3.125 mg PO BID [facility] Last Admin: 02/02/21 09:58 Dose: Not Given Documented by: Azithromycin 500 mg/ Sodium (Chloride) 250 mls @ 250 mls/hr IV ONETIME [facility] Last Admin: 02/02/21 05:27 Dose: 250 mls/hr Documented by: Ketorolac Tromethamine (Ketorolac 30 Mg/Ml Sdv) 30 mg IVPUSH ONETIME ONE Stop: 02/02/21 11:12 Last Admin: 02/02/21 12:23 Dose: 30 mg Documented by: Magnesium Oxide (Magnesium Oxide 400 Mg Tab) 800 mg PO ONETIME ONE Stop: 02/02/21 11:12 Last Admin: 02/02/21 12:23 Dose: 800 mg Documented by: Methylprednisolone Sodium Succinate (Methylprednisolone Sodium Succinate 40 Mg/1 Ml Sdv) 40 mg IVPUSH Q8H [facility] Last Admin: 02/01/21 23:02 Dose: Not Given Documented by: Methylprednisolone Sodium Succinate (Methylprednisolone Sodium Succinate 40 Mg/1 Ml Sdv) 40 mg IVPUSH Q8H [facility] Last Admin: 02/03/21 05:18 Dose: 40 mg Documented by: Pantoprazole Sodium (Pantoprazole 40 Mg Vial) 40 mg IV DAILY [facility] Last Admin: 02/01/21 23:02 Dose: Not Given Documented by: - Exam Quality Assessment: Supplemental Oxygen General: Alert, Oriented Neck: Supple Lungs: Clear to Auscultation, Normal Respiratory Effort, Decreased Breath Sounds Cardiovascular: Regular Rate, Irregular Rhythm GI/Abdominal Exam: Normal Bowel Sounds, Soft Extremities: Normal Inspection, Normal Range of Motion - Patient Data Lab Results Last 24 hrs: Laboratory Results - last 24 hr 02/03/21 02/03/21 Range/Units 05:40 05:40 WBC 7.52 (4.0-11.0) K/uL RBC 3.82 L (4.50-5.90) M/uL Hgb 10.6 L (13.0-17.0) g/dL Hct 34.0 L (38.0-50.0) % MCV 89.0 (80.0-98.0) fL MCH 27.7 (27.0-32.0) pg MCHC 31.2 (31.0-37.0) g/dL RDW Std Deviation 58.5 (28.0-62.0) fl RDW Coeff of [place] 18 H (11.0-15.0) % Plt Count 173 (150-400) K/uL MPV 10.30 (7.40-12.00) fL Neut % (Auto) 86.1 H (48.0-80.0) % Lymph % (Auto) 8.6 L (16.0-40.0) % [place] % (Auto) 5.3 (0.0-15.0) % Eos % (Auto) 0.0 (0.0-7.0) % Baso % (Auto) 0.0 (0.0-1.5) % Neut # (Auto) 6.5 H (1.4-5.7) K/uL Lymph # (Auto) 0.7 (0.6-2.4) K/uL [place] # (Auto) 0.4 (0.0-0.8) K/uL Eos # (Auto) 0.0 (0.0-0.7) K/uL Baso # (Auto) 0.0 (0.0-0.1) K/uL Nucleated RBC % 0.0 /100WBC Nucleated RBCs # 0 K/uL Sodium 137 (136-148) mmol/L Potassium 4.2 (3.5-5.1) mmol/L Chloride 97 L (98-107) mmol/L Carbon Dioxide 38.7 H (21.0-32.0) mmol/L BUN 21 H (7.0-18.0) mg/dL Creatinine 0.8 (0.8-1.3) mg/dL Est Cr Clr Drug Dosing 69.17 mL/min Estimated GFR (MDRD) > 60.0 ml/min Glucose 155 H (74-106) mg/dL Calcium 8.4 L (8.5-10.1) mg/dL Phosphorus 3.0 (2.6-4.7) mg/dL Magnesium 1.8 (1.8-2.4) mg/dL Result Diagrams: 02/03/21 05:40 02/03/21 05:40 Sepsis Event Note - Evaluation Sepsis Screening Result: No Definite Risk - Focused Exam Vital Signs: Vital Signs Temp Pulse Resp BP Pulse Ox 02/03/21 11:17 37.2 C 75 16 96/55 L 88 L 02/03/21 07:55 36.4 C 72 16 114/59 L 89 L 02/03/21 03:34 36.9 C 65 16 88/51 L 88 L 02/03/21 01:00 36.3 C 59 L 16 93/54 L 92 L - Problem List & Annotations (1) Acute hypercapnic respiratory failure SNOMED Code(s): 022772498 Code(s): J96.02 - ACUTE RESPIRATORY FAILURE WITH HYPERCAPNIA Status: Acute Current Visit: No (2) BPH (benign prostatic hyperplasia) SNOMED Code(s): 894536893 Code(s): N40.0 - BENIGN PROSTATIC HYPERPLASIA WITHOUT LOWER URINRY TRACT SYMP Status: Acute Current Visit: No (3) CHF (congestive heart failure) SNOMED Code(s): 50402324 Code(s): I50.9 - HEART FAILURE, UNSPECIFIED Status: Acute Current Visit: No (4) COPD exacerbation SNOMED Code(s): 636682000 Code(s): J44.1 - CHRONIC OBSTRUCTIVE PULMONARY DISEASE W (ACUTE) EXACERBATION Status: Acute Current Visit: No - Problem List Review Problem List Initiated/Reviewed/Updated: Yes - My Orders Last 24 Hours: My Active Orders 02/03/21 06:00 Azithromycin [Zithromax] 500 mg Sodium Chloride 0.9% [Normal Saline (AdvBag)] 250 ml IV Q24H - Plan Plan:: Assessment and Plan: 1. Acute on chronic hypoxic hypercapnic respiratory failure secondary to COPD exacerbation: ABG has improved, will keep off Bipap for few hours, resume BIPAP as night - Continue DuoNebs q4h DINORAH and IV solumedrol 40 mg q12h. cont IV azithromycin qd. Will continue to monitor respiratory status. Patients appears to be tolerati ng BiPAP well and is well compensated for hypercapnia. Counselled on smoking cessation. Discussed code status with patient , he is DNR/DNI with possibility of going to palliative in near future. Toradol for chronic back pain as needed 2. DVT prophylaxis: Lovenox. 3. PT consult
[2021-02-03] MEDS: Tamsulosin 0.4 MG Cap.ER PO SCH (21:01)
[2021-02-03] MEDS: Pantoprazole 40 MG Vial IV SCH (21:03)
[2021-02-03] MEDS: Ketorolac 15 MG/ML SDV IVPUSH PRN (22:05)
[2021-02-03] MEDS: Enoxaparin 40 MG/0.4 ML Syringe SUBCUT SCH (22:10)
[2021-02-04] MEDS: Albuterol/Ipratropium 3.0-0.5 MG/3 ML Neb Soln NEB SCH ×6 (02:06→22:35)
[2021-02-04] MEDS: Lactated Ringers 1,000 ML IV SCH ×3 (04:53→22:34)
[2021-02-04] MEDS: methylPREDNISolone Sodium Succinate 40 MG/1 ML SDV IVPUSH SCH (04:54)
[2021-02-04] MEDS: Azithromycin 500 MG in Sodium Chloride 0.9% 250 ML IV SCH (05:55)
[2021-02-04] MEDS: Levothyroxine 150 MCG Tab PO SCH (06:36)
[2021-02-04 06:55] LABS: BLOOD UREA NITROGEN,BUN 19 mg/dL (7.0-18.0); CARBON DIOXIDE,CO2 36.4 mmol/L (21.0-32.0); CHLORIDE,CL 101 mmol/L (98-107); GLUCOSE RANDOM 114 mg/dL (74-106); POTASSIUM,K 4.5 mmol/L (3.5-5.1); SODIUM,NA 137 mmol/L (136-148)
[2021-02-04] MEDS: Carvedilol 3.125 MG Tab PO SCH ×2 (08:35→21:16)
[2021-02-04] MEDS: Aspirin 81 MG Tab.EC PO SCH (08:36)
[2021-02-04] MEDS: Modafinil 100 MG Tab PO SCH (08:36)
[2021-02-04] MEDS: Fluticasone/Salmeterol 100-50 MCG Inhalation Powder 14/Diskus INH SCH ×2 (10:26→21:17)
[2021-02-04] MEDS: Ketorolac 15 MG/ML SDV IVPUSH PRN ×2 (10:29→19:31)
--- NOTE | 2021-02-04 11:24 | PCM.PN ---
- General Info Date of Service: 02/04/21 Admission Dx/Problem (Free Text): Admission Diagnosis/Problem Admission Diagnosis/Problem Hypercapnia Subjective Update: Patient seen at bedside, feeling better, no chest pain, no worsening sob, back pain better, getting his nails cleaned, spoke to family over the phone at bedside, updated Functional Status: Reports: Tolerating Diet, Ambulating, Urinating - Review of Systems General: Reports: Weakness, Fatigue. Denies: Fever Pulmonary: Reports: Shortness of Breath, Pleuritic Chest Pain, Cough Cardiovascular: Reports: Dyspnea on Exertion. Denies: Chest Pain, Palpitations Gastrointestinal: Denies: Abdominal Pain, Constipation, Decreased Appetite Genitourinary: Denies: Dysuria, Frequency, Burning Musculoskeletal: Denies: Neck Pain, Shoulder Pain, Arm Pain, Hand Pain - Patient Data Vitals - Most Recent: Last Vital Signs Temp 36.4 C 02/04/21 07:57 Pulse 67 02/04/21 08:35 Resp 16 02/04/21 07:57 BP 115/75 02/04/21 08:35 Pulse Ox 98 02/04/21 07:57 Weight - Most Recent: 67 kg I&O - Last 24 Hours: Intake & Output 02/03/21 02/04/21 02/04/21 22:59 06:59 14:59 Intake Total 2270 1746 Output Total 1175 875 Balance 1095 871 Lab Results Last 24 Hours: Laboratory Results - last 24 hr 02/04/21 02/04/21 Range/Units 06:20 06:20 WBC 7.07 (4.0-11.0) K/uL RBC 3.89 L (4.50-5.90) M/uL Hgb 11.0 L (13.0-17.0) g/dL Hct 34.9 L (38.0-50.0) % MCV 89.7 (80.0-98.0) fL MCH 28.3 (27.0-32.0) pg MCHC 31.5 (31.0-37.0) g/dL RDW Std Deviation 60.1 (28.0-62.0) fl RDW Coeff of Dalton 18 H (11.0-15.0) % Plt Count 176 (150-400) K/uL MPV 9.70 (7.40-12.00) fL Neut % (Auto) 75.4 (48.0-80.0) % Lymph % (Auto) 12.2 L (16.0-40.0) % [place] % (Auto) 12.4 (0.0-15.0) % Eos % (Auto) 0.0 (0.0-7.0) % Baso % (Auto) 0.0 (0.0-1.5) % Neut # (Auto) 5.3 (1.4-5.7) K/uL Lymph # (Auto) 0.9 (0.6-2.4) K/uL [place] # (Auto) 0.9 H (0.0-0.8) K/uL Eos # (Auto) 0.0 (0.0-0.7) K/uL Baso # (Auto) 0.0 (0.0-0.1) K/uL Nucleated RBC % 0.0 /100WBC Nucleated RBCs # 0 K/uL Sodium 137 (136-148) mmol/L Potassium 4.5 (3.5-5.1) mmol/L Chloride 101 (98-107) mmol/L Carbon Dioxide 36.4 H (21.0-32.0) mmol/L BUN 19 H (7.0-18.0) mg/dL Creatinine 0.8 (0.8-1.3) mg/dL Est Cr Clr Drug Dosing 83.75 mL/min Estimated GFR (MDRD) > 60.0 ml/min Glucose 114 H (74-106) mg/dL Calcium 8.6 (8.5-10.1) mg/dL Phosphorus 3.4 (2.6-4.7) mg/dL Magnesium 1.9 (1.8-2.4) mg/dL Med Orders - Current: Current Medications Acetaminophen (Acetaminophen 325 Mg Tab) 650 mg PO Q6H PRN PRN Reason: Pain Last Admin: 02/01/21 23:50 Dose: 650 mg Documented by: Albuterol/Ipratropium (Albuterol/Ipratropium 3.0-0.5 Mg/3 Ml Neb Soln) 3 ml NEB Q4HRRT [facility] Last Admin: 02/04/21 10:26 Dose: 3 ml Documented by: Aspirin (Aspirin 81 Mg Tab.Ec) 81 mg PO DAILY [facility] Last Admin: 02/04/21 08:36 Dose: 81 mg Documented by: Carvedilol (Carvedilol 3.125 Mg Tab) 3.125 mg PO BID [facility] Last Admin: 02/04/21 08:35 Dose: 3.125 mg Documented by: Enoxaparin Sodium (Enoxaparin 40 Mg/0.4 Ml Syringe) 40 mg SUBCUT Q24H [facility] Last Admin: 02/03/21 22:10 Dose: 40 mg Documented by: Furosemide (Furosemide 40 Mg Tab) 20 mg PO DAILY PRN PRN Reason: Edema Lactated Ringer's (Ringers, Lactated) 1,000 mls @ 125 mls/hr IV ASDIRECTED [facility] Last Admin: 02/04/21 04:53 Dose: 125 mls/hr Documented by: Azithromycin 500 mg/ Sodium (Chloride) 250 mls @ 250 mls/hr IV Q24H [facility] Last Admin: 02/04/21 05:55 Dose: 250 mls/hr Documented by: Ketorolac Tromethamine (Ketorolac 15 Mg/Ml Sdv) 15 mg IVPUSH Q6H PRN PRN Reason: Pain Stop: 02/08/21 11:24 Last Admin: 02/04/21 10:29 Dose: 15 mg Documented by: Levothyroxine Sodium (Levothyroxine 150 Mcg Tab) 150 mcg PO ACBREAKFAST [facility] Last Admin: 02/04/21 06:36 Dose: 150 mcg Documented by: Modafinil (Modafinil 100 Mg Tab) 500 mg PO DAILY [facility] Last Admin: 02/04/21 08:36 Dose: 500 mg Documented by: Ondansetron HCl (Ondansetron 4 Mg/2 Ml Sdv) 4 mg IVPUSH Q4H PRN PRN Reason: Nausea/Vomiting Pantoprazole Sodium (Pantoprazole 40 Mg Vial) 40 mg IV QPM@2100 [facility] Last Admin: 02/03/21 21:03 Dose: 40 mg Documented by: Prednisone (Prednisone 20 Mg Tab) 40 mg PO WITHBREAKFAST [facility] Fluticasone/Salmeterol (Fluticasone/Salmeterol 100-50 Mcg Inhalation Powder 14/Diskus) 1 puff INH BID [facility] Last Admin: 02/04/21 10:26 Dose: 1 puff Documented by: Tamsulosin HCl (Tamsulosin 0.4 Mg Cap.Er) 0.4 mg PO BEDTIME [facility] Last Admin: 02/03/21 21:01 Dose: 0.4 mg Documented by: Discontinued Medications Carvedilol (Carvedilol 3.125 Mg Tab) 9.375 mg PO BID [facility] Carvedilol (Carvedilol 3.125 Mg Tab) 3.125 mg PO BID [facility] Last Admin: 02/02/21 09:58 Dose: Not Given Documented by: Azithromycin 500 mg/ Sodium (Chloride) 250 mls @ 250 mls/hr IV ONETIME [facility] Last Admin: 02/02/21 05:27 Dose: 250 mls/hr Documented by: Ketorolac Tromethamine (Ketorolac 30 Mg/Ml Sdv) 30 mg IVPUSH ONETIME ONE Stop: 02/02/21 11:12 Last Admin: 02/02/21 12:23 Dose: 30 mg Documented by: Magnesium Oxide (Magnesium Oxide 400 Mg Tab) 800 mg PO ONETIME ONE Stop: 02/02/21 11:12 Last Admin: 02/02/21 12:23 Dose: 800 mg Documented by: Methylprednisolone Sodium Succinate (Methylprednisolone Sodium Succinate 40 Mg/1 Ml Sdv) 40 mg IVPUSH Q8H [facility] Last Admin: 02/01/21 23:02 Dose: Not Given Documented by: Methylprednisolone Sodium Succinate (Methylprednisolone Sodium Succinate 40 Mg/1 Ml Sdv) 40 mg IVPUSH Q8H [facility] Last Admin: 02/03/21 05:18 Dose: 40 mg Documented by: Methylprednisolone Sodium Succinate (Methylprednisolone Sodium Succinate 40 Mg/1 Ml Sdv) 40 mg IVPUSH Q12H [facility] Last Admin: 02/04/21 04:54 Dose: 40 mg Documented by: Pantoprazole Sodium (Pantoprazole 40 Mg Vial) 40 mg IV DAILY [facility] Last Admin: 02/01/21 23:02 Dose: Not Given Documented by: - Exam Quality Assessment: Supplemental Oxygen General: Alert, Oriented Neck: Supple Lungs: Clear to Auscultation, Normal Respiratory Effort Cardiovascular: Regular Rate, Regular Rhythm GI/Abdominal Exam: Normal Bowel Sounds, Soft, Non-Tender - Patient Data Lab Results Last 24 hrs: Laboratory Results - last 24 hr 02/04/21 02/04/21 Range/Units 06:20 06:20 WBC 7.07 (4.0-11.0) K/uL RBC 3.89 L (4.50-5.90) M/uL Hgb 11.0 L (13.0-17.0) g/dL Hct 34.9 L (38.0-50.0) % MCV 89.7 (80.0-98.0) fL MCH 28.3 (27.0-32.0) pg MCHC 31.5 (31.0-37.0) g/dL RDW Std Deviation 60.1 (28.0-62.0) fl RDW Coeff of [place] 18 H (11.0-15.0) % Plt Count 176 (150-400) K/uL MPV 9.70 (7.40-12.00) fL Neut % (Auto) 75.4 (48.0-80.0) % Lymph % (Auto) 12.2 L (16.0-40.0) % [place] % (Auto) 12.4 (0.0-15.0) % Eos % (Auto) 0.0 (0.0-7.0) % Baso % (Auto) 0.0 (0.0-1.5) % Neut # (Auto) 5.3 (1.4-5.7) K/uL Lymph # (Auto) 0.9 (0.6-2.4) K/uL [place] # (Auto) 0.9 H (0.0-0.8) K/uL Eos # (Auto) 0.0 (0.0-0.7) K/uL Baso # (Auto) 0.0 (0.0-0.1) K/uL Nucleated RBC % 0.0 /100WBC Nucleated RBCs # 0 K/uL Sodium 137 (136-148) mmol/L Potassium 4.5 (3.5-5.1) mmol/L Chloride 101 (98-107) mmol/L Carbon Dioxide 36.4 H (21.0-32.0) mmol/L BUN 19 H (7.0-18.0) mg/dL Creatinine 0.8 (0.8-1.3) mg/dL Est Cr Clr Drug Dosing 83.75 mL/min Estimated GFR (MDRD) > 60.0 ml/min Glucose 114 H (74-106) mg/dL Calcium 8.6 (8.5-10.1) mg/dL Phosphorus 3.4 (2.6-4.7) mg/dL Magnesium 1.9 (1.8-2.4) mg/dL Result Diagrams: 02/04/21 06:20 02/04/21 06:20 Sepsis Event Note - Evaluation Sepsis Screening Result: No Definite Risk - Focused Exam Vital Signs: Vital Signs Temp Pulse Pulse Resp BP BP Pulse Ox 02/04/21 08:35 67 115/75 02/04/21 07:57 36.4 C 67 16 115/75 98 02/04/21 02:12 36.4 C 64 21 H 126/74 96 02/03/21 23:30 36.3 C 97 24 H 116/71 97 - Problem List & Annotations (1) Acute hypercapnic respiratory failure SNOMED Code(s): 618426809 Code(s): J96.02 - ACUTE RESPIRATORY FAILURE WITH HYPERCAPNIA Status: Acute Current Visit: No (2) BPH (benign prostatic hyperplasia) SNOMED Code(s): 764233715 Code(s): N40.0 - BENIGN PROSTATIC HYPERPLASIA WITHOUT LOWER URINRY TRACT SYMP Status: Acute Current Visit: No (3) CHF (congestive heart failure) SNOMED Code(s): 99755509 Code(s): I50.9 - HEART FAILURE, UNSPECIFIED Status: Acute Current Visit: No (4) COPD exacerbation SNOMED Code(s): 198096359 Code(s): J44.1 - CHRONIC OBSTRUCTIVE PULMONARY DISEASE W (ACUTE) EXACERBATION Status: Acute Current Visit: No - Problem List Review Problem List Initiated/Reviewed/Updated: Yes - My Orders Last 24 Hours: My Active Orders 02/03/21 11:24 PT Evaluation and Treatment [CONS] Routine Ketorolac [Toradol] 15 mg IVPUSH Q6H PRN - Plan Plan:: Assessment and Plan: 1. Acute on chronic hypoxic hypercapnic respiratory failure secondary to COPD exacerbation: ABG has improved, will keep off Bipap for few hours, resume BIPAP as night - Continue DuoNebs q4h DINORAH and switched to prednisone. cont IV azithromycin qd. Will continue to monitor respiratory status. Patients appears to be tolerating BiPAP well and is well compensated for hypercapnia. Counselled on smoking cessation. Discussed code status with patient , he is DNR/DNI with possibility of going to palliative in near future. Toradol for chronic back pain as needed 2. DVT prophylaxis: Lovenox. 3. PT consult for ambulating and strengthening
[2021-02-04] MEDS ORDERED: INTERFERON BETA 30 MCG/0.5 ML IM SCH (12:00)
[2021-02-04] MEDS: Tamsulosin 0.4 MG Cap.ER PO SCH (21:16)
[2021-02-04] MEDS: Pantoprazole 40 MG Vial IV SCH (21:17)
[2021-02-04] MEDS: Enoxaparin 40 MG/0.4 ML Syringe SUBCUT SCH (22:35)
[2021-02-05] MEDS: Albuterol/Ipratropium 3.0-0.5 MG/3 ML Neb Soln NEB SCH ×6 (02:54→22:42)
[2021-02-05] MEDS: Azithromycin 500 MG in Sodium Chloride 0.9% 250 ML IV SCH (05:53)
[2021-02-05] MEDS: Lactated Ringers 1,000 ML IV SCH ×2 (05:55→15:43)
[2021-02-05 06:31] LABS: BLOOD UREA NITROGEN,BUN 19 mg/dL (7.0-18.0); CARBON DIOXIDE,CO2 36.8 mmol/L (21.0-32.0); CHLORIDE,CL 105 mmol/L (98-107); GLUCOSE RANDOM 89 mg/dL (74-106); POTASSIUM,K 4.4 mmol/L (3.5-5.1); SODIUM,NA 140 mmol/L (136-148)
[2021-02-05] MEDS: Levothyroxine 150 MCG Tab PO SCH (07:39)
[2021-02-05] MEDS: Ketorolac 15 MG/ML SDV IVPUSH PRN (07:43)
[2021-02-05] MEDS: predniSONE 20 MG Tab PO SCH (07:44)
[2021-02-05] MEDS: Aspirin 81 MG Tab.EC PO SCH (08:35)
[2021-02-05] MEDS: Fluticasone/Salmeterol 100-50 MCG Inhalation Powder 14/Diskus INH SCH ×2 (08:35→20:18)
[2021-02-05] MEDS: Carvedilol 3.125 MG Tab PO SCH ×2 (08:36→20:17)
[2021-02-05] MEDS: Modafinil 100 MG Tab PO SCH (08:36)
[2021-02-05] MEDS ORDERED: Magnesium Sulfate/Water 2 GM/50 ML BAG IV ONE (10:32)
--- NOTE | 2021-02-05 12:04 | PCM.DCSUM1 ---
Discharge Summary - Hospital Course Diagnosis: Stroke: No - Discharge Data Discharge Date: 02/05/21 Discharge Disposition: Home, Self-Care 01 Condition: Stable - Referral to Home Health Primary Care Physician: Geo Rivas NP - Discharge Diagnosis/Problem(s) (1) Acute hypercapnic respiratory failure SNOMED Code(s): 778422952 ICD Code: J96.02 - ACUTE RESPIRATORY FAILURE WITH HYPERCAPNIA Status: Acute Current Visit: No (2) BPH (benign prostatic hyperplasia) SNOMED Code(s): 644749344 ICD Code: N40.0 - BENIGN PROSTATIC HYPERPLASIA WITHOUT LOWER URINRY TRACT SYMP Status: Acute Current Visit: No (3) CHF (congestive heart failure) SNOMED Code(s): 85744117 ICD Code: I50.9 - HEART FAILURE, UNSPECIFIED Status: Acute Current Visit: No (4) COPD exacerbation SNOMED Code(s): 727743682 ICD Code: J44.1 - CHRONIC OBSTRUCTIVE PULMONARY DISEASE W (ACUTE) EXACERBATION Status: Acute Current Visit: No - Patient Summary/Data Consults: Consultations 02/03/21 11:24 PT Evaluation and Treatment [CONS] Routine 02/04/21 11:24 Consult to Home Health [CONS] Routine - Patient Instructions Diet: Regular Diet as Tolerated Activity: As Tolerated Driving: Do Not Drive Showering/Bathing: May Shower Notify Provider of: Fever, Increased Pain, Swelling and Redness, Nausea and/or Vomiting - Discharge Plan *PRESCRIPTION DRUG MONITORING PROGRAM REVIEWED*: Not Applicable *COPY OF PRESCRIPTION DRUG MONITORING REPORT IN PATIENT INES: Not Applicable Prescriptions/Med Rec: Budesonide/Formoterol Fumarate [Budesonide-Formoterol 160-4.5] 10.2 gm IH DAILY #1 hfa.aer.ad carvediloL [Coreg] 3.125 mg PO BID #30 tablet predniSONE 40 mg PO WITHBREAKFAST #5 tablet Azithromycin [Zithromax] 250 mg PO DAILY #2 tab Home Medications: Home Meds Cholecalciferol (Vitamin D3) [Vitamin D3] 2,000 unit PO DAILY 05/14/20 [History] Furosemide 20 mg PO DAILY PRN 05/14/20 [History] Pregabalin 50 mg PO BID 05/14/20 [History] Aspirin [Halfprin] 81 mg PO DAILY 05/15/20 [History] Interferon Beta-1a [Avonex] 30 mcg IM WEEKLY 05/15/20 [History] Simvastatin 5 mg PO BEDTIME 05/15/20 [History] Tamsulosin HCl 0.4 mg PO BEDTIME 05/15/20 [History] Albuterol/Ipratropium [DuoNeb 3.0-0.5 MG/3 ML] 3 ml NEB Q6H 05/26/20 [History] Modafinil [Provigil] 500 mg PO DAILY 05/26/20 [History] Levothyroxine 150 mcg PO ACBREAKFAST 09/17/20 [History] Azithromycin [Zithromax] 250 mg PO DAILY #2 tab 02/05/21 [Rx] Budesonide/Formoterol Fumarate [Budesonide-Formoterol 160-4.5] 10.2 gm IH DAILY #1 hfa.aer.ad 02/05/21 [Rx] carvediloL [Coreg] 3.125 mg PO BID #30 tablet 02/05/21 [Rx] predniSONE 40 mg PO WITHBREAKFAST #5 tablet 02/05/21 [Rx] Referrals: Geo Rivas [employer] POLICY MANAGER [Primary Care Provider] - 02/22/21 12:30 pm - Patient Data Vitals - Most Recent: Last Vital Signs Temp 37.2 C 02/05/21 08:29 Pulse 69 02/05/21 08:36 Resp 18 02/05/21 08:29 BP 138/79 02/05/21 08:36 Pulse Ox 89 L 02/05/21 08:29 Weight - Most Recent: 67 kg I&O - Last 24 hours: Intake & Output 02/04/21 02/05/21 02/05/21 22:59 06:59 14:59 Intake Total 2300 850 Output Total 900 650 Balance 1400 200 Lab Results - Last 24 hrs: Laboratory Results - last 24 hr 02/05/21 02/05/21 Range/Units 05:39 05:39 WBC 6.70 (4.0-11.0) K/uL RBC 3.74 L (4.50-5.90) M/uL Hgb 10.4 L (13.0-17.0) g/dL Hct 33.5 L (38.0-50.0) % MCV 89.6 (80.0-98.0) fL MCH 27.8 (27.0-32.0) pg MCHC 31.0 (31.0-37.0) g/dL RDW Std Deviation 61.1 (28.0-62.0) fl RDW Coeff of Dalton 19 H (11.0-15.0) % Plt Count 179 (150-400) K/uL MPV 10.00 (7.40-12.00) fL Add Manual Diff YES Neutrophils % (Manual) 51 (48.0-80.0) % Band Neutrophils % 2 % Lymphocytes % (Manual) 22 (16.0-40.0) % Monocytes % (Manual) 25 H (0.0-15.0) % Nucleated RBC % 0.0 /100WBC Absolute Seg Neuts 3.4 (1.4-5.7) Band Neutrophils # 0.1 Lymphocytes # (Manual) 1.5 (0.6-2.4) Monocytes # (Manual) 1.7 H (0.0-0.8) Nucleated RBCs # 0 K/uL Sodium 140 (136-148) mmol/L Potassium 4.4 (3.5-5.1) mmol/L Chloride 105 (98-107) mmol/L Carbon Dioxide 36.8 H (21.0-32.0) mmol/L BUN 19 H (7.0-18.0) mg/dL Creatinine 0.8 (0.8-1.3) mg/dL Est Cr Clr Drug Dosing 83.75 mL/min Estimated GFR (MDRD) > 60.0 ml/min Glucose 89 (74-106) mg/dL Calcium 8.1 L (8.5-10.1) mg/dL Phosphorus 3.4 (2.6-4.7) mg/dL Magnesium 1.7 L (1.8-2.4) mg/dL Med Orders - Current: Current Medications Acetaminophen (Acetaminophen 325 Mg Tab) 650 mg PO Q6H PRN PRN Reason: Pain Last Admin: 02/01/21 23:50 Dose: 650 mg Documented by: Albuterol/Ipratropium (Albuterol/Ipratropium 3.0-0.5 Mg/3 Ml Neb Soln) 3 ml NEB Q4HRRT [facility] Last Admin: 02/05/21 10:02 Dose: 3 ml Documented by: Aspirin (Aspirin 81 Mg Tab.Ec) 81 mg PO DAILY [facility] Last Admin: 02/05/21 08:35 Dose: 81 mg Documented by: Carvedilol (Carvedilol 3.125 Mg Tab) 3.125 mg PO BID [facility] Last Admin: 02/05/21 08:36 Dose: 3.125 mg Documented by: Enoxaparin Sodium (Enoxaparin 40 Mg/0.4 Ml Syringe) 40 mg SUBCUT Q24H [facility] Last Admin: 02/04/21 22:35 Dose: 40 mg Documented by: Furosemide (Furosemide 40 Mg Tab) 20 mg PO DAILY PRN PRN Reason: Edema Lactated Ringer's (Ringers, Lactated) 1,000 mls @ 125 mls/hr IV ASDIRECTED [facility] Last Admin: 02/05/21 05:55 Dose: 125 mls/hr Documented by: Azithromycin 500 mg/ Sodium (Chloride) 250 mls @ 250 mls/hr IV Q24H [facility] Last Admin: 02/05/21 05:53 Dose: 250 mls/hr Documented by: Ketorolac Tromethamine (Ketorolac 15 Mg/Ml Sdv) 15 mg IVPUSH Q6H PRN PRN Reason: Pain Stop: 02/08/21 11:24 Last Admin: 02/05/21 07:43 Dose: 15 mg Documented by: Levothyroxine Sodium (Levothyroxine 150 Mcg Tab) 150 mcg PO ACBREAKFAST [facility] Last Admin: 02/05/21 07:39 Dose: 150 mcg Documented by: Modafinil (Modafinil 100 Mg Tab) 500 mg PO DAILY [facility] Last Admin: 02/05/21 08:36 Dose: 500 mg Documented by: Ondansetron HCl (Ondansetron 4 Mg/2 Ml Sdv) 4 mg IVPUSH Q4H PRN PRN Reason: Nausea/Vomiting Pantoprazole Sodium (Pantoprazole 40 Mg Vial) 40 mg IV QPM@2100 [facility] Last Admin: 02/04/21 21:17 Dose: 40 mg Documented by: Interferon Beta-1a [ Avonex] 30 Mcg/0.5 Ml Syringe 1 each IM Q7D [facility] Last Admin: 02/04/21 11:51 Dose: 1 each Documented by: Prednisone (Prednisone 20 Mg Tab) 40 mg PO WITHBREAKFAST [facility] Last Admin: 02/05/21 07:44 Dose: 40 mg Documented by: Fluticasone/Salmeterol (Fluticasone/Salmeterol 100-50 Mcg Inhalation Powder 14/Diskus) 1 puff INH BID [facility] Last Admin: 02/05/21 08:35 Dose: 1 puff Documented by: Tamsulosin HCl (Tamsulosin 0.4 Mg Cap.Er) 0.4 mg PO BEDTIME [facility] Last Admin: 02/04/21 21:16 Dose: 0.4 mg Documented by: Discontinued Medications Carvedilol (Carvedilol 3.125 Mg Tab) 9.375 mg PO BID [facility] Carvedilol (Carvedilol 3.125 Mg Tab) 3.125 mg PO BID [facility] Last Admin: 02/02/21 09:58 Dose: Not Given Documented by: Azithromycin 500 mg/ Sodium (Chloride) 250 mls @ 250 mls/hr IV ONETIME [facility] Last Admin: 02/02/21 05:27 Dose: 250 mls/hr Documented by: Magnesium Sulfate (Magnesium Sulfate In Water 2 Gm/50 Ml) 2 gm in 50 mls @ 50 mls/hr IV ONETIME ONE Stop: 02/05/21 11:31 Last Admin: 02/05/21 10:46 Dose: 50 mls/hr Documented by: Ketorolac Tromethamine (Ketorolac 30 Mg/Ml Sdv) 30 mg IVPUSH ONETIME ONE Stop: 02/02/21 11:12 Last Admin: 02/02/21 12:23 Dose: 30 mg Documented by: Magnesium Oxide (Magnesium Oxide 400 Mg Tab) 800 mg PO ONETIME ONE Stop: 02/02/21 11:12 Last Admin: 02/02/21 12:23 Dose: 800 mg Documented by: Methylprednisolone Sodium Succinate (Methylprednisolone Sodium Succinate 40 Mg/1 Ml Sdv) 40 mg IVPUSH Q8H [facility] Last Admin: 02/01/21 23:02 Dose: Not Given Documented by: Methylprednisolone Sodium Succinate (Methylprednisolone Sodium Succinate 40 Mg/1 Ml Sdv) 40 mg IVPUSH Q8H [facility] Last Admin: 02/03/21 05:18 Dose: 40 mg Documented by: Methylprednisolone Sodium Succinate (Methylprednisolone Sodium Succinate 40 Mg/1 Ml Sdv) 40 mg IVPUSH Q12H [facility] Last Admin: 02/04/21 04:54 Dose: 40 mg Documented by: Pantoprazole Sodium (Pantoprazole 40 Mg Vial) 40 mg IV DAILY [facility] Last Admin: 02/01/21 23:02 Dose: Not Given Documented by:
--- NOTE | 2021-02-05 13:09 | PCM.PN ---
- General Info Date of Service: 02/05/21 Admission Dx/Problem (Free Text): Admission Diagnosis/Problem Admission Diagnosis/Problem Hypercapnia Subjective Update: Patient seen at bedside, feeling better, no chest pain, no worsening sob, back pain better, getting his nails cleaned, spoke to family over the phone at bedside, updated Functional Status: Reports: Pain Controlled, Tolerating Diet, Ambulating - Review of Systems General: Reports: Weakness, Fatigue, Malaise. Denies: Fever Pulmonary: Denies: Shortness of Breath, Pleuritic Chest Pain Cardiovascular: Denies: Chest Pain, Palpitations Gastrointestinal: Denies: Abdominal Pain, Constipation, Decreased Appetite Genitourinary: Denies: Dysuria, Frequency, Burning Musculoskeletal: Denies: Neck Pain, Shoulder Pain, Arm Pain Skin: Denies: Cyanosis, Jaundice, Mottled, Pallor Neurological: Denies: Confusion, Dizziness, Headache - Patient Data Vitals - Most Recent: Last Vital Signs Temp 37.2 C 02/05/21 08:29 Pulse 69 02/05/21 08:36 Resp 18 02/05/21 08:29 BP 138/79 02/05/21 08:36 Pulse Ox 89 L 02/05/21 08:29 Weight - Most Recent: 67 kg I&O - Last 24 Hours: Intake & Output 02/04/21 02/05/21 02/05/21 22:59 06:59 14:59 Intake Total 2300 850 Output Total 900 650 Balance 1400 200 Lab Results Last 24 Hours: Laboratory Results - last 24 hr 02/05/21 02/05/21 Range/Units 05:39 05:39 WBC 6.70 (4.0-11.0) K/uL RBC 3.74 L (4.50-5.90) M/uL Hgb 10.4 L (13.0-17.0) g/dL Hct 33.5 L (38.0-50.0) % MCV 89.6 (80.0-98.0) fL MCH 27.8 (27.0-32.0) pg MCHC 31.0 (31.0-37.0) g/dL RDW Std Deviation 61.1 (28.0-62.0) fl RDW Coeff of Dalton 19 H (11.0-15.0) % Plt Count 179 (150-400) K/uL MPV 10.00 (7.40-12.00) fL Add Manual Diff YES Neutrophils % (Manual) 51 (48.0-80.0) % Band Neutrophils % 2 % Lymphocytes % (Manual) 22 (16.0-40.0) % Monocytes % (Manual) 25 H (0.0-15.0) % Nucleated RBC % 0.0 /100WBC Absolute Seg Neuts 3.4 (1.4-5.7) Band Neutrophils # 0.1 Lymphocytes # (Manual) 1.5 (0.6-2.4) Monocytes # (Manual) 1.7 H (0.0-0.8) Nucleated RBCs # 0 K/uL Sodium 140 (136-148) mmol/L Potassium 4.4 (3.5-5.1) mmol/L Chloride 105 (98-107) mmol/L Carbon Dioxide 36.8 H (21.0-32.0) mmol/L BUN 19 H (7.0-18.0) mg/dL Creatinine 0.8 (0.8-1.3) mg/dL Est Cr Clr Drug Dosing 83.75 mL/min Estimated GFR (MDRD) > 60.0 ml/min Glucose 89 (74-106) mg/dL Calcium 8.1 L (8.5-10.1) mg/dL Phosphorus 3.4 (2.6-4.7) mg/dL Magnesium 1.7 L (1.8-2.4) mg/dL Med Orders - Current: Current Medications Acetaminophen (Acetaminophen 325 Mg Tab) 650 mg PO Q6H PRN PRN Reason: Pain Last Admin: 02/01/21 23:50 Dose: 650 mg Documented by: Albuterol/Ipratropium (Albuterol/Ipratropium 3.0-0.5 Mg/3 Ml Neb Soln) 3 ml NEB Q4HRRT [facility] Last Admin: 02/05/21 10:02 Dose: 3 ml Documented by: Aspirin (Aspirin 81 Mg Tab.Ec) 81 mg PO DAILY [facility] Last Admin: 02/05/21 08:35 Dose: 81 mg Documented by: Carvedilol (Carvedilol 3.125 Mg Tab) 3.125 mg PO BID [facility] Last Admin: 02/05/21 08:36 Dose: 3.125 mg Documented by: Enoxaparin Sodium (Enoxaparin 40 Mg/0.4 Ml Syringe) 40 mg SUBCUT Q24H [facility] Last Admin: 02/04/21 22:35 Dose: 40 mg Documented by: Furosemide (Furosemide 40 Mg Tab) 20 mg PO DAILY PRN PRN Reason: Edema Lactated Ringer's (Ringers, Lactated) 1,000 mls @ 125 mls/hr IV ASDIRECTED [facility] Last Admin: 02/05/21 05:55 Dose: 125 mls/hr Documented by: Azithromycin 500 mg/ Sodium (Chloride) 250 mls @ 250 mls/hr IV Q24H [facility] Last Admin: 02/05/21 05:53 Dose: 250 mls/hr Documented by: Ketorolac Tromethamine (Ketorolac 15 Mg/Ml Sdv) 15 mg IVPUSH Q6H PRN PRN Reason: Pain Stop: 02/08/21 11:24 Last Admin: 02/05/21 07:43 Dose: 15 mg Documented by: Levothyroxine Sodium (Levothyroxine 150 Mcg Tab) 150 mcg PO ACBREAKFAST [facility] Last Admin: 02/05/21 07:39 Dose: 150 mcg Documented by: Modafinil (Modafinil 100 Mg Tab) 500 mg PO DAILY [facility] Last Admin: 02/05/21 08:36 Dose: 500 mg Documented by: Ondansetron HCl (Ondansetron 4 Mg/2 Ml Sdv) 4 mg IVPUSH Q4H PRN PRN Reason: Nausea/Vomiting Pantoprazole Sodium (Pantoprazole 40 Mg Vial) 40 mg IV QPM@2100 [facility] Last Admin: 02/04/21 21:17 Dose: 40 mg Documented by: Interferon Beta-1a [ Avonex] 30 Mcg/0.5 Ml Syringe 1 each IM Q7D [facility] Last Admin: 02/04/21 11:51 Dose: 1 each Documented by: Prednisone (Prednisone 20 Mg Tab) 40 mg PO WITHBREAKFAST [facility] Last Admin: 02/05/21 07:44 Dose: 40 mg Documented by: Fluticasone/Salmeterol (Fluticasone/Salmeterol 100-50 Mcg Inhalation Powder 14/Diskus) 1 puff INH BID [facility] Last Admin: 02/05/21 08:35 Dose: 1 puff Documented by: Tamsulosin HCl (Tamsulosin 0.4 Mg Cap.Er) 0.4 mg PO BEDTIME [facility] Last Admin: 02/04/21 21:16 Dose: 0.4 mg Documented by: Discontinued Medications Carvedilol (Carvedilol 3.125 Mg Tab) 9.375 mg PO BID [facility] Carvedilol (Carvedilol 3.125 Mg Tab) 3.125 mg PO BID [facility] Last Admin: 02/02/21 09:58 Dose: Not Given Documented by: Azithromycin 500 mg/ Sodium (Chloride) 250 mls @ 250 mls/hr IV ONETIME [facility] Last Admin: 02/02/21 05:27 Dose: 250 mls/hr Documented by: Magnesium Sulfate (Magnesium Sulfate In Water 2 Gm/50 Ml) 2 gm in 50 mls @ 50 mls/hr IV ONETIME ONE Stop: 02/05/21 11:31 Last Admin: 02/05/21 10:46 Dose: 50 mls/hr Documented by: Ketorolac Tromethamine (Ketorolac 30 Mg/Ml Sdv) 30 mg IVPUSH ONETIME ONE Stop: 02/02/21 11:12 Last Admin: 02/02/21 12:23 Dose: 30 mg Documented by: Magnesium Oxide (Magnesium Oxide 400 Mg Tab) 800 mg PO ONETIME ONE Stop: 02/02/21 11:12 Last Admin: 02/02/21 12:23 Dose: 800 mg Documented by: Methylprednisolone Sodium Succinate (Methylprednisolone Sodium Succinate 40 Mg/1 Ml Sdv) 40 mg IVPUSH Q8H [facility] Last Admin: 02/01/21 23:02 Dose: Not Given Documented by: Methylprednisolone Sodium Succinate (Methylprednisolone Sodium Succinate 40 Mg/1 Ml Sdv) 40 mg IVPUSH Q8H [facility] Last Admin: 02/03/21 05:18 Dose: 40 mg Documented by: Methylprednisolone Sodium Succinate (Methylprednisolone Sodium Succinate 40 Mg/1 Ml Sdv) 40 mg IVPUSH Q12H [facility] Last Admin: 02/04/21 04:54 Dose: 40 mg Documented by: Pantoprazole Sodium (Pantoprazole 40 Mg Vial) 40 mg IV DAILY [facility] Last Admin: 02/01/21 23:02 Dose: Not Given Documented by: - Exam Quality Assessment: Supplemental Oxygen Neck: Supple Lungs: Clear to Auscultation, Decreased Breath Sounds Cardiovascular: Regular Rate, Regular Rhythm GI/Abdominal Exam: Normal Bowel Sounds, Soft, Non-Tender Back Exam: Normal Inspection, Full Range of Motion Extremities: Normal Inspection, Non-Tender Neurological: No New Focal Deficit Psy/Mental Status: Alert, Normal Affect - Patient Data Lab Results Last 24 hrs: Laboratory Results - last 24 hr 02/05/21 02/05/21 Range/Units 05:39 05:39 WBC 6.70 (4.0-11.0) K/uL RBC 3.74 L (4.50-5.90) M/uL Hgb 10.4 L (13.0-17.0) g/dL Hct 33.5 L (38.0-50.0) % MCV 89.6 (80.0-98.0) fL MCH 27.8 (27.0-32.0) pg MCHC 31.0 (31.0-37.0) g/dL RDW Std Deviation 61.1 (28.0-62.0) fl RDW Coeff of Dalton 19 H (11.0-15.0) % Plt Count 179 (150-400) K/uL MPV 10.00 (7.40-12.00) fL Add Manual Diff YES Neutrophils % (Manual) 51 (48.0-80.0) % Band Neutrophils % 2 % Lymphocytes % (Manual) 22 (16.0-40.0) % Monocytes % (Manual) 25 H (0.0-15.0) % Nucleated RBC % 0.0 /100WBC Absolute Seg Neuts 3.4 (1.4-5.7) Band Neutrophils # 0.1 Lymphocytes # (Manual) 1.5 (0.6-2.4) Monocytes # (Manual) 1.7 H (0.0-0.8) Nucleated RBCs # 0 K/uL Sodium 140 (136-148) mmol/L Potassium 4.4 (3.5-5.1) mmol/L Chloride 105 (98-107) mmol/L Carbon Dioxide 36.8 H (21.0-32.0) mmol/L BUN 19 H (7.0-18.0) mg/dL Creatinine 0.8 (0.8-1.3) mg/dL Est Cr Clr Drug Dosing 83.75 mL/min Estimated GFR (MDRD) > 60.0 ml/min Glucose 89 (74-106) mg/dL Calcium 8.1 L (8.5-10.1) mg/dL Phosphorus 3.4 (2.6-4.7) mg/dL Magnesium 1.7 L (1.8-2.4) mg/dL Result Diagrams: 02/05/21 05:39 02/05/21 05:39 Sepsis Event Note - Evaluation Sepsis Screening Result: No Definite Risk - Focused Exam Vital Signs: Vital Signs Temp Pulse Pulse Resp BP BP Pulse Ox 02/05/21 08:36 69 138/79 02/05/21 08:29 37.2 C 69 18 138/79 89 L 02/05/21 05:58 36.7 C 59 L 17 97/63 94 L 02/05/21 04:32 36.6 C 62 17 109/62 95 02/05/21 01:13 36.4 C 61 17 112/75 94 L - Problem List & Annotations (1) Acute hypercapnic respiratory failure SNOMED Code(s): 810034717 Code(s): J96.02 - ACUTE RESPIRATORY FAILURE WITH HYPERCAPNIA Status: Acute Current Visit: No (2) BPH (benign prostatic hyperplasia) SNOMED Code(s): 543906235 Code(s): N40.0 - BENIGN PROSTATIC HYPERPLASIA WITHOUT LOWER URINRY TRACT SYMP Status: Acute Current Visit: No (3) CHF (congestive heart failure) SNOMED Code(s): 76613218 Code(s): I50.9 - HEART FAILURE, UNSPECIFIED Status: Acute Current Visit: No (4) COPD exacerbation SNOMED Code(s): 952757707 Code(s): J44.1 - CHRONIC OBSTRUCTIVE PULMONARY DISEASE W (ACUTE) EXACERBATION Status: Acute Current Visit: No - Problem List Review Problem List Initiated/Reviewed/Updated: Yes - My Orders Last 24 Hours: My Active Orders 02/04/21 12:00 Patient's Own Medication [Ptom] 1 each IM Q7D - Plan Plan:: Assessment and Plan: 1. Acute on chronic hypoxic hypercapnic respiratory failure secondary to COPD exacerbation: ABG has improved, cont Bipap as tolerated, - Continue DuoNebs q4h DINORAH and switched to prednisone. cont IV azithromycin qd. -Counselled on smoking cessation. Discussed code status with patient , he is DNR/DNI with possibility of going to palliative in near future. -Toradol for chronic back pain as needed -Patient will be discharged tomorrow , he felt he needs one more day before he can go. -SW consulted to help with resources about home health - requested hospice consult 2. DVT prophylaxis: Lovenox. 3. PT consult for ambulating and strengthening
[2021-02-05] MEDS: Tamsulosin 0.4 MG Cap.ER PO SCH (20:17)
[2021-02-05] MEDS: Pantoprazole 40 MG Vial IV SCH (20:17)
[2021-02-05] MEDS: Enoxaparin 40 MG/0.4 ML Syringe SUBCUT SCH (22:42)
[2021-02-06] MEDS: Ketorolac 15 MG/ML SDV IVPUSH PRN ×2 (00:32→12:22)
[2021-02-06] MEDS: Lactated Ringers 1,000 ML IV SCH (00:34)
[2021-02-06] MEDS: Albuterol/Ipratropium 3.0-0.5 MG/3 ML Neb Soln NEB SCH ×3 (02:52→09:40)
[2021-02-06] MEDS: Levothyroxine 150 MCG Tab PO SCH (06:37)
[2021-02-06] MEDS: Azithromycin 500 MG in Sodium Chloride 0.9% 250 ML IV SCH (06:38)
[2021-02-06 06:48] LABS: BLOOD UREA NITROGEN,BUN 14 mg/dL (7.0-18.0); CARBON DIOXIDE,CO2 37.4 mmol/L (21.0-32.0); CHLORIDE,CL 103 mmol/L (98-107); GLUCOSE RANDOM 91 mg/dL (74-106); POTASSIUM,K 4.3 mmol/L (3.5-5.1); SODIUM,NA 140 mmol/L (136-148)
[2021-02-06] MEDS ORDERED: Magnesium Oxide 400 MG Tab PO ONE (08:17)
[2021-02-06] MEDS: Modafinil 100 MG Tab PO SCH (08:48)
[2021-02-06] MEDS: predniSONE 20 MG Tab PO SCH (08:48)
[2021-02-06] MEDS: Aspirin 81 MG Tab.EC PO SCH (08:48)
[2021-02-06] MEDS: Carvedilol 3.125 MG Tab PO SCH (08:49)
[2021-02-06] MEDS: Fluticasone/Salmeterol 100-50 MCG Inhalation Powder 14/Diskus INH SCH (08:51)
--- NOTE | 2021-02-06 11:30 | PCM.DCSUM1 ---
Discharge Summary - Hospital Course Diagnosis: Stroke: No - Discharge Data Discharge Date: 02/06/21 Discharge Disposition: Home, W Home Health Agency 06 Condition: Stable - Referral to Home Health Date of Face to Face Encounter: 02/06/21 Reason for Homebound Status: they are able to ambulate less than 20 feet before becoming SOB, needing to rest Primary Care Physician: Geo Rivas NP Skilled Need: PT strengthing due to weakness from deconditioning due to chroinc copd - Discharge Diagnosis/Problem(s) (1) Acute hypercapnic respiratory failure SNOMED Code(s): 863241555 ICD Code: J96.02 - ACUTE RESPIRATORY FAILURE WITH HYPERCAPNIA Status: Acute Current Visit: No (2) BPH (benign prostatic hyperplasia) SNOMED Code(s): 430086293 ICD Code: N40.0 - BENIGN PROSTATIC HYPERPLASIA WITHOUT LOWER URINRY TRACT SYMP Status: Acute Current Visit: No (3) CHF (congestive heart failure) SNOMED Code(s): 67028254 ICD Code: I50.9 - HEART FAILURE, UNSPECIFIED Status: Acute Current Visit: No (4) COPD exacerbation SNOMED Code(s): 353547045 ICD Code: J44.1 - CHRONIC OBSTRUCTIVE PULMONARY DISEASE W (ACUTE) EXACERBATION Status: Acute Current Visit: No - Patient Summary/Data Consults: Consultations 02/03/21 11:24 PT Evaluation and Treatment [CONS] Routine 02/04/21 11:24 Consult to Home Health [CONS] Routine 02/05/21 13:18 Consult to Case Management/Ecd [CONS] Routine Consult to Hospice [CONS] Routine - Patient Instructions Diet: Regular Diet as Tolerated Activity: As Tolerated Driving: Do Not Drive Showering/Bathing: May Shower Notify Provider of: Fever, Increased Pain, Swelling and Redness, Nausea and/or Vomiting - Discharge Plan *PRESCRIPTION DRUG MONITORING PROGRAM REVIEWED*: Not Applicable *COPY OF PRESCRIPTION DRUG MONITORING REPORT IN PATIENT INES: Not Applicable Prescriptions/Med Rec: Budesonide/Formoterol Fumarate [Budesonide-Formoterol 160-4.5] 10.2 gm IH DAILY #1 hfa.aer.ad carvediloL [Coreg] 3.125 mg PO BID #30 tablet predniSONE 40 mg PO WITHBREAKFAST #5 tablet Azithromycin [Zithromax] 250 mg PO DAILY #2 tab Home Medications: Home Meds Cholecalciferol (Vitamin D3) [Vitamin D3] 2,000 unit PO DAILY 05/14/20 [History] Furosemide 20 mg PO DAILY PRN 05/14/20 [History] Pregabalin 50 mg PO BID 05/14/20 [History] Aspirin [Halfprin] 81 mg PO DAILY 05/15/20 [History] Interferon Beta-1a [Avonex] 30 mcg IM WEEKLY 05/15/20 [History] Simvastatin 5 mg PO BEDTIME 05/15/20 [History] Tamsulosin HCl 0.4 mg PO BEDTIME 05/15/20 [History] Albuterol/Ipratropium [DuoNeb 3.0-0.5 MG/3 ML] 3 ml NEB Q6H 05/26/20 [History] Modafinil [Provigil] 500 mg PO DAILY 05/26/20 [History] Levothyroxine 150 mcg PO ACBREAKFAST 09/17/20 [History] Azithromycin [Zithromax] 250 mg PO DAILY #2 tab 02/05/21 [Rx] Budesonide/Formoterol Fumarate [Budesonide-Formoterol 160-4.5] 10.2 gm IH DAILY #1 hfa.aer.ad 02/05/21 [Rx] carvediloL [Coreg] 3.125 mg PO BID #30 tablet 02/05/21 [Rx] predniSONE 40 mg PO WITHBREAKFAST #5 tablet 02/05/21 [Rx] Patient Handouts: Chronic Obstructive Pulmonary Disease Exacerbation, [id number], Steps to Quit Smoking, [id number], Coping with Quitting Smoking, Budesonide inhalation solution, Carvedilol Tablets, Azithromycin tablets, Prednisone tablets Referrals: Geo Rivas NP [Primary Care Provider] - 02/22/21 12:30 pm - Patient Data Vitals - Most Recent: Last Vital Signs Temp 36.8 C 02/06/21 08:49 Pulse 64 02/06/21 08:49 Resp 16 02/06/21 08:49 BP 116/75 02/06/21 08:49 Pulse Ox 92 L 02/06/21 08:49 Weight - Most Recent: 67 kg I&O - Last 24 hours: Intake & Output 02/05/21 02/06/21 02/06/21 22:59 06:59 14:59 Intake Total 1714 0 Output Total 865 1300 Balance 1068 106 Lab Results - Last 24 hrs: Laboratory Results - last 24 hr 02/06/21 02/06/21 Range/Units 06:12 06:12 WBC 4.82 (4.0-11.0) K/uL RBC 3.72 L (4.50-5.90) M/uL Hgb 10.4 L (13.0-17.0) g/dL Hct 32.4 L (38.0-50.0) % MCV 87.1 (80.0-98.0) fL MCH 28.0 (27.0-32.0) pg MCHC 32.1 (31.0-37.0) g/dL RDW Std Deviation 56.0 (28.0-62.0) fl RDW Coeff of Dalton 18 H (11.0-15.0) % Plt Count 166 (150-400) K/uL MPV 9.70 (7.40-12.00) fL Add Manual Diff YES Neutrophils % (Manual) 36 L (48.0-80.0) % Lymphocytes % (Manual) 41 H (16.0-40.0) % Monocytes % (Manual) 22 H (0.0-15.0) % Eosinophils % (Manual) 1 (0.0-7.0) % Absolute Seg Neuts 1.7 (1.4-5.7) Lymphocytes # (Manual) 2.0 (0.6-2.4) Monocytes # (Manual) 1.1 H (0.0-0.8) Eosinophils # (Manual) 0.0 (0.0-0.7) Sodium 140 (136-148) mmol/L Potassium 4.3 (3.5-5.1) mmol/L Chloride 103 (98-107) mmol/L Carbon Dioxide 37.4 H (21.0-32.0) mmol/L BUN 14 (7.0-18.0) mg/dL Creatinine 0.7 L (0.8-1.3) mg/dL Est Cr Clr Drug Dosing 95.71 mL/min Estimated GFR (MDRD) > 60.0 ml/min Glucose 91 (74-106) mg/dL Calcium 7.9 L (8.5-10.1) mg/dL Phosphorus 4.0 (2.6-4.7) mg/dL Magnesium 1.9 (1.8-2.4) mg/dL Med Orders - Current: Current Medications Acetaminophen (Acetaminophen 325 Mg Tab) 650 mg PO Q6H PRN PRN Reason: Pain Last Admin: 02/01/21 23:50 Dose: 650 mg Documented by: Albuterol/Ipratropium (Albuterol/Ipratropium 3.0-0.5 Mg/3 Ml Neb Soln) 3 ml NEB Q4HRRT [facility] Last Admin: 02/06/21 09:40 Dose: 3 ml Documented by: Aspirin (Aspirin 81 Mg Tab.Ec) 81 mg PO DAILY [facility] Last Admin: 02/06/21 08:48 Dose: 81 mg Documented by: Carvedilol (Carvedilol 3.125 Mg Tab) 3.125 mg PO BID [facility] Last Admin: 02/06/21 08:49 Dose: 3.125 mg Documented by: Enoxaparin Sodium (Enoxaparin 40 Mg/0.4 Ml Syringe) 40 mg SUBCUT Q24H [facility] Last Admin: 02/05/21 22:42 Dose: 40 mg Documented by: Furosemide (Furosemide 40 Mg Tab) 20 mg PO DAILY PRN PRN Reason: Edema Lactated Ringer's (Ringers, Lactated) 1,000 mls @ 125 mls/hr IV ASDIRECTED [facility] Last Admin: 02/06/21 00:34 Dose: 125 mls/hr Documented by: Azithromycin 500 mg/ Sodium (Chloride) 250 mls @ 250 mls/hr IV Q24H [facility] Last Admin: 02/06/21 06:38 Dose: 250 mls/hr Documented by: Ketorolac Tromethamine (Ketorolac 15 Mg/Ml Sdv) 15 mg IVPUSH Q6H PRN PRN Reason: Pain Stop: 02/08/21 11:24 Last Admin: 02/06/21 00:32 Dose: 15 mg Documented by: Levothyroxine Sodium (Levothyroxine 150 Mcg Tab) 150 mcg PO ACBREAKFAST [facility] Last Admin: 02/06/21 06:37 Dose: 150 mcg Documented by: Modafinil (Modafinil 100 Mg Tab) 500 mg PO DAILY [facility] Last Admin: 02/06/21 08:48 Dose: 500 mg Documented by: Ondansetron HCl (Ondansetron 4 Mg/2 Ml Sdv) 4 mg IVPUSH Q4H PRN PRN Reason: Nausea/Vomiting Pantoprazole Sodium (Pantoprazole 40 Mg Vial) 40 mg IV QPM@2100 [facility] Last Admin: 02/05/21 20:17 Dose: 40 mg Documented by: Interferon Beta-1a [ Avonex] 30 Mcg/0.5 Ml Syringe 1 each IM Q7D [facility] Last Admin: 02/04/21 11:51 Dose: 1 each Documented by: Prednisone (Prednisone 20 Mg Tab) 40 mg PO WITHBREAKFAST [facility] Last Admin: 02/06/21 08:48 Dose: 40 mg Documented by: Fluticasone/Salmeterol (Fluticasone/Salmeterol 100-50 Mcg Inhalation Powder 14/Diskus) 1 puff INH BID [facility] Last Admin: 02/06/21 08:51 Dose: 1 puff Documented by: Tamsulosin HCl (Tamsulosin 0.4 Mg Cap.Er) 0.4 mg PO BEDTIME [facility] Last Admin: 02/05/21 20:17 Dose: 0.4 mg Documented by: Discontinued Medications Carvedilol (Carvedilol 3.125 Mg Tab) 9.375 mg PO BID [facility] Carvedilol (Carvedilol 3.125 Mg Tab) 3.125 mg PO BID [facility] Last Admin: 02/02/21 09:58 Dose: Not Given Documented by: Azithromycin 500 mg/ Sodium (Chloride) 250 mls @ 250 mls/hr IV ONETIME [facility] Last Admin: 02/02/21 05:27 Dose: 250 mls/hr Documented by: Magnesium Sulfate (Magnesium Sulfate In Water 2 Gm/50 Ml) 2 gm in 50 mls @ 50 mls/hr IV ONETIME ONE Stop: 02/05/21 11:31 Last Admin: 02/05/21 10:46 Dose: 50 mls/hr Documented by: Ketorolac Tromethamine (Ketorolac 30 Mg/Ml Sdv) 30 mg IVPUSH ONETIME ONE Stop: 02/02/21 11:12 Last Admin: 02/02/21 12:23 Dose: 30 mg Documented by: Magnesium Oxide (Magnesium Oxide 400 Mg Tab) 800 mg PO ONETIME ONE Stop: 02/02/21 11:12 Last Admin: 02/02/21 12:23 Dose: 800 mg Documented by: Magnesium Oxide (Magnesium Oxide 400 Mg Tab) 800 mg PO ONETIME ONE Stop: 02/06/21 08:18 Last Admin: 02/06/21 08:48 Dose: 800 mg Documented by: Methylprednisolone Sodium Succinate (Methylprednisolone Sodium Succinate 40 Mg/1 Ml Sdv) 40 mg IVPUSH Q8H [facility] Last Admin: 02/01/21 23:02 Dose: Not Given Documented by: Methylprednisolone Sodium Succinate (Methylprednisolone Sodium Succinate 40 Mg/1 Ml Sdv) 40 mg IVPUSH Q8H [facility] Last Admin: 02/03/21 05:18 Dose: 40 mg Documented by: Methylprednisolone Sodium Succinate (Methylprednisolone Sodium Succinate 40 Mg/1 Ml Sdv) 40 mg IVPUSH Q12H [facility] Last Admin: 02/04/21 04:54 Dose: 40 mg Documented by: Pantoprazole Sodium (Pantoprazole 40 Mg Vial) 40 mg IV DAILY [facility] Last Admin: 02/01/21 23:02 Dose: Not Given Documented by:
== END 2021-02-06 12:50 | disposition home health service (06) | DRG 189 ==
LOC: MW.ED 15:43 → MW.MS 17:46
PROVIDERS: ADMIT Student in an Organized Health Care Education/Training Program; ATTEND Student in an Organized Health Care Education/Training Program
DX: R06.89 Other abnormalities of breathing (principal); J96.21 Acute and chronic respiratory failure with hypoxia; J44.1 Chronic obstructive pulmonary disease with (acute) exacerbation; J96.22 Acute and chronic respiratory failure with hypercapnia; Z66 Do not resuscitate; I50.9 Heart failure, unspecified; N40.0 Benign prostatic hyperplasia without lower urinary tract symptoms; Z20.822 Contact with and (suspected) exposure to COVID-19; F17.210 Nicotine dependence, cigarettes, uncomplicated; G35 Multiple sclerosis; Z98.49 Cataract extraction status, unspecified eye; Z95.0 Presence of cardiac pacemaker; Z79.52 Long term (current) use of systemic steroids; Z79.82 Long term (current) use of aspirin; Z79.899 Other long term (current) drug therapy; Z79.890 Hormone replacement therapy; Z88.5 Allergy status to narcotic agent
CPT/HCPCS: 0240U; 36415; 36600; 71045; 80048; 80053; 81003; 82803; 83690; 83735; 84100; 84484; 85025; 93005; 94640; 97802; 99291; 93010; 99284; A9270-GY; C9113; J0456; J1650; J1885; J2920; J3475; J7050; J7120; J7620-GY

== ENCOUNTER 2021-02-13 02:21 | Observation (INO) | payer OTHER, MEDICARE ==
[2021-02-13] MEDS ORDERED: Sodium Chloride 0.9% 2.5 ML Syringe FLUSH PRN (02:23)
[2021-02-13] MEDS ORDERED: Sodium Chloride 0.9% 10 ML Syringe FLUSH PRN (02:23)
--- NOTE | 2021-02-13 02:26 | EDM.PDOC ---
ED HPI GENERAL MEDICAL PROBLEM - General Chief Complaint: Respiratory Problem Stated Complaint: COPD Time Seen by Provider: 02/13/21 02:40 - History of Present Illness INITIAL COMMENTS - FREE TEXT/NARRATIVE: History of present illness: [] Patient had severe trouble breathing and the called the home health nurse who called us and said that his oxygen saturations were 50% when she got them back on BiPAP . He has severe COPD. I have seen him in the past. He is narrowly escaped intubation with steroids and strong use of BiPAP and rescue medications. The patient was at 1 point not responding to the . When paramedics got there he was hypoxic and working hard to breathe. He improved on their CPAP and is awake in route saying he is doing a little better. He is in extreme respiratory distress but paramedics say this is not far from his baseline. Review of systems: As per history of present illness and below otherwise all systems reviewed and negative. Past medical history: As per history of present illness and as reviewed below otherwise noncontributory. Surgical history: As per history of present illness and as reviewed below otherwise noncontributory. Social history: No reported history of drug or alcohol abuse. Family history: As per history of present illness and as reviewed below otherwise noncontributory. Physical exam: Constitutional -cachectic and in moderate distress with work of breathing increased while he is on CPAP. HEENT - normocephalic, no evidence of trauma - external nose and mouth normal - no mass in neck and no JVD - mucosae moist EYES - full EOM, PERRL, no icterus - no evidence of inflammation, injection, or drainage Respiratory - no respiratory distress, equal bilateral expansion, lungsthroughout with prolonged expiratory phase of respiration. Cardiovascular - Regular Rhythm with S1 and S2 appreciated and no murmur, gallop or rub. GI - abdomen soft without distension or organomegaly - normal bowel sounds - no guard or rebound Musculoskeletal no gross deformity of long bones or joints - no tenderness, swelling or edema Neurologic - Alert and oriented times four - CN II-XII grossly intact - motor sensory and coordination symmetrically normal Psychiatric - appropriate mood and affect with normal thought content Hematologic - No petechiae or purpura - mucosa appropriate color and sclera not pale - normal nail bed color and refill Integument - no rash or evidence of trauma - normal turgor Diagnostics: [] Therapeutics: [] Impression: [] Plan: [] Definitive disposition and diagnosis as appropriate pending reevaluation and review of above. - Related Data Allergies Allergy/AdvReac Type Severity Reaction Status Date / Time codeine Allergy Cannot Verified 02/13/21 03:49 Remember Home Meds: Home Meds Cholecalciferol (Vitamin D3) [Vitamin D3] 2,000 unit PO DAILY 05/14/20 [History] Furosemide 20 mg PO DAILY PRN 05/14/20 [History] Pregabalin 50 mg PO BID 05/14/20 [History] Aspirin [Halfprin] 81 mg PO DAILY 05/15/20 [History] Interferon Beta-1a [Avonex] 30 mcg IM WEEKLY 05/15/20 [History] Simvastatin 5 mg PO BEDTIME 05/15/20 [History] Tamsulosin HCl 0.4 mg PO BEDTIME 05/15/20 [History] Modafinil [Provigil] 500 mg PO DAILY 05/26/20 [History] Levothyroxine 150 mcg PO ACBREAKFAST 09/17/20 [History] Budesonide/Formoterol Fumarate [Budesonide-Formoterol 160-4.5] 10.2 gm IH DAILY #1 hfa.aer.ad 02/05/21 [Rx] carvediloL [Coreg] 3.125 mg PO BID #30 tablet 02/05/21 [Rx] predniSONE 40 mg PO WITHBREAKFAST #5 tablet 02/05/21 [Rx] Albuterol Sulfate [Proair Respiclick] 2 puff INH ASDIRECTED PRN 02/13/21 [History] Zinc Gluconate [Zinc] 02/13/21 [History] Past Medical History HEENT History: Reports: Cataract Cardiovascular History: Reports: Heart Failure, Pacemaker Respiratory History: Reports: COPD, Other (See Below) Other Respiratory History: Home O2 as of Jul 2019 and CPAP (5L) Gastrointestinal History: Reports: None Genitourinary History: Reports: BPH Musculoskeletal History: Reports: Other (See Below) Other Musculoskeletal History: Unsteady Gait per Neurological History: Reports: MS Psychiatric History: Reports: None Endocrine/Metabolic History: Reports: None Hematologic History: Reports: None Immunologic History: Reports: None Oncologic (Cancer) History: Reports: None Dermatologic History: Reports: None - Infectious Disease History Infectious Disease History: Reports: Chicken Pox, Measles, Mumps - Past Surgical History Head Surgeries/Procedures: Reports: None HEENT Surgical History: Reports: Cataract Surgery Cardiovascular Surgical History: Reports: Pacer Respiratory Surgical History: Reports: None GI Surgical History: Reports: None Male Surgical History: Reports: None Endocrine Surgical History: Reports: None Neurological Surgical History: Reports: None Musculoskeletal Surgical History: Reports: None Oncologic Surgical History: Reports: None Dermatological Surgical History: Reports: None Social & Family History - Family History Family Medical History: No Pertinent Family History - Caffeine Use Caffeine Use: Reports: Coffee Caffeine Use Comment: Everyday ED ROS GENERAL - Review of Systems Review Of Systems: Comprehensive ROS is negative, except as noted in HPI. ED EXAM, GENERAL - Physical Exam Exam: See Below Free Text/Narrative:: My physical exam is in the HPI #1 Interpretation EKG Interpretation Comments: EKG has some artifact making it difficult to interpret. It was done at 216 hours. Sinus rhythm heart rate 73 DE interval 167 [place] 81 is a QRS duration of 118 there is some abnormal ST and T waves. Compared to 02/01/2021 there is no significant change. Impression no acute injury Course - Vital Signs Text/Narrative:: And patient agreed that he was not to be intubated piece. Patient was DNR/DNI last admission as well. Discussed with Dr. Warren and she felt like we could keep the patient for observation and that would give her time to discuss with the again plans for what they would do next time to try to stop the revolving door. He improves in the hospital most likely in large part due to the fact that while he is in the hospital he cannot smoke. He is not planning to stop smoking at home. Something needs to be done to stop the cycle of rotating in and out of the hospital for short forced abstinence from tobacco at which time he improves enough to go home where he starts to cycle over. Last Recorded V/S: Last Vital Signs Temp 36.2 C 02/13/21 02:37 Pulse 75 02/13/21 02:37 Resp 16 02/13/21 02:37 BP 128/78 02/13/21 02:37 Pulse Ox 100 02/13/21 02:37 - Orders/Labs/Meds Orders: Active Orders 24 hr Category Date Time Status Cardiac Monitoring [RC] . DIRECTED Care 02/13/21 02:23 Active EKG Documentation Completion [RC] AM Care 02/13/21 02:23 Active Pulse Oximetry [RC] ASDIRECTED Care 02/13/21 02:23 Active BLOOD GAS ARTERIAL [BG] Stat Lab 02/13/21 02:23 Ordered Sodium Chloride 0.9% [Normal Saline] 1,000 ml Med 02/13/21 02:30 Active IV ASDIRECTED Sodium Chloride 0.9% [Saline Flush] Med 02/13/21 02:23 Active 10 ml FLUSH ASDIRECTED PRN Sodium Chloride 0.9% [Saline Flush] Med 02/13/21 02:23 Active 2.5 ml FLUSH ASDIRECTED PRN Saline Lock Insert [OM.PC] Stat Oth 02/13/21 02:23 Ordered Medication Orders Sodium Chloride (Normal Saline) 1,000 mls @ 75 mls/hr IV ASDIRECTED DINORAH Last Admin: 02/13/21 03:10 Dose: 75 mls/hr Documented by: BUDDYTBRI Sodium Chloride (Sodium Chloride 0.9% 10 Ml Syringe) 10 ml FLUSH ASDIRECTED PRN PRN Reason: Keep Vein Open Last Admin: 02/13/21 03:12 Dose: 10 ml Documented by: EVELYN Sodium Chloride (Sodium Chloride 0.9% 2.5 Ml Syringe) 2.5 ml FLUSH ASDIRECTED PRN PRN Reason: Keep Vein Open Last Admin: 02/13/21 03:12 Dose: 2.5 ml Documented by: EVELYN Labs: Laboratory Tests 02/13/21 02/13/21 02/13/21 Range/Units 02:20 02:20 02:50 WBC 11.21 H (4.0-11.0) K/uL RBC 4.66 (4.50-5.90) M/uL Hgb 13.2 (13.0-17.0) g/dL Hct 43.8 (38.0-50.0) % MCV 94.0 (80.0-98.0) fL MCH 28.3 (27.0-32.0) pg MCHC 30.1 L (31.0-37.0) g/dL RDW Std Deviation 66.6 H (28.0-62.0) fl RDW Coeff of Dalton 19 H (11.0-15.0) % Plt Count 246 (150-400) K/uL MPV 9.90 (7.40-12.00) fL Neut % (Auto) 56.4 (48.0-80.0) % Lymph % (Auto) 22.5 (16.0-40.0) % [place] % (Auto) 19.7 H (0.0-15.0) % Eos % (Auto) 1.3 (0.0-7.0) % Baso % (Auto) 0.1 (0.0-1.5) % Neut # (Auto) 6.3 H (1.4-5.7) K/uL Lymph # (Auto) 2.5 H (0.6-2.4) K/uL [place] # (Auto) 2.2 H (0.0-0.8) K/uL Eos # (Auto) 0.2 (0.0-0.7) K/uL Baso # (Auto) 0.0 (0.0-0.1) K/uL Nucleated RBC % 0.0 /100WBC Nucleated RBCs # 0 K/uL VBG pH (7.31-7.41) VBG pCO2 (35-45) mmHG VBG pO2 (30-40) mmHG VBG HCO3 (22-30) mEq/L VBG Total CO2 (41-51) mmol/L VBG Base Excess (-3.0-3.0) Sodium 146 (136-148) mmol/L Potassium 4.1 (3.5-5.1) mmol/L Chloride 102 (98-107) mmol/L Carbon Dioxide 44.5 H (21.0-32.0) mmol/L BUN 19 H (7.0-18.0) mg/dL Creatinine 0.8 (0.8-1.3) mg/dL Est Cr Clr Drug Dosing 68.75 mL/min Estimated GFR (MDRD) > 60.0 ml/min Glucose 106 (74-106) mg/dL Calcium 8.5 (8.5-10.1) mg/dL Total Bilirubin 0.2 (0.2-1.0) mg/dL AST 52 H (15-37) IU/L ALT 124 H (14-63) IU/L Alkaline Phosphatase 63 (46-116) U/L Troponin I < 0.050 (0.000-0.056) ng/mL Total Protein 7.8 (6.4-8.2) g/dL Albumin 3.2 L (3.4-5.0) g/dL Globulin 4.6 H (2.6-4.0) g/dL Albumin/Globulin Ratio 0.7 L (0.9-1.6) Influenza Type A RNA NEGATIVE (NEGATIVE) Influenza Type B RNA NEGATIVE (NEGATIVE) SARS-CoV-2 RNA (VERNA) NEGATIVE (NEGATIVE) 02/13/21 02/13/21 Range/Units 02:51 03:45 WBC (4.0-11.0) K/uL RBC (4.50-5.90) M/uL Hgb (13.0-17.0) g/dL Hct (38.0-50.0) % MCV (80.0-98.0) fL MCH (27.0-32.0) pg MCHC (31.0-37.0) g/dL RDW Std Deviation (28.0-62.0) fl RDW Coeff of Dalton (11.0-15.0) % Plt Count (150-400) K/uL MPV (7.40-12.00) fL Neut % (Auto) (48.0-80.0) % Lymph % (Auto) (16.0-40.0) % [place] % (Auto) (0.0-15.0) % Eos % (Auto) (0.0-7.0) % Baso % (Auto) (0.0-1.5) % Neut # (Auto) (1.4-5.7) K/uL Lymph # (Auto) (0.6-2.4) K/uL [place] # (Auto) (0.0-0.8) K/uL Eos # (Auto) (0.0-0.7) K/uL Baso # (Auto) (0.0-0.1) K/uL Nucleated RBC % /100WBC Nucleated RBCs # K/uL VBG pH 7.26 L 7.32 (7.31-7.41) VBG pCO2 108 H 88 H (35-45) mmHG VBG pO2 33 40 (30-40) mmHG VBG HCO3 48 H 45 H (22-30) mEq/L VBG Total CO2 > 50 42 (41-51) mmol/L VBG Base Excess 16 H 15.2 H (-3.0-3.0) Sodium (136-148) mmol/L Potassium (3.5-5.1) mmol/L Chloride (98-107) mmol/L Carbon Dioxide (21.0-32.0) mmol/L BUN (7.0-18.0) mg/dL Creatinine (0.8-1.3) mg/dL Est Cr Clr Drug Dosing mL/min Estimated GFR (MDRD) ml/min Glucose (74-106) mg/dL Calcium (8.5-10.1) mg/dL Total Bilirubin (0.2-1.0) mg/dL AST (15-37) IU/L ALT (14-63) IU/L Alkaline Phosphatase (46-116) U/L Troponin I (0.000-0.056) ng/mL Total Protein (6.4-8.2) g/dL Albumin (3.4-5.0) g/dL Globulin (2.6-4.0) g/dL Albumin/Globulin Ratio (0.9-1.6) Influenza Type A RNA (NEGATIVE) Influenza Type B RNA (NEGATIVE) SARS-CoV-2 RNA (VERNA) (NEGATIVE) Meds: Medications Generic Name Dose Route Start Last Admin Trade Name Freq PRN Reason Stop Dose Admin Sodium Chloride 1,000 mls @ 75 mls/hr 02/13/21 02:30 02/13/21 03:10 Normal Saline IV 75 mls/hr ASDIRECTED DINORAH Administration Sodium Chloride 10 ml 02/13/21 02:23 02/13/21 03:12 Sodium Chloride 0.9% 10 Ml Syringe FLUSH 10 ml ASDIRECTED PRN Administration Keep Vein Open Sodium Chloride 2.5 ml 02/13/21 02:23 02/13/21 03:12 Sodium Chloride 0.9% 2.5 Ml Syringe FLUSH 2.5 ml ASDIRECTED PRN Administration Keep Vein Open Departure - Departure Time of Disposition: 04:08 Disposition: Refer to Observation Condition: Serious Clinical Impression: COPD exacerbation - Discharge Information Referrals: PCP,None [Primary Care Provider] - Forms: ED Department Discharge Sepsis Event Note (ED) - Focused Exam Vital Signs: Vital Signs Temp Pulse Resp BP Pulse Ox 02/13/21 02:37 36.2 C 75 16 128/78 100 - My Orders Last 24 Hours: My Active Orders 02/13/21 02:23 Cardiac Monitoring [RC] . DIRECTED EKG Documentation Completion [RC] AM Pulse Oximetry [RC] ASDIRECTED BLOOD GAS ARTERIAL [BG] Stat Sodium Chloride 0.9% [Saline Flush] 10 ml FLUSH ASDIRECTED PRN Sodium Chloride 0.9% [Saline Flush] 2.5 ml FLUSH ASDIRECTED PRN Saline Lock Insert [OM.PC] Stat 02/13/21 02:30 Sodium Chloride 0.9% [Normal Saline] 1,000 ml IV ASDIRECTED - Assessment/Plan Last 24 Hours: My Active Orders 02/13/21 02:23 Cardiac Monitoring [RC] . DIRECTED EKG Documentation Completion [RC] AM Pulse Oximetry [RC] ASDIRECTED BLOOD GAS ARTERIAL [BG] Stat Sodium Chloride 0.9% [Saline Flush] 10 ml FLUSH ASDIRECTED PRN Sodium Chloride 0.9% [Saline Flush] 2.5 ml FLUSH ASDIRECTED PRN Saline Lock Insert [OM.PC] Stat 02/13/21 02:30 Sodium Chloride 0.9% [Normal Saline] 1,000 ml IV ASDIRECTED
[2021-02-13 02:52] LABS: BLOOD UREA NITROGEN,BUN 19 mg/dL (7.0-18.0); CARBON DIOXIDE,CO2 44.5 mmol/L (21.0-32.0); CHLORIDE,CL 102 mmol/L (98-107); GLUCOSE RANDOM 106 mg/dL (74-106); POTASSIUM,K 4.1 mmol/L (3.5-5.1); SODIUM,NA 146 mmol/L (136-148)
--- NOTE | 2021-02-13 03:00 | CR ---
INDICATION: Dyspnea, chronic obstructive pulmonary disease TECHNIQUE: Chest radiograph 1 view on 2 films COMPARISON: 02/01/2021 FINDINGS: Mediastinum: The mediastinum is normal in appearance. The heart silhouette is normal in size and morphology. There is a left cardiac pacer present with leads in the right atrium and right ventricle. Lung: Bilateral pulmonary hyperinflation and lucency noted, suggestive of severe, stable pulmonary emphysema. No sign of pleural effusion seen. No pneumothorax is identified. Bone and Soft tissue: Unremarkable for age. IMPRESSION: 1. Bilateral pulmonary hyperinflation and lucency noted, suggestive of severe, stable pulmonary emphysema. Dictated by Diomedes Bales MD @ 02/13/2021 2:59:37 AM Dictated by: Diomedes Bales MD @ 02/13/2021 02:59:40 (Electronically Signed)
[2021-02-13] MEDS: Sodium Chloride 0.9% 1,000 ML IV SCH ×2 (03:10→22:05)
[2021-02-13 03:42] LABS: CORONAVIRUS COVID-19 NAA NEGATIVE (NEGATIVE); INFLUENZA A NAA NEGATIVE (NEGATIVE); INFLUENZA B NAA NEGATIVE (NEGATIVE)
[2021-02-13] MEDS ORDERED: Azithromycin 500 MG in Sodium Chloride 0.9% 250 ML IV SCH (06:15)
[2021-02-13] MEDS: Albuterol/Ipratropium 3.0-0.5 MG/3 ML Neb Soln NEB SCH ×6 (06:35→22:00)
--- NOTE | 2021-02-13 08:57 | PCM.HP.2 ---
H&P History of Present Illness - General Date of Service: 02/13/21 Admit Problem/Dx: Admission Diagnosis/Problem Admission Diagnosis/Problem Respiratory failure with hypercapnia - History of Present Illness Initial Comments - Free Text/Narative: 69-year-old male presented with complaint of shortness of breath for the past 1- 2 days sent over from [place]. He has a PMH of COPD on home oxygen (baseline 5L), CHF, pacemaker, current smoker, multiple sclerosis and BPH who comes in from home after he was found somnolent at home. Per family patients BiPAP was not working and he got progressively worse. Patient was recently discharged from hospital and was supposed to set up Hospice and placement vis [place]. Patient was found to be hypercapnic (co2 108) on VBG,started on BiPAP which helped lower the co2, patient became more awake/alert and was eventually admitted for further care. - Related Data Allergies/Adverse Reactions: Allergies Allergy/AdvReac Type Severity Reaction Status Date / Time codeine Allergy Cannot Verified 02/13/21 10:02 Remember Home Medications: Home Meds Cholecalciferol (Vitamin D3) [Vitamin D3] 2,000 unit PO DAILY 05/14/20 [History] Furosemide 20 mg PO DAILY PRN 05/14/20 [History] Pregabalin 50 mg PO BID 05/14/20 [History] Aspirin [Halfprin] 81 mg PO DAILY 05/15/20 [History] Interferon Beta-1a [Avonex] 30 mcg IM WEEKLY 05/15/20 [History] Simvastatin 5 mg PO BEDTIME 05/15/20 [History] Tamsulosin HCl 0.4 mg PO BEDTIME 05/15/20 [History] Modafinil [Provigil] 500 mg PO DAILY 05/26/20 [History] Levothyroxine 150 mcg PO ACBREAKFAST 09/17/20 [History] carvediloL [Coreg] 3.125 mg PO BID #30 tablet 02/05/21 [Rx] Albuterol Sulfate [Proair Respiclick] 2 puff INH ASDIRECTED PRN 02/13/21 [History] Budesonide/Formoterol Fumarate [Budesonide-Formoterol 160-4.5] 10.2 gm IH BID 02/13/21 [History] Zinc Gluconate [Zinc] 02/13/21 [History] Past Medical History HEENT History: Reports: Cataract Cardiovascular History: Reports: Heart Failure, Pacemaker Respiratory History: Reports: COPD, Other (See Below) Other Respiratory History: Home O2 as of Jul 2019 and CPAP (5L) Gastrointestinal History: Reports: None Genitourinary History: Reports: BPH Musculoskeletal History: Reports: Other (See Below) Other Musculoskeletal History: Unsteady Gait per Neurological History: Reports: MS Psychiatric History: Reports: None Endocrine/Metabolic History: Reports: None Hematologic History: Reports: None Immunologic History: Reports: None Oncologic (Cancer) History: Reports: None Dermatologic History: Reports: None - Infectious Disease History Infectious Disease History: Reports: Chicken Pox, Measles, Mumps - Past Surgical History Head Surgeries/Procedures: Reports: None HEENT Surgical History: Reports: Cataract Surgery Cardiovascular Surgical History: Reports: Pacer Respiratory Surgical History: Reports: None GI Surgical History: Reports: None Male Surgical History: Reports: None Endocrine Surgical History: Reports: None Neurological Surgical History: Reports: None Musculoskeletal Surgical History: Reports: None Oncologic Surgical History: Reports: None Dermatological Surgical History: Reports: None Social & Family History - Family History Family Medical History: No Pertinent Family History - Tobacco Use Years of Tobacco use: 42 Packs/Tins Daily: 0.5 - Caffeine Use Caffeine Use: Reports: Coffee Caffeine Use Comment: Everyday - Recreational Drug Use Recreational Drug Use: No H&P Review of Systems - Review of Systems: Review Of Systems: See Below General: Denies: Fever, Chills Pulmonary: Reports: Shortness of Breath. Denies: Wheezing, Cough Cardiovascular: Denies: Chest Pain, Palpitations Gastrointestinal: Denies: Abdominal Pain, Anorexia, Constipation, Diarrhea Psychiatric: Denies: Confusion, Depression, Mood Lability Neurological: Denies: Confusion, Dizziness Exam - Exam Exam: See Below - Vital Signs Vital Signs: Last Vital Signs Temp 36.2 C 02/13/21 08:41 Pulse 67 02/13/21 08:41 Resp 20 02/13/21 08:41 BP 109/57 L 02/13/21 08:41 Pulse Ox 99 02/13/21 08:41 Weight: 55 kg - Exam Quality Assessment: Supplemental Oxygen General: Alert, Oriented Neck: Supple Lungs: Clear to Auscultation, Decreased Breath Sounds Cardiovascular: Regular Rate, Regular Rhythm, Normal S1, Normal S2 - Patient Data Lab Results Last 24 hrs: Laboratory Results - last 24 hr 02/13/21 02/13/21 02/13/21 Range/Units 02:20 02:20 02:50 WBC 11.21 H (4.0-11.0) K/uL RBC 4.66 (4.50-5.90) M/uL Hgb 13.2 (13.0-17.0) g/dL Hct 43.8 (38.0-50.0) % MCV 94.0 (80.0-98.0) fL MCH 28.3 (27.0-32.0) pg MCHC 30.1 L (31.0-37.0) g/dL RDW Std Deviation 66.6 H (28.0-62.0) fl RDW Coeff of Dalton 19 H (11.0-15.0) % Plt Count 246 (150-400) K/uL MPV 9.90 (7.40-12.00) fL Neut % (Auto) 56.4 (48.0-80.0) % Lymph % (Auto) 22.5 (16.0-40.0) % [place] % (Auto) 19.7 H (0.0-15.0) % Eos % (Auto) 1.3 (0.0-7.0) % Baso % (Auto) 0.1 (0.0-1.5) % Neut # (Auto) 6.3 H (1.4-5.7) K/uL Lymph # (Auto) 2.5 H (0.6-2.4) K/uL [place] # (Auto) 2.2 H (0.0-0.8) K/uL Eos # (Auto) 0.2 (0.0-0.7) K/uL Baso # (Auto) 0.0 (0.0-0.1) K/uL Nucleated RBC % 0.0 /100WBC Nucleated RBCs # 0 K/uL VBG pH (7.31-7.41) VBG pCO2 (35-45) mmHG VBG pO2 (30-40) mmHG VBG HCO3 (22-30) mEq/L VBG Total CO2 (41-51) mmol/L VBG Base Excess (-3.0-3.0) Sodium 146 (136-148) mmol/L Potassium 4.1 (3.5-5.1) mmol/L Chloride 102 (98-107) mmol/L Carbon Dioxide 44.5 H (21.0-32.0) mmol/L BUN 19 H (7.0-18.0) mg/dL Creatinine 0.8 (0.8-1.3) mg/dL Est Cr Clr Drug Dosing 68.75 mL/min Estimated GFR (MDRD) > 60.0 ml/min Glucose 106 (74-106) mg/dL Calcium 8.5 (8.5-10.1) mg/dL Total Bilirubin 0.2 (0.2-1.0) mg/dL AST 52 H (15-37) IU/L ALT 124 H (14-63) IU/L Alkaline Phosphatase 63 (46-116) U/L Troponin I < 0.050 (0.000-0.056) ng/mL Total Protein 7.8 (6.4-8.2) g/dL Albumin 3.2 L (3.4-5.0) g/dL Globulin 4.6 H (2.6-4.0) g/dL Albumin/Globulin Ratio 0.7 L (0.9-1.6) Influenza Type A RNA NEGATIVE (NEGATIVE) Influenza Type B RNA NEGATIVE (NEGATIVE) SARS-CoV-2 RNA (VERNA) NEGATIVE (NEGATIVE) 02/13/21 02/13/21 Range/Units 02:51 03:45 WBC (4.0-11.0) K/uL RBC (4.50-5.90) M/uL Hgb (13.0-17.0) g/dL Hct (38.0-50.0) % MCV (80.0-98.0) fL MCH (27.0-32.0) pg MCHC (31.0-37.0) g/dL RDW Std Deviation (28.0-62.0) fl RDW Coeff of Dalton (11.0-15.0) % Plt Count (150-400) K/uL MPV (7.40-12.00) fL Neut % (Auto) (48.0-80.0) % Lymph % (Auto) (16.0-40.0) % [place] % (Auto) (0.0-15.0) % Eos % (Auto) (0.0-7.0) % Baso % (Auto) (0.0-1.5) % Neut # (Auto) (1.4-5.7) K/uL Lymph # (Auto) (0.6-2.4) K/uL [place] # (Auto) (0.0-0.8) K/uL Eos # (Auto) (0.0-0.7) K/uL Baso # (Auto) (0.0-0.1) K/uL Nucleated RBC % /100WBC Nucleated RBCs # K/uL VBG pH 7.26 L 7.32 (7.31-7.41) VBG pCO2 108 H 88 H (35-45) mmHG VBG pO2 33 40 (30-40) mmHG VBG HCO3 48 H 45 H (22-30) mEq/L VBG Total CO2 > 50 42 (41-51) mmol/L VBG Base Excess 16 H 15.2 H (-3.0-3.0) Sodium (136-148) mmol/L Potassium (3.5-5.1) mmol/L Chloride (98-107) mmol/L Carbon Dioxide (21.0-32.0) mmol/L BUN (7.0-18.0) mg/dL Creatinine (0.8-1.3) mg/dL Est Cr Clr Drug Dosing mL/min Estimated GFR (MDRD) ml/min Glucose (74-106) mg/dL Calcium (8.5-10.1) mg/dL Total Bilirubin (0.2-1.0) mg/dL AST (15-37) IU/L ALT (14-63) IU/L Alkaline Phosphatase (46-116) U/L Troponin I (0.000-0.056) ng/mL Total Protein (6.4-8.2) g/dL Albumin (3.4-5.0) g/dL Globulin (2.6-4.0) g/dL Albumin/Globulin Ratio (0.9-1.6) Influenza Type A RNA (NEGATIVE) Influenza Type B RNA (NEGATIVE) SARS-CoV-2 RNA (VERNA) (NEGATIVE) Result Diagrams: 02/13/21 02:20 02/13/21 02:20 Sepsis Event Note - Evaluation Sepsis Screening Result: No Definite Risk - Focused Exam Vital Signs: Vital Signs Temp Pulse Resp BP Pulse Ox 02/13/21 08:41 36.2 C 67 20 109/57 L 99 02/13/21 06:19 60 100 02/13/21 06:04 58 L 106/66 100 02/13/21 05:34 57 L 102/64 100 02/13/21 05:04 57 L 105/66 100 02/13/21 04:34 61 104/67 100 02/13/21 04:04 58 L 105/67 100 02/13/21 03:49 58 L 101/67 100 02/13/21 03:34 59 L 102/66 100 02/13/21 03:19 61 97/66 100 02/13/21 03:04 103/68 02/13/21 02:49 114/75 02/13/21 02:37 36.2 C 75 16 128/78 100 - Problem List (1) COPD exacerbation SNOMED Code(s): 807976825 ICD Code: J44.1 - CHRONIC OBSTRUCTIVE PULMONARY DISEASE W (ACUTE) EXACERBATION Status: Acute Current Visit: Yes (2) Acute hypercapnic respiratory failure SNOMED Code(s): 052265137 ICD Code: J96.02 - ACUTE RESPIRATORY FAILURE WITH HYPERCAPNIA Status: Acute Current Visit: No (3) BPH (benign prostatic hyperplasia) SNOMED Code(s): 446297136 ICD Code: N40.0 - BENIGN PROSTATIC HYPERPLASIA WITHOUT LOWER URINRY TRACT SYMP Status: Acute Current Visit: No (4) CHF (congestive heart failure) SNOMED Code(s): 71591470 ICD Code: I50.9 - HEART FAILURE, UNSPECIFIED Status: Acute Current Visit: No (5) Hypoxemia SNOMED Code(s): 448869168 ICD Code: R09.02 - HYPOXEMIA Status: Acute Current Visit: No (6) Smoker SNOMED Code(s): 70097382 ICD Code: F17.200 - NICOTINE DEPENDENCE, UNSPECIFIED, UNCOMPLICATED Status: Acute Current Visit: Yes Problem List Initiated/Reviewed/Updated: Yes Orders Last 24hrs: Active Orders 24 hr Category Date Time Status Admission Status [Patient Status] [ADT] Stat ADT 02/13/21 04:05 Active Ambulate [RC] ASDIRECTED Care 02/13/21 06:13 Active Antiembolic Devices [RC] PER UNIT ROUTINE Care 02/13/21 06:14 Active Cardiac Monitoring [RC] . DIRECTED Care 02/13/21 02:23 Active EKG Documentation Completion [RC] AM Care 02/13/21 02:23 Active Overnight Pulse Oximetry [RC] Click to Edit Care 02/13/21 06:06 Active Pulse Oximetry [RC] ASDIRECTED Care 02/13/21 02:23 Active RT Aerosol Therapy [RC] ASDIRECTED Care 02/13/21 06:07 Active Telemetry Monitoring [Cardiac Monitoring] [RC] Q8H Care 02/13/21 04:58 Active Vital Signs [RC] Q4H Care 02/13/21 06:05 Active Regular Diet [DIET] Diet 02/13/21 Breakfast Active Albuterol/Ipratropium [DuoNeb 3.0-0.5 MG/3 ML] Med 02/13/21 10:00 Active 3 ml NEB Q4HRRT Azithromycin [Zithromax] 250 mg Med 02/14/21 06:15 Active Sodium Chloride 0.9% [Normal Saline (AdvBag)] 250 ml IV ONETIME Azithromycin [Zithromax] 500 mg Med 02/13/21 06:15 Stop Req Sodium Chloride 0.9% [Normal Saline (AdvBag)] 250 ml IV ONETIME Sodium Chloride 0.9% [Normal Saline] 1,000 ml Med 02/13/21 02:30 Active IV ASDIRECTED Sodium Chloride 0.9% [Saline Flush] Med 02/13/21 02:23 Active 10 ml FLUSH ASDIRECTED PRN Sodium Chloride 0.9% [Saline Flush] Med 02/13/21 02:23 Active 2.5 ml FLUSH ASDIRECTED PRN methylPREDNISolone Sod Succ [Solu-MEDROL] Med 02/13/21 14:00 Active 40 mg IVPUSH Q8HR BiPAP [RESPCARE] Routine Oth 02/13/21 06:39 Active Pulse Oximetry Continuous Monitoring [OM.PC] Routine Oth 02/13/21 06:06 Ordered SCD [Sequential Compression Device] [OM.PC] Routine Oth 02/13/21 06:13 Ordered Saline Lock Insert [OM.PC] Stat Oth 02/13/21 02:23 Ordered Medication Orders Albuterol/Ipratropium (Albuterol/Ipratropium 3.0-0.5 Mg/3 Ml Neb Soln) 3 ml NEB Q4HRRT DINORAH Last Admin: 02/13/21 06:35 Dose: 3 ml Documented by: JOSY Sodium Chloride (Normal Saline) 1,000 mls @ 75 mls/hr IV ASDIRECTED DINORAH Last Admin: 02/13/21 03:10 Dose: 75 mls/hr Documented by: EVELYN Azithromycin 500 mg/ Sodium (Chloride) 250 mls @ 250 mls/hr IV ONETIME [facility]INOR[facility] Stop: 02/14/21 06:11 Azithromycin 250 mg/ Sodium (Chloride) 250 mls @ 250 mls/hr IV ONETIME ONE Stop: 02/14/21 07:14 Methylprednisolone Sodium Succinate (Methylprednisolone Sodium Succinate 40 Mg/1 Ml Sdv) 40 mg IVPUSH Q8HR DINORAH Sodium Chloride (Sodium Chloride 0.9% 10 Ml Syringe) 10 ml FLUSH ASDIRECTED PRN PRN Reason: Keep Vein Open Last Admin: 02/13/21 03:12 Dose: 10 ml Documented by: EVELYN Sodium Chloride (Sodium Chloride 0.9% 2.5 Ml Syringe) 2.5 ml FLUSH ASDIRECTED PRN PRN Reason: Keep Vein Open Last Admin: 02/13/21 03:12 Dose: 2.5 ml Documented by: EVELYN Assessment/Plan Comment:: 70 y/o M admitted for acute over chronic hypoxic and hypercapnic respiratory failure cont BiPAP, wean off as tolerated, cont BIPAP at night Will ask to get home BiPAP and see if its malfunctioning Will start IV steroids, DUoNEbs Start IV azithromycin Monitor and replet electrolytes resume home meds as appropriate
[2021-02-13] MEDS: methylPREDNISolone Sodium Succinate 40 MG/1 ML SDV IVPUSH SCH ×3 (09:36→21:59)
[2021-02-13] MEDS ORDERED: methylPREDNISolone Sodium Succinate 40 MG/1 ML SDV IVPUSH SCH (14:00)
[2021-02-13] MEDS ORDERED: Furosemide 20 MG Tab PO PRN (15:12)
[2021-02-13] MEDS ORDERED: Acetaminophen 500 MG Tab PO PRN (15:14)
[2021-02-13] MEDS ORDERED: Budesonide/Formoterol 160-4.5 MCG/Puff 6 GM Inhaler INH SCH (21:00)
[2021-02-13] MEDS: Tamsulosin 0.4 MG Cap.ER PO SCH (21:57)
[2021-02-13] MEDS: Pregabalin 50 MG Cap PO SCH (21:57)
[2021-02-13] MEDS: FORMOTEROL INH SCH (21:58)
[2021-02-13] MEDS: BUDESONIDE INH SCH (21:58)
[2021-02-13] MEDS: Carvedilol 3.125 MG Tab PO SCH (22:00)
[2021-02-13] MEDS: Simvastatin 10 MG Tab PO SCH (22:00)
[2021-02-14] MEDS: Albuterol/Ipratropium 3.0-0.5 MG/3 ML Neb Soln NEB SCH ×6 (02:03→22:06)
[2021-02-14] MEDS ORDERED: Azithromycin 250 MG in Sodium Chloride 0.9% 250 ML IV ONE ×2 (06:15→11:00)
[2021-02-14] MEDS: methylPREDNISolone Sodium Succinate 40 MG/1 ML SDV IVPUSH SCH ×3 (06:19→22:00)
[2021-02-14] MEDS: Levothyroxine 150 MCG Tab PO SCH (06:31)
[2021-02-14 06:48] LABS: BLOOD UREA NITROGEN,BUN 15 mg/dL (7.0-18.0); CARBON DIOXIDE,CO2 37.4 mmol/L (21.0-32.0); CHLORIDE,CL 100 mmol/L (98-107); GLUCOSE RANDOM 134 mg/dL (74-106); POTASSIUM,K 4.6 mmol/L (3.5-5.1); SODIUM,NA 139 mmol/L (136-148)
[2021-02-14] MEDS ORDERED: Magnesium Sulfate/Water 2 GM/50 ML BAG IV ONE (07:25)
[2021-02-14] MEDS: Modafinil 100 MG Tab PO SCH (08:52)
[2021-02-14] MEDS: Pregabalin 50 MG Cap PO SCH ×2 (08:53→21:58)
[2021-02-14] MEDS: Aspirin 81 MG Tab.EC PO SCH (08:53)
[2021-02-14] MEDS: FORMOTEROL INH SCH ×2 (08:56→22:00)
[2021-02-14] MEDS: BUDESONIDE INH SCH ×2 (08:56→22:00)
[2021-02-14] MEDS: Carvedilol 3.125 MG Tab PO SCH ×2 (09:55→21:58)
[2021-02-14] MEDS: Sodium Chloride 0.9% 1,000 ML IV SCH (11:13)
--- NOTE | 2021-02-14 12:27 | PCM.PN ---
- General Info Date of Service: 02/14/21 Admission Dx/Problem (Free Text): Admission Diagnosis/Problem Admission Diagnosis/Problem Respiratory failure with hypercapnia Subjective Update: seen at bedside, no acute distress, off BiPAP on NC3 lts, at bedside Functional Status: Reports: Pain Controlled, Tolerating Diet, Ambulating, Urinating - Review of Systems General: Denies: Fever, Weakness, Fatigue Pulmonary: Reports: Shortness of Breath. Denies: Cough, Sputum Cardiovascular: Denies: Chest Pain, Palpitations Gastrointestinal: Denies: Abdominal Pain, Constipation Genitourinary: Denies: Dysuria, Frequency Musculoskeletal: Denies: Neck Pain, Shoulder Pain Skin: Denies: Jaundice, Mottled Neurological: Denies: Dizziness, Headache - Patient Data Vitals - Most Recent: Last Vital Signs Temp 36.7 C 02/14/21 08:47 Pulse 67 02/14/21 09:55 Resp 16 02/14/21 08:47 BP 103/61 02/14/21 09:55 Pulse Ox 100 02/14/21 08:47 Weight - Most Recent: 61.371 kg I&O - Last 24 Hours: Intake & Output 02/13/21 02/14/21 02/14/21 22:59 06:59 14:59 Intake Total 1494 1417 50 Output Total 300 450 Balance 1194 967 50 Lab Results Last 24 Hours: Laboratory Results - last 24 hr 02/14/21 02/14/21 Range/Units 06:20 06:20 WBC 7.54 (4.0-11.0) K/uL RBC 3.90 L (4.50-5.90) M/uL Hgb 11.0 L (13.0-17.0) g/dL Hct 35.7 L (38.0-50.0) % MCV 91.5 (80.0-98.0) fL MCH 28.2 (27.0-32.0) pg MCHC 30.8 L (31.0-37.0) g/dL RDW Std Deviation 62.7 H (28.0-62.0) fl RDW Coeff of Dalton 19 H (11.0-15.0) % Plt Count 195 (150-400) K/uL MPV 9.20 (7.40-12.00) fL Neut % (Auto) 77.5 (48.0-80.0) % Lymph % (Auto) 11.4 L (16.0-40.0) % [place] % (Auto) 11.1 (0.0-15.0) % Eos % (Auto) 0.0 (0.0-7.0) % Baso % (Auto) 0.0 (0.0-1.5) % Neut # (Auto) 5.8 H (1.4-5.7) K/uL Lymph # (Auto) 0.9 (0.6-2.4) K/uL [place] # (Auto) 0.8 (0.0-0.8) K/uL Eos # (Auto) 0.0 (0.0-0.7) K/uL Baso # (Auto) 0.0 (0.0-0.1) K/uL Nucleated RBC % 0.0 /100WBC Nucleated RBCs # 0 K/uL Sodium 139 (136-148) mmol/L Potassium 4.6 (3.5-5.1) mmol/L Chloride 100 (98-107) mmol/L Carbon Dioxide 37.4 H (21.0-32.0) mmol/L BUN 15 (7.0-18.0) mg/dL Creatinine 0.6 L (0.8-1.3) mg/dL Est Cr Clr Drug Dosing 102.29 mL/min Estimated GFR (MDRD) > 60.0 ml/min Glucose 134 H (74-106) mg/dL Calcium 8.3 L (8.5-10.1) mg/dL Phosphorus 2.9 (2.6-4.7) mg/dL Magnesium 1.7 L (1.8-2.4) mg/dL Total Bilirubin 0.3 (0.2-1.0) mg/dL AST 26 (15-37) IU/L ALT 77 H (14-63) IU/L Alkaline Phosphatase 49 (46-116) U/L Total Protein 6.3 L (6.4-8.2) g/dL Albumin 2.6 L (3.4-5.0) g/dL Globulin 3.7 (2.6-4.0) g/dL Albumin/Globulin Ratio 0.7 L (0.9-1.6) Med Orders - Current: Current Medications Acetaminophen (Acetaminophen 500 Mg Tab) 500 mg PO Q6H PRN PRN Reason: Pain Albuterol/Ipratropium (Albuterol/Ipratropium 3.0-0.5 Mg/3 Ml Neb Soln) 3 ml NEB Q4HRRT [facility] Last Admin: 02/14/21 09:31 Dose: 3 ml Documented by: Aspirin (Aspirin 81 Mg Tab.Ec) 81 mg PO DAILY [facility] Last Admin: 02/14/21 08:53 Dose: 81 mg Documented by: Budesonide/Formoterol Fumarate (Budesonide/Formoterol 160-4.5 Mcg/Puff 6 Gm InhalerOwn Med) 0 gm INH BID [facility] Last Admin: 02/14/21 08:56 Dose: 1 puff Documented by: Carvedilol (Carvedilol 3.125 Mg Tab) 3.125 mg PO BID [facility] Last Admin: 02/14/21 09:55 Dose: 3.125 mg Documented by: Furosemide (Furosemide 20 Mg Tab) 20 mg PO DAILY PRN PRN Reason: Edema Sodium Chloride (Normal Saline) 1,000 mls @ 75 mls/hr IV ASDIRECTED [facility] Last Admin: 02/14/21 11:13 Dose: 75 mls/hr Documented by: Levothyroxine Sodium (Levothyroxine 150 Mcg Tab) 150 mcg PO ACBREAKFAST [facility] Last Admin: 02/14/21 06:31 Dose: 150 mcg Documented by: Methylprednisolone Sodium Succinate (Methylprednisolone Sodium Succinate 40 Mg/1 Ml Sdv) 40 mg IVPUSH Q12HR [facility] Last Admin: 02/14/21 08:53 Dose: 40 mg Documented by: Modafinil (Modafinil 100 Mg Tab) 500 mg PO DAILY [facility] Last Admin: 02/14/21 08:52 Dose: 500 mg Documented by: Interferon Beta-1a [ (Avonex] 30 Mcg/0.5ml) 1 each IM Th@0900 [facility] Pregabalin (Pregabalin 50 Mg Cap) 50 mg PO BID [facility] Last Admin: 02/14/21 08:53 Dose: 50 mg Documented by: Simvastatin (Simvastatin 10 Mg Tab) 5 mg PO BEDTIME [facility] Last Admin: 02/13/21 22:00 Dose: 5 mg Documented by: Sodium Chloride (Sodium Chloride 0.9% 10 Ml Syringe) 10 ml FLUSH ASDIRECTED PRN PRN Reason: Keep Vein Open Last Admin: 02/13/21 03:12 Dose: 10 ml Documented by: Sodium Chloride (Sodium Chloride 0.9% 2.5 Ml Syringe) 2.5 ml FLUSH ASDIRECTED PRN PRN Reason: Keep Vein Open Last Admin: 02/13/21 03:12 Dose: 2.5 ml Documented by: Tamsulosin HCl (Tamsulosin 0.4 Mg Cap.Er) 0.4 mg PO BEDTIME [facility] Last Admin: 02/13/21 21:57 Dose: 0.4 mg Documented by: Discontinued Medications Budesonide/Formoterol Fumarate (Budesonide/Formoterol 160-4.5 Mcg/Puff 6 Gm Inhaler) 0 gm INH BID [facility] Azithromycin 500 mg/ Sodium (Chloride) 250 mls @ 250 mls/hr IV ONETIME [facility] Stop: 02/14/21 06:11 Last Admin: 02/13/21 11:05 Dose: 250 mls/hr Documented by: Azithromycin 250 mg/ Sodium (Chloride) 250 mls @ 250 mls/hr IV ONETIME ONE Stop: 02/14/21 07:14 Last Admin: 02/14/21 06:24 Dose: Not Given Documented by: Magnesium Sulfate (Magnesium Sulfate In Water 2 Gm/50 Ml) 2 gm in 50 mls @ 50 mls/hr IV ONETIME ONE Stop: 02/14/21 08:24 Last Admin: 02/14/21 07:44 Dose: 50 mls/hr Documented by: Azithromycin 250 mg/ Sodium (Chloride) 250 mls @ 250 mls/hr IV ONETIME ONE Stop: 02/14/21 11:59 Last Admin: 02/14/21 11:13 Dose: 250 mls/hr Documented by: Methylprednisolone Sodium Succinate (Methylprednisolone Sodium Succinate 40 Mg/1 Ml Sdv) 40 mg IVPUSH Q8HR [facility] Methylprednisolone Sodium Succinate (Methylprednisolone Sodium Succinate 40 Mg/1 Ml Sdv) 40 mg IVPUSH Q8HR [facility] Last Admin: 02/14/21 06:19 Dose: 40 mg Documented by: - Exam Quality Assessment: Supplemental Oxygen General: Alert, Oriented, Cooperative, Mild Distress Neck: Supple, Trachea Midline Lungs: Clear to Auscultation, Normal Respiratory Effort Cardiovascular: Regular Rate, Regular Rhythm. No: Irregular Rhythm - Patient Data Lab Results Last 24 hrs: Laboratory Results - last 24 hr 02/14/21 02/14/21 Range/Units 06:20 06:20 WBC 7.54 (4.0-11.0) K/uL RBC 3.90 L (4.50-5.90) M/uL Hgb 11.0 L (13.0-17.0) g/dL Hct 35.7 L (38.0-50.0) % MCV 91.5 (80.0-98.0) fL MCH 28.2 (27.0-32.0) pg MCHC 30.8 L (31.0-37.0) g/dL RDW Std Deviation 62.7 H (28.0-62.0) fl RDW Coeff of Dalton 19 H (11.0-15.0) % Plt Count 195 (150-400) K/uL MPV 9.20 (7.40-12.00) fL Neut % (Auto) 77.5 (48.0-80.0) % Lymph % (Auto) 11.4 L (16.0-40.0) % [place] % (Auto) 11.1 (0.0-15.0) % Eos % (Auto) 0.0 (0.0-7.0) % Baso % (Auto) 0.0 (0.0-1.5) % Neut # (Auto) 5.8 H (1.4-5.7) K/uL Lymph # (Auto) 0.9 (0.6-2.4) K/uL [place] # (Auto) 0.8 (0.0-0.8) K/uL Eos # (Auto) 0.0 (0.0-0.7) K/uL Baso # (Auto) 0.0 (0.0-0.1) K/uL Nucleated RBC % 0.0 /100WBC Nucleated RBCs # 0 K/uL Sodium 139 (136-148) mmol/L Potassium 4.6 (3.5-5.1) mmol/L Chloride 100 (98-107) mmol/L Carbon Dioxide 37.4 H (21.0-32.0) mmol/L BUN 15 (7.0-18.0) mg/dL Creatinine 0.6 L (0.8-1.3) mg/dL Est Cr Clr Drug Dosing 102.29 mL/min Estimated GFR (MDRD) > 60.0 ml/min Glucose 134 H (74-106) mg/dL Calcium 8.3 L (8.5-10.1) mg/dL Phosphorus 2.9 (2.6-4.7) mg/dL Magnesium 1.7 L (1.8-2.4) mg/dL Total Bilirubin 0.3 (0.2-1.0) mg/dL AST 26 (15-37) IU/L ALT 77 H (14-63) IU/L Alkaline Phosphatase 49 (46-116) U/L Total Protein 6.3 L (6.4-8.2) g/dL Albumin 2.6 L (3.4-5.0) g/dL Globulin 3.7 (2.6-4.0) g/dL Albumin/Globulin Ratio 0.7 L (0.9-1.6) Result Diagrams: 02/14/21 06:20 02/14/21 06:20 Sepsis Event Note - Evaluation Sepsis Screening Result: No Definite Risk - Focused Exam Vital Signs: Vital Signs Temp Pulse Pulse Resp BP BP Pulse Ox 02/14/21 09:55 67 103/61 02/14/21 08:47 36.7 C 63 16 90/54 L 100 02/14/21 04:52 37.1 C 55 L 15 93/59 L 100 - Problem List & Annotations (1) COPD exacerbation SNOMED Code(s): 191172781 Code(s): J44.1 - CHRONIC OBSTRUCTIVE PULMONARY DISEASE W (ACUTE) EXACERBATION Status: Acute Current Visit: Yes (2) Acute hypercapnic respiratory failure SNOMED Code(s): 615743167 Code(s): J96.02 - ACUTE RESPIRATORY FAILURE WITH HYPERCAPNIA Status: Acute Current Visit: No (3) BPH (benign prostatic hyperplasia) SNOMED Code(s): 361113954 Code(s): N40.0 - BENIGN PROSTATIC HYPERPLASIA WITHOUT LOWER URINRY TRACT SYMP Status: Acute Current Visit: No (4) Hypoxemia SNOMED Code(s): 914337547 Code(s): R09.02 - HYPOXEMIA Status: Acute Current Visit: No (5) Smoker SNOMED Code(s): 35647374 Code(s): F17.200 - NICOTINE DEPENDENCE, UNSPECIFIED, UNCOMPLICATED Status: Acute Current Visit: Yes - Problem List Review Problem List Initiated/Reviewed/Updated: Yes - My Orders Last 24 Hours: My Active Orders 02/13/21 15:12 Furosemide [Lasix] 20 mg PO DAILY PRN 02/13/21 15:13 RT Post Treatment Assessment [RC] Click to Edit RT Pre-Treatment Assessment [RC] Click to Edit 02/13/21 15:14 Acetaminophen [Tylenol Extra Strength] 500 mg PO Q6H PRN 02/13/21 16:55 Resuscitation Status Routine 02/13/21 21:00 Budesonide/Formoterol [Symbicort 160-4.5 MCG] 0 gm INH BID Pregabalin [Lyrica] 50 mg PO BID Simvastatin [Zocor] 5 mg PO BEDTIME Tamsulosin [Flomax] 0.4 mg PO BEDTIME carvediloL [Coreg] 3.125 mg PO BID 02/14/21 07:30 Levothyroxine 150 mcg PO ACBREAKFAST 02/14/21 09:00 Aspirin [Halfprin] 81 mg PO DAILY methylPREDNISolone Sod Succ [Solu-MEDROL] 40 mg IVPUSH Q12HR modafiniL [ProvigiL] 500 mg PO DAILY 02/18/21 09:00 Patient's Own Medication [Ptom] 1 each IM Th@0900 - Plan Plan:: 70 y/o M admitted for acute over chronic hypoxic and hypercapnic respiratory failure, h/o end stage COPD cont home BiPAP as needed, NC as needed to maintain pulse oxy>88% cont IV steroids, taoper down as clinically appropriate, cont DUoNEbs cont IV azithromycin Monitor and replet electrolytes resume home meds as appropriate Will consult hospice for home hospice services and SW to help family with disposition as states she is unable to manage at home and she wants help in getting patient admitted to [place] halfway.
[2021-02-14] MEDS: Tamsulosin 0.4 MG Cap.ER PO SCH (21:58)
[2021-02-14] MEDS: Simvastatin 10 MG Tab PO SCH (21:58)
[2021-02-15] MEDS: Albuterol/Ipratropium 3.0-0.5 MG/3 ML Neb Soln NEB SCH ×6 (01:00→22:40)
[2021-02-15] MEDS: Sodium Chloride 0.9% 1,000 ML IV SCH (02:00)
[2021-02-15 06:08] LABS: BLOOD UREA NITROGEN,BUN 15 mg/dL (7.0-18.0); CARBON DIOXIDE,CO2 37.6 mmol/L (21.0-32.0); CHLORIDE,CL 104 mmol/L (98-107); GLUCOSE RANDOM 123 mg/dL (74-106); POTASSIUM,K 5.7 mmol/L (3.5-5.1); SODIUM,NA 140 mmol/L (136-148)
[2021-02-15] MEDS: Levothyroxine 150 MCG Tab PO SCH (07:16)
[2021-02-15] MEDS: Pregabalin 50 MG Cap PO SCH ×2 (09:27→22:40)
[2021-02-15] MEDS: Modafinil 100 MG Tab PO SCH (09:28)
[2021-02-15] MEDS: methylPREDNISolone Sodium Succinate 40 MG/1 ML SDV IVPUSH SCH (09:28)
[2021-02-15] MEDS: Carvedilol 3.125 MG Tab PO SCH ×2 (09:28→22:41)
[2021-02-15] MEDS: Aspirin 81 MG Tab.EC PO SCH (09:28)
[2021-02-15] MEDS: BUDESONIDE INH SCH ×2 (09:29→22:41)
[2021-02-15] MEDS: FORMOTEROL INH SCH ×2 (09:29→22:41)
[2021-02-15] MEDS ORDERED: Azithromycin 500 MG in Sodium Chloride 0.9% 250 ML IV SCH (11:00)
[2021-02-15] MEDS ORDERED: Azithromycin 500 MG Vial IV SCH (11:00)
--- NOTE | 2021-02-15 11:15 | PCM.PN ---
- General Info Date of Service: 02/15/21 Admission Dx/Problem (Free Text): Admission Diagnosis/Problem Admission Diagnosis/Problem Respiratory failure with hypercapnia Subjective Update: Feeling improved. Patient able to be up and ambulating on home nasal cannula an d BiPAP. Denies any pain denies any overt worsening of shortness of breath. Awaiting and decision with being placed in either [facility] retirement facility or home with hospice. Functional Status: Reports: Pain Controlled, Tolerating Diet, Ambulating, Urinating - Review of Systems General: Reports: Weakness, Fatigue HEENT: Reports: No Symptoms. Denies: Headaches, Sore Throat, Rhinitis Pulmonary: Reports: Shortness of Breath (At baseline) Cardiovascular: Denies: Chest Pain Gastrointestinal: Denies: Abdominal Pain, Nausea, Vomiting Genitourinary: Reports: No Symptoms. Denies: Dysuria, Frequency, Burning Musculoskeletal: Reports: No Symptoms Skin: Reports: No Symptoms Neurological: Reports: No Symptoms Psychiatric: Reports: No Symptoms - Patient Data Vitals - Most Recent: Last Vital Signs Temp 97.6 F 02/15/21 07:30 Pulse 79 02/15/21 09:28 Resp 20 02/15/21 07:30 BP 109/70 02/15/21 09:28 Pulse Ox 100 02/15/21 07:30 Weight - Most Recent: 61.371 kg I&O - Last 24 Hours: Intake & Output 02/14/21 02/15/21 02/15/21 22:59 06:59 14:59 Intake Total 940 2508 Output Total 1750 1640 Balance -810 868 Lab Results Last 24 Hours: Laboratory Results - last 24 hr 02/15/21 02/15/21 Range/Units 05:36 05:36 WBC 6.54 (4.0-11.0) K/uL RBC 3.95 L (4.50-5.90) M/uL Hgb 11.2 L (13.0-17.0) g/dL Hct 35.7 L (38.0-50.0) % MCV 90.4 (80.0-98.0) fL MCH 28.4 (27.0-32.0) pg MCHC 31.4 (31.0-37.0) g/dL RDW Std Deviation 61.3 (28.0-62.0) fl RDW Coeff of Dalton 18 H (11.0-15.0) % Plt Count 195 (150-400) K/uL MPV 9.60 (7.40-12.00) fL Neut % (Auto) 82.4 H (48.0-80.0) % Lymph % (Auto) 9.0 L (16.0-40.0) % [place] % (Auto) 8.6 (0.0-15.0) % Eos % (Auto) 0.0 (0.0-7.0) % Baso % (Auto) 0.0 (0.0-1.5) % Neut # (Auto) 5.4 (1.4-5.7) K/uL Lymph # (Auto) 0.6 (0.6-2.4) K/uL [place] # (Auto) 0.6 (0.0-0.8) K/uL Eos # (Auto) 0.0 (0.0-0.7) K/uL Baso # (Auto) 0.0 (0.0-0.1) K/uL Nucleated RBC % 0.0 /100WBC Nucleated RBCs # 0 K/uL Sodium 140 (136-148) mmol/L Potassium 5.7 H (3.5-5.1) mmol/L Chloride 104 (98-107) mmol/L Carbon Dioxide 37.6 H (21.0-32.0) mmol/L BUN 15 (7.0-18.0) mg/dL Creatinine 0.7 L (0.8-1.3) mg/dL Est Cr Clr Drug Dosing 87.67 mL/min Estimated GFR (MDRD) > 60.0 ml/min Glucose 123 H (74-106) mg/dL Calcium 8.3 L (8.5-10.1) mg/dL Phosphorus 2.4 L (2.6-4.7) mg/dL Magnesium 2.0 (1.8-2.4) mg/dL Med Orders - Current: Current Medications Acetaminophen (Acetaminophen 500 Mg Tab) 500 mg PO Q6H PRN PRN Reason: Pain Albuterol/Ipratropium (Albuterol/Ipratropium 3.0-0.5 Mg/3 Ml Neb Soln) 3 ml NEB Q4HRRT [facility] Last Admin: 02/15/21 09:35 Dose: 3 ml Documented by: Aspirin (Aspirin 81 Mg Tab.Ec) 81 mg PO DAILY [facility] Last Admin: 02/15/21 09:28 Dose: 81 mg Documented by: Budesonide/Formoterol Fumarate (Budesonide/Formoterol 160-4.5 Mcg/Puff 6 Gm InhalerOwn Med) 0 gm INH BID [facility] Last Admin: 02/15/21 09:29 Dose: 1 puff Documented by: Carvedilol (Carvedilol 3.125 Mg Tab) 3.125 mg PO BID [facility] Last Admin: 02/15/21 09:28 Dose: 3.125 mg Documented by: Furosemide (Furosemide 20 Mg Tab) 20 mg PO DAILY PRN PRN Reason: Edema Sodium Chloride (Normal Saline) 1,000 mls @ 75 mls/hr IV ASDIRECTED [facility] Last Admin: 02/15/21 02:00 Dose: 75 mls/hr Documented by: Azithromycin 500 mg/ Sodium (Chloride) 250 mls @ 250 mls/hr IV DAILY@1100 [facility] Last Admin: 02/15/21 11:01 Dose: 250 mls/hr Documented by: Levothyroxine Sodium (Levothyroxine 150 Mcg Tab) 150 mcg PO ACBREAKFAST [facility] Last Admin: 02/15/21 07:16 Dose: 150 mcg Documented by: Methylprednisolone Sodium Succinate (Methylprednisolone Sodium Succinate 40 Mg/1 Ml Sdv) 40 mg IVPUSH Q12HR [facility] Last Admin: 02/15/21 09:28 Dose: 40 mg Documented by: Modafinil (Modafinil 100 Mg Tab) 500 mg PO DAILY [facility] Last Admin: 02/15/21 09:28 Dose: 500 mg Documented by: Interferon Beta-1a [ (Avonex] 30 Mcg/0.5ml) 1 each IM Th@0900 [facility] Pregabalin (Pregabalin 50 Mg Cap) 50 mg PO BID [facility] Last Admin: 02/15/21 09:27 Dose: 50 mg Documented by: Simvastatin (Simvastatin 10 Mg Tab) 5 mg PO BEDTIME [facility] Last Admin: 02/14/21 21:58 Dose: 5 mg Documented by: Sodium Chloride (Sodium Chloride 0.9% 10 Ml Syringe) 10 ml FLUSH ASDIRECTED PRN PRN Reason: Keep Vein Open Last Admin: 02/13/21 03:12 Dose: 10 ml Documented by: Sodium Chloride (Sodium Chloride 0.9% 2.5 Ml Syringe) 2.5 ml FLUSH ASDIRECTED PRN PRN Reason: Keep Vein Open Last Admin: 02/13/21 03:12 Dose: 2.5 ml Documented by: Tamsulosin HCl (Tamsulosin 0.4 Mg Cap.Er) 0.4 mg PO BEDTIME [facility] Last Admin: 02/14/21 21:58 Dose: 0.4 mg Documented by: Discontinued Medications Azithromycin (Azithromycin 500 Mg Vial) 250 mg IV Q24H [facility] Budesonide/Formoterol Fumarate (Budesonide/Formoterol 160-4.5 Mcg/Puff 6 Gm Inhaler) 0 gm INH BID [facility] Azithromycin 500 mg/ Sodium (Chloride) 250 mls @ 250 mls/hr IV ONETIME [facility] Stop: 02/14/21 06:11 Last Admin: 02/13/21 11:05 Dose: 250 mls/hr Documented by: Azithromycin 250 mg/ Sodium (Chloride) 250 mls @ 250 mls/hr IV ONETIME ONE Stop: 02/14/21 07:14 Last Admin: 02/14/21 06:24 Dose: Not Given Documented by: Magnesium Sulfate (Magnesium Sulfate In Water 2 Gm/50 Ml) 2 gm in 50 mls @ 50 mls/hr IV ONETIME ONE Stop: 02/14/21 08:24 Last Admin: 02/14/21 07:44 Dose: 50 mls/hr Documented by: Azithromycin 250 mg/ Sodium (Chloride) 250 mls @ 250 mls/hr IV ONETIME ONE Stop: 02/14/21 11:59 Last Admin: 02/14/21 11:13 Dose: 250 mls/hr Documented by: Methylprednisolone Sodium Succinate (Methylprednisolone Sodium Succinate 40 Mg/1 Ml Sdv) 40 mg IVPUSH Q8HR [facility] Methylprednisolone Sodium Succinate (Methylprednisolone Sodium Succinate 40 Mg/1 Ml Sdv) 40 mg IVPUSH Q8HR [facility] Last Admin: 02/14/21 06:19 Dose: 40 mg Documented by: - Exam Quality Assessment: Supplemental Oxygen General: Alert, Oriented, Cooperative Lungs: Decreased Breath Sounds, Rhonchi. No: Normal Respiratory Effort (Dyspnea) Cardiovascular: Regular Rate, Regular Rhythm GI/Abdominal Exam: Normal Bowel Sounds, Soft, Non-Tender Back Exam: Normal Inspection, Full Range of Motion Extremities: Normal Inspection, Normal Range of Motion, Non-Tender, No Pedal Edema Neurological: No New Focal Deficit Psy/Mental Status: Alert, Normal Affect, Normal Mood - Patient Data Lab Results Last 24 hrs: Laboratory Results - last 24 hr 02/15/21 02/15/21 Range/Units 05:36 05:36 WBC 6.54 (4.0-11.0) K/uL RBC 3.95 L (4.50-5.90) M/uL Hgb 11.2 L (13.0-17.0) g/dL Hct 35.7 L (38.0-50.0) % MCV 90.4 (80.0-98.0) fL MCH 28.4 (27.0-32.0) pg MCHC 31.4 (31.0-37.0) g/dL RDW Std Deviation 61.3 (28.0-62.0) fl RDW Coeff of [place] 18 H (11.0-15.0) % Plt Count 195 (150-400) K/uL MPV 9.60 (7.40-12.00) fL Neut % (Auto) 82.4 H (48.0-80.0) % Lymph % (Auto) 9.0 L (16.0-40.0) % [place] % (Auto) 8.6 (0.0-15.0) % Eos % (Auto) 0.0 (0.0-7.0) % Baso % (Auto) 0.0 (0.0-1.5) % Neut # (Auto) 5.4 (1.4-5.7) K/uL Lymph # (Auto) 0.6 (0.6-2.4) K/uL [place] # (Auto) 0.6 (0.0-0.8) K/uL Eos # (Auto) 0.0 (0.0-0.7) K/uL Baso # (Auto) 0.0 (0.0-0.1) K/uL Nucleated RBC % 0.0 /100WBC Nucleated RBCs # 0 K/uL Sodium 140 (136-148) mmol/L Potassium 5.7 H (3.5-5.1) mmol/L Chloride 104 (98-107) mmol/L Carbon Dioxide 37.6 H (21.0-32.0) mmol/L BUN 15 (7.0-18.0) mg/dL Creatinine 0.7 L (0.8-1.3) mg/dL Est Cr Clr Drug Dosing 87.67 mL/min Estimated GFR (MDRD) > 60.0 ml/min Glucose 123 H (74-106) mg/dL Calcium 8.3 L (8.5-10.1) mg/dL Phosphorus 2.4 L (2.6-4.7) mg/dL Magnesium 2.0 (1.8-2.4) mg/dL Result Diagrams: 02/15/21 05:36 02/15/21 05:36 Sepsis Event Note - Evaluation Sepsis Screening Result: No Definite Risk - Focused Exam Vital Signs: Vital Signs Temp Pulse Pulse Resp BP BP Pulse Ox 02/15/21 09:28 79 109/70 02/15/21 07:30 97.6 F 79 20 109/70 100 02/15/21 05:27 98.5 F 64 15 104/68 98 02/15/21 00:56 98.5 F 68 15 104/59 L 99 - Problem List & Annotations (1) COPD exacerbation SNOMED Code(s): 671826228 Code(s): J44.1 - CHRONIC OBSTRUCTIVE PULMONARY DISEASE W (ACUTE) EXACERBATION Status: Acute Current Visit: Yes (2) Acute hypercapnic respiratory failure SNOMED Code(s): 501237868 Code(s): J96.02 - ACUTE RESPIRATORY FAILURE WITH HYPERCAPNIA Status: Acute Current Visit: No (3) BPH (benign prostatic hyperplasia) SNOMED Code(s): 304538143 Code(s): N40.0 - BENIGN PROSTATIC HYPERPLASIA WITHOUT LOWER URINRY TRACT SYMP Status: Acute Current Visit: No (4) CHF (congestive heart failure) SNOMED Code(s): 67733281 Code(s): I50.9 - HEART FAILURE, UNSPECIFIED Status: Acute Current Visit: No (5) COPD (chronic obstructive pulmonary disease) SNOMED Code(s): 98563720 Code(s): J44.9 - CHRONIC OBSTRUCTIVE PULMONARY DISEASE, UNSPECIFIED Status: Acute Current Visit: No (6) Hypercapnia SNOMED Code(s): 31398700 Code(s): R06.89 - OTHER ABNORMALITIES OF BREATHING Status: Acute Current Visit: No (7) Hypoxemia SNOMED Code(s): 993204162 Code(s): R09.02 - HYPOXEMIA Status: Acute Current Visit: No (8) Pacemaker SNOMED Code(s): 973977530 Code(s): Z95.0 - PRESENCE OF CARDIAC PACEMAKER Status: Acute Current Visit: No (9) Respiratory failure with hypercapnia SNOMED Code(s): 149638284 Code(s): J96.92 - RESPIRATORY FAILURE, UNSPECIFIED WITH HYPERCAPNIA Status: Acute Current Visit: No - Problem List Review Problem List Initiated/Reviewed/Updated: Yes - My Orders Last 24 Hours: My Active Orders 02/15/21 08:23 Oxygen Therapy [RC] PRN - Plan Plan:: 70 y/o M admitted for acute over chronic hypoxic and hypercapnic respiratory failure, h/o end stage COPD 1. acute on chronic hypoxic and hypercapnic respiratory failure, h/o end stage COPD - Improving. cont home BiPAP as needed, NC as needed to maintain pulse oxy>88% cont steroids, switch to PO Prednisone 40 daily cont DUoNEbs cont azithromycin, switch to PO resume home meds Case management and Social work consulted , consult hospice for home hospice services, help family with disposition as states she is unable to manage at home and she wants help in getting patient admitted to [facility] skilled nursing. Dispo; 1 day pending disposition and plan for discharge with Family and social work/Hospice
[2021-02-15] MEDS: Tamsulosin 0.4 MG Cap.ER PO SCH (22:40)
[2021-02-15] MEDS: Simvastatin 10 MG Tab PO SCH (22:40)
[2021-02-16] MEDS: Albuterol/Ipratropium 3.0-0.5 MG/3 ML Neb Soln NEB SCH ×3 (02:18→10:12)
[2021-02-16] MEDS ORDERED: predniSONE 20 MG Tab PO SCH (08:00)
[2021-02-16] MEDS: Levothyroxine 150 MCG Tab PO SCH (08:27)
[2021-02-16] MEDS ORDERED: Modafinil 100 MG Tab PO SCH (09:00)
[2021-02-16] MEDS: Aspirin 81 MG Tab.EC PO SCH (09:04)
[2021-02-16] MEDS: Carvedilol 3.125 MG Tab PO SCH (09:05)
[2021-02-16] MEDS: Pregabalin 50 MG Cap PO SCH (09:07)
[2021-02-16] MEDS: FORMOTEROL INH SCH (09:10)
[2021-02-16] MEDS: BUDESONIDE INH SCH (09:10)
[2021-02-16] MEDS: Modafinil 100 MG Tab PO SCH (10:32)
[2021-02-16] MEDS ORDERED: Azithromycin 250 MG Tab PO SCH (11:30)
--- NOTE | 2021-02-16 12:04 | PCM.DCSUM1 ---
Discharge Summary - Hospital Course Brief History: 69-year-old male presented with complaint of shortness of breath for the past 1-2 days sent over from [place]. He has a PMH of COPD on home oxygen (baseline 5L), CHF, pacemaker, current smoker, multiple sclerosis and BPH who comes in from home after he was found somnolent at home. Per family patients BiPAP was not working and he got progressively worse. Patient was recently discharged from hospital and was supposed to set up Hospice and placement vis [facility]. Patient was found to be hypercapnic (co2 108) on VBG,started on BiPAP which helped lower the co2, patient became more awake/alert and was eventually admitted for further care. Diagnosis: Stroke: No - Discharge Data Discharge Date: 02/16/21 Discharge Disposition: DC/Tfer to Hospice - Home 50 Condition: Good - Referral to Home Health Primary Care Physician: PCP None - Discharge Diagnosis/Problem(s) (1) COPD exacerbation SNOMED Code(s): 440170249 ICD Code: J44.1 - CHRONIC OBSTRUCTIVE PULMONARY DISEASE W (ACUTE) EXACERBATION Status: Acute Current Visit: Yes (2) Acute hypercapnic respiratory failure SNOMED Code(s): 257768926 ICD Code: J96.02 - ACUTE RESPIRATORY FAILURE WITH HYPERCAPNIA Status: Acute Current Visit: No (3) BPH (benign prostatic hyperplasia) SNOMED Code(s): 239924364 ICD Code: N40.0 - BENIGN PROSTATIC HYPERPLASIA WITHOUT LOWER URINRY TRACT SYMP Status: Acute Current Visit: No (4) CHF (congestive heart failure) SNOMED Code(s): 13405916 ICD Code: I50.9 - HEART FAILURE, UNSPECIFIED Status: Acute Current Visit: No (5) COPD (chronic obstructive pulmonary disease) SNOMED Code(s): 74520720 ICD Code: J44.9 - CHRONIC OBSTRUCTIVE PULMONARY DISEASE, UNSPECIFIED Status: Acute Current Visit: No (6) Hypercapnia SNOMED Code(s): 69890893 ICD Code: R06.89 - OTHER ABNORMALITIES OF BREATHING Status: Acute Current Visit: No (7) Hypoxemia SNOMED Code(s): 042944471 ICD Code: R09.02 - HYPOXEMIA Status: Acute Current Visit: No (8) Pacemaker SNOMED Code(s): 852037086 ICD Code: Z95.0 - PRESENCE OF CARDIAC PACEMAKER Status: Acute Current Visit: No (9) Respiratory failure with hypercapnia SNOMED Code(s): 607580105 ICD Code: J96.92 - RESPIRATORY FAILURE, UNSPECIFIED WITH HYPERCAPNIA Status: Acute Current Visit: No - Patient Summary/Data Consults: Consultations 02/14/21 12:28 Consult to Hospice [CONS] Routine Hospital Course: Admitting diagnoses COPD exacerbation Acute on chronic hypoxic hypercapnic respiratory failure Discharge diagnoses COPD exacerbation Acute on chronic hypoxic hypercapnic respiratory failure There is admitted secondary to acute on chronic hypercapnic positive respiratory failure. He was treated with BiPAP along with steroids and azithromycin. Home BiPAP was checked on admission to ensure this is working as he continued to have issues at home intermittently with increased shortness of breath and low oxygen. and patient are anxious regarding incidences at home there was talk of possible transfer to detention facility but at this time patient and have decided to go home with hospice services. They discussed care with hospice and would like to continue with this for better management of exacerbations and shortness of breath at home. Patient is end-stage COPD and would qualify for hospice. Patient will be discharged home today he will co ntinue 4 more days of prednisone along with a azithromycin. He is to follow-up with PCP as well as continue care with hospice going forward. There is possibility he would be placed in [facility] but at this time he will go home with hospice care and evaluate how the management is at home. - Patient Instructions Diet: Regular Diet as Tolerated Activity: As Tolerated Showering/Bathing: May Shower Notify Provider of: Fever, Increased Pain, Swelling and Redness, Drainage, Nausea and/or Vomiting Other/Special Instructions: Hospice to admit at home today, they will reach out with time and plan. - Discharge Plan *PRESCRIPTION DRUG MONITORING PROGRAM REVIEWED*: Not Applicable *COPY OF PRESCRIPTION DRUG MONITORING REPORT IN PATIENT INES: Not Applicable Prescriptions/Med Rec: predniSONE 40 mg PO WITHBREAKFAST #6 tablet Azithromycin [Zithromax] 500 mg PO Q24H #2 tablet Home Medications: Home Meds Cholecalciferol (Vitamin D3) [Vitamin D3] 2,000 unit PO DAILY 05/14/20 [History] Furosemide 20 mg PO DAILY PRN 05/14/20 [History] Pregabalin 50 mg PO BID 05/14/20 [History] Aspirin [Halfprin] 81 mg PO DAILY 05/15/20 [History] Interferon Beta-1a [Avonex] 30 mcg IM WEEKLY 05/15/20 [History] Simvastatin 5 mg PO BEDTIME 05/15/20 [History] Tamsulosin HCl 0.4 mg PO BEDTIME 05/15/20 [History] Modafinil [Provigil] 500 mg PO DAILY 05/26/20 [History] Levothyroxine 150 mcg PO ACBREAKFAST 09/17/20 [History] carvediloL [Coreg] 3.125 mg PO BID #30 tablet 02/05/21 [Rx] Albuterol Sulfate [Proair Respiclick] 2 puff INH ASDIRECTED PRN 02/13/21 [History] Budesonide/Formoterol Fumarate [Budesonide-Formoterol 160-4.5] 10.2 gm IH BID 02/13/21 [History] Zinc Gluconate [Zinc] 02/13/21 [History] Azithromycin [Zithromax] 500 mg PO Q24H #2 tablet 02/16/21 [Rx] predniSONE 40 mg PO WITHBREAKFAST #6 tablet 02/16/21 [Rx] Oxygen Therapy Mode: Nasal Cannula Patient Handouts: Chronic Obstructive Pulmonary Disease Exacerbation, [id number], Steps to Quit Smoking, [id number], Azithromycin tablets, Prednisone tablets, COPD and Physical Activity Referrals: Geo Rivas NP [Ordering Only Provider] - 03/04/21 2:00 pm - Discharge Summary/Plan Comment DC Time >30 min.: No - Patient Data Vitals - Most Recent: Last Vital Signs Temp 97.4 F 02/16/21 11:56 Pulse 85 02/16/21 11:56 Resp 16 02/16/21 11:56 BP 112/57 L 02/16/21 11:56 Pulse Ox 97 02/16/21 11:56 Weight - Most Recent: 61.371 kg I&O - Last 24 hours: Intake & Output 02/15/21 02/16/21 02/16/21 22:59 06:59 14:59 Intake Total 1915 1000 Output Total 3240 2000 Balance -1325 -1000 Med Orders - Current: Current Medications Acetaminophen (Acetaminophen 500 Mg Tab) 500 mg PO Q6H PRN PRN Reason: Pain Albuterol/Ipratropium (Albuterol/Ipratropium 3.0-0.5 Mg/3 Ml Neb Soln) 3 ml NEB Q4HRRT [facility] Last Admin: 02/16/21 10:12 Dose: 3 ml Documented by: Aspirin (Aspirin 81 Mg Tab.Ec) 81 mg PO DAILY [facility] Last Admin: 02/16/21 09:04 Dose: 81 mg Documented by: Azithromycin (Azithromycin 250 Mg Tab) 500 mg PO Q24H [facility] Last Admin: 02/16/21 11:32 Dose: 500 mg Documented by: Budesonide/Formoterol Fumarate (Budesonide/Formoterol 160-4.5 Mcg/Puff 6 Gm InhalerOwn Med) 0 gm INH BID [facility] Last Admin: 02/16/21 09:10 Dose: 1 puff Documented by: Carvedilol (Carvedilol 3.125 Mg Tab) 3.125 mg PO BID [facility] Last Admin: 02/16/21 09:05 Dose: 3.125 mg Documented by: Furosemide (Furosemide 20 Mg Tab) 20 mg PO DAILY PRN PRN Reason: Edema Levothyroxine Sodium (Levothyroxine 150 Mcg Tab) 150 mcg PO ACBREAKFAST [facility] Last Admin: 02/16/21 08:27 Dose: 150 mcg Documented by: Modafinil (Modafinil 100 Mg Tab) 500 mg PO DAILY [facility] Last Admin: 02/16/21 10:05 Dose: 500 mg Documented by: Interferon Beta-1a [ (Avonex] 30 Mcg/0.5ml) 1 each IM Th@0900 [facility] Prednisone (Prednisone 20 Mg Tab) 40 mg PO WITHBREAKFAST [facility] Last Admin: 02/16/21 09:07 Dose: 40 mg Documented by: Pregabalin (Pregabalin 50 Mg Cap) 50 mg PO BID [facility] Last Admin: 02/16/21 09:07 Dose: 50 mg Documented by: Simvastatin (Simvastatin 10 Mg Tab) 5 mg PO BEDTIME [facility] Last Admin: 02/15/21 22:40 Dose: 5 mg Documented by: Sodium Chloride (Sodium Chloride 0.9% 10 Ml Syringe) 10 ml FLUSH ASDIRECTED PRN PRN Reason: Keep Vein Open Last Admin: 02/13/21 03:12 Dose: 10 ml Documented by: Sodium Chloride (Sodium Chloride 0.9% 2.5 Ml Syringe) 2.5 ml FLUSH ASDIRECTED PRN PRN Reason: Keep Vein Open Last Admin: 02/13/21 03:12 Dose: 2.5 ml Documented by: Tamsulosin HCl (Tamsulosin 0.4 Mg Cap.Er) 0.4 mg PO BEDTIME [facility] Last Admin: 02/15/21 22:40 Dose: 0.4 mg Documented by: Discontinued Medications Azithromycin (Azithromycin 500 Mg Vial) 250 mg IV Q24H [facility] Budesonide/Formoterol Fumarate (Budesonide/Formoterol 160-4.5 Mcg/Puff 6 Gm Inhaler) 0 gm INH BID [facility] Sodium Chloride (Normal Saline) 1,000 mls @ 75 mls/hr IV ASDIRECTED [facility] Last Admin: 02/15/21 02:00 Dose: 75 mls/hr Documented by: Azithromycin 500 mg/ Sodium (Chloride) 250 mls @ 250 mls/hr IV ONETIME [facility] Stop: 02/14/21 06:11 Last Admin: 02/13/21 11:05 Dose: 250 mls/hr Documented by: Azithromycin 250 mg/ Sodium (Chloride) 250 mls @ 250 mls/hr IV ONETIME ONE Stop: 02/14/21 07:14 Last Admin: 02/14/21 06:24 Dose: Not Given Documented by: Magnesium Sulfate (Magnesium Sulfate In Water 2 Gm/50 Ml) 2 gm in 50 mls @ 50 mls/hr IV ONETIME ONE Stop: 02/14/21 08:24 Last Admin: 02/14/21 07:44 Dose: 50 mls/hr Documented by: Azithromycin 250 mg/ Sodium (Chloride) 250 mls @ 250 mls/hr IV ONETIME ONE Stop: 02/14/21 11:59 Last Admin: 02/14/21 11:13 Dose: 250 mls/hr Documented by: Azithromycin 500 mg/ Sodium (Chloride) 250 mls @ 250 mls/hr IV DAILY@1100 [facility] Last Admin: 02/15/21 11:01 Dose: 250 mls/hr Documented by: Methylprednisolone Sodium Succinate (Methylprednisolone Sodium Succinate 40 Mg/1 Ml Sdv) 40 mg IVPUSH Q8HR [facility] Methylprednisolone Sodium Succinate (Methylprednisolone Sodium Succinate 40 Mg/1 Ml Sdv) 40 mg IVPUSH Q8HR [facility] Last Admin: 02/14/21 06:19 Dose: 40 mg Documented by: Methylprednisolone Sodium Succinate (Methylprednisolone Sodium Succinate 40 Mg/1 Ml Sdv) 40 mg IVPUSH Q12HR [facility] Last Admin: 02/15/21 09:28 Dose: 40 mg Documented by: Modafinil (Modafinil 100 Mg Tab) 500 mg PO DAILY [facility] Last Admin: 02/16/21 10:32 Dose: Not Given Documented by:
[2021-02-18] MEDS ORDERED: INTERFERON BETA 30 MCG/0.5 ML IM SCH (09:00)
== END 2021-02-16 12:30 | disposition hospice, home (50) ==
LOC: MW.ED 02:21 → MW.MS 04:05
PROVIDERS: ADMIT Student in an Organized Health Care Education/Training Program; ATTEND Student in an Organized Health Care Education/Training Program
DX: J96.21 Acute and chronic respiratory failure with hypoxia (principal); J96.22 Acute and chronic respiratory failure with hypercapnia; J44.1 Chronic obstructive pulmonary disease with (acute) exacerbation; I50.9 Heart failure, unspecified; F17.210 Nicotine dependence, cigarettes, uncomplicated; N40.0 Benign prostatic hyperplasia without lower urinary tract symptoms; Z20.822 Contact with and (suspected) exposure to COVID-19; Z99.81 Dependence on supplemental oxygen; Z95.0 Presence of cardiac pacemaker; Z88.5 Allergy status to narcotic agent; Z79.899 Other long term (current) drug therapy; Z79.82 Long term (current) use of aspirin
CPT/HCPCS: 0240U; 36415; 71045; 80048; 80053; 82803; 83735; 84100; 84484; 85025; 93005; 94640; 94660; 99285; A9270; J0456; J2920; J3475; J7030; J7050; 93010; 96365; 96366; 96367; 96375; 96376; 99284; G0378; J7620-GY